=== PATIENT | female | born 1980 | race Caucasian/White ===

== ENCOUNTER 2018-11-21 12:46 | Outpatient (CLI) | payer OTHER ==
[2018-11-21 13:05] VITALS: BP 120/76
== END 2018-11-21 15:43 | disposition home or self-care (01) ==
LOC: TRG 12:46
PROVIDERS: ATTEND Obstetrics & Gynecology
DX: O47.03 False labor before 37 completed weeks of gestation, third trimester (principal); Z3A.37 37 weeks gestation of pregnancy

== ENCOUNTER 2018-11-23 17:46 | Inpatient (IN) | payer OTHER ==
--- NOTE | 2018-11-23 19:20 | History and Physical Report ---
History of Present Illness Date of examination: 11/23/18 Date of admission: 11/23/18 Chief complaint: contractions History of present illness: Pt presents c/o contractions. Cx noted to be 1cm. Pt had variable decel and bpp with satya was obtained. SATYA was 8/8 but SATYA was 5cm. Pt admitted for delivery for low SATYA and latent labor. EDC Confirmation: 12/06/2018 Gestational Age: 7 6/7 weeks Past History : 1 Term Births: 0 Premature Births: 0 Living Children: 0 Para: 0 Mult. Births: 0 Prev : 0 Prev. attempt? 0 Aborta: 0 Elect. Ab: 0 Spont. Ab: 0 Ectopics: 0 Past Medical History: Anxiety [facility] Past Surgical History: Reviewed history from 04/08/2016 and no changes required: Negative Past Surgical History Social History: Reviewed history from 04/08/2016 and no changes required: Homemaker Smoking History: Patient has never smoked. Risk Factors: Smoked Tobacco Use: Never smoker Smokeless Tobacco Use: Never Passive smoke exposure: no Drug use: no HIV high-risk behavior: no Alcohol use: yes Type: occ Drinks per day: social Exercise: no Seatbelt use: 100 % Past Medical History Abnormal PAP: positive Uterine Anomaly: negative Social Hx: Homemaker Smoking History: Patient has never smoked. Infection History Hx of STD: none HIV Risk Eval: no Personal hx. of genital herpes: yes Partner hx. of genital herpes: no Genetic History ADVANCED MATERNAL AGE Congenital Heart Defect: Dad: unknown Kristie Disease: Dad: unknown Thalassemia Dad: unknown Neural Tube Defect Dad: unknown Down's Syndrome Dad: unknown Cirilo-Sachs Dad: unknown Sickle Cell Disease/Trait Dad: unknown Hemophilia Dad: unknown Muscular Dystrophy Dad: unknown Cystic Fibrosis Dad: unknown Martin Chorea Dad: unknown Mental Retardation Dad: unknown Fragile X Dad: unknown Other Genetic/Chromosomal Disorder Dad: unknown Child w/other defect Dad: unknown Enviromental Exposures Xray Exposure: no Medication, drug, or alcohol use since LMP: no Chemical/Other Exposure: no Exposure to Cat Liter: no Hx of Parvovirus (Fifth Disease): no Active Medications (reviewed today): 19 ORAL TABLET CHEWABLE ( VIT-FE FUMARATE-FA) 1 po q day as directed VALTREX 500 MG ORAL TABLET (VALACYCLOVIR HCL) one by mouth twice a day for 3 days LEXAPRO 5 MG () VALTREX 500 MG ORAL TABLET (VALACYCLOVIR HCL) one by mouth twice a day for 3 days Current Allergies (reviewed today): No known allergies Past History - Obstetrical History Expected Date of Delivery: 12/06/18 Actual Gestation: 38 Week(s) 2 Day(s) : 1 Medications and Allergies Allergies Allergy/AdvReac Type Severity Reaction Status Date / Time No Known Allergies Allergy Verified 11/23/18 19:31 Review of Systems All systems: negative - Vital Signs Vital signs: Vital Signs Pulse BP 85 177/85 11/23/18 18:02 11/23/18 18:02 Temp Pulse Resp BP Pulse Ox 98.1 F 96 H 14 154/89 11/23/18 18:24 11/23/18 19:07 11/23/18 18:24 11/23/18 19:07 - Physical Exam Lungs: Positive: Clear to auscultation, Normal air movement Abdomen: Positive: normal appearance, soft. Negative: distention, tenderness, guarding Genitourinary (Female): Positive: normal external genitalia, normal perenium. Negative: perineal/vulvar lesions Vagina: Positive: other (no s/sx of SROM as per triage nurse. CX exam as per triage nurse) Results Result Diagrams: 11/23/18 19:45 All other labs normal. Assessment and Plan - Patient Problems (1) 38 weeks gestation of Current Visit: Yes Status: Acute (2) Prolonged latent phase of labor Current Visit: Yes Status: Acute (3) Oligohydramnios antepartum Current Visit: Yes Status: Acute Plan to address problem: -admit -pitocin as needed currently having regular contractions (4) Positive GBS test Current Visit: Yes Status: Acute Plan to address problem: -start antibx until delivery
[2018-11-23] MEDS ORDERED: BRETHINE SUB-Q PRN (19:21)
[2018-11-23] MEDS ORDERED: BRETHINE IVP PRN (19:21)
[2018-11-23] MEDS ORDERED: MINERAL OIL PO PRN (19:21)
[2018-11-23] MEDS ORDERED: XYLOCAINE 2% INFILTRATI ONE (19:21)
[2018-11-23] MEDS ORDERED: AMPICILLIN/NS 2 GM/100 ML 2 GM/100 ML BAG IV ONE (19:21)
--- NOTE | 2018-11-23 19:45 | Ultrasound Report ---
Limited OB ultrasound and BPP INDICATION: labor FINDINGS: Single intrauterine is identified. The fetus is in a cephalic presentation. The a mniotic fluid index is 5 cm which is below normal. The placenta is located anteriorly. Placenta is gr deisy 1. heart rate is 142 bpm. Biophysical profile score is 8 out of 8. There is one pocket of fluid measuring 2 cm in the vertical axis even though the SATYA is decreased. IMPRESSION: The amniotic fluid index is decreased (5 cm). The BPP score is 8 out of 8. Signer Name: Yogesh Dodd MD Signed: 11/23/2018 7:41 PM Workstation Name: [id number]
[2018-11-23] MEDS ORDERED: PITOCin/NS 30 UNIT/500ML 30 UNITS/500 ML BAG IV SCH (20:00)
[2018-11-23] MEDS ORDERED: PITOCin/NS 20 UNIT/1000ML DRIP 20 UNITS/1,000 ML BAG IV SCH (20:00)
[2018-11-23 20:06] LABS: Hematocrit 38.9 % (30.3-42.9); Hemoglobin 13.2 gm/dl (10.1-14.3); Mean Corpuscular HGB Conc 34 % (30-34); Mean Corpuscular Volume 93 fl (79-97); Platelet Count 215 K/mm3 (140-440); Red Blood Count 4.21 M/mm3 (3.65-5.03); Red Cell Distribution Width 16.9 % (13.2-15.2)
[2018-11-23] MEDS: SUBLIMAZE IV PRN ×2 (20:54→22:26)
[2018-11-23] MEDS: LACTATED RINGERS 1,000 ML IV SCH (22:30)
[2018-11-23] MEDS: AMPICILLIN/NS 1 GM/50 ML 1 GM/50 ML BAG IV SCH (23:28)
[2018-11-24] MEDS: SUBLIMAZE IV PRN ×4 (01:40→19:10)
[2018-11-24] MEDS: AMPICILLIN/NS 1 GM/50 ML 1 GM/50 ML BAG IV SCH ×4 (04:00→18:31)
--- NOTE | 2018-11-24 05:58 | Progress Note ---
Assessment and Plan - Patient Problems (1) 38 weeks gestation of Current Visit: Yes Status: Acute (2) Prolonged latent phase of labor Current Visit: Yes Status: Acute (3) Oligohydramnios antepartum Current Visit: Yes Status: Acute Plan to address problem: -admit -pitocin as needed currently having regular contractions (4) Positive GBS test Current Visit: Yes Status: Acute Plan to address problem: -start antibx until delivery (5) SROM (spontaneous rupture of membranes) Current Visit: Yes Status: Acute Plan to address problem: - will start pitocin at this time as contractions seem to have spaced out. Subjective - Subjective Date of service: 11/24/18 Principal diagnosis: 1) 38 wks 2)Oligo Interval history: Pt doing well but c/o having contractions. Pt examnined and bag not palpated and perineum with some bloody show. Fluid appeared to be on the glove as well. It is not clear when SROM happened as pt does not recall no does she recall having leaking prior to coming in to hospital just of having spotting/ bloody discharge. Patient reports: no new complaints Objective - Vital Signs Vital Signs: Vital Signs - 12hr 11/23/18 11/23/18 11/23/18 18:02 18:24 19:07 Temperature 98.1 F Pulse Rate 85 96 H Respiratory 14 Rate Blood Pressure 177/85 154/89 11/23/18 11/23/18 11/23/18 19:30 20:01 20:57 Temperature 97.8 F Pulse Rate 102 H 96 H Respiratory 18 Rate Blood Pressure 173/81 124/72 11/23/18 11/23/18 11/23/18 21:59 22:00 22:17 Temperature 97.6 F Pulse Rate 99 H 95 H Respiratory 20 Rate Blood Pressure 212/115 186/94 11/23/18 11/23/18 11/23/18 22:20 22:21 22:31 Temperature Pulse Rate 100 H 100 H 86 Respiratory Rate Blood Pressure 182/92 178/93 148/75 11/23/18 11/23/18 11/23/18 22:58 23:10 23:59 Temperature 98.6 F Pulse Rate 90 99 H Respiratory 20 Rate Blood Pressure 135/81 182/87 11/24/18 11/24/18 11/24/18 00:04 00:05 01:37 Temperature Pulse Rate 102 H 102 H 95 H Respiratory Rate Blood Pressure 151/83 165/82 139/73 11/24/18 11/24/18 11/24/18 01:58 02:30 03:24 Temperature 97.8 F Pulse Rate 92 H 101 H Respiratory 20 Rate Blood Pressure 136/75 162/89 - Exam FHR: category 1 Cervical Dilatation: 1 (appears to have SROM/ clear fluid; no bag palpated on exam) Cervical Effacement Percentage: 100 station: -1 - Labs Labs: Abnormal Labs 11/23/18 19:45 WBC 12.3 H RDW 16.9 H Laboratory Results - last 24 hr 11/23/18 11/23/18 19:45 21:00 WBC 12.3 H RBC 4.21 Hgb 13.2 Hct 38.9 MCV 93 MCH 31 MCHC 34 RDW 16.9 H Plt Count 215 Blood Type O NEGATIVE Antibody Screen Negative
--- NOTE | 2018-11-24 13:46 | Progress Note ---
Assessment and Plan SVE 5,100,-1 Bolus for epidural Re-eval after placement Subjective - Subjective Date of service: 11/24/18 (pt asking for epidural) Principal diagnosis: 1) 38 wks 2)Oligo Patient reports: movement normal, no new complaints Objective - Vital Signs Vital Signs: Vital Signs - 12hr 11/24/18 11/24/18 11/24/18 01:58 02:00 02:30 Temperature 97.6 F 97.8 F Pulse Rate 92 H Respiratory 20 20 Rate Blood Pressure 136/75 11/24/18 11/24/18 11/24/18 03:24 04:00 08:18 Temperature 98.0 F Pulse Rate 101 H 107 H Respiratory 20 Rate Blood Pressure 162/89 122/69 11/24/18 11/24/18 11/24/18 10:12 10:41 11:11 Temperature Pulse Rate 104 H 100 H 107 H Respiratory Rate Blood Pressure 131/79 139/70 144/82 11/24/18 11/24/18 11/24/18 11:41 11:48 11:53 Temperature Pulse Rate 93 H 90 90 Respiratory Rate Blood Pressure 138/77 127/69 142/69 11/24/18 11/24/18 11/24/18 11:58 12:01 12:07 Temperature Pulse Rate 90 90 90 Respiratory Rate Blood Pressure 139/69 139/72 139/69 11/24/18 11/24/18 11/24/18 12:11 12:16 12:36 Temperature Pulse Rate 94 H 87 94 H Respiratory Rate Blood Pressure 126/64 129/65 143/76 11/24/18 11/24/18 11/24/18 12:51 13:06 13:22 Temperature Pulse Rate 105 H 109 H 103 H Respiratory Rate Blood Pressure 137/70 135/77 155/84 - Exam Breasts: deferred Cardiovascular: Regular rate Lungs: Normal air movement, Other Abdomen: Present: normal appearance, soft. Absent: distention, tenderness Uterus: Present: normal FHR: auscultation normal, category 1 Uterine Contraction Monitor Mode: Internal Cervical Dilatation: 5 (ISE/IUP) Cervical Effacement Percentage: 100 station: -1 Uterine Contraction Pattern: Regular Uterine Tone Measurement Phase: Resting Uterine Contraction Intensity: Moderate Extremities: normal Deep Tendon Reflex Grade: Normal +2 - Labs Labs: Abnormal Labs 11/23/18 19:45 WBC 12.3 H RDW 16.9 H Laboratory Results - last 24 hr 11/23/18 11/23/18 11/23/18 19:45 19:45 21:00 WBC 12.3 H RBC 4.21 Hgb 13.2 Hct 38.9 MCV 93 MCH 31 MCHC 34 RDW 16.9 H Plt Count 215 RPR Nonreactive Blood Type O NEGATIVE Antibody Screen Negative
[2018-11-24] MEDS: LACTATED RINGERS 1,000 ML IV SCH (13:55)
[2018-11-24] MEDS ORDERED: NARCAN 2 MG/2 ML IV PRN (15:02)
[2018-11-24] MEDS ORDERED: XYLOCAINE MPF 2% ONE (15:47)
[2018-11-24] MEDS ORDERED: fentaNYL-BUPIV 2 MCG/ML-0.125% 200 MCG/100 ML BAG EPIDURAL SCH (16:00)
[2018-11-24] MEDS ORDERED: MARCAINE 0.25% INFILTRATI ONE ×2 (16:02→19:43)
[2018-11-24 16:23] LABS: Hematocrit 39.4 % (30.3-42.9); Hemoglobin 13.5 gm/dl (10.1-14.3); Mean Corpuscular HGB Conc 34 % (30-34); Mean Corpuscular Volume 91 fl (79-97); Platelet Count 195 K/mm3 (140-440); Red Blood Count 4.31 M/mm3 (3.65-5.03); Red Cell Distribution Width 16.6 % (13.2-15.2)
[2018-11-24] MEDS ORDERED: LASIX IV ONE ×2 (16:25→17:00)
--- NOTE | 2018-11-24 16:38 | XRay Report ---
CHEST 1 VIEW 11/24/2018 3:53 PM INDICATION / CLINICAL INFORMATION: Respiratory distress. COMPARISON: None available. FINDINGS: SUPPORT DEVICES: None. HEART / MEDIASTINUM: Mild cardiomegaly. LUNGS / PLEURA: Mild bilateral interstitial edema. No significant pleural effusion. No pneumothorax. ADDITIONAL FINDINGS: No significant additional findings. IMPRESSION: 1. Mild cardiomegaly and bilateral interstitial pulmonary edema. Signer Name: Cezar Sorto MD Signed: 11/24/2018 4:33 PM Workstation Name: [id number]
--- NOTE | 2018-11-24 16:41 | Progress Note ---
Assessment and Plan anesthesia presented to pt's room to place epidural and pt was c/o being SOB, gasping. O2 via face mask, O2 sat 70%. Stat x-ray ordered, BP elevated PIH labs ordered. SVE unchged. Notified of situation Order given for Lasix 10mg X 1 dose. Subjective - Subjective Date of service: 11/24/18 (called urgently to room) Principal diagnosis: 1) 38 wks 2)Oligo Patient reports: movement normal, other (labored breathing when anesthesia presented to the room), no new complaints Objective - Vital Signs Vital Signs: Vital Signs - 12hr 11/24/18 11/24/18 11/24/18 08:18 10:12 10:41 Pulse Rate 107 H 104 H 100 H Blood Pressure 122/69 131/79 139/70 O2 Sat by Pulse Oximetry 11/24/18 11/24/18 11/24/18 11:11 11:41 11:48 Pulse Rate 107 H 93 H 90 Blood Pressure 144/82 138/77 127/69 O2 Sat by Pulse Oximetry 11/24/18 11/24/18 11/24/18 11:53 11:58 12:01 Pulse Rate 90 90 90 Blood Pressure 142/69 139/69 139/72 O2 Sat by Pulse Oximetry 11/24/18 11/24/18 11/24/18 12:07 12:11 12:16 Pulse Rate 90 94 H 87 Blood Pressure 139/69 126/64 129/65 O2 Sat by Pulse Oximetry 11/24/18 11/24/18 11/24/18 12:36 12:51 13:06 Pulse Rate 94 H 105 H 109 H Blood Pressure 143/76 137/70 135/77 O2 Sat by Pulse Oximetry 11/24/18 11/24/18 11/24/18 13:22 14:13 14:18 Pulse Rate 103 H 110 H 108 H Blood Pressure 155/84 O2 Sat by Pulse 93 91 Oximetry 11/24/18 11/24/18 11/24/18 14:20 14:22 14:23 Pulse Rate 116 H 113 H 114 H Blood Pressure 169/93 O2 Sat by Pulse 94 92 Oximetry 11/24/18 11/24/18 11/24/18 14:28 14:33 14:36 Pulse Rate 117 H 118 H 109 H Blood Pressure 139/62 O2 Sat by Pulse 93 76 L Oximetry 11/24/18 11/24/18 11/24/18 14:38 14:43 14:48 Pulse Rate 114 H 113 H 118 H Blood Pressure O2 Sat by Pulse 88 87 89 Oximetry 11/24/18 11/24/18 11/24/18 14:53 14:58 15:03 Pulse Rate 113 H 121 H 122 H Blood Pressure O2 Sat by Pulse 86 73 L 76 L Oximetry 11/24/18 11/24/18 11/24/18 15:07 15:08 15:13 Pulse Rate 116 H 121 H 124 H Blood Pressure 172/111 O2 Sat by Pulse 76 L 79 L Oximetry 11/24/18 11/24/18 11/24/18 15:39 15:40 15:42 Pulse Rate 136 H 125 H Blood Pressure 221/96 O2 Sat by Pulse 72 L 70 L Oximetry 11/24/18 11/24/18 11/24/18 15:45 15:48 15:50 Pulse Rate 132 H 133 H 131 H Blood Pressure 265/148 137/90 O2 Sat by Pulse 88 90 Oximetry 11/24/18 11/24/18 11/24/18 15:52 15:55 16:00 Pulse Rate 139 H 131 H 141 H Blood Pressure 143/81 O2 Sat by Pulse 94 86 Oximetry 11/24/18 11/24/18 11/24/18 16:03 16:05 16:10 Pulse Rate 138 H 138 H 137 H Blood Pressure O2 Sat by Pulse 90 91 90 Oximetry 11/24/18 11/24/18 11/24/18 16:11 16:15 16:20 Pulse Rate 45 L 140 H Blood Pressure O2 Sat by Pulse 94 93 92 Oximetry 11/24/18 11/24/18 11/24/18 16:21 16:23 16:25 Pulse Rate 144 H 141 H 130 H Blood Pressure 185/99 186/90 O2 Sat by Pulse 93 Oximetry 11/24/18 11/24/18 16:26 16:27 Pulse Rate 134 H 136 H Blood Pressure 160/66 O2 Sat by Pulse 92 Oximetry - Exam Breasts: deferred Cardiovascular: Other (tachycardia >100) Lungs: Other (wheezing and rales) Abdomen: Present: normal appearance, soft. Absent: distention, tenderness Uterus: Present: normal FHR: auscultation normal, category 1 Uterine Contraction Monitor Mode: External Cervical Dilatation: 4 Cervical Effacement Percentage: 100 station: -1 Uterine Contraction Pattern: Regular Uterine Tone Measurement Phase: Resting Uterine Contraction Intensity: Moderate Extremities: edema Deep Tendon Reflex Grade: Normal +2 - Labs Labs: Abnormal Labs 11/23/18 11/24/18 19:45 16:12 WBC 12.3 H 16.3 H RDW 16.9 H 16.6 H Laboratory Results - last 24 hr 11/23/18 11/23/18 11/23/18 19:45 19:45 21:00 WBC 12.3 H RBC 4.21 Hgb 13.2 Hct 38.9 MCV 93 MCH 31 MCHC 34 RDW 16.9 H Plt Count 215 RPR Nonreactive Blood Type O NEGATIVE Antibody Screen Negative 11/24/18 16:12 WBC 16.3 H RBC 4.31 Hgb 13.5 Hct 39.4 MCV 91 MCH 31 MCHC 34 RDW 16.6 H Plt Count 195 RPR Blood Type Antibody Screen
[2018-11-24 16:46] LABS: Alanine Aminotransferase 24 units/L (7-56); Uric Acid 4.7 mg/dL (3.5-7.6)
[2018-11-24] MEDS ORDERED: NEO SYNEPHRINE ONE (16:55)
[2018-11-24] MEDS ORDERED: REGLAN ONE (17:04)
[2018-11-24] MEDS ORDERED: BICITRA ONE (17:04)
[2018-11-24] MEDS ORDERED: PEPCID IV ONE (17:05)
[2018-11-24] MEDS ORDERED: ANCEF/STERILE WATER 2 GM/20 ML 2 GM/20 ML SYRINGE IV ONE (17:05)
[2018-11-24 17:40] LABS: Bilirubin,Urine NEG (Negative); Blood,Urine SM (Negative); Color,Urine Straw (Yellow); Protein,Urine <15 mg/dL mg/dL (Negative); Urobilinogen,Urine < 2.0 mg/dL (<2.0); WBC,Urine < 1.0 /HPF (0.0-6.0)
--- NOTE | 2018-11-24 18:05 | Progress Note ---
Assessment and Plan - Patient Problems (1) 38 weeks gestation of Current Visit: Yes Status: Acute Plan to address problem: No cervical change since ~1330, pitocin only increased to 4mu/min with variables noted at 4mu/min. Pitocin decreaseed to 2mu/min however discontinued when she was diagnosed with Pulm edema. Options reviewed. She desires to proceed with c/s however will attempt to optimize breathing prior to c/s. Cat 1 FHT's (2) Pulmonary edema Current Visit: Yes Status: Acute Plan to address problem: Feeling better, s/p lasix 10mg IV x2 (3) Preeclampsia Current Visit: Yes Status: Acute Plan to address problem: Diagnosis by elevated BP's, will hold MgSO4 d/t pulmonary edema. observe closely (4) Positive GBS test Current Visit: Yes Status: Acute Subjective - Subjective Date of service: 11/24/18 Principal diagnosis: 1) 38 wks 2)Oligo 3) Preeclampsia 4) pulmonary edema Interval history: Breathing better, resting in bed head elevated. 10L face mask Patient reports: new complaints, movement normal, other (labored breathing when anesthesia presented to the room) Objective - Vital Signs Vital Signs: Vital Signs - 12hr 11/24/18 11/24/18 11/24/18 08:18 10:12 10:41 Pulse Rate 107 H 104 H 100 H Blood Pressure 122/69 131/79 139/70 O2 Sat by Pulse Oximetry 11/24/18 11/24/18 11/24/18 11:11 11:41 11:48 Pulse Rate 107 H 93 H 90 Blood Pressure 144/82 138/77 127/69 O2 Sat by Pulse Oximetry 11/24/18 11/24/18 11/24/18 11:53 11:58 12:01 Pulse Rate 90 90 90 Blood Pressure 142/69 139/69 139/72 O2 Sat by Pulse Oximetry 11/24/18 11/24/18 11/24/18 12:07 12:11 12:16 Pulse Rate 90 94 H 87 Blood Pressure 139/69 126/64 129/65 O2 Sat by Pulse Oximetry 11/24/18 11/24/18 11/24/18 12:36 12:51 13:06 Pulse Rate 94 H 105 H 109 H Blood Pressure 143/76 137/70 135/77 O2 Sat by Pulse Oximetry 11/24/18 11/24/1811/24/19 13:22 14:13 14:18 Pulse Rate 103 H 110 H 108 H Blood Pressure 155/84 O2 Sat by Pulse 93 91 Oximetry 11/24/18 11/24/18 11/24/18 14:20 14:22 14:23 Pulse Rate 116 H 113 H 114 H Blood Pressure 169/93 O2 Sat by Pulse 94 92 Oximetry 11/24/18 11/24/18 11/24/18 14:28 14:33 14:36 Pulse Rate 117 H 118 H 109 H Blood Pressure 139/62 O2 Sat by Pulse 93 76 L Oximetry 11/24/18 11/24/18 11/24/18 14:38 14:43 14:48 Pulse Rate 114 H 113 H 118 H Blood Pressure O2 Sat by Pulse 88 87 89 Oximetry 11/24/18 11/24/18 11/24/18 14:53 14:58 15:03 Pulse Rate 113 H 121 H 122 H Blood Pressure O2 Sat by Pulse 86 73 L 76 L Oximetry 11/24/18 11/24/18 11/24/18 15:07 15:08 15:13 Pulse Rate 116 H 121 H 124 H Blood Pressure 172/111 O2 Sat by Pulse 76 L 79 L Oximetry 11/24/18 11/24/18 11/24/18 15:39 15:40 15:42 Pulse Rate 136 H 125 H Blood Pressure 221/96 O2 Sat by Pulse 72 L 70 L Oximetry 11/24/18 11/24/18 11/24/18 15:45 15:48 15:50 Pulse Rate 132 H 133 H 131 H Blood Pressure 265/148 137/90 O2 Sat by Pulse 88 90 Oximetry 11/24/18 11/24/18 11/24/18 15:52 15:55 16:00 Pulse Rate 139 H 131 H 141 H Blood Pressure 143/81 O2 Sat by Pulse 94 86 Oximetry 11/24/18 11/24/18 11/24/18 16:03 16:05 16:10 Pulse Rate 138 H 138 H 137 H Blood Pressure O2 Sat by Pulse 90 91 90 Oximetry 11/24/18 11/24/18 11/24/18 16:11 16:15 16:20 Pulse Rate 45 L 140 H Blood Pressure O2 Sat by Pulse 94 93 92 Oximetry 11/24/18 11/24/18 11/24/18 16:21 16:23 16:25 Pulse Rate 144 H 141 H 130 H Blood Pressure 185/99 186/90 O2 Sat by Pulse 93 Oximetry 11/24/18 11/24/18 11/24/18 16:26 16:27 16:29 Pulse Rate 134 H 136 H 136 H Blood Pressure 160/66 150/66 O2 Sat by Pulse 92 Oximetry 11/24/18 11/24/18 11/24/18 16:31 16:37 16:38 Pulse Rate 133 H 60 150 H Blood Pressure 142/63 148/67 O2 Sat by Pulse 93 78 L Oximetry 11/24/18 11/24/18 11/24/18 16:41 16:42 16:47 Pulse Rate 148 H 150 H 64 Blood Pressure 121/57 O2 Sat by Pulse 90 89 Oximetry 11/24/18 11/24/18 11/24/18 16:48 16:50 16:52 Pulse Rate 65 137 H 153 H Blood Pressure 81/38 76/43 O2 Sat by Pulse 88 Oximetry 11/24/18 11/24/18 11/24/18 16:56 16:57 17:03 Pulse Rate 116 H 110 H Blood Pressure O2 Sat by Pulse 92 89 100 Oximetry 11/24/18 11/24/18 11/24/18 17:06 17:09 17:12 Pulse Rate 121 H 117 H Blood Pressure 115/59 O2 Sat by Pulse 92 94 Oximetry 11/24/18 11/24/18 11/24/18 17:14 17:18 17:19 Pulse Rate 107 H 118 H 126 H Blood Pressure 83/43 O2 Sat by Pulse 91 93 Oximetry 11/24/18 11/24/18 11/24/18 17:24 17:28 17:29 Pulse Rate 116 H 125 H 121 H Blood Pressure 90/52 O2 Sat by Pulse 91 93 91 Oximetry 11/24/18 11/24/18 11/24/18 17:33 17:34 17:37 Pulse Rate 106 H 100 H 95 H Blood Pressure 112/60 115/66 O2 Sat by Pulse 92 Oximetry 11/24/18 11/24/18 11/24/18 17:39 17:42 17:43 Pulse Rate 115 H 102 H 114 H Blood Pressure 111/69 O2 Sat by Pulse 98 94 Oximetry 11/24/18 11/24/18 11/24/18 17:44 17:47 17:49 Pulse Rate 111 H 116 H 110 H Blood Pressure 111/58 O2 Sat by Pulse 97 96 Oximetry 11/24/18 11/24/18 11/24/18 17:52 17:54 17:57 Pulse Rate 104 H 103 H 108 H Blood Pressure 108/55 108/56 O2 Sat by Pulse 96 Oximetry 11/24/18 11/24/18 11/24/18 17:59 18:02 18:04 Pulse Rate 110 H 106 H 103 H Blood Pressure 113/64 O2 Sat by Pulse 97 96 Oximetry - Exam Breasts: deferred Lungs: Other Vulva: both: normal Uterus: Present: fundal height above umbilicus. Absent: tenderness FHR: category 1 Uterine Contraction Monitor Mode: Internal Cervical Dilatation: 5 Cervical Effacement Percentage: 100 station: 0 Uterine Contraction Pattern: Regular (pitocin off) Extremities: edema (trace) - Labs Labs: Abnormal Labs 11/23/18 11/24/18 11/24/18 19:45 16:12 16:12 WBC 12.3 H 16.3 H RDW 16.9 H 16.6 H Creatinine 0.5 L Lactate Dehydrogenase 248 H Laboratory Results - last 24 hr 11/23/18 11/23/18 11/23/18 19:45 19:45 21:00 WBC 12.3 H RBC 4.21 Hgb 13.2 Hct 38.9 MCV 93 MCH 31 MCHC 34 RDW 16.9 H Plt Count 215 Creatinine Estimated GFR Uric Acid AST ALT Lactate Dehydrogenase Urine Color Urine Turbidity Urine pH Ur Specific [place] Urine Protein Urine Glucose (UA) Urine Ketones Urine Blood Urine Nitrite Urine Bilirubin Urine Urobilinogen Ur Leukocyte Esterase Urine WBC (Auto) Urine RBC (Auto) U Epithel Cells (Auto) RPR Nonreactive Blood Type O NEGATIVE Antibody Screen Negative 11/24/18 11/24/18 11/24/18 16:12 16:12 16:26 WBC 16.3 H RBC 4.31 Hgb 13.5 Hct 39.4 MCV 91 MCH 31 MCHC 34 RDW 16.6 H Plt Count 195 Creatinine 0.5 L Estimated GFR > 60 Uric Acid 4.7 AST 33 ALT 24 Lactate Dehydrogenase 248 H Urine Color Straw Urine Turbidity Clear Urine pH 6.0 Ur Specific [place] 1.009 Urine Protein <15 mg/dl Urine Glucose (UA) >=500 Urine Ketones 80 Urine Blood Sm Urine Nitrite Neg Urine Bilirubin Neg Urine Urobilinogen < 2.0 Ur Leukocyte Esterase Neg Urine WBC (Auto) < 1.0 Urine RBC (Auto) 2.0 U Epithel Cells (Auto) < 1.0 RPR Blood Type Antibody Screen
--- NOTE | 2018-11-24 18:24 | Anesthesia Consultation ---
Anesthesia Consult and Med Hx Date of service: 11/24/18 - Airway Anesthetic Teeth Evaluation: Good ROM Head & Neck: Adequate Mental/Hyoid Distance: Adequate Mallampati Class: Class II Intubation Access Assessment: Probably Good - Pulmonary Exam CTA: No (diffuse bilateral rhonchi) - Cardiac Exam Cardiac Exam: RRR (tachycardia) - Pre-Operative Health Status ASA Pre-Surgery Classification: ASA3 Proposed Anesthetic Plan: Epidural - Pulmonary Hx Smoking: No Hx Asthma: No Hx Respiratory Symptoms: Yes (sudden onset dyspnea less than 30 mins prior to exam) SOB: Yes COPD: No Hx Pneumonia: No - Cardiovascular System Hx Hypertension: Yes (BP elevated on admission) Hx Heart Attack/AMI: No Hx Percutaneous Transluminal Coronary Angioplasty (PTCA): No Hx Cardia Arrhythmia: No - Central Nervous System Hx Seizures: No CVA: No Hx Psychiatric Problems: Yes (anxiety) - Endocrine Hx Renal Disease: No Hx Liver Disease: No Hx Non-Insulin Dependent Diabetes: Yes Hx Thyroid Disease: No - Other Systems Hx Alcohol Use: Yes (occassional) - Additional Comments Anesthesia Medical History Comments: No prior epidurals. No hx bleeding disorders or anticoagulant use. On arrival to patient's room at approx 1545, patient complained of acute onset SOB which started less than one half hour prior to my arrival. She appeared in moderate distress and lung exam revealed diffuse rhonchi. Pulse oxymetry was applied and showed SpO2 mid-70s. She was placed on supplemental O2 via NRB with gradual improvement to low-90s. [employer] and OB were notified. Stat CXR was ordered revealing pulmonary edema and stat PIH labs were drawn. Decision was made to place epidural catheter at this time to relieve significant discomfort/anxiety associated with labor pain and for use should urgent/emergent become indicated (see anes record for procedure note). Patient was administerred lasix 10mg IV per OB orders, to which she did n ot have significant urinary response but did have improvement in work of breathing. Patient was later examined in conjuction with OB and diagnosis of pre-eclampsia with severe features was made. SVE unchanged and patient remote from delivery. Per OB, will attempt further diuresis with lasix at this time to optimize respiratory status prior to likely . Plan of care discussed with patient and family memeber at bedside.
--- NOTE | 2018-11-24 18:46 | Event Note ---
Date: 11/24/18 Assessment and Plan - Patient Problems (1) 38 weeks gestation of Current Visit: Yes Status: Acute (2) Pulmonary edema Current Visit: Yes Status: Acute (3) Positive GBS test Current Visit: Yes Status: Acute (4) Gestational hypertension Current Visit: Yes Status: Acute Qualifiers: Trimester: third trimester Qualified Code(s): O13.3 - Gestational [-induced] hypertension without significant proteinuria, third trimester Plan to address problem: with severe features, UA resulted, negative protein. Still with hold MgSO4 d/t pulm edema
[2018-11-24] MEDS ORDERED: LASIX IV SCH (19:00)
[2018-11-24] MEDS ORDERED: APRESOLINE IV ONE (19:05)
[2018-11-24] MEDS ORDERED: XYLOCAINE 2%/ EPI 1:200,000 INFILTRATI ONE (19:51)
--- NOTE | 2018-11-24 19:51 | Progress Note ---
Assessment and Plan - Patient Problems (1) 38 weeks gestation of Current Visit: Yes Status: Acute (2) Pulmonary edema Current Visit: Yes Status: Acute (3) Positive GBS test Current Visit: Yes Status: Acute (4) Gestational hypertension Current Visit: Yes Status: Acute Qualifiers: Trimester: third trimester Qualified Code(s): O13.3 - Gestational [-induced] hypertension without significant proteinuria, third trimester (5) Failure of cervical dilation Current Visit: Yes Status: Acute Subjective - Subjective Date of service: 11/24/18 Principal diagnosis: 1) 38 wks 2)Oligo 3) Preeclampsia 4) pulmonary edema Interval history: Feels better, complains of contractions, resting in bed head elevated. Declined pelvic exam, desires to proceed with c/s. Consents reviewed and signed, questions encouraged and answered, she voiced understanding. Patient reports: new complaints, movement normal, other (labored breathing when anesthesia presented to the room) Objective - Vital Signs Vital Signs: Vital Signs - 12hr 11/24/18 11/24/18 11/24/18 08:18 10:12 10:41 Temperature Pulse Rate 107 H 104 H 100 H Respiratory Rate Blood Pressure 122/69 131/79 139/70 O2 Sat by Pulse Oximetry 11/24/18 11/24/18 11/24/18 11:11 11:41 11:48 Temperature Pulse Rate 107 H 93 H 90 Respiratory Rate Blood Pressure 144/82 138/77 127/69 O2 Sat by Pulse Oximetry 11/24/18 11/24/18 11/24/18 11:53 11:58 12:01 Temperature Pulse Rate 90 90 90 Respiratory Rate Blood Pressure 142/69 139/69 139/72 O2 Sat by Pulse Oximetry 11/24/18 11/24/18 11/24/18 12:07 12:11 12:16 Temperature Pulse Rate 90 94 H 87 Respiratory Rate Blood Pressure 139/69 126/64 129/65 O2 Sat by Pulse Oximetry 11/24/18 11/24/18 11/24/18 12:36 12:51 13:06 Temperature Pulse Rate 94 H 105 H 109 H Respiratory Rate Blood Pressure 143/76 137/70 135/77 O2 Sat by Pulse Oximetry 11/24/18 11/24/18 11/24/18 13:22 14:13 14:18 Temperature Pulse Rate 103 H 110 H 108 H Respiratory Rate Blood Pressure 155/84 O2 Sat by Pulse 93 91 Oximetry 11/24/18 11/24/18 11/24/18 14:20 14:22 14:23 Temperature Pulse Rate 116 H 113 H 114 H Respiratory Rate Blood Pressure 169/93 O2 Sat by Pulse 94 92 Oximetry 11/24/18 11/24/18 11/24/18 14:28 14:33 14:36 Temperature Pulse Rate 117 H 118 H 109 H Respiratory Rate Blood Pressure 139/62 O2 Sat by Pulse 93 76 L Oximetry 11/24/18 11/24/18 11/24/18 14:38 14:43 14:48 Temperature Pulse Rate 114 H 113 H 118 H Respiratory Rate Blood Pressure O2 Sat by Pulse 88 87 89 Oximetry 11/24/18 11/24/18 11/24/18 14:53 14:58 15:03 Temperature Pulse Rate 113 H 121 H 122 H Respiratory Rate Blood Pressure O2 Sat by Pulse 86 73 L 76 L Oximetry 11/24/18 11/24/18 11/24/18 15:07 15:08 15:13 Temperature Pulse Rate 116 H 121 H 124 H Respiratory Rate Blood Pressure 172/111 O2 Sat by Pulse 76 L 79 L Oximetry 11/24/18 11/24/18 11/24/18 15:39 15:40 15:42 Temperature Pulse Rate 136 H 125 H Respiratory Rate Blood Pressure 221/96 O2 Sat by Pulse 72 L 70 L Oximetry 11/24/18 11/24/18 11/24/18 15:45 15:48 15:50 Temperature Pulse Rate 132 H 133 H 131 H Respiratory Rate Blood Pressure 265/148 137/90 O2 Sat by Pulse 88 90 Oximetry 11/24/18 11/24/18 11/24/18 15:52 15:55 16:00 Temperature Pulse Rate 139 H 131 H 141 H Respiratory Rate Blood Pressure 143/81 O2 Sat by Pulse 94 86 Oximetry 11/24/18 11/24/18 11/24/18 16:03 16:05 16:10 Temperature Pulse Rate 138 H 138 H 137 H Respiratory Rate Blood Pressure O2 Sat by Pulse 90 91 90 Oximetry 11/24/18 11/24/18 11/24/18 16:11 16:15 16:20 Temperature Pulse Rate 45 L 140 H Respiratory Rate Blood Pressure O2 Sat by Pulse 94 93 92 Oximetry 11/24/18 11/24/18 11/24/18 16:21 16:23 16:25 Temperature Pulse Rate 144 H 141 H 130 H Respiratory Rate Blood Pressure 185/99 186/90 O2 Sat by Pulse 93 Oximetry 11/24/18 11/24/18 11/24/18 16:26 16:27 16:29 Temperature Pulse Rate 134 H 136 H 136 H Respiratory Rate Blood Pressure 160/66 150/66 O2 Sat by Pulse 92 Oximetry 11/24/18 11/24/18 11/24/18 16:31 16:37 16:38 Temperature Pulse Rate 133 H 60 150 H Respiratory Rate Blood Pressure 142/63 148/67 O2 Sat by Pulse 93 78 L Oximetry 11/24/18 11/24/18 11/24/18 16:41 16:42 16:47 Temperature Pulse Rate 148 H 150 H 64 Respiratory Rate Blood Pressure 121/57 O2 Sat by Pulse 90 89 Oximetry 11/24/18 11/24/18 11/24/18 16:48 16:50 16:52 Temperature Pulse Rate 65 137 H 153 H Respiratory Rate Blood Pressure 81/38 76/43 O2 Sat by Pulse 88 Oximetry 11/24/18 11/24/18 11/24/18 16:56 16:57 17:03 Temperature Pulse Rate 116 H 110 H Respiratory Rate Blood Pressure O2 Sat by Pulse 92 89 100 Oximetry 11/24/18 11/24/18 11/24/18 17:06 17:09 17:12 Temperature Pulse Rate 121 H 117 H Respiratory Rate Blood Pressure 115/59 O2 Sat by Pulse 92 94 Oximetry 11/24/18 11/24/18 11/24/18 17:14 17:18 17:19 Temperature Pulse Rate 107 H 118 H 126 H Respiratory Rate Blood Pressure 83/43 O2 Sat by Pulse 91 93 Oximetry 11/24/18 11/24/18 11/24/18 17:24 17:28 17:29 Temperature Pulse Rate 116 H 125 H 121 H Respiratory Rate Blood Pressure 90/52 O2 Sat by Pulse 91 93 91 Oximetry 11/24/18 11/24/18 11/24/18 17:33 17:34 17:37 Temperature Pulse Rate 106 H 100 H 95 H Respiratory Rate Blood Pressure 112/60 115/66 O2 Sat by Pulse 92 Oximetry 11/24/18 11/24/18 11/24/18 17:39 17:42 17:43 Temperature Pulse Rate 115 H 102 H 114 H Respiratory Rate Blood Pressure 111/69 O2 Sat by Pulse 98 94 Oximetry 11/24/18 11/24/18 11/24/18 17:44 17:47 17:49 Temperature Pulse Rate 111 H 116 H 110 H Respiratory Rate Blood Pressure 111/58 O2 Sat by Pulse 97 96 Oximetry 11/24/18 11/24/18 11/24/18 17:52 17:54 17:57 Temperature Pulse Rate 104 H 103 H 108 H Respiratory Rate Blood Pressure 108/55 108/56 O2 Sat by Pulse 96 Oximetry 11/24/18 11/24/18 11/24/18 17:59 18:02 18:04 Temperature Pulse Rate 110 H 106 H 103 H Respiratory Rate Blood Pressure 113/64 O2 Sat by Pulse 97 96 Oximetry 11/24/18 11/24/18 11/24/18 18:07 18:09 18:13 Temperature Pulse Rate 105 H 112 H 106 H Respiratory Rate Blood Pressure 122/72 145/82 O2 Sat by Pulse 96 Oximetry 11/24/18 11/24/18 11/24/18 18:14 18:18 18:19 Temperature Pulse Rate 106 H 104 H 107 H Respiratory Rate Blood Pressure 149/79 O2 Sat by Pulse 97 96 Oximetry 11/24/18 11/24/18 11/24/18 18:23 18:24 18:29 Temperature Pulse Rate 108 H 109 H 105 H Respiratory Rate Blood Pressure 148/74 171/81 O2 Sat by Pulse 96 97 Oximetry 11/24/18 11/24/18 11/24/18 18:33 18:34 18:39 Temperature Pulse Rate 106 H 108 H 106 H Respiratory Rate Blood Pressure 173/87 176/92 O2 Sat by Pulse 97 95 Oximetry 11/24/18 11/24/18 11/24/18 18:40 18:42 18:44 Temperature Pulse Rate 112 H 112 H Respiratory Rate Blood Pressure 165/81 O2 Sat by Pulse 74 L 95 Oximetry 11/24/18 11/24/18 11/24/18 18:48 18:49 18:54 Temperature Pulse Rate 108 H 109 H 112 H Respiratory Rate Blood Pressure 169/79 O2 Sat by Pulse 95 96 Oximetry 11/24/18 11/24/18 11/24/18 18:59 19:00 19:04 Temperature Pulse Rate 110 H 114 H 114 H Respiratory Rate Blood Pressure O2 Sat by Pulse 96 94 94 Oximetry 11/24/18 11/24/18 11/24/18 19:07 19:08 19:09 Temperature Pulse Rate 112 H 113 H 113 H Respiratory Rate Blood Pressure 193/98 193/98 O2 Sat by Pulse 94 95 Oximetry 11/24/18 11/24/18 11/24/18 19:13 19:14 19:19 Temperature Pulse Rate 104 H 117 H 111 H Respiratory Rate Blood Pressure O2 Sat by Pulse 90 96 94 Oximetry 11/24/18 11/24/18 11/24/18 19:21 19:24 19:25 Temperature 97.9 F Pulse Rate 114 H 116 H Respiratory 18 Rate Blood Pressure 194/87 O2 Sat by Pulse 93 Oximetry 11/24/18 11/24/18 11/24/18 19:29 19:32 19:34 Temperature Pulse Rate 116 H 123 H 116 H Respiratory Rate Blood Pressure 144/80 O2 Sat by Pulse 95 93 Oximetry 11/24/18 11/24/18 11/24/18 19:39 19:41 19:44 Temperature Pulse Rate 124 H 125 H 128 H Respiratory Rate Blood Pressure O2 Sat by Pulse 93 94 92 Oximetry - Labs Labs: Abnormal Labs 11/23/18 11/24/18 11/24/18 19:45 16:12 16:12 WBC 12.3 H 16.3 H RDW 16.9 H 16.6 H Creatinine 0.5 L Lactate Dehydrogenase 248 H Laboratory Results - last 24 hr 11/23/18 11/23/18 11/23/18 19:45 19:45 21:00 WBC 12.3 H RBC 4.21 Hgb 13.2 Hct 38.9 MCV 93 MCH 31 MCHC 34 RDW 16.9 H Plt Count 215 Creatinine Estimated GFR Uric Acid AST ALT Lactate Dehydrogenase Urine Color Urine Turbidity Urine pH Ur Specific [place] Urine Protein Urine Glucose (UA) Urine Ketones Urine Blood Urine Nitrite Urine Bilirubin Urine Urobilinogen Ur Leukocyte Esterase Urine WBC (Auto) Urine RBC (Auto) U Epithel Cells (Auto) RPR Nonreactive Blood Type O NEGATIVE Antibody Screen Negative 11/24/18 11/24/18 11/24/18 16:12 16:12 16:26 WBC 16.3 H RBC 4.31 Hgb 13.5 Hct 39.4 MCV 91 MCH 31 MCHC 34 RDW 16.6 H Plt Count 195 Creatinine 0.5 L Estimated GFR > 60 Uric Acid 4.7 AST 33 ALT 24 Lactate Dehydrogenase 248 H Urine Color Straw Urine Turbidity Clear Urine pH 6.0 Ur Specific [place] 1.009 Urine Protein <15 mg/dl Urine Glucose (UA) >=500 Urine Ketones 80 Urine Blood Sm Urine Nitrite Neg Urine Bilirubin Neg Urine Urobilinogen < 2.0 Ur Leukocyte Esterase Neg Urine WBC (Auto) < 1.0 Urine RBC (Auto) 2.0 U Epithel Cells (Auto) < 1.0 RPR Blood Type Antibody Screen
[2018-11-24] MEDS ORDERED: ANCEF/STERILE WATER 2 GM/20 ML IV ONE (20:00)
[2018-11-24] MEDS ORDERED: NACL 0.9% IR ONE (20:10)
[2018-11-24] MEDS ORDERED: WATER FOR IRRIG STERILE IR ONE (20:10)
[2018-11-24] MEDS ORDERED: NEO SYNEPHRINE/NS Syringe(OR USE) IV ONE ×2 (20:19→20:42)
[2018-11-24] MEDS ORDERED: ASTRAMORPH PF 10MG/10ML ONE ×2 (20:35→20:36)
[2018-11-24] MEDS ORDERED: BENADRYL ONE (20:36)
[2018-11-24] MEDS ORDERED: DECADRON ONE (20:36)
[2018-11-24] MEDS ORDERED: ZOFRAN ONE (20:36)
[2018-11-24] MEDS ORDERED: PHENERGAN PR PRN (21:35)
[2018-11-24] MEDS ORDERED: NARCAN 0.4 MG/1 ML IV PRN ×2 (21:35→23:16)
[2018-11-24] MEDS ORDERED: NUBAIN IV PRN (21:35)
[2018-11-24] MEDS ORDERED: PHENERGAN PO PRN (21:35)
[2018-11-24] MEDS ORDERED: ZOFRAN IV PRN (21:35)
[2018-11-24] MEDS ORDERED: IBUPROFEN PO PRN (21:39)
[2018-11-24] MEDS ORDERED: TYLENOL PO PRN (21:40)
--- NOTE | 2018-11-24 21:41 | Operative Report ---
Operative Report Operative Report: Date: 11/24/2018 Preoperative diagnosis: 1. Intrauterine at 38 weeks gestation 2. Failure to dilate 3. Pulmonary edema 4. Gestational diabetes 5. Gestational hypertension with severe features 6. GBS positive Postoperative diagnosis: 1. Intrauterine at 38 weeks gestation 2. Failure to dilate 3. Pulmonary edema 4. Gestational diabetes 5. Gestational hypertension with severe features 6. GBS positive Procedure: Low uterine transverse incision for delivery Surgeon: Марина Mane MD Fuel Cell Assembler: Lalita Wesley CST Anesthesia: Epidural Anesthesiologist: Nishant Rizzo M.D. Estimated blood loss: 700 mL Urine out: 100 mL Findings: Live born female infant. Weight 6 lbs. 1 oz. Apgars 8 at 1 minute and 9 at 5 minutes. Uterus grossly normal, tubes grossly normal, ovaries grossly normal. Procedure: After risk, benefits, complications, consequences and alternatives for this procedure were discussed with patient and consents were reviewed and signed, she was taken to the OR where epidural anesthesia was bolused. She was then placed in the left lateral tilt position, and prepped and draped in the usual sterile fashion. Timeout was performed, and an appropriate level of anesthesia was noted, a Pfannenstiel incision was made and extended to the fascia which was incised and extended in the lateral directions. The overlying fascia was sharply dissected away from the underlying rectus muscles in the superior and inferior directions. The midline was entered bluntly. The vesicouterine fold was incised and with blunt dissection the bladder flap was created. A transverse incision was made in the lower uterine segment and extended in superiolateral direction with finger fractionation. Blood-tinged fluid was noted. The infant was delivered from cephalic OP position. Mouth and nose were bulb suctioned. Spontaneous cry and excellent tone were noted. Cord was doubly clamped and cut. The infant was given to /resuscitation team present. The placenta was manually extracted. The uterus was then exteriorized and cleared of any further products of conception or placental tissue. The incision was reapproximated using 0 Vicryl in a running interlocking stitch. Grossly normal uterus, tubes and ovaries were noted. Once hemostasis was noted, the uterus was allowed back into the pelvic cavity. The pelvis was irrigated with warm normal saline. Again hemostasis was noted . Surgicel applied for further hemostasis. Interceed was then placed to prevent adhesions. Then attention was turned to the rectus muscles. The rectus muscles reapproximated using 0 Vicryl in a simple interrupted stitch x 3. Once hemostasis was noted, the fascia was reapproximated using 0 Vicryl running stitch fashion. Once hemostasis was noted skin incision was reapproximated using 4-0 Vicryl on a James needle in a subcuticular manner. Counts were correct 3. Patient tolerated procedure well state recovery room in stable condition.
--- NOTE | 2018-11-24 21:48 | Post Anesthesia Evaluation ---
- Post Anesthesia Evaluation Patient Participated: Yes Airway Patent: Yes Stable Respiratory Function: Yes Nausea/Vomiting: No Temp > 96.8F: Yes Pain Manageable: Yes Adequeate Hydration: Yes Anesthesia Complications: No Block Receding Appropriately: Yes Patient on Ventilator: No
--- NOTE | 2018-11-24 21:49 | Event Note ---
Date: 11/24/18 Due to labile BP's and pulmonary edema patient will be admitted to IMCU, Dr. Lofton hospitalist consulted
[2018-11-24] MEDS ORDERED: SODIUM CHLORIDE FLUSH SYRINGE 10 ML IV PRN ×2 (22:00→23:16)
[2018-11-24] MEDS ORDERED: LANSINOH TP PRN (23:16)
[2018-11-24] MEDS ORDERED: REGLAN IV PRN (23:16)
[2018-11-24] MEDS ORDERED: MILK OF MAGNESIA PO PRN (23:16)
[2018-11-24] MEDS ORDERED: DULCOLAX PR PRN (23:16)
[2018-11-24] MEDS ORDERED: TUCKS PAD TP PRN (23:16)
[2018-11-24] MEDS ORDERED: PITOCin/NS 20 UNIT/1000ML DRIP 20 UNITS/1,000 ML BAG IV SCH (23:16)
[2018-11-24] MEDS ORDERED: LACTATED RINGERS 1,000 ML IV SCH (23:16)
[2018-11-24] MEDS ORDERED: ALUM-MAG HYDROX-SIMETH 200-200-20MG/5ML PO PRN (23:16)
--- NOTE | 2018-11-25 00:03 | Consultation ---
<RAMÍREZ SAUCEDO - Last Filed: 11/25/18 00:18> History of Present Illness - Reason for Consult Consult date: 11/24/18 pulmonary edema Requesting physician: JACQUIE QUINTERO - History of Present Illness 38-year-old female who presented to the ED earlier today with complaints of active labor. Patient was found to be 37 weeks and in active labor. She had spontaneous rupture of membranes and was started on Pitocin. Prior to administration of epidural at approximately 1545 patient complained of acute onset shortness of breath was started around 1515 Onset of dyspnea with saturation in low to mid 70's on room air. She was placed on nonrebreather with improvement of saturations to low 90s. She was given IV Lasix 10 mg but was not responsive. Ultimately patient was taken or for C- section delivery. Upon arrival to the IMCU patient is awake alert and oriented 3. Blood pressure continues to remain labile current blood pressure 109/71 with heart rate 106 bpm. She denies discomfort/pain at this time. Past History Past Medical History: other (herpes simplex 2, gestational diabetes, depression, general anxiety) Past Surgical History: (x1 ) Social history: lives with family Family history: no significant family history Medications and Allergies Allergies Allergy/AdvReac Type Severity Reaction Status Date / Time No Known Allergies Allergy Verified 11/23/18 19:31 Home Medications Medication Instructions Recorded Confirmed Last Taken Type No Known Home Medications [No 11/24/18 11/24/18 Unknown History Reported Home Medications] Active Meds: Active Medications Al Hydrox/Mg Hydrox/Simethicone (Alum-Mag Hydrox-Simeth [phone]/5ml) 30 ml PO Q4H PRN PRN Reason: Indigestion Bisacodyl (Dulcolax) 10 mg MO QDAY PRN PRN Reason: constipation unrelieved by MOM Diphtheria/Tetanus/Acell Pertussis (Boostrix) 0.5 ml IM .ONCE ONE Stop: 11/26/18 06:01 Famotidine (Pepcid) 20 mg IV BID YING Oxytocin/Sodium Chloride (Pitocin/Ns 20 Unit/1000ml Drip) 20 units in 1,000 mls @ 250 mls/hr IV DIRECT YING Lactated Ringer's (Lactated Ringers) 1,000 mls @ 125 mls/hr IV DIRECT YING Cefazolin Sodium (Ancef/Ns 1 Gm/50 Ml) 1 gm in 50 mls @ 100 mls/hr IV Q8H YING Stop: 11/25/18 09:29 Magnesium Hydroxide (Milk Of Magnesia) 30 ml PO Q4H PRN PRN Reason: Constipation Metoclopramide HCl (Reglan) 10 mg IV Q6H PRN PRN Reason: Nausea And Vomiting Morphine Sulfate (Morphine) 2 mg IV Q4H PRN PRN Reason: Pain, Moderate (4-6) Morphine Sulfate (Morphine) 4 mg IV Q4H PRN PRN Reason: Pain , Severe (7-10) Multi-Ingredient Ointment (Lansinoh) 1 applic TP PRN PRN PRN Reason: dryness/cracking Naloxone HCl (Narcan 0.4 Mg/1 Ml) 0.1 mg IV Q2MIN PRN PRN Reason: Res Rate </= 8 or 02 SAT < 92% Sodium Chloride (Sodium Chloride Flush Syringe 10 Ml) 10 ml IV BID YING Sodium Chloride (Sodium Chloride Flush Syringe 10 Ml) 10 ml IV PRN PRN PRN Reason: LINE FLUSH Witch Faiza/Glycerin (Tucks Pad) 1 each TP PRN PRN PRN Reason: Hemorrhoids/cleansing/soothing Review of Systems All systems: negative (revealed an additional multiple complaints except as noted below) Cardiovascular: shortness of breath Respiratory: shortness of breath Gastrointestinal: abdominal pain (related to the liver, status post earlier today) Exam - Physical Exam Narrative exam: Physical exam General appearance: Present: No acute distress, alert and oriented 3, well- nourished, well-developed, female, in immediate period - EENT Eyes: Present: PERRL, EOM intact ENT: hearing intact, normal dentition - Neck Neck: Present: supple, normal ROM - Respiratory Respiratory effort: Non-labored Respiratory: bilateral: diminished (bases) - Cardiovascular Heart rate: 106 (bpm) Rhythm: Sinus tachycardia Heart Sounds: Present: S1 & S2. Absent: rub, click - Extremities Extremities: no ischemia, pulses intact, abnormal - Peripheral Assessment Peripheral Pulses: within normal limits - Abdominal General gastrointestinal: soft, non-tender, slightly distended, normal bowel sounds - Integumentary Integumentary: Present: warm, dry - Musculoskeletal Musculoskeletal: Able to move all extremities, generalized weakness -Neurological Neurological CN II-XII intact - Psychiatric Psychiatric: cooperative - Constitutional Vitals: Temp Pulse Resp BP Pulse Ox 97.4 F L 131 H 18 144/80 92 11/24/18 21:32 11/24/18 19:49 11/24/18 19:25 11/24/18 19:32 11/24/18 19:49 Results - Labs CBC & Chem 7: 11/24/18 23:41 11/24/18 16:12 Labs: Abnormal lab results 11/24/18 11/24/18 Range/Units 16:12 16:12 WBC 16.3 H (4.5-11.0) K/mm3 RDW 16.6 H (13.2-15.2) % Creatinine 0.5 L (0.7-1.2) mg/dL Lactate Dehydrogenase 248 H (91-180) units/L - Imaging and Cardiology Chest x-ray: report reviewed (Impression: 1. Mild cardiomegaly and bilateral interstitial pulmonary edema. ), image reviewed Assessment and Plan 38-year-old female who is s/p POD# 0. Patient is transferred to [facility] for management of pulmonary edema. Chest x-ray showed mild cardiomegaly and pulmonary edema. Pulmonary edema Labile blood pressure Sinus tachycardia S/E POD #0 GBS positive History of herpes simplex 2 History of preeclampsia Plan: Continue supportive care Continuous monitoring monitoring her Echocardiogram pending CBC, BMPs, troponin, CK-MB pending Cardiology consulted Monitor BP Hold off on giving volume d/t pulmonary edema Cefazolin 1 g every 8 hours 2 doses All other care management per primary team DVT PPX on Lovenox <OSMANY MAYBERRY E - Last Filed: 11/25/18 22:34> Medications and Allergies Active Meds: Active Medications Al Hydrox/Mg Hydrox/Simethicone (Alum-Mag Hydrox-Simeth [id number]/5ml) 30 ml PO Q4H PRN PRN Reason: Indigestion Bisacodyl (Dulcolax) 10 mg MO QDAY PRN PRN Reason: constipation unrelieved by MOM Diphtheria/Tetanus/Acell Pertussis (Boostrix) 0.5 ml IM .ONCE ONE Stop: 11/26/18 06:01 Famotidine (Pepcid) 20 mg IV BID [facility] Oxytocin/Sodium Chloride (Pitocin/Ns 20 Unit/1000ml Drip) 20 units in 1,000 mls @ 250 mls/hr IV DIRECT YING Cefazolin Sodium (Ancef/Ns 1 Gm/50 Ml) 1 gm in 50 mls @ 100 mls/hr IV Q8H [facility] Stop: 11/25/18 09:29 Last Admin: 11/25/18 01:02 Dose: 100 mls/hr Documented by: Piperacillin Sod/Tazobactam Sod (Zosyn/Ns 4.5gm/100ml) 4.5 gm in 100 mls @ 200 mls/hr IV Q8H [facility]; Protocol Last Admin: 11/25/18 02:20 Dose: 200 mls/hr Documented by: Vancomycin HCl 2,000 mg/ (Sodium Chloride) 540 mls @ 250 mls/hr IV ONCE ONE Stop: 11/25/18 04:09 Last Admin: 11/25/18 02:29 Dose: 250 mls/hr Documented by: Magnesium Hydroxide (Milk Of Magnesia) 30 ml PO Q4H PRN PRN Reason: Constipation Metoclopramide HCl (Reglan) 10 mg IV Q6H PRN PRN Reason: Nausea And Vomiting Morphine Sulfate (Morphine) 2 mg IV Q4H PRN PRN Reason: Pain, Moderate (4-6) Morphine Sulfate (Morphine) 4 mg IV Q4H PRN PRN Reason: Pain , Severe (7-10) Multi-Ingredient Ointment (Lansinoh) 1 applic TP PRN PRN PRN Reason: dryness/cracking Naloxone HCl (Narcan 0.4 Mg/1 Ml) 0.1 mg IV Q2MIN PRN PRN Reason: Res Rate </= 8 or 02 SAT < 92% Sodium Chloride (Sodium Chloride Flush Syringe 10 Ml) 10 ml IV BID [facility] Last Admin: 11/25/18 01:04 Dose: 10 ml Documented by: Sodium Chloride (Sodium Chloride Flush Syringe 10 Ml) 10 ml IV PRN PRN PRN Reason: LINE FLUSH Witch Faiza/Glycerin (Tucks Pad) 1 each TP PRN PRN PRN Reason: Hemorrhoids/cleansing/soothing Exam - Constitutional Vitals: Temp Pulse Resp BP Pulse Ox 97.4 F L 131 H 18 144/80 92 07/05/19 21:32 11/24/18 19:49 11/24/18 19:25 11/24/18 19:32 11/24/18 19:49 Results - Labs CBC & Chem 7: 11/25/18 09:47 11/25/18 04:40 Labs: Abnormal lab results 11/24/18 11/24/18 11/24/18 Range/Units 16:12 16:12 23:41 WBC 16.3 H 18.3 H (4.5-11.0) K/mm3 RDW 16.6 H 16.6 H (13.2-15.2) % Lymph % (Auto) 3.5 L (13.4-35.0) % [place] % (Auto) 7.7 H (0.0-7.3) % Lymph # 0.6 L (1.2-5.4) K/mm3 [place] # 1.4 H (0.0-0.8) K/mm3 Seg Neutrophils % 88.7 H (40.0-70.0) % Seg Neutrophils # 16.2 H (1.8-7.7) K/mm3 Creatinine 0.5 L (0.7-1.2) mg/dL Lactate Dehydrogenase 248 H (91-180) units/L Total Creatine Kinase (30-135) units/L CK-MB (CK-2) (0.0-4.0) ng/mL CK-MB (CK-2) Rel Index (0-4) Troponin T (0.00-0.029) ng/mL NT-Pro-B Natriuret Pep (0-450) pg/mL Triglycerides (2-149) mg/dL Cholesterol (50-199) mg/dL HDL Cholesterol (40-59) mg/dL 11/24/18 11/24/18 11/24/18 Range/Units 23:41 23:41 23:41 WBC (4.5-11.0) K/mm3 RDW (13.2-15.2) % Lymph % (Auto) (13.4-35.0) % [place] % (Auto) (0.0-7.3) % Lymph # (1.2-5.4) K/mm3 [place] # (0.0-0.8) K/mm3 Seg Neutrophils % (40.0-70.0) % Seg Neutrophils # (1.8-7.7) K/mm3 Creatinine (0.7-1.2) mg/dL Lactate Dehydrogenase (91-180) units/L Total Creatine Kinase 155 H (30-135) units/L CK-MB (CK-2) 11.4 H (0.0-4.0) ng/mL CK-MB (CK-2) Rel Index 7.3 H (0-4) Troponin T 0.274 H* (0.00-0.029) ng/mL NT-Pro-B Natriuret Pep 5198 H (0-450) pg/mL Triglycerides 540 H (2-149) mg/dL Cholesterol 291 H (50-199) mg/dL HDL Cholesterol 60 H (40-59) mg/dL Assessment and Plan 38 year old woman, with preeclampsia, s/p is being seen for evaluation of pulmonary edema. She stated that shortness of breath started today, orthopnea, worse with activity. She was given a total of 30 mg IV Lasix for pulmonary edema seen on chest x-ray, hypoxia, also given IV fluid in the OR. She denies any shortness during the until today. Blood pressure was noted to be labile. Physical exam is significant for bilateral crackles. Rule out underlying cardiomyopathy, Agree with plan as stated above. In addition, obtain ekg given abnormal troponin, start broad-spectrum antibiotic since white count is trending up, d/c cefazolin, obtain cultures. Blood pressure is labile, give additional lasix tomorrow based on readings. 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
[2018-11-25 00:10] LABS: Basophils % (Auto) 0.1 % (0.0-1.8); Lymphocytes # (Auto) 0.6 K/mm3 (1.2-5.4); Lymphocytes % (Auto) 3.5 % (13.4-35.0); Mean Corpuscular HGB Conc 34 % (30-34); Mean Corpuscular Volume 92 fl (79-97); Monocytes # (Auto) 1.4 K/mm3 (0.0-0.8); Monocytes % (Auto) 7.7 % (0.0-7.3); Platelet Count 152 K/mm3 (140-440); Red Blood Count 3.79 M/mm3 (3.65-5.03); Red Cell Distribution Width 16.6 % (13.2-15.2)
[2018-11-25 00:20] LABS: Creatine Kinase MB 11.4 ng/mL (0.0-4.0)
[2018-11-25] MEDS ORDERED: ANCEF/NS 1 GM/50 ML 1 GM/50 ML BAG IV SCH (01:00)
[2018-11-25] MEDS: SODIUM CHLORIDE FLUSH SYRINGE 10 ML IV SCH ×3 (01:04→23:47)
[2018-11-25] MEDS ORDERED: VANCOMYCIN/NS 1 GM/250 ML 1 GM/250 ML BAG IV ONE (01:41)
[2018-11-25] MEDS ORDERED: VANCOMYCIN 2,000 MG in NACL 0.9% 500 ML 500 ML IV ONE (02:00)
[2018-11-25 02:11] LABS: Chol/HDL Ratio 4.85 %; HDL Cholesterol 60 mg/dL (40-59); LDL Cholesterol,Direct TNR mg/dL (50-130)
[2018-11-25] MEDS: ZOSYN/NS 4.5GM/100ML 4.5 GM/100 ML VIAL IV SCH ×3 (02:20→17:29)
[2018-11-25 06:01] LABS: BUN/Creatinine Ratio 9; Blood Urea Nitrogen 7 mg/dL (7-17); Calcium 7.7 mg/dL (8.4-10.2); Hemolysis Index 0
--- NOTE | 2018-11-25 08:59 | Consultation ---
History of Present Illness Consult date: 11/25/18 Consult reason: congestive heart failure History of present illness: 38 year old female transferred to the unit with acute pulmonary edema. She is post section and I didn't time of my evaluation appears stable in no operative respiratory distress. Heart chest x-ray shows borderline cardiomegaly with some interstitial edema. Past History Past Medical History: other (herpes simplex 2, gestational diabetes, depression, general anxiety). denies: CAD, COPD, hypertension Past Surgical History: (x1 ) Social history: lives with family Family history: no significant family history Medications and Allergies Allergies Allergy/AdvReac Type Severity Reaction Status Date / Time No Known Allergies Allergy Verified 11/23/18 19:31 Home Medications Medication Instructions Recorded Confirmed Last Taken Type No Known Home Medications [No 11/24/18 11/24/18 Unknown History Reported Home Medications] Active Meds: Active Medications Al Hydrox/Mg Hydrox/Simethicone (Alum-Mag Hydrox-Simeth 186-265-03if/5ml) 30 ml PO Q4H PRN PRN Reason: Indigestion Bisacodyl (Dulcolax) 10 mg MA QDAY PRN PRN Reason: constipation unrelieved by MOM Diphtheria/Tetanus/Acell Pertussis (Boostrix) 0.5 ml IM .ONCE ONE Stop: 11/26/18 06:01 Famotidine (Pepcid) 20 mg IV BID YING Oxytocin/Sodium Chloride (Pitocin/Ns 20 Unit/1000ml Drip) 20 units in 1,000 mls @ 250 mls/hr IV DIRECT YING Piperacillin Sod/Tazobactam Sod (Zosyn/Ns 4.5gm/100ml) 4.5 gm in 100 mls @ 200 mls/hr IV Q8H YING; Protocol Last Admin: 11/25/18 02:20 Dose: 200 mls/hr Documented by: Magnesium Hydroxide (Milk Of Magnesia) 30 ml PO Q4H PRN PRN Reason: Constipation Metoclopramide HCl (Reglan) 10 mg IV Q6H PRN PRN Reason: Nausea And Vomiting Morphine Sulfate (Morphine) 2 mg IV Q4H PRN PRN Reason: Pain, Moderate (4-6) Morphine Sulfate (Morphine) 4 mg IV Q4H PRN PRN Reason: Pain , Severe (7-10) Multi-Ingredient Ointment (Lansinoh) 1 applic TP PRN PRN PRN Reason: dryness/cracking Naloxone HCl (Narcan 0.4 Mg/1 Ml) 0.1 mg IV Q2MIN PRN PRN Reason: Res Rate </= 8 or 02 SAT < 92% Sodium Chloride (Sodium Chloride Flush Syringe 10 Ml) 10 ml IV BID YING Last Admin: 11/25/18 01:04 Dose: 10 ml Documented by: Sodium Chloride (Sodium Chloride Flush Syringe 10 Ml) 10 ml IV PRN PRN PRN Reason: LINE FLUSH Witch Faiza/Glycerin (Tucks Pad) 1 each TP PRN PRN PRN Reason: Hemorrhoids/cleansing/soothing Review of Systems All systems: negative (shortness of breath, no chest pain) Physical Examination Vital Signs Pulse BP 85 177/85 11/23/18 18:02 11/23/18 18:02 General appearance: no acute distress, well-nourished HEENT: Positive: PERRL, Mucus Membranes Moist Neck: Positive: neck supple, trachea midline Cardiac: Positive: Reg Rate and Rhythm, S1/S2. Negative: Audible Murmur Lungs: Positive: clear to auscultation, Normal Breath Sounds Neuro: Positive: Grossly Intact Abdomen: Positive: Soft, Active Bowel Sounds, Other (post C/S surgery). Negative: Tender, Distended Female genitourinary: deferred Skin: Positive: Clear Incision: Cardiac Cath Site Musculoskeletal: No Pain, Normal Range of Motion Extremities: Present: normal. Absent: edema Results 11/25/18 22:35 11/26/18 Unknown Cardiac Enzymes 11/24/18 11/24/18 Range/Units 16:12 23:41 AST 33 (5-40) units/L Lactate Dehydrogenase 248 H (91-180) units/L CK-MB (CK-2) 11.4 H (0.0-4.0) ng/mL Lipids 11/24/18 Range/Units 23:41 Triglycerides 540 H (2-149) mg/dL Cholesterol 291 H (50-199) mg/dL HDL Cholesterol 60 H (40-59) mg/dL Cholesterol/HDL Ratio 4.85 % CBC 11/24/18 11/24/18 Range/Units 16:12 23:41 WBC 16.3 H 18.3 H (4.5-11.0) K/mm3 RBC 4.31 3.79 (3.65-5.03) M/mm3 Hgb 13.5 12.0 (10.1-14.3) gm/dl Hct 39.4 35.0 (30.3-42.9) % Plt Count 195 152 (140-440) K/mm3 Lymph # 0.6 L (1.2-5.4) K/mm3 [place] # 1.4 H (0.0-0.8) K/mm3 Eos # 0.0 (0.0-0.4) K/mm3 Baso # 0.0 (0.0-0.1) K/mm3 Comprehensive Metabolic Panel 11/24/18 11/25/18 Range/Units 16:12 04:40 Sodium 142 (137-145) mmol/L Potassium 3.8 (3.6-5.0) mmol/L Chloride 108.3 H (98-107) mmol/L Carbon Dioxide 21 L (22-30) mmol/L BUN 7 (7-17) mg/dL Creatinine 0.5 L 0.8 D (0.7-1.2) mg/dL Glucose 195 H (65-100) mg/dL Calcium 7.7 L (8.4-10.2) mg/dL AST 33 (5-40) units/L ALT 24 (7-56) units/L EKG interpretations - Telemetry EKG Rhythm: Sinus Rhythm Assessment and Plan 1. Mild acute pulmonary edema 2. Status post section Plan. Acute pulmonary edema probably precipitated by fluid overload. Obtain an echocardiogram to assess global and regional function. Mild diuresis as indicated.
--- NOTE | 2018-11-25 09:14 | Progress Note ---
Assessment and Plan Assessment and plan: 38-year-old female who is s/p POD# 0. Patient is transferred to [facility] for management of pulmonary edema. Chest x-ray showed mild cardiomegaly and pulmonary edema. Pulmonary edema Labile blood pressure Sinus tachycardia S/E POD #0 GBS positive History of herpes simplex 2 History of preeclampsia Plan: Continue supportive care BP stable Echocardiogram pending Cardiology consulted Monitor BP Hold off on giving volume d/t pulmonary edema All other care management per primary team DVT PPX on Lovenox History Interval history: Feels better, No shortness of breath No chest pain Mild lower abd pain Hospitalist Physical - Physical exam Narrative exam: Gen: Not in acute distress, lying in bed, HEENT: Normocephalic, atraumatic Neck: supple, no JVD Heart: S1 and S2 reg, no murmurs, rubs or gallop Lungs: Bilateral basal crackles, no wheeze Abd: soft, non tender, non distended, normal BS Ext: No edema, no clubbing, no cyanosis, Neuro: Awake,alert, moves all ext, non focal - Constitutional Vitals: Temp Pulse Resp BP Pulse Ox 97.4 F L 76 11 L 112/58 95 11/25/18 04:05 11/25/18 06:41 11/25/18 06:41 11/25/18 06:41 11/25/18 06:41 General appearance: Present: no acute distress, obese Results - Labs CBC & Chem 7: 11/25/18 09:47 11/25/18 04:40 Labs: Laboratory Last Values WBC 18.3 K/mm3 (4.5-11.0) H 11/24/18 23:41 RBC 3.79 M/mm3 (3.65-5.03) 11/24/18 23:41 Hgb 12.0 gm/dl (10.1-14.3) 11/24/18 23:41 Hct 35.0 % (30.3-42.9) 11/24/18 23:41 MCV 92 fl (79-97) 11/24/18 23:41 MCH 32 pg (28-32) 11/24/18 23:41 MCHC 34 % (30-34) 11/24/18 23:41 RDW 16.6 % (13.2-15.2) H 11/24/18 23:41 Plt Count 152 K/mm3 (140-440) 11/24/18 23:41 Lymph % (Auto) 3.5 % (13.4-35.0) L 11/24/18 23:41 [place] % (Auto) 7.7 % (0.0-7.3) H 11/24/18 23:41 Eos % (Auto) 0.0 % (0.0-4.3) 11/24/18 23:41 Baso % (Auto) 0.1 % (0.0-1.8) 11/24/18 23:41 Lymph # 0.6 K/mm3 (1.2-5.4) L 11/24/18 23:41 [place] # 1.4 K/mm3 (0.0-0.8) H 11/24/18 23:41 Eos # 0.0 K/mm3 (0.0-0.4) 11/24/18 23:41 Baso # 0.0 K/mm3 (0.0-0.1) 11/24/18 23:41 Seg Neutrophils % 88.7 % (40.0-70.0) H 11/24/18 23:41 Seg Neutrophils # 16.2 K/mm3 (1.8-7.7) H 11/24/18 23:41 Sodium 142 mmol/L (137-145) 11/25/18 04:40 Potassium 3.8 mmol/L (3.6-5.0) 11/25/18 04:40 Chloride 108.3 mmol/L (98-107) H 11/25/18 04:40 Carbon Dioxide 21 mmol/L (22-30) L 11/25/18 04:40 17 mmol/L 11/25/18 04:40 BUN 7 mg/dL (7-17) 11/25/18 04:40 0.8 mg/dL (0.7-1.2) D 11/25/18 04:40 Estimated GFR > 60 ml/min 11/25/18 04:40 9 % 11/25/18 04:40 Glucose 195 mg/dL (65-100) H 11/25/18 04:40 4.7 mg/dL (3.5-7.6) 11/24/18 16:12 Calcium 7.7 mg/dL (8.4-10.2) L 11/25/18 04:40 AST 33 units/L (5-40) 11/24/18 16:12 ALT 24 units/L (7-56) 11/24/18 16:12 248 units/L (91-180) H 11/24/18 16:12 155 units/L (30-135) H 11/24/18 23:41 CK-MB (CK-2) 11.4 ng/mL (0.0-4.0) H 11/24/18 23:41 CK-MB (CK-2) Rel Index 7.3 (0-4) H 11/24/18 23:41 0.177 ng/mL (0.00-0.029) H* D 11/25/18 04:40 NT-Pro-B Natriuret Pep 5198 pg/mL (0-450) H 11/24/18 23:41 Triglycerides 540 mg/dL (2-149) H 11/24/18 23:41 Cholesterol 291 mg/dL (50-199) H 11/24/18 23:41 TNR 11/24/18 23:41 60 mg/dL (40-59) H 11/24/18 23:41 4.85 % 11/24/18 23:41 Straw (Yellow) 11/24/18 16:26 Clear (Clear) 11/24/18 16:26 6.0 (5.0-7.0) 11/24/18 16:26 Ur Specific [place] 1.009 (1.003-1.030) 11/24/18 16:26 <15 mg/dl mg/dL (Negative) 11/24/18 16:26 >=500 mg/dL (Negative) 11/24/18 16:26 80 mg/dL (Negative) 11/24/18 16:26 Sm (Negative) 11/24/18 16:26 Neg (Negative) 11/24/18 16:26 Neg (Negative) 11/24/18 16:26 < 2.0 mg/dL (<2.0) 11/24/18 16:26 Ur Leukocyte Esterase Neg (Negative) 11/24/18 16:26 < 1.0 /HPF (0.0-6.0) 11/24/18 16:26 2.0 /HPF (0.0-6.0) 11/24/18 16:26 U Epithel Cells (Auto) < 1.0 /HPF (0-13.0) 11/24/18 16:26 RPR Nonreactive (Nonreactive) 11/23/18 19:45 Blood Type O NEGATIVE 11/24/18 23:41 Antibody Screen Negative 11/24/18 23:41 Screen Negative 11/24/18 23:41 Active Medications - Current Medications Current Medications: Generic Name Dose Route Start Last Admin Trade Name Freq PRN Reason Stop Dose Admin Al Hydrox/Mg Hydrox/Simethicone 30 ml 11/24/18 23:16 Alum-Mag Hydrox-Simeth 352-548-10rc/5ml PO Q4H PRN Indigestion Bisacodyl 10 mg 11/24/18 23:16 Dulcolax ND QDAY PRN constipation unrelieved by MOM Diphtheria/Tetanus/Acell Pertussis 0.5 ml 11/26/18 06:00 Boostrix IM 11/26/18 06:01 .ONCE ONE Famotidine 20 mg 11/25/18 10:00 Pepcid IV BID YING Oxytocin/Sodium Chloride 20 units in 1,000 mls @ 250 mls/hr 11/24/18 23:16 Pitocin/Ns 20 Unit/1000ml Drip IV DIRECT YING Piperacillin Sod/Tazobactam Sod 4.5 gm in 100 mls @ 200 mls/hr 11/25/18 02:00 11/25/18 02:20 Zosyn/Ns 4.5gm/100ml IV 200 mls/hr Q8H YING Administration Protocol Magnesium Hydroxide 30 ml 11/24/18 23:16 Milk Of Magnesia PO Q4H PRN Constipation Metoclopramide HCl 10 mg 11/24/18 23:16 Reglan IV Q6H PRN Nausea And Vomiting Morphine Sulfate 2 mg 11/25/18 09:30 Morphine IV Q4H PRN Pain, Moderate (4-6) Morphine Sulfate 4 mg 11/25/18 09:30 Morphine IV Q4H PRN Pain , Severe (7-10) Multi-Ingredient Ointment 1 applic 11/24/18 23:16 Lansinoh TP PRN PRN dryness/cracking Naloxone HCl 0.1 mg 11/24/18 23:16 Narcan 0.4 Mg/1 Ml IV Q2MIN PRN Res Rate </= 8 or 02 SAT < 92% Sodium Chloride 10 ml 11/24/18 23:16 11/25/18 01:04 Sodium Chloride Flush Syringe 10 Ml IV 10 ml BID YING Administration Sodium Chloride 10 ml 11/24/18 23:16 Sodium Chloride Flush Syringe 10 Ml IV PRN PRN LINE FLUSH Witch Faiza/Glycerin 1 each 11/24/18 23:16 Tucks Pad TP PRN PRN Hemorrhoids/cleansing/soothing
[2018-11-25 09:18] LABS: Bilirubin,Urine NEG (Negative); Blood,Urine LG (Negative); Color,Urine Amber (Yellow); Urobilinogen,Urine < 2.0 mg/dL (<2.0)
[2018-11-25] MEDS ORDERED: MORPHINE IV PRN ×3 (09:30→23:19)
[2018-11-25] MEDS: PEPCID IV SCH ×2 (10:01→23:50)
[2018-11-25 10:26] LABS: Hematocrit 33.3 % (30.3-42.9); Hemoglobin 11.2 gm/dl (10.1-14.3)
--- NOTE | 2018-11-25 10:45 | Event Note ---
Date: 11/25/18 Preliminary Echo report Normal left ventricular size and function LVEF 50%
--- NOTE | 2018-11-25 12:28 | Progress Note ---
Assessment and Plan - Patient Problems (1) 38 weeks gestation of Current Visit: Yes Status: Ruled-out (2) Prolonged latent phase of labor Current Visit: Yes Status: Ruled-out (3) Oligohydramnios antepartum Current Visit: Yes Status: Ruled-out (4) Positive GBS test Current Visit: Yes Status: Acute (5) SROM (spontaneous rupture of membranes) Current Visit: Yes Status: Ruled-out (6) S/P primary low transverse Current Visit: Yes Status: Acute (7) Gestational hypertension Current Visit: Yes Status: Acute Qualifiers: Trimester: third trimester Qualified Code(s): O13.3 - Gestational [preg girma-induced] hypertension without significant proteinuria, third trimester Plan to address problem: -bp is stable at this time on no meds -con't to monitor closely (8) Pulmonary edema Current Visit: Yes Status: Acute Plan to address problem: -s/p echo and cardiology has seen pt with thanks. Pt is also being followed by hospitalist team -con't current management and await recomendations -currently on zosyn Subjective - Subjective Date of service: 11/25/18 Principal diagnosis: 1) POD #1 S/P 1LTCS 2)LOW UOP 3) gestatinal hypertension 4) pulmonary edema Interval history: Pt has no c/o this am. She is tolerating a clear diet that was started this am. I advised that she is to really try to increase po hydration as her UOP seems to be borderline to low. I advised that until it is adequate we will keep the marie cath in place for now. She denies any pain, chest discomfort or SOB. She did inquire about seeing the baby. I advised that when she is transferred to mother baby she will be able to see the baby at this time but currently she is being closely monitored and the is not allowed in the NICU. She expressed understanding. Pt had several questions regarding the GDM. I advised that the testing will be repeated after 6 wks but that at this time she will not need to con't accuchecks when she goes home and my start a regular diet. she expressed understanding and all questions were addressed and answered. Patient reports: appetite normal, voiding normally (cath in place. urine seem concentrated; upo is borderline low), pain well controlled, no flatus, no bowel movement : doing well, other (in holding nursery due to mom being in MICU) Objective - Vital Signs Latest vital signs: Vital Signs Temp Pulse Resp BP BP Pulse Ox 11/25/18 12:00 97.7 F 69 11 L 120/70 92 11/25/18 11:00 81 19 117/68 91 11/25/18 10:00 72 10 L 117/69 89 11/25/18 09:00 86 9 L 105/60 93 11/25/18 08:00 98.4 F 72 9 L 100/58 91 11/25/18 07:00 80 15 101/53 92 11/25/18 06:41 76 11 L 112/58 95 11/25/18 06:31 78 10 L 112/58 95 11/25/18 06:21 77 11 L 112/58 95 11/25/18 06:11 77 11 L 113/57 94 11/25/18 06:00 77 10 L 113/57 90 11/25/18 05:51 77 25 H 112/62 95 11/25/18 05:41 70 13 112/62 94 11/25/18 05:31 76 8 L 112/62 95 11/25/18 05:21 71 10 L 112/62 95 11/25/18 05:11 78 12 112/58 94 11/25/18 05:00 76 10 L 112/58 91 11/25/18 04:51 74 11 L 96/51 94 11/25/18 04:41 80 13 96/51 79 L 11/25/18 04:31 75 19 96/51 93 11/25/18 04:21 73 12 96/51 93 11/25/18 04:11 81 12 112/62 95 11/25/18 04:00 78 13 112/62 91 11/25/18 03:51 87 15 96/51 95 11/25/18 03:41 84 12 96/51 96 11/25/18 03:31 77 11 L 96/51 95 11/25/18 03:27 98.2 F 11/25/18 03:21 83 11 L 96/51 94 11/25/18 03:11 80 16 96/51 95 11/25/18 03:01 76 17 96/51 92 11/25/18 02:51 82 17 92/56 94 11/25/18 02:41 85 15 92/56 93 11/25/18 02:31 86 13 92/56 94 11/25/18 02:21 84 15 92/56 95 11/25/18 02:11 89 22 82/44 94 11/25/18 02:00 80 16 82/44 91 11/25/18 01:51 85 21 95/45 92 11/25/18 01:41 83 19 95/45 94 11/25/18 01:31 85 14 95/45 92 11/25/18 01:21 83 18 95/45 93 11/25/18 01:11 101 H 14 95/45 93 11/25/18 01:00 89 15 107/67 93 11/25/18 00:51 88 18 107/67 94 11/25/18 00:41 88 18 107/67 93 11/25/18 00:31 92 H 19 107/67 93 11/25/18 00:21 91 H 26 H 107/67 93 11/25/18 00:11 94 H 18 107/67 93 11/25/18 00:00 99 H 21 107/67 83 L 11/24/18 23:51 106 H 22 109/71 89 11/24/18 23:41 107 H 16 109/71 91 11/24/18 23:31 109 H 21 109/71 92 11/24/18 23:20 100 H 28 H 109/71 93 11/24/18 23:11 104 H 17 112/61 89 11/24/18 23:00 105 H 19 112/61 93 11/24/18 22:55 111 H 16 11/24/18 21:45 97.8 F 11/24/18 21:40 97.4 F L 120 H 22 93/54 91 11/24/18 21:35 97.4 F L 124 H 24 81/49 91 11/24/18 21:32 97.4 F L 11/24/18 21:30 97.4 F L 122 H 30 H 86/40 92 11/24/18 19:49 131 H 92 11/24/18 19:44 128 H 92 11/24/18 19:41 125 H 94 11/24/18 19:39 124 H 93 11/24/18 19:34 116 H 93 11/24/18 19:32 123 H 144/80 11/24/18 19:29 116 H 95 11/24/18 19:25 97.9 F 18 11/24/18 19:24 116 H 93 11/24/18 19:21 114 H 194/87 11/24/18 19:19 111 H 94 11/24/18 19:14 117 H 96 11/24/18 19:13 104 H 90 11/24/18 19:09 113 H 95 11/24/18 19:08 113 H 193/98 11/24/18 19:07 112 H 193/98 94 11/24/18 19:04 114 H 94 11/24/18 19:00 114 H 94 11/24/18 18:59 110 H 96 11/24/18 18:54 112 H 96 11/24/18 18:49 109 H 95 11/24/18 18:48 108 H 169/79 11/24/18 18:44 112 H 95 11/24/18 18:42 112 H 165/81 11/24/18 18:40 74 L 11/24/18 18:39 106 H 176/92 95 11/24/18 18:34 108 H 97 11/24/18 18:33 106 H 173/87 11/24/18 18:29 105 H 171/81 97 11/24/18 18:24 109 H 96 11/24/18 18:23 108 H 148/74 11/24/18 18:19 107 H 96 11/24/18 18:18 104 H 149/79 11/24/18 18:14 106 H 97 11/24/18 18:13 106 H 145/82 11/24/18 18:09 112 H 96 11/24/18 18:07 105 H 122/72 11/24/18 18:04 103 H 96 11/24/18 18:02 106 H 113/64 11/24/18 17:59 110 H 97 11/24/18 17:57 108 H 108/56 11/24/18 17:54 103 H 96 11/24/18 17:52 104 H 108/55 11/24/18 17:49 110 H 96 11/24/18 17:47 116 H 111/58 11/24/18 17:44 111 H 97 11/24/18 17:43 114 H 111/69 11/24/18 17:42 102 H 94 11/24/18 17:39 115 H 98 11/24/18 17:37 95 H 115/66 11/24/18 17:34 100 H 92 11/24/18 17:33 106 H 112/60 11/24/18 17:29 121 H 91 11/24/18 17:28 125 H 90/52 93 11/24/18 17:24 116 H 91 11/24/18 17:19 126 H 93 11/24/18 17:18 118 H 83/43 11/24/18 17:14 107 H 91 11/24/18 17:12 117 H 115/59 11/24/18 17:09 121 H 94 11/24/18 17:06 92 11/24/18 17:03 100 11/24/18 16:57 110 H 89 11/24/18 16:56 116 H 92 11/24/18 16:52 153 H 76/43 11/24/18 16:50 137 H 81/38 11/24/18 16:48 65 88 11/24/18 16:47 64 89 11/24/18 16:42 150 H 90 11/24/18 16:41 148 H 121/57 11/24/18 16:38 150 H 148/67 11/24/18 16:37 60 78 L 11/24/18 16:31 133 H 142/63 93 11/24/18 16:29 136 H 150/66 11/24/18 16:27 136 H 160/66 11/24/18 16:26 134 H 92 11/24/18 16:25 130 H 186/90 11/24/18 16:23 141 H 185/99 11/24/18 16:21 144 H 93 11/24/18 16:20 92 11/24/18 16:15 140 H 93 11/24/18 16:11 45 L 94 11/24/18 16:10 137 H 90 11/24/18 16:05 138 H 91 11/24/18 16:03 138 H 90 11/24/18 16:00 141 H 86 11/24/18 15:55 131 H 94 11/24/18 15:52 139 H 143/81 11/24/18 15:50 131 H 90 11/24/18 15:48 133 H 137/90 11/24/18 15:45 132 H 265/148 88 11/24/18 15:42 125 H 221/96 07/05/19 15:40 136 H 70 L 11/24/18 15:39 72 L 11/24/18 15:13 124 H 79 L 11/24/18 15:08 121 H 76 L 11/24/18 15:07 116 H 172/111 11/24/18 15:03 122 H 76 L 11/24/18 14:58 121 H 73 L 11/24/18 14:53 113 H 86 11/24/18 14:48 118 H 89 11/24/18 14:43 113 H 87 11/24/18 14:38 114 H 88 11/24/18 14:36 109 H 139/62 11/24/18 14:33 118 H 76 L 11/24/18 14:28 117 H 93 11/24/18 14:23 114 H 92 11/24/18 14:22 113 H 169/93 11/24/18 14:20 116 H 94 11/24/18 14:18 108 H 91 11/24/18 14:13 110 H 93 11/24/18 13:22 103 H 155/84 11/24/18 13:06 109 H 135/77 11/24/18 12:51 105 H 137/70 11/24/18 12:36 94 H 143/76 Intake and Output 11/24/18 11/25/18 11/25/18 22:59 06:59 14:59 Intake Total 852.5 100 Output Total 975 300 Balance -122.5 -200 Intake: IV 852.5 100 AMPICILLIN/NS 1 GM/50 ML 50 1 gm In 50 ml @ 100 mls/ hr IV Q4HR YING Rx#: [id number] PITOCin/NS 30 UNIT/500ML 2.5 30 units In 500 ml @ 4 MILLIUNITS/MIN 4 mls/hr IV TITR YING Rx#:[id number] ZOSYN/NS 4.5GM/100ML 4.5 100 gm In 100 ml @ 200 mls/hr IV Q8H YING Rx#:[id number] Output: Urine 975 300 Indwelling Catheter 800 300 Other: Total, Output Amount 300 300 Voiding Method Indwelling Catheter Weight 77.111 kg Estimated Blood Loss 300 Patient Weight 11/26/18 06:59 Weight 77.111 kg - Exam Cardiovascular: Present: Normal S1, Normal S2 Lungs: Present: Clear to auscultation, Normal air movement Abdomen: Present: normal appearance, soft, normal bowel sounds. Absent: distention, tenderness, guarding Uterus: Present: normal, firm, fundal height below umbilicus. Absent: bogginess, tenderness Extremities: Present: normal, edema (scds in place). Absent: tenderness Incision: Present: normal, dry, intact, dressed. Absent: erythematous, suppurative, edematous, skin - Labs Labs: Abnormal lab results 11/24/18 11/24/18 11/24/18 Range/Units 16:12 16:12 23:41 WBC 16.3 H 18.3 H (4.5-11.0) K/mm3 RDW 16.6 H 16.6 H (13.2-15.2) % Lymph % (Auto) 3.5 L (13.4-35.0) % [place] % (Auto) 7.7 H (0.0-7.3) % Lymph # 0.6 L (1.2-5.4) K/mm3 [place] # 1.4 H (0.0-0.8) K/mm3 Seg Neutrophils % 88.7 H (40.0-70.0) % Seg Neutrophils # 16.2 H (1.8-7.7) K/mm3 Chloride (98-107) mmol/L Carbon Dioxide (22-30) mmol/L Creatinine 0.5 L (0.7-1.2) mg/dL Glucose (65-100) mg/dL Calcium (8.4-10.2) mg/dL Lactate Dehydrogenase 248 H (91-180) units/L Total Creatine Kinase (30-135) units/L CK-MB (CK-2) (0.0-4.0) ng/mL CK-MB (CK-2) Rel Index (0-4) Troponin T (0.00-0.029) ng/mL NT-Pro-B Natriuret Pep (0-450) pg/mL Triglycerides (2-149) mg/dL Cholesterol (50-199) mg/dL HDL Cholesterol (40-59) mg/dL Urine WBC (Auto) (0.0-6.0) /HPF 11/24/18 11/24/18 11/24/18 Range/Units 23:41 23:41 23:41 WBC (4.5-11.0) K/mm3 RDW (13.2-15.2) % Lymph % (Auto) (13.4-35.0) % [place] % (Auto) (0.0-7.3) % Lymph # (1.2-5.4) K/mm3 [place] # (0.0-0.8) K/mm3 Seg Neutrophils % (40.0-70.0) % Seg Neutrophils # (1.8-7.7) K/mm3 Chloride (98-107) mmol/L Carbon Dioxide (22-30) mmol/L Creatinine (0.7-1.2) mg/dL Glucose (65-100) mg/dL Calcium (8.4-10.2) mg/dL Lactate Dehydrogenase (91-180) units/L Total Creatine Kinase 155 H (30-135) units/L CK-MB (CK-2) 11.4 H (0.0-4.0) ng/mL CK-MB (CK-2) Rel Index 7.3 H (0-4) Troponin T 0.274 H* (0.00-0.029) ng/mL NT-Pro-B Natriuret Pep 5198 H (0-450) pg/mL Triglycerides 540 H (2-149) mg/dL Cholesterol 291 H (50-199) mg/dL HDL Cholesterol 60 H (40-59) mg/dL Urine WBC (Auto) (0.0-6.0) /HPF 11/25/18 11/25/18 11/25/18 Range/Units 04:40 04:40 08:35 WBC (4.5-11.0) K/mm3 RDW (13.2-15.2) % Lymph % (Auto) (13.4-35.0) % [place] % (Auto) (0.0-7.3) % Lymph # (1.2-5.4) K/mm3 [place] # (0.0-0.8) K/mm3 Seg Neutrophils % (40.0-70.0) % Seg Neutrophils # (1.8-7.7) K/mm3 Chloride 108.3 H (98-107) mmol/L Carbon Dioxide 21 L (22-30) mmol/L Creatinine (0.7-1.2) mg/dL Glucose 195 H (65-100) mg/dL Calcium 7.7 L (8.4-10.2) mg/dL Lactate Dehydrogenase (91-180) units/L Total Creatine Kinase (30-135) units/L CK-MB (CK-2) (0.0-4.0) ng/mL CK-MB (CK-2) Rel Index (0-4) Troponin T 0.177 H* D (0.00-0.029) ng/mL NT-Pro-B Natriuret Pep (0-450) pg/mL Triglycerides (2-149) mg/dL Cholesterol (50-199) mg/dL HDL Cholesterol (40-59) mg/dL Urine WBC (Auto) 37.0 H (0.0-6.0) /HPF 11/25/18 Range/Units 09:47 WBC (4.5-11.0) K/mm3 RDW (13.2-15.2) % Lymph % (Auto) (13.4-35.0) % [place] % (Auto) (0.0-7.3) % Lymph # (1.2-5.4) K/mm3 [place] # (0.0-0.8) K/mm3 Seg Neutrophils % (40.0-70.0) % Seg Neutrophils # (1.8-7.7) K/mm3 Chloride (98-107) mmol/L Carbon Dioxide (22-30) mmol/L Creatinine (0.7-1.2) mg/dL Glucose (65-100) mg/dL Calcium (8.4-10.2) mg/dL Lactate Dehydrogenase (91-180) units/L Total Creatine Kinase (30-135) units/L CK-MB (CK-2) (0.0-4.0) ng/mL CK-MB (CK-2) Rel Index (0-4) Troponin T 0.157 H* (0.00-0.029) ng/mL NT-Pro-B Natriuret Pep (0-450) pg/mL Triglycerides (2-149) mg/dL Cholesterol (50-199) mg/dL HDL Cholesterol (40-59) mg/dL Urine WBC (Auto) (0.0-6.0) /HPF
--- NOTE | 2018-11-25 17:31 | Event Note ---
Date: 11/25/18 Pt only put out about 20cc/hr since 7am. Will con't to encourage po hydration as due to pulmonary edema will not give fluid bolus. Pt is other [place] stable. Will con't cath for now and cont to monitor urine out put.
[2018-11-25] MEDS ORDERED: NORCO 5/325 PO PRN (20:56)
--- NOTE | 2018-11-25 21:03 | Event Note ---
Date: 11/25/18 Spoke with RN and pt has had about 30 cc/hr over the last two hours. Will d/c marie at this time and con't to monitor.
[2018-11-25] MEDS ORDERED: LASIX IV ONE (21:36)
[2018-11-25] MEDS ORDERED: LASIX PO ONE (21:42)
[2018-11-25] MEDS ORDERED: MORPHINE IV ONE (21:43)
[2018-11-25] MEDS ORDERED: AMIDATE IV ONE (21:51)
[2018-11-25] MEDS ORDERED: VERSED IV ONE (21:51)
[2018-11-25] MEDS ORDERED: ADRENALIN ONE (21:51)
[2018-11-25] MEDS ORDERED: QUELICIN ONE (21:51)
--- NOTE | 2018-11-25 22:05 | Event Note ---
EDFL intubation note Called to floor under a CODE BLUE collar upon my arrival was performed the patient never lost pulse and became hypoxic with decreased responsiveness. Hospitalist is at the bedside requesting intubation. The patient was intubated via orotracheal route using a 7.0 mm endotracheal tube. Rapid sequence induction was used lysed and succinylcholine 100 mg IV and etomidate 20 mg IV. Positioning was confirmed using auscultation and CO2 detector. Post intubation chest xray was ordered. Pulmonary: Breath sounds equal bilaterally. White frothy sputum visualized coming from between the vocal cords Cardiovascular: Regular rate and rhythm Neuro: GCS 3T Patient left in the care of the hospitalist Dr. Sophie Lofton at bedside
[2018-11-25] MEDS ORDERED: POTASSIUM CHLORIDE FEEDTUBE ONE (22:10)
[2018-11-25] MEDS ORDERED: VASELINE LIP THERAPY TP PRN (22:12)
[2018-11-25] MEDS ORDERED: ARTIFICIAL TEARS OPHTH OINT OU PRN (22:12)
--- NOTE | 2018-11-25 22:47 | XRay Report ---
CHEST 1 VIEW INDICATION: SOB, decrease sats. COMPARISON: One day prior. FINDINGS: Support devices: None. Heart: Stable. Lungs/Pleura: There are now rather diffuse bilateral airspace opacities. IMPRESSION: 1. Interval development of diffuse bilateral airspace opacities. Signer Name: Tho Aly MD Signed: 11/25/2018 10:43 PM Workstation Name: [id number]
--- NOTE | 2018-11-25 22:48 | XRay Report ---
CHEST 1 VIEW 10:02 PM INDICATION: ETT placement. COMPARISON: Earlier the same day. FINDINGS: Support devices: Endotracheal tube has been placed in satisfactory position. Heart: Stable. Lungs/Pleura: Extensive bilateral pulmonary opacities may be slightly worsened. No pneumothorax is se en. IMPRESSION: 1. Endotracheal tube has been placed in satisfactory position. Signer Name: Tho Aly MD Signed: 11/25/2018 10:44 PM Workstation Name: [id number]
[2018-11-25] MEDS ORDERED: VERSED IV NR (23:00)
[2018-11-25] MEDS ORDERED: VERSED IV PRN (23:25)
[2018-11-25] MEDS ORDERED: SUBLIMAZE IV PRN (23:25)
--- NOTE | 2018-11-25 23:28 | Consultation ---
History of Present Illness Consult date: 11/25/18 (seen at 11:30 pm) Reason for consult: dyspnea History of present illness: 38yo female admitted in labor. Now sp csection. She had cxr done 11/24 showed bilat pul opacities. echo done showed nl ef. She had progression of her resp distress. As per nurse in charge, pt reported that her o2 sat started alarming after eating dinner. Bipap was reportly attempted and pt was more agitated. Her sats were still low and she was intubated for airway protection and severe hypoxia. On arrival pt was noted to be agitated. Abg noted. Acute resp acidosis. She recieved morphine. O2 sat still decrease. Increase in minute vent w increase in resp rate . Not tolerated. Rate decreased to back to 25. No family at bedside Past History Past Medical History: other (herpes simplex 2, gestational diabetes, depression, general anxiety). denies: CAD, COPD, hypertension Past Surgical History: (x1 ) Social history: lives with family Family history: no significant family history Medications and Allergies Allergies Allergy/AdvReac Type Severity Reaction Status Date / Time No Known Allergies Allergy Verified 11/23/18 19:31 Home Medications Medication Instructions Recorded Confirmed Last Taken Type No Known Home Medications [No 11/24/18 11/24/18 Unknown History Reported Home Medications] Active Meds: Active Medications Al Hydrox/Mg Hydrox/Simethicone (Alum-Mag Hydrox-Simeth [id number]/5ml) 30 ml PO Q4H PRN PRN Reason: Indigestion Bisacodyl (Dulcolax) 10 mg NC QDAY PRN PRN Reason: constipation unrelieved by MOM Diphtheria/Tetanus/Acell Pertussis (Boostrix) 0.5 ml IM .ONCE ONE Stop: 11/26/18 06:01 Famotidine (Pepcid) 20 mg IV BID YING Last Admin: 11/25/18 10:01 Dose: 20 mg Documented by: Fentanyl (Sublimaze) 50 mcg IV Q10MIN PRN PRN Reason: ANALGESIA Furosemide (Lasix) 80 mg IV ONCE ONE Stop: 11/26/18 06:01 Hydrophilic Ointment (Vaseline Lip Therapy) 1 applic TP Q2HR PRN PRN Reason: Dry Lips Oxytocin/Sodium Chloride (Pitocin/Ns 20 Unit/1000ml Drip) 20 units in 1,000 mls @ 250 mls/hr IV DIRECT YING Piperacillin Sod/Tazobactam Sod (Zosyn/Ns 4.5gm/100ml) 4.5 gm in 100 mls @ 200 mls/hr IV Q8H YING; Protocol Last Admin: 11/25/18 17:29 Dose: 200 mls/hr Documented by: Fentanyl Citrate (Fentanyl Drip Premix) 2,000 mcg in 100 mls @ 3.856 mls/hr IV TITR YING; Protocol Midazolam HCl 100 mg/ Sodium (Chloride) 100 mls @ 2 mls/hr IV TITR YING; Protocol Magnesium Hydroxide (Milk Of Magnesia) 30 ml PO Q4H PRN PRN Reason: Constipation Metoclopramide HCl (Reglan) 10 mg IV Q6H PRN PRN Reason: Nausea And Vomiting Midazolam HCl (Versed) 5 mg IV ONCE NR Stop: 11/25/18 23:59 Midazolam HCl (Versed) 2 mg IV Q10MIN PRN PRN Reason: Sedation Morphine Sulfate (Morphine) 2 mg IV Q4H PRN PRN Reason: Pain, Moderate (4-6) Multi-Ingred Cream/Lotion/Oil/Oint (Artificial Tears Ophth Oint) 1 applic OU Q4HR PRN PRN Reason: Dry Eye(s) Multi-Ingredient Ointment (Lansinoh) 1 applic TP PRN PRN PRN Reason: dryness/cracking Naloxone HCl (Narcan 0.4 Mg/1 Ml) 0.1 mg IV Q2MIN PRN PRN Reason: Res Rate </= 8 or 02 SAT < 92% Potassium Chloride (Potassium Chloride) 20 meq FEEDTUBE ONCE ONE Stop: 11/26/18 06:01 Sodium Chloride (Sodium Chloride Flush Syringe 10 Ml) 10 ml IV BID YING Last Admin: 11/25/18 10:02 Dose: 10 ml Documented by: Sodium Chloride (Sodium Chloride Flush Syringe 10 Ml) 10 ml IV PRN PRN PRN Reason: LINE FLUSH Witch Faiza/Glycerin (Tucks Pad) 1 each TP PRN PRN PRN Reason: Hemorrhoids/cleansing/soothing Review of Systems ROS unobtainable: due to endotracheal tube Physical Examination Vital signs: Vital Signs Pulse BP 85 177/85 11/23/18 18:02 11/23/18 18:02 General appearance: agitated Eyes: non-icteric ENT: oropharynx moist Neck: supple Ascultation: Bilateral: rales, rhonchi Cardiovascular: other (tachycardiac) Gastrointestinal: hypoactive bowel sounds Integumentary: normal Extremities: no cyanosis other (orally intubated on vent) Results - Laboratory Findings CBC and BMP: 11/25/18 22:35 11/26/18 Unknown Abnormal lab findings: Abnormal Labs 11/23/18 11/24/18 11/24/18 19:45 16:12 16:12 WBC 12.3 H 16.3 H RDW 16.9 H 16.6 H Lymph % (Auto) [place] % (Auto) Lymph # [place] # Seg Neutrophils % Seg Neutrophils # Chloride Carbon Dioxide Creatinine 0.5 L Glucose Calcium Lactate Dehydrogenase 248 H Total Creatine Kinase CK-MB (CK-2) CK-MB (CK-2) Rel Index Troponin T NT-Pro-B Natriuret Pep Triglycerides Cholesterol HDL Cholesterol Urine WBC (Auto) 11/24/18 11/24/18 11/24/18 23:41 23:41 23:41 WBC 18.3 H RDW 16.6 H Lymph % (Auto) 3.5 L [place] % (Auto) 7.7 H Lymph # 0.6 L [place] # 1.4 H Seg Neutrophils % 88.7 H Seg Neutrophils # 16.2 H Chloride Carbon Dioxide Creatinine Glucose Calcium Lactate Dehydrogenase Total Creatine Kinase CK-MB (CK-2) CK-MB (CK-2) Rel Index Troponin T 0.274 H* NT-Pro-B Natriuret Pep 5198 H Triglycerides 540 H Cholesterol 291 H HDL Cholesterol 60 H Urine WBC (Auto) 11/24/18 11/25/18 11/25/18 23:41 04:40 04:40 WBC RDW Lymph % (Auto) [place] % (Auto) Lymph # [place] # Seg Neutrophils % Seg Neutrophils # Chloride 108.3 H Carbon Dioxide 21 L Creatinine Glucose 195 H Calcium 7.7 L Lactate Dehydrogenase Total Creatine Kinase 155 H CK-MB (CK-2) 11.4 H CK-MB (CK-2) Rel Index 7.3 H Troponin T 0.177 H* D NT-Pro-B Natriuret Pep Triglycerides Cholesterol HDL Cholesterol Urine WBC (Auto) 11/25/18 11/25/18 08:35 09:47 WBC RDW Lymph % (Auto) [place] % (Auto) Lymph # [place] # Seg Neutrophils % Seg Neutrophils # Chloride Carbon Dioxide Creatinine Glucose Calcium Lactate Dehydrogenase Total Creatine Kinase CK-MB (CK-2) CK-MB (CK-2) Rel Index Troponin T 0.157 H* NT-Pro-B Natriuret Pep Triglycerides Cholesterol HDL Cholesterol Urine WBC (Auto) 37.0 H - Diagnostic Findings Chest x-ray: report reviewed, image reviewed Assessment and Plan - Patient Problems (1) Acute respiratory acidosis Current Visit: Yes Status: Acute (2) Acute respiratory failure Current Visit: Yes Status: Acute (3) Acute respiratory failure with hypercapnia Current Visit: Yes Status: Acute (4) Electrolyte abnormality Current Visit: Yes Status: Acute (5) Elevated troponin Current Visit: Yes Status: Acute (6) Gestational hypertension Current Visit: Yes Status: Acute Qualifiers: Trimester: third trimester Qualified Code(s): O13.3 - Gestational [-induced] hypertension without significant proteinuria, third trimest er (7) Pulmonary edema Current Visit: Yes Status: Acute (8) S/P Current Visit: Yes Status: Acute
[2018-11-25] MEDS ORDERED: MIDAZOLAM 100 MG in NACL 0.9% 80 ML IV SCH (23:45)
--- NOTE | 2018-11-25 23:57 | Event Note ---
Date: 11/25/[address] Lofton of pt change in status and current condition. I spoke with support person whom I spoke with earlier an answered and addressed any questions she had as well as pt who was on the phone(he stated he had not questions at this time.) I advised that pt condition does warrent him to be present if possible. Pt now intubated and being stablized at this time. Family stated that they had no further questions for me a this time.
[2018-11-26] MEDS: fentaNYL DRIP Premix 2,000 MCG/100 ML BAG IV SCH ×4 (00:07→19:07)
--- NOTE | 2018-11-26 00:46 | Event Note ---
<RAMÍREZ SAUCEDO - Last Filed: 11/26/18 00:47> Date: 11/25/18 Pt was found to be in respiratory distress with saturation in mid 50's- low 60's on supplemental oxygen with HR in 130's. She was placed on Bipap but was unable to tolerated. I went to bedside to evaluate pt. on auscultation bilateral crackles R>L. She coughed up pink frothy sputum. Ordered Lasix 80 mg and Morphine 2mg. Pt continued to desat and Code Met was called. Ultimately Pt was intubated for airway protection. Pt was moved to ICU. Cardiology (Dr. Shirley) notified. He advised to give potassium 20Meq now, and give IV Lasix 80mg and potassium 20Meq at 0600. Vent Setting TV 450, R20, PEEP 6, FIO2 100%. Pt continued to experience difficulty with oxygenation. ABG 7.046/71.3/62/19.6. Pt is hypercapnic with hypoxia. Dr. Lipscomb (Forklift Mechanic) was notified, and came in to personally evaluate pt. Dr. Crowell (OB) was also notified and came to bedside to evaluate pt. <OSMANY MAYBERRY - Last Filed: 12/02/18 22:27> Patient seen and examined, d/w R[employer] SERV[employer] ENGINEER. Dr Crowell notify of patient's condition. The high probability of a clinically significant, sudden or life threatening deterioration of the [CV, GI, respiratory] system(s) required my full and direct attention, intervention and personal management. The aggregate critical care time was [ 45] minutes. This time is in addition to time spent performing reported procedures but includes the following: x] Data Review and interpretation [x] Patient assessment and monitoring of vital signs [x] Documentation [x] Medication orders and management
[2018-11-26] MEDS: ZOSYN/NS 4.5GM/100ML 4.5 GM/100 ML VIAL IV SCH (01:56)
--- NOTE | 2018-11-26 02:55 | XRay Report ---
CHEST 1 VIEW INDICATION: follow up respiratory failure. COMPARISON: One day prior. FINDINGS: Support devices: There has been interval placement of a nasogastric tube in satisfactory position. En dotracheal tube is in satisfactory position. Heart: Stable. Lungs/Pleura: Extensive bilateral pulmonary opacities have worsened. No pneumothorax. IMPRESSION: 1. Worsening bilateral pulmonary opacities. Signer Name: Tho Aly MD Signed: 11/26/2018 2:50 AM Workstation Name: [id number]
[2018-11-26 03:17] LABS: Hematocrit 37.4 % (30.3-42.9); Hemoglobin 12.1 gm/dl (10.1-14.3); Mean Corpuscular HGB Conc 32 % (30-34); Mean Corpuscular Volume 96 fl (79-97); Platelet Count 173 K/mm3 (140-440); Red Blood Count 3.91 M/mm3 (3.65-5.03); Red Cell Distribution Width 17.2 % (13.2-15.2)
[2018-11-26 03:20] LABS: INR 0.95 (0.87-1.13)
[2018-11-26 03:21] LABS: Partial Thromboplastin Time 20.7 Sec. (24.2-36.6)
[2018-11-26 03:25] LABS: Calcium 7.4 mg/dL (8.4-10.2)
[2018-11-26 03:27] LABS: Creatine Kinase MB 9.7 ng/mL (0.0-4.0)
[2018-11-26 04:35] LABS: Anisocytosis 1+; Band Neutrophils # (Manual) 0.6 K/mm3; Basophils % (Manual) 0 % (0.0-1.8); Eosinophils % (Manual) 0 % (0.0-4.3); Macrocytosis 1+; Myelocytes # (Manual) 0.4 K/mm3; Platelet Estimate Consistent w Auto; Total Cells Counted 100
[2018-11-26] MEDS ORDERED: LASIX IV ONE (06:00)
[2018-11-26] MEDS ORDERED: POTASSIUM CHLORIDE FEEDTUBE ONE (06:00)
[2018-11-26] MEDS ORDERED: BOOSTRIX IM ONE (06:00)
--- NOTE | 2018-11-26 09:01 | Progress Note ---
Assessment and Plan - Patient Problems (1) Acute renal failure Current Visit: Yes Status: Acute (2) Elevated troponin Current Visit: Yes Status: Acute (3) Electrolyte abnormality Current Visit: Yes Status: Acute (4) Acute respiratory failure Current Visit: Yes Status: Acute (5) Acute respiratory failure with hypercapnia Current Visit: Yes Status: Acute (6) S/P Current Visit: Yes Status: Acute (7) Pulmonary edema Current Visit: Yes Status: Acute Subjective Principal diagnosis: 1) POD #1 S/P 1LTCS 2)LOW UOP 3) gestatinal hypertension 4) pulmonary edema Interval history: at bedside overnight ABG noted. Now down to 60% P 10 450 tv rate 25 on fentanyl drip Objective Vital Signs - 12hr 11/25/18 11/25/18 11/25/18 21:00 22:01 23:08 Temperature Pulse Rate 106 H 140 H 153 H Pulse Rate [ From Monitor] Respiratory 27 H 15 Rate Blood Pressure 125/68 165/102 150/105 O2 Sat by Pulse 84 89 90 Oximetry 11/25/18 11/25/18 11/26/18 23:37 23:51 00:00 Temperature 97.9 F Pulse Rate 130 H 131 H Pulse Rate [ From Monitor] Respiratory 35 H 20 Rate Blood Pressure 135/84 O2 Sat by Pulse 82 L 88 Oximetry 11/26/18 11/26/18 11/26/18 00:13 01:00 02:00 Temperature Pulse Rate 132 H 113 H 112 H Pulse Rate [ From Monitor] Respiratory 25 H 20 18 Rate Blood Pressure 135/84 102/63 101/67 O2 Sat by Pulse 89 92 95 Oximetry 11/26/18 11/26/18 11/26/18 03:00 03:30 04:00 Temperature 98.4 F Pulse Rate 99 H 112 H Pulse Rate [ 100 H From Monitor] Respiratory 25 H 25 H Rate Blood Pressure 83/54 102/68 O2 Sat by Pulse 100 100 Oximetry 11/26/18 11/26/18 11/26/18 05:00 05:32 06:00 Temperature Pulse Rate 98 H 99 H 137 H Pulse Rate [ From Monitor] Respiratory 25 H 31 H Rate Blood Pressure 103/69 108/64 155/94 O2 Sat by Pulse 100 76 L Oximetry 11/26/18 11/26/18 11/26/18 07:00 07:42 07:46 Temperature Pulse Rate 117 H 109 H 113 H Pulse Rate [ From Monitor] Respiratory 31 H Rate Blood Pressure 121/75 114/70 114/75 O2 Sat by Pulse 92 100 97 Oximetry Constitutional: no acute distress Eyes: non-icteric ENT: oropharynx moist Neck: supple, other (intubated on vent critically ill) Effort: normal Ascultation: Bilateral: diminished breath sounds, rhonchi Cardiovascular: regular rate and rhythm Gastrointestinal: hypoactive bowel sounds Extremities: no cyanosis Neurologic: other CBC and BMP: 11/25/18 22:35 11/26/18 Unknown ABG, PT/INR, D-dimer: ABG POC ABG pH 7.328 (7.35-7.45) L 11/26/18 05:53 POC ABG pCO2 39.0 (35-45) 11/26/18 05:53 POC ABG pO2 256 (80-105) H 11/26/18 05:53 POC ABG HCO3 20.4 (22-26 mml/L) 11/26/18 05:53 POC ABG Total CO2 22 (23-27mmol/L) 11/26/18 05:53 POC ABG O2 Sat 100 11/26/18 05:53 PT/INR, D-dimer PT 12.4 Sec. (12.2-14.9) 11/25/18 22:35 INR 0.95 (0.87-1.13) 11/25/18 22:35 Abnormal lab findings: Abnormal Labs 11/23/18 11/24/18 11/24/18 19:45 16:12 16:12 WBC 12.3 H 16.3 H RDW 16.9 H 16.6 H Lymph % (Auto) [place] % (Auto) Lymph # [place] # Seg Neutrophils % Seg Neuts % (Manual) Lymphocytes % (Manual) Seg Neutrophils # Seg Neutrophils # Man APTT POC ABG pH POC ABG pCO2 POC ABG pO2 Sodium Chloride Carbon Dioxide Creatinine 0.5 L Glucose POC Glucose Calcium Lactate Dehydrogenase 248 H Total Creatine Kinase CK-MB (CK-2) CK-MB (CK-2) Rel Index Troponin T NT-Pro-B Natriuret Pep Triglycerides Cholesterol HDL Cholesterol Urine WBC (Auto) 11/24/18 11/24/18 11/24/18 23:41 23:41 23:41 WBC 18.3 H RDW 16.6 H Lymph % (Auto) 3.5 L [place] % (Auto) 7.7 H Lymph # 0.6 L [place] # 1.4 H Seg Neutrophils % 88.7 H Seg Neuts % (Manual) Lymphocytes % (Manual) Seg Neutrophils # 16.2 H Seg Neutrophils # Man APTT POC ABG pH POC ABG pCO2 POC ABG pO2 Sodium Chloride Carbon Dioxide Creatinine Glucose POC Glucose Calcium Lactate Dehydrogenase Total Creatine Kinase CK-MB (CK-2) CK-MB (CK-2) Rel Index Troponin T 0.274 H* NT-Pro-B Natriuret Pep 5198 H Triglycerides 540 H Cholesterol 291 H HDL Cholesterol 60 H Urine WBC (Auto) 11/24/18 11/25/18 11/25/18 23:41 04:40 04:40 WBC RDW Lymph % (Auto) [place] % (Auto) Lymph # [place] # Seg Neutrophils % Seg Neuts % (Manual) Lymphocytes % (Manual) Seg Neutrophils # Seg Neutrophils # Man APTT POC ABG pH POC ABG pCO2 POC ABG pO2 Sodium Chloride 108.3 H Carbon Dioxide 21 L Creatinine Glucose 195 H POC Glucose Calcium 7.7 L Lactate Dehydrogenase Total Creatine Kinase 155 H CK-MB (CK-2) 11.4 H CK-MB (CK-2) Rel Index 7.3 H Troponin T 0.177 H* D NT-Pro-B Natriuret Pep Triglycerides Cholesterol HDL Cholesterol Urine WBC (Auto) 11/25/18 11/25/18 11/25/18 08:35 09:47 22:35 WBC 20.8 H RDW 17.2 H Lymph % (Auto) [place] % (Auto) Lymph # [place] # Seg Neutrophils % Seg Neuts % (Manual) 79.0 H Lymphocytes % (Manual) 12.0 L Seg Neutrophils # Seg Neutrophils # Man 16.4 H APTT POC ABG pH POC ABG pCO2 POC ABG pO2 Sodium Chloride Carbon Dioxide Creatinine Glucose POC Glucose Calcium Lactate Dehydrogenase Total Creatine Kinase CK-MB (CK-2) CK-MB (CK-2) Rel Index Troponin T 0.157 H* NT-Pro-B Natriuret Pep Triglycerides Cholesterol HDL Cholesterol Urine WBC (Auto) 37.0 H 11/25/18 11/25/18 11/25/18 22:35 22:35 22:44 WBC RDW Lymph % (Auto) [place] % (Auto) Lymph # [place] # Seg Neutrophils % Seg Neuts % (Manual) Lymphocytes % (Manual) Seg Neutrophils # Seg Neutrophils # Man APTT 20.7 L POC ABG pH 7.046 L POC ABG pCO2 POC ABG pO2 62 L Sodium Chloride Carbon Dioxide Creatinine Glucose POC Glucose Calcium Lactate Dehydrogenase Total Creatine Kinase 267 H CK-MB (CK-2) 9.7 H CK-MB (CK-2) Rel Index Troponin T 0.313 H* D NT-Pro-B Natriuret Pep Triglycerides Cholesterol HDL Cholesterol Urine WBC (Auto) 11/26/18 11/26/18 11/26/18 00:03 01:24 04:28 WBC RDW Lymph % (Auto) [place] % (Auto) Lymph # [place] # Seg Neutrophils % Seg Neuts % (Manual) Lymphocytes % (Manual) Seg Neutrophils # Seg Neutrophils # Man APTT POC ABG pH 7.246 L POC ABG pCO2 47.0 H POC ABG pO2 72 L Sodium Chloride Carbon Dioxide Creatinine Glucose POC Glucose 152 H Calcium Lactate Dehydrogenase Total Creatine Kinase CK-MB (CK-2) CK-MB (CK-2) Rel Index Troponin T 0.740 H* D NT-Pro-B Natriuret Pep Triglycerides Cholesterol HDL Cholesterol Urine WBC (Auto) 11/26/18 11/26/18 11/26/18 05:33 05:53 Unknown WBC RDW Lymph % (Auto) [place] % (Auto) Lymph # [place] # Seg Neutrophils % Seg Neuts % (Manual) Lymphocytes % (Manual) Seg Neutrophils # Seg Neutrophils # Man APTT POC ABG pH 7.328 L POC ABG pCO2 POC ABG pO2 256 H Sodium 134 L D Chloride 97.9 L Carbon Dioxide 18 L Creatinine 2.3 H D Glucose 225 H POC Glucose 153 H Calcium 7.4 L Lactate Dehydrogenase Total Creatine Kinase CK-MB (CK-2) CK-MB (CK-2) Rel Index Troponin T NT-Pro-B Natriuret Pep Triglycerides Cholesterol HDL Cholesterol Urine WBC (Auto)
--- NOTE | 2018-11-26 09:01 | Progress Note ---
Assessment and Plan Assessment and plan: 38-year-old female who is s/p on 11/24/18. Patient was transferred to [facility] for management of pulmonary edema. Chest x-ray showed mild cardiomegaly and pulmonary edema. She was given lasix. Last night worse respiratory distress, rapid response team called and she was intubated Acute resp failure s/p intubated 11/25, placed on vent ARDS Pulmonary edema, noncardiogenic Labile blood pressure Sinus tachycardia s/p on 11/24/18 GBS positive History of herpes simplex 2 History of preeclampsia Plan: Continue supportive care Intubated last night Routine pulm toileting Cardiology following Nephrology consult for MIRIAN Pulmonology following DVT PPX on Lovenox History Interval history: patient became worse last night, respiratory distress, Code MET called, intubated put on vent Hospitalist Physical - Physical exam Narrative exam: Gen: Not in acute distress, lying in bed, intubated,sedated HEENT: Normocephalic, atraumatic Neck: supple, no JVD Heart: S1 and S2 reg, no murmurs, rubs or gallop Lungs: Bilateral crackles, no wheeze Abd: soft, non tender, non distended, normal BS Ext: No edema, no clubbing, no cyanosis, Neuro: Intubated, sedated - Constitutional Vitals: Temp Pulse Resp BP Pulse Ox 98.4 F 113 H 31 H 114/75 97 11/26/18 03:30 11/26/18 07:46 11/26/18 07:00 11/26/18 07:46 11/26/18 07:46 General appearance: Present: no acute distress, well-nourished Results - Labs CBC & Chem 7: 11/27/18 03:44 11/27/18 03:44 Labs: Laboratory Last Values WBC 20.8 K/mm3 (4.5-11.0) H 11/25/18 22:35 RBC 3.91 M/mm3 (3.65-5.03) 11/25/18 22:35 Hgb 12.1 gm/dl (10.1-14.3) 11/25/18 22:35 Hct 37.4 % (30.3-42.9) 11/25/18 22:35 MCV 96 fl (79-97) 11/25/18 22:35 MCH 31 pg (28-32) 11/25/18 22:35 MCHC 32 % (30-34) 11/25/18 22:35 RDW 17.2 % (13.2-15.2) H 11/25/18 22:35 Plt Count 173 K/mm3 (140-440) 11/25/18 22:35 Lymph % (Auto) 3.5 % (13.4-35.0) L 11/24/18 23:41 [place] % (Auto) 7.7 % (0.0-7.3) H 11/24/18 23:41 Eos % (Auto) 0.0 % (0.0-4.3) 11/24/18 23:41 Baso % (Auto) 0.1 % (0.0-1.8) 11/24/18 23:41 Lymph # 0.6 K/mm3 (1.2-5.4) L 11/24/18 23:41 [place] # 1.4 K/mm3 (0.0-0.8) H 11/24/18 23:41 Eos # 0.0 K/mm3 (0.0-0.4) 11/24/18 23:41 Baso # 0.0 K/mm3 (0.0-0.1) 11/24/18 23:41 Add Manual Diff Complete 11/25/18 22:35 Total Counted 100 11/25/18 22:35 Seg Neutrophils % 88.7 % (40.0-70.0) H 11/24/18 23:41 Seg Neuts % (Manual) 79.0 % (40.0-70.0) H 11/25/18 22:35 3.0 % 11/25/18 22:35 12.0 % (13.4-35.0) L 11/25/18 22:35 Reactive Lymphs % (Man) 0 % 11/25/18 22:35 2.0 % (0.0-7.3) 11/25/18 22:35 0 % (0.0-4.3) 11/25/18 22:35 0 % (0.0-1.8) 11/25/18 22:35 2.0 % 11/25/18 22:35 2.0 % 11/25/18 22:35 0 % 07/06/19 22:35 0 % 11/25/18 22:35 Nucleated RBC % Not Reportable 11/25/18 22:35 Seg Neutrophils # 16.2 K/mm3 (1.8-7.7) H 11/24/18 23:41 Seg Neutrophils # Man 16.4 K/mm3 (1.8-7.7) H 11/25/18 22:35 Band Neutrophils # 0.6 K/mm3 11/25/18 22:35 2.5 K/mm3 (1.2-5.4) 11/25/18 22:35 Abs React Lymphs (Man) 0.0 K/mm3 11/25/18 22:35 0.4 K/mm3 (0.0-0.8) 11/25/18 22:35 0.0 K/mm3 (0.0-0.4) 11/25/18 22:35 0.0 K/mm3 (0.0-0.1) 11/25/18 22:35 0.4 K/mm3 11/25/18 22:35 0.4 K/mm3 11/25/18 22:35 0.0 K/mm3 11/25/18 22:35 Blast Cells # 0.0 K/mm3 11/25/18 22:35 WBC Morphology Not Reportable 11/25/18 22:35 Hypersegmented Neuts Not Reportable 11/25/18 22:35 Hyposegmented Neuts Not Reportable 11/25/18 22:35 Hypogranular Neuts Not Reportable 11/25/18 22:35 Not Reportable 11/25/18 22:35 Not Reportable 11/25/18 22:35 Not Reportable 11/25/18 22:35 Not Reportable 11/25/18 22:35 Not Reportable 11/25/18 22:35 Not Reportable 11/25/18 22:35 Consistent w auto 11/25/18 22:35 Not Reportable 11/25/18 22:35 Plt Clumps, EDTA Not Reportable 11/25/18 22:35 Not Reportable 11/25/18 22:35 Not Reportable 11/25/18 22:35 Not Reportable 11/25/18 22:35 Plt Morphology Comment Not Reportable 11/25/18 22:35 RBC Morphology Not Reportable 11/25/18 22:35 Dimorphic RBCs Not Reportable 11/25/18 22:35 Not Reportable 11/25/18 22:35 Not Reportable 11/25/18 22:35 Not Reportable 11/25/18 22:35 1+ 11/25/18 22:35 Not Reportable 11/25/18 22:35 1+ 11/25/18 22:35 Not Reportable 11/25/18 22:35 Not Reportable 11/25/18 22:35 Not Reportable 11/25/18 22:35 Not Reportable 11/25/18 22:35 Not Reportable 11/25/18 22:35 Not Reportable 11/25/18 22:35 Not Reportable 11/25/18 22:35 Not Reportable 11/25/18 22:35 Not Reportable 11/25/18 22:35 Not Reportable 11/25/18 22:35 Not Reportable 11/25/18 22:35 Not Reportable 11/25/18 22:35 Not Reportable 11/25/18 22:35 Acanthocytes (Spur) Not Reportable 11/25/18 22:35 Rouleaux Not Reportable 11/25/18 22:35 Not Reportable 11/25/18 22:35 Not Reportable 11/25/18 22:35 Not Reportable 11/25/18 22:35 Not Reportable 11/25/18 22:35 Hem Pathologist Commnt No 11/25/18 22:35 PT 12.4 Sec. (12.2-14.9) 11/25/18 22:35 INR 0.95 (0.87-1.13) 11/25/18 22:35 APTT 20.7 Sec. (24.2-36.6) L 11/25/18 22:35 POC ABG pH 7.328 (7.35-7.45) L 11/26/18 05:53 POC ABG pCO2 39.0 (35-45) 11/26/18 05:53 POC ABG pO2 256 (80-105) H 11/26/18 05:53 POC ABG HCO3 20.4 (22-26 mml/L) 11/26/18 05:53 POC ABG Total CO2 22 (23-27mmol/L) 11/26/18 05:53 POC ABG O2 Sat 100 11/26/18 05:53 POC ABG Base Excess -6 ((-2) - (+3)mmol/L) 11/26/18 05:53 100 % 11/26/18 05:53 Sodium 134 mmol/L (137-145) L D 11/26/18 Unknown Potassium 3.8 mmol/L (3.6-5.0) 11/26/18 Unknown Chloride 97.9 mmol/L (98-107) L 11/26/18 Unknown Carbon Dioxide 18 mmol/L (22-30) L 11/26/18 Unknown 22 mmol/L 11/26/18 Unknown BUN 16 mg/dL (7-17) 11/26/18 Unknown 2.3 mg/dL (0.7-1.2) H D 11/26/18 Unknown Estimated GFR 24 ml/min 11/26/18 Unknown 7 % 11/26/18 Unknown Glucose 225 mg/dL (65-100) H 11/26/18 Unknown POC Glucose 153 (70-105) H 11/26/18 05:33 4.7 mg/dL (3.5-7.6) 11/24/18 16:12 Calcium 7.4 mg/dL (8.4-10.2) L 11/26/18 Unknown AST 33 units/L (5-40) 11/24/18 16:12 ALT 24 units/L (7-56) 11/24/18 16:12 248 units/L (91-180) H 11/24/18 16:12 267 units/L (30-135) H 11/25/18 22:35 CK-MB (CK-2) 9.7 ng/mL (0.0-4.0) H 11/25/18 22:35 CK-MB (CK-2) Rel Index 3.6 (0-4) 11/25/18 22:35 0.740 ng/mL (0.00-0.029) H* D 11/26/18 04:28 NT-Pro-B Natriuret Pep 5198 pg/mL (0-450) H 11/24/18 23:41 Triglycerides 540 mg/dL (2-149) H 11/24/18 23:41 Cholesterol 291 mg/dL (50-199) H 11/24/18 23:41 TNR 11/24/18 23:41 60 mg/dL (40-59) H 11/24/18 23:41 4.85 % 11/24/18 23:41 Jill (Yellow) 11/25/18 08:35 Turbid (Clear) 11/25/18 08:35 5.0 (5.0-7.0) 11/25/18 08:35 Ur Specific [place]idan 1.023 (1.003-1.030) 11/25/18 08:35 100 mg/dl mg/dL (Negative) 11/25/18 08:35 >=500 mg/dL (Negative) 11/25/18 08:35 20 mg/dL (Negative) 11/25/18 08:35 Lg (Negative) 11/25/18 08:35 Neg (Negative) 11/25/18 08:35 Neg (Negative) 11/25/18 08:35 < 2.0 mg/dL (<2.0) 11/25/18 08:35 Ur Leukocyte Esterase Sm (Negative) 11/25/18 08:35 37.0 /HPF (0.0-6.0) H 11/25/18 08:35 59.0 /HPF (0.0-6.0) 11/25/18 08:35 U Epithel Cells (Auto) 1.0 /HPF (0-13.0) 11/25/18 08:35 Uric Acid Crystals Few 11/25/18 08:35 RPR Nonreactive (Nonreactive) 11/23/18 19:45 Blood Type O NEGATIVE 11/24/18 23:41 Antibody Screen Negative 11/24/18 23:41 Screen Negative 11/24/18 23:41 Active Medications - Current Medications Current Medications: Generic Name Dose Route Start Last Admin Trade Name Freq PRN Reason Stop Dose Admin Al Hydrox/Mg Hydrox/Simethicone 30 ml 11/24/18 23:16 Alum-Mag Hydrox-Simeth 942-047-06iy/5ml PO Q4H PRN Indigestion Albuterol 2.5 mg 11/26/18 08:00 Proventil IH Q8HRT YING Bisacodyl 10 mg 11/24/18 23:16 Dulcolax MD QDAY PRN constipation unrelieved by MOM Famotidine 20 mg 11/25/18 10:00 11/25/18 23:50 Pepcid IV 20 mg BID YING Administration Fentanyl 50 mcg 11/25/18 23:25 Sublimaze IV Q10MIN PRN ANALGESIA Hydrophilic Ointment 1 applic 11/25/18 22:12 Vaseline Lip Therapy TP Q2HR PRN Dry Lips Oxytocin/Sodium Chloride 20 units in 1,000 mls @ 250 mls/hr 11/24/18 23:16 Pitocin/Ns 20 Unit/1000ml Drip IV DIRECT YING Fentanyl Citrate 2,000 mcg in 100 mls @ 3.856 mls/hr 11/25/18 23:45 11/26/18 06:25 Fentanyl Drip Premix IV 4 mcg/kg/hr TITR YING 15.422 mls/hr Titration Protocol 1 MCG/KG/HR Midazolam HCl 100 mg/ Sodium 100 mls @ 2 mls/hr 11/25/18 23:45 Chloride IV TITR YING Protocol 2 MG/HR Piperacillin Sod/Tazobactam Sod 2.25 gm in 50 mls @ 100 mls/hr 11/26/18 10:00 Zosyn/Ns 2.25 Gm/50ml IV Q8HR [facility] Protocol Magnesium Hydroxide 30 ml 11/24/18 23:16 Milk Of Magnesia PO Q4H PRN Constipation Methylprednisolone Sodium Succinate 80 mg 11/26/18 09:00 Solu-Medrol IV 11/27/18 10:00 Q8H [facility] Metoclopramide HCl 10 mg 11/24/18 23:16 Reglan IV Q6H PRN Nausea And Vomiting Midazolam HCl 2 mg 11/25/18 23:25 Versed IV Q10MIN PRN Sedation Morphine Sulfate 2 mg 11/25/18 23:19 Morphine IV Q4H PRN Pain, Moderate (4-6) Multi-Ingred Cream/Lotion/Oil/Oint 1 applic 11/25/18 22:12 Artificial Tears Ophth Oint OU Q4HR PRN Dry Eye(s) Multi-Ingredient Ointment 1 applic 11/24/18 23:16 Lansinoh TP PRN PRN dryness/cracking Naloxone HCl 0.1 mg 11/24/18 23:16 Narcan 0.4 Mg/1 Ml IV Q2MIN PRN Res Rate </= 8 or 02 SAT < 92% Sodium Chloride 10 ml 11/24/18 23:16 11/25/18 23:47 Sodium Chloride Flush Syringe 10 Ml IV 10 ml BID YING Administration Sodium Chloride 10 ml 11/24/18 23:16 Sodium Chloride Flush Syringe 10 Ml IV PRN PRN LINE FLUSH Witch Faiza/Glycerin 1 each 11/24/18 23:16 Tucks Pad TP PRN PRN Hemorrhoids/cleansing/soothing
[2018-11-26] MEDS: SOLU-Medrol IV SCH (09:53)
[2018-11-26] MEDS: SODIUM CHLORIDE FLUSH SYRINGE 10 ML IV SCH (09:54)
[2018-11-26] MEDS: PEPCID IV SCH (09:54)
[2018-11-26] MEDS ORDERED: ZOSYN/NS 2.25 GM/50ML 2.25 GM/50 ML BAG IV SCH ×2 (10:00)
--- NOTE | 2018-11-26 10:18 | Consultation ---
History of Present Illness - History of Present Illness Thank you for the consultation patient was evaluated today Source of information: Current chart/unable to obtain history from the patient History of presenting illness Patient is a 38-year-old female who has been admitted here in the ICU due to acute pulmonary edema patient has had , and has also been noted to have respiratory failure discussed with Dr. Lipscomb things that patient may be developing ARDS. Patient's creatinine was normal renal ultrasonogram has been ordered she is currently also being seen and followed by cardiology service Patient is currently not receiving any nephrotoxic medications Blood pressure had transiently dropped down to 83/54 around 3 AM She has been noted to have labile blood pressure, has sinus tachycardia Events of this hospitalization noted she has also been noted to be very hypoxic, Patient's platelet count is normal Past medical history significant for Gestational diabetes Generalized anxiety disorder Herpes simplex Current allergies: None Home medication present medication: Reviewed Social history: Reviewed from the chart Family history: Reviewed from the chart Review of system: Positive for Recent Labile hypertension Hypoxemia, respiratory failure Physical examination: Vitals: Reviewed HEENT: Normocephalic/atraumatic skull no pallor or icterus no uremic order oral mucosa moist Neck: Supple without any thyromegaly noted or mass JVD Chest: Bilateral diminished at bases, scattered wheezes crackles Heart: Regular rate and rhythm S1 and S2 heard no S3-S4 no pericardial rub Abdomen: Soft nontender no organomegaly no masses no suprapubic fullness no CVA tenderness no renal bruit Extremity: Dry skin, peripheral pulses palpable Some edema noted Endocrine: Thyroid not enlarged Psych: No evidence of vegetation aggression or behavioral issues noted Hussain: Dry skin no petechial skin rashes Back: was not examined due to intubation Neurological: on vent Labs and x-rays: Reviewed from this admission Assessment and plan: Renal failure in a patient who is 38-year-old admitted here with pneumonia, possible ARDS, hypoxemia, likely etiology of renal failure appears to be ischemic injury, patient also has had a significant increase in her troponin level that needs to be assessed, There is no emergent indication renal placement therapy at this time, Patient does have proteinuria approximately 100 mg per DL in the random specimen Renal ultrasonogram has been ordered already Chest x-ray obtained today shows bilateral worsening pulmonary opacities discussed with pulmonary, patient may be developing ARDS Will order labs for renal failure, patient ultrasonogram has been already order ed Strict intake and output monitoring, order urinary studies, Clinically I do have high index of suspicion for acute tubular necrosis likely resulting from hypoxemia Patient needs an echocardiogram Had a detailed discussion with patient about the renal care plan all the renal related questions were answered, will order the necessary lab testing as well as imaging as required during this admission. Pertinent lab studies as well as imaging were also discussed with patient. From renal standpoint prognosis appears to be guarded at this time. We'll continue to follow and make recommendation from renal standpoint Please feel free to call me at [phone] if you have any questions in regards to this patient's care Thank you for the consultation. Past History Past Medical History: other (herpes simplex 2, gestational diabetes, depression, general anxiety). denies: CAD, COPD, hypertension Past Surgical History: (x1 ) Social history: lives with family Family history: no significant family history Medications and Allergies Allergies Allergy/AdvReac Type Severity Reaction Status Date / Time No Known Allergies Allergy Verified 11/23/18 19:31 Home Medications Medication Instructions Recorded Confirmed Last Taken Type traMADol [Ultram 50 MG tab] 50 mg PO Q6HR PRN #20 tablet 12/02/18 Unknown Rx Active Meds: Active Medications Al Hydrox/Mg Hydrox/Simethicone (Alum-Mag Hydrox-Simeth 025-943-38ot/5ml) 30 ml PO Q4H PRN PRN Reason: Indigestion Albuterol (Proventil) 2.5 mg IH Q8HRT YING Bisacodyl (Dulcolax) 10 mg NV QDAY PRN PRN Reason: constipation unrelieved by MOM Famotidine (Pepcid) 20 mg IV BID YING Last Admin: 11/26/18 09:54 Dose: 20 mg Documented by: Fentanyl (Sublimaze) 50 mcg IV Q10MIN PRN PRN Reason: ANALGESIA Hydrophilic Ointment (Vaseline Lip Therapy) 1 applic TP Q2HR PRN PRN Reason: Dry Lips Oxytocin/Sodium Chloride (Pitocin/Ns 20 Unit/1000ml Drip) 20 units in 1,000 mls @ 250 mls/hr IV DIRECT YING Fentanyl Citrate (Fentanyl Drip Premix) 2,000 mcg in 100 mls @ 3.856 mls/hr IV TITR YING; Protocol Last Titration: 11/26/18 06:25 Dose: 4 mcg/kg/hr, 15.422 mls/hr Documented by: Midazolam HCl 100 mg/ Sodium (Chloride) 100 mls @ 2 mls/hr IV TITR [facility]; Protocol Piperacillin Sod/Tazobactam Sod (Zosyn/Ns 2.25 Gm/50ml) 2.25 gm in 50 mls @ 100 mls/hr IV Q6H [facility] Last Admin: 11/26/18 09:53 Dose: 100 mls/hr Documented by: Magnesium Hydroxide (Milk Of Magnesia) 30 ml PO Q4H PRN PRN Reason: Constipation Methylprednisolone Sodium Succinate (Solu-Medrol) 80 mg IV Q8H [facility] Stop: 11/27/18 10:00 Last Admin: 11/26/18 09:53 Dose: 80 mg Documented by: Metoclopramide HCl (Reglan) 10 mg IV Q6H PRN PRN Reason: Nausea And Vomiting Midazolam HCl (Versed) 2 mg IV Q10MIN PRN PRN Reason: Sedation Morphine Sulfate (Morphine) 2 mg IV Q4H PRN PRN Reason: Pain, Moderate (4-6) Multi-Ingred Cream/Lotion/Oil/Oint (Artificial Tears Ophth Oint) 1 applic OU Q4HR PRN PRN Reason: Dry Eye(s) Multi-Ingredient Ointment (Lansinoh) 1 applic TP PRN PRN PRN Reason: dryness/cracking Naloxone HCl (Narcan 0.4 Mg/1 Ml) 0.1 mg IV Q2MIN PRN PRN Reason: Res Rate </= 8 or 02 SAT < 92% Sodium Chloride (Sodium Chloride Flush Syringe 10 Ml) 10 ml IV BID [facility] Last Admin: 11/26/18 09:54 Dose: 10 ml Documented by: Sodium Chloride (Sodium Chloride Flush Syringe 10 Ml) 10 ml IV PRN PRN PRN Reason: LINE FLUSH Witch Faiza/Glycerin (Tucks Pad) 1 each TP PRN PRN PRN Reason: Hemorrhoids/cleansing/soothing Exam - Vital Signs Vital signs: Vital Signs Pulse BP 85 177/85 11/23/18 18:02 11/23/18 18:02 Results - Lab Results 11/30/18 04:09 12/02/18 04:14 Most recent lab results Calcium 7.4 mg/dL (8.4-10.2) L 11/26/18 Unknown
--- NOTE | 2018-11-26 10:33 | Ultrasound Report ---
ULTRASOUND RENAL INDICATION / CLINICAL INFORMATION: acute renal failure. COMPARISON: None available. FINDINGS: RIGHT KIDNEY: Length = 12.8 cm. [normal > 9 cm] - Parenchymal Thickness = 1.5 cm. [normal > 1.5 cm] - Echogenicity: There is increased renal cortical echogenicity. - Hydronephrosis: None. - Cyst or mass: No significant abnormality. - Stones: None seen. LEFT KIDNEY: Length = 13.3 cm. [normal > 9 cm] - Parenchymal Thickness = 1.9 cm. [normal > 1.5 cm] - Echogenicity: There is slightly increased renal cortical echogenicity. - Hydronephrosis: None. - Cyst or mass: No significant abnormality. - Stones: None seen. URINARY BLADDER: Collapsed. FREE FLUID: None. ADDITIONAL FINDINGS: None. IMPRESSION: 1. Increased renal cortical echogenicity bilaterally but overall greatest on the right. Findings are nonspecific but often seen with medical renal disease. Otherwise there is nothing acute. Signer Name: Clark Urbina MD Signed: 11/26/2018 10:28 AM Workstation Name: [id number]
--- NOTE | 2018-11-26 10:54 | Progress Note ---
Assessment and Plan 1. Acute respiratory failure. 2. Noncardiogenic pulmonary edema/ARDS 3. Leukocytosis rule out sepsis 4. Septic shock 5. Acute kidney injury 6. Status post section Plan. Maintain negative fluid balance continue pressor agents and IV antibiotics Subjective Date of service: 11/26/18 Principal diagnosis: 1) POD #1 S/P 1LTCS 2)LOW UOP 3) gestatinal hypertension 4) pulmonary edema Interval history: Events over the last 24 6 noted in the progress notes patient with progressive respiratory distress and had to be intubated for pending respiratory failure. Chest x-ray show worsening of pulmonary interstitial infiltrates. Objective Vital Signs Temp Pulse Pulse Resp BP Pulse Ox 11/26/18 09:23 100 H 103/73 97 11/26/18 09:00 104 H 22 103/73 99 11/26/18 08:00 105 H 26 H 114/75 97 11/26/18 07:46 113 H 114/75 97 11/26/18 07:42 109 H 114/70 100 11/26/18 07:00 117 H 31 H 121/75 92 11/26/18 06:00 137 H 31 H 155/94 76 L 11/26/18 05:32 99 H 108/64 100 11/26/18 05:00 98 H 25 H 103/69 11/26/18 04:00 112 H 100 H 25 H 102/68 100 11/26/18 03:30 98.4 F 11/26/18 03:00 99 H 25 H 83/54 100 11/26/18 02:00 112 H 18 101/67 95 11/26/18 01:00 113 H 20 102/63 92 11/26/18 00:13 132 H 25 H 135/84 89 11/26/18 00:00 131 H 20 135/84 88 11/25/18 23:51 130 H 35 H 82 L 11/25/18 23:37 97.9 F 11/25/18 23:08 153 H 150/105 90 11/25/18 22:01 140 H 15 165/102 89 11/25/18 21:00 106 H 27 H 125/68 84 11/25/18 20:00 98.4 F 96 H 14 117/68 88 11/25/18 19:34 98.4 F 11/25/18 19:00 81 25 H 107/66 95 11/25/18 18:01 79 22 108/82 93 11/25/18 17:00 87 16 112/67 94 11/25/18 16:00 98.3 F 76 15 108/66 94 11/25/18 15:01 91 H 15 117/57 96 11/25/18 14:00 73 11 L 113/53 90 11/25/18 13:01 83 22 117/68 97 11/25/18 12:00 97.7 F 69 11 L 120/70 92 11/25/18 11:00 81 19 117/68 91 - Physical Examination General: Other (Intubated on mechanical ventilator) HEENT: Positive: PERRL, Mucus Membranes Moist Neck: Positive: neck supple, trachea midline. Negative: JVD/HJR Cardiac: Positive: Regular Rate, S1/S2. Negative: S3, S4 Lungs: Positive: Rales, Rhonchi. Negative: No Wheeze, Rales, Rhonchi Neuro: Positive: Grossly Intact Abdomen: Positive: Soft, Active Bowel Sounds, Other (post C/S surgery). Negative: Tender, Distended Skin: Positive: Clear Incision: Cardiac Cath Site Musculoskeletal: No Pain, Normal Range of Motion Extremities: Present: normal. Absent: edema - Labs and Meds Cardiac Enzymes 11/25/18 Range/Units 22:35 CK-MB (CK-2) 9.7 H (0.0-4.0) ng/mL Coagulation 11/25/18 Range/Units 22:35 PT 12.4 (12.2-14.9) Sec. INR 0.95 (0.87-1.13) APTT 20.7 L (24.2-36.6) Sec. CBC 11/25/18 Range/Units 22:35 WBC 20.8 H (4.5-11.0) K/mm3 RBC 3.91 (3.65-5.03) M/mm3 Hgb 12.1 (10.1-14.3) gm/dl Hct 37.4 (30.3-42.9) % Plt Count 173 (140-440) K/mm3 Comprehensive Metabolic Panel 11/26/18 Range/Units Unknown Sodium 134 L D (137-145) mmol/L Potassium 3.8 (3.6-5.0) mmol/L Chloride 97.9 L (98-107) mmol/L Carbon Dioxide 18 L (22-30) mmol/L BUN 16 (7-17) mg/dL Creatinine 2.3 H D (0.7-1.2) mg/dL Glucose 225 H (65-100) mg/dL Calcium 7.4 L (8.4-10.2) mg/dL
[2018-11-26 11:13] LABS: Uric Acid 6.4 mg/dL (3.5-7.6)
[2018-11-26] MEDS: PROVENTIL IH SCH ×2 (12:22→16:00)
[2018-11-26 13:05] LABS: Hemoglobin 11.1 gm/dl (10.1-14.3); Mean Corpuscular HGB Conc 35 % (30-34); Mean Corpuscular Volume 92 fl (79-97); Platelet Count 129 K/mm3 (140-440); Red Blood Count 3.47 M/mm3 (3.65-5.03); Red Cell Distribution Width 17.1 % (13.2-15.2)
--- NOTE | 2018-11-26 13:06 | Consultation ---
History of Present Illness - Reason for Consult Consult date: 11/26/18 leukocytosis, recent C section Requesting physician: GURWINDER WHITE - History of Present Illness 38 y/o female with history of preeclampsia admitted on 11/23/2018 with 38 weeks gestation with uterine contractions. Patient underwent on 11/24/18 due to failure to dilate, pulmonary edema and gestational hypertension; after C- section she developed acute respiratory failure/ARDS and hypotension, currently intubated, unable to provide a history. History taken from review of medical records. 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 On admission, vitals signs normal except for BP 177/85. WBC 12.3. Hg 13.2. Plat 215. Creat 0.5. UA neg and repeat on 11/25 shows 37 wbc and trace LE. Blood cultures 11/25/2018 no growth. Urine culture 11/25/2018 no growth. Chest x-ray showed mild cardiomegaly and pulmonary edema. ID consulted due to worsening leukocytosis. Review of Systems: unable to obtain Past History Past Medical History: other (herpes simplex 2, gestational diabetes, depression, general anxiety). denies: CAD, COPD, hypertension Past Surgical History: (x1 ) Social history: lives with family Family history: no significant family history Medications and Allergies Allergies Allergy/AdvReac Type Severity Reaction Status Date / Time No Known Allergies Allergy Verified 11/23/18 19:31 Home Medications Medication Instructions Recorded Confirmed Last Taken Type No Known Home Medications [No 11/24/18 11/24/18 Unknown History Reported Home Medications] Active Meds: Active Medications Al Hydrox/Mg Hydrox/Simethicone (Alum-Mag Hydrox-Simeth [phone]/5ml) 30 ml PO Q4H PRN PRN Reason: Indigestion Albuterol (Proventil) 2.5 mg IH Q8HRT [facility] Last Admin: 11/26/18 12:22 Dose: 2.5 mg Documented by: Bisacodyl (Dulcolax) 10 mg NC QDAY PRN PRN Reason: constipation unrelieved by MOM Famotidine (Pepcid) 20 mg IV BID [facility] Last Admin: 11/26/18 09:54 Dose: 20 mg Documented by: Fentanyl (Sublimaze) 50 mcg IV Q10MIN PRN PRN Reason: ANALGESIA Hydrophilic Ointment (Vaseline Lip Therapy) 1 applic TP Q2HR PRN PRN Reason: Dry Lips Oxytocin/Sodium Chloride (Pitocin/Ns 20 Unit/1000ml Drip) 20 units in 1,000 mls @ 250 mls/hr IV DIRECT YING Fentanyl Citrate (Fentanyl Drip Premix) 2,000 mcg in 100 mls @ 3.856 mls/hr IV TITR YING; Protocol Last Admin: 11/26/18 12:44 Dose: 4 mcg/kg/hr, 15.422 mls/hr Documented by: Midazolam HCl 100 mg/ Sodium (Chloride) 100 mls @ 2 mls/hr IV TITR YING; Protocol Last Admin: 11/26/18 11:23 Dose: 2 mg/hr, 2 mls/hr Documented by: Piperacillin Sod/Tazobactam Sod (Zosyn/Ns 2.25 Gm/50ml) 2.25 gm in 50 mls @ 100 mls/hr IV Q6H YING Last Admin: 11/26/18 09:53 Dose: 100 mls/hr Documented by: Magnesium Hydroxide (Milk Of Magnesia) 30 ml PO Q4H PRN PRN Reason: Constipation Methylprednisolone Sodium Succinate (Solu-Medrol) 80 mg IV Q8H [facility] Stop: 11/27/18 10:00 Last Admin: 11/26/18 09:53 Dose: 80 mg Documented by: Metoclopramide HCl (Reglan) 10 mg IV Q6H PRN PRN Reason: Nausea And Vomiting Midazolam HCl (Versed) 2 mg IV Q10MIN PRN PRN Reason: Sedation Morphine Sulfate (Morphine) 2 mg IV Q4H PRN PRN Reason: Pain, Moderate (4-6) Multi-Ingred Cream/Lotion/Oil/Oint (Artificial Tears Ophth Oint) 1 applic OU Q4HR PRN PRN Reason: Dry Eye(s) Multi-Ingredient Ointment (Lansinoh) 1 applic TP PRN PRN PRN Reason: dryness/cracking Naloxone HCl (Narcan 0.4 Mg/1 Ml) 0.1 mg IV Q2MIN PRN PRN Reason: Res Rate </= 8 or 02 SAT < 92% Sodium Chloride (Sodium Chloride Flush Syringe 10 Ml) 10 ml IV BID [facility] Last Admin: 11/26/18 09:54 Dose: 10 ml Documented by: Sodium Chloride (Sodium Chloride Flush Syringe 10 Ml) 10 ml IV PRN PRN PRN Reason: LINE FLUSH Witch Faiza/Glycerin (Tucks Pad) 1 each TP PRN PRN PRN Reason: Hemorrhoids/cleansing/soothing Physical Examination - Physical Exam Narrative exam: General appearance: sedated intubated in NAD fiO2 40%, p10 Eyes: anicteric sclerae, moist conjunctivae; no lid-lag; PERRLA HENT: Atraumatic; oropharynx +ETT Neck: Trachea midline; supple, no thyromegaly or lymphadenopathy Lungs: emilee coarse BS CV: RRR Abdomen: Soft, non-tender; wound covered with surgical dressings clean Extremities: no edema, cyanosis Skin: Normal temperature, turgor and texture; no rash, ulcers or subcutaneous n odules Psych: sedated. Neuro: sedated - Constitutional Vitals: Vital Signs Temp Pulse Resp BP Pulse Ox 98.4 F 98 H 25 H 117/78 98 11/26/18 03:30 11/26/18 12:23 11/26/18 12:23 11/26/18 12:19 11/26/18 12:19 Temperature -Last 24 Hours Temperature 98.4 F Temperature 97.9 F Temperature 98.4 F Temperature 98.4 F Temperature 98.3 F Results - Labs CBC & Chem 7: 11/26/18 12:43 11/26/18 Unknown Labs: Abnormal lab results 11/25/18 11/25/18 11/25/18 Range/Units 22:35 22:35 22:35 WBC 20.8 H (4.5-11.0) K/mm3 RBC (3.65-5.03) M/mm3 MCHC (30-34) % RDW 17.2 H (13.2-15.2) % Plt Count (140-440) K/mm3 Seg Neuts % (Manual) 79.0 H (40.0-70.0) % Lymphocytes % (Manual) 12.0 L (13.4-35.0) % Seg Neutrophils # Man 16.4 H (1.8-7.7) K/mm3 APTT 20.7 L (24.2-36.6) Sec. POC ABG pH (7.35-7.45) POC ABG pCO2 (35-45) POC ABG pO2 (80-105) Sodium (137-145) mmol/L Chloride (98-107) mmol/L Carbon Dioxide (22-30) mmol/L Creatinine (0.7-1.2) mg/dL Glucose (65-100) mg/dL POC Glucose (70-105) Calcium (8.4-10.2) mg/dL Total Creatine Kinase 267 H (30-135) units/L CK-MB (CK-2) 9.7 H (0.0-4.0) ng/mL Troponin T 0.313 H* D (0.00-0.029) ng/mL 11/25/18 11/26/18 11/26/18 Range/Units 22:44 00:03 01:24 WBC (4.5-11.0) K/mm3 RBC (3.65-5.03) M/mm3 MCHC (30-34) % RDW (13.2-15.2) % Plt Count (140-440) K/mm3 Seg Neuts % (Manual) (40.0-70.0) % Lymphocytes % (Manual) (13.4-35.0) % Seg Neutrophils # Man (1.8-7.7) K/mm3 APTT (24.2-36.6) Sec. POC ABG pH 7.046 L 7.246 L (7.35-7.45) POC ABG pCO2 47.0 H (35-45) POC ABG pO2 62 L 72 L (80-105) Sodium (137-145) mmol/L Chloride (98-107) mmol/L Carbon Dioxide (22-30) mmol/L Creatinine (0.7-1.2) mg/dL Glucose (65-100) mg/dL POC Glucose 152 H (70-105) Calcium (8.4-10.2) mg/dL Total Creatine Kinase (30-135) units/L CK-MB (CK-2) (0.0-4.0) ng/mL Troponin T (0.00-0.029) ng/mL 11/26/18 11/26/18 11/26/18 Range/Units 04:28 05:33 05:53 WBC (4.5-11.0) K/mm3 RBC (3.65-5.03) M/mm3 MCHC (30-34) % RDW (13.2-15.2) % Plt Count (140-440) K/mm3 Seg Neuts % (Manual) (40.0-70.0) % Lymphocytes % (Manual) (13.4-35.0) % Seg Neutrophils # Man (1.8-7.7) K/mm3 APTT (24.2-36.6) Sec. POC ABG pH 7.328 L (7.35-7.45) POC ABG pCO2 (35-45) POC ABG pO2 256 H (80-105) Sodium (137-145) mmol/L Chloride (98-107) mmol/L Carbon Dioxide (22-30) mmol/L Creatinine (0.7-1.2) mg/dL Glucose (65-100) mg/dL POC Glucose 153 H (70-105) Calcium (8.4-10.2) mg/dL Total Creatine Kinase (30-135) units/L CK-MB (CK-2) (0.0-4.0) ng/mL Troponin T 0.740 H* D (0.00-0.029) ng/mL 11/26/18 11/26/18 11/26/18 Range/Units 10:38 10:38 12:43 WBC 16.1 H (4.5-11.0) K/mm3 RBC 3.47 L (3.65-5.03) M/mm3 MCHC 35 H (30-34) % RDW 17.1 H (13.2-15.2) % Plt Count 129 L (140-440) K/mm3 Seg Neuts % (Manual) (40.0-70.0) % Lymphocytes % (Manual) (13.4-35.0) % Seg Neutrophils # Man (1.8-7.7) K/mm3 APTT (24.2-36.6) Sec. POC ABG pH (7.35-7.45) POC ABG pCO2 (35-45) POC ABG pO2 (80-105) Sodium (137-145) mmol/L Chloride (98-107) mmol/L Carbon Dioxide (22-30) mmol/L Creatinine (0.7-1.2) mg/dL Glucose (65-100) mg/dL POC Glucose (70-105) Calcium (8.4-10.2) mg/dL Total Creatine Kinase 431 H (30-135) units/L CK-MB (CK-2) (0.0-4.0) ng/mL Troponin T 0.473 H* D (0.00-0.029) ng/mL 11/26/18 Range/Units Unknown WBC (4.5-11.0) K/mm3 RBC (3.65-5.03) M/mm3 MCHC (30-34) % RDW (13.2-15.2) % Plt Count (140-440) K/mm3 Seg Neuts % (Manual) (40.0-70.0) % Lymphocytes % (Manual) (13.4-35.0) % Seg Neutrophils # Man (1.8-7.7) K/mm3 APTT (24.2-36.6) Sec. POC ABG pH (7.35-7.45) POC ABG pCO2 (35-45) POC ABG pO2 (80-105) Sodium 134 L D (137-145) mmol/L Chloride 97.9 L (98-107) mmol/L Carbon Dioxide 18 L (22-30) mmol/L Creatinine 2.3 H D (0.7-1.2) mg/dL Glucose 225 H (65-100) mg/dL POC Glucose (70-105) Calcium 7.4 L (8.4-10.2) mg/dL Total Creatine Kinase (30-135) units/L CK-MB (CK-2) (0.0-4.0) ng/mL Troponin T (0.00-0.029) ng/mL Assessment and Plan Cultures: Blood cultures 11/25/2018 no growth. Urine culture 11/25/2018 no growth. Assessment: 38 y/o female with history of preeclampsia admitted on 11/23/2018 with 38 weeks gestation with uterine contractions. Patient underwent on 11/24/18 due to failure to dilate, pulmonary edema and gestational hypertension; after C- section she developed acute respiratory failure/ARDS and hypotension, now intubated: 1) Leukocytosis: Present on admission without fever, unclear etiology, likely reactive from labor/ and neutrophils demargination from IV steroids. I doubt bacterial infection at this time. Initial UA was negative for UTI, repeat with mild pyuria. I doubt this is the reason. CXR Chest x-ray showed mild cardiomegaly and pulmonary edema. No consolidations. 2) Acute respiratory failure: CXR with pulmonary edema likely from pre- emclapsia. Doubt pneumonia. No recent vomiting, doubt aspiration. Should r/o heart failure. HIV status is unknown however doubt PJP. 3) MIRIAN: renal on board, renally adjust all antibiotics. Recommendations: - follow-up blood cultures - check rapid HIV - stop zosyn - start cefepime renally adjusted for now, will probably stop soon - check procal/CRP - Transthoracic echo Will follow. Dr Willams covering tomorrow Ktarin Perez MD Infectious Diseases Software Systems Analyst [facility] M [phone] O [phone]
--- NOTE | 2018-11-26 13:26 | Progress Note ---
Assessment and Plan - Patient Problems (1) 38 weeks gestation of Current Visit: Yes Status: Ruled-out (2) Prolonged latent phase of labor Current Visit: Yes Status: Ruled-out (3) Oligohydramnios antepartum Current Visit: Yes Status: Ruled-out (4) Positive GBS test Current Visit: Yes Status: Acute (5) SROM (spontaneous rupture of membranes) Current Visit: Yes Status: Ruled-out (6) S/P primary low transverse Current Visit: Yes Status: Acute Plan to address problem: -stable for surgical standpoint in that incision appears to be healing well w/o any s/x of infection and uterus is firm and below the umbilcus. (7) Gestational hypertension Current Visit: Yes Status: Acute Qualifiers: Trimester: third trimester Qualified Code(s): O13.3 - Gestational [pregnanc y-induced] hypertension without significant proteinuria, third trimester Plan to address problem: -bp is stable at this time on no meds -con't to monitor closely (8) Pulmonary edema Current Visit: Yes Status: Acute Plan to address problem: cont' current management as per pulmonary team. CXR is unchanged (9) Acute renal failure Current Visit: Yes Status: Acute Plan to address problem: -pt being followed by nephrology (10) Acute respiratory failure Current Visit: Yes Status: Acute Subjective - Subjective Date of service: 11/26/18 Principal diagnosis: 1) POD #2 S/P 1LTCS 2)LOW UOP 3) gestatinal hypertension 4) pulmonary edema Interval history: Pt still intbated but does not appear to be in pain or distress at this time. Dressing removed. Incision open to air and c/d/i. Pt at bedside. He had questions regarding the delivery as well as indications for the c/s. All of which were addressed and answered. States she has no other question regarding pt status at this time as other providers have spoken with him prior to my visit. Objective - Vital Signs Latest vital signs: Vital Signs Temp Pulse Pulse Pulse Resp Resp BP 11/26/18 12:23 98 H 25 H 11/26/18 12:19 96 H 117/78 11/26/18 09:23 100 H 103/73 11/26/18 09:00 104 H 22 103/73 11/26/18 08:00 105 H 26 H 114/75 11/26/18 07:46 113 H 114/75 11/26/18 07:42 109 H 114/70 11/26/18 07:00 117 H 31 H 121/75 11/26/18 06:00 137 H 31 H 155/94 11/26/18 05:32 99 H 108/64 11/26/18 05:00 98 H 25 H 103/69 11/26/18 04:00 112 H 100 H 25 H 102/68 11/26/18 03:30 98.4 F 11/26/18 03:00 99 H 25 H 83/54 11/26/18 02:00 112 H 18 101/67 11/26/18 01:00 113 H 20 102/63 11/26/18 00:13 132 H 25 H 135/84 11/26/18 00:00 131 H 20 135/84 11/25/18 23:51 130 H 35 H 11/25/18 23:37 97.9 F 11/25/18 23:08 153 H 150/105 11/25/18 22:01 140 H 15 165/102 11/25/18 21:00 106 H 27 H 125/68 11/25/18 20:00 98.4 F 96 H 14 117/68 11/25/18 19:34 98.4 F 11/25/18 19:00 81 25 H 107/66 11/25/18 18:01 79 22 108/82 11/25/18 17:00 87 16 112/67 11/25/18 16:00 98.3 F 76 15 108/66 11/25/18 15:01 91 H 15 117/57 11/25/18 14:00 73 11 L 113/53 Pulse Ox 11/26/18 12:23 11/26/18 12:19 98 11/26/18 09:23 97 11/26/18 09:00 99 11/26/18 08:00 97 11/26/18 07:46 97 11/26/18 07:42 100 11/26/18 07:00 92 11/26/18 06:00 76 L 11/26/18 05:32 100 11/26/18 05:00 11/26/18 04:00 100 11/26/18 03:30 11/26/18 03:00 100 11/26/18 02:00 95 11/26/18 01:00 92 11/26/18 00:13 89 11/26/18 00:00 88 11/25/18 23:51 82 L 11/25/18 23:37 11/25/18 23:08 90 11/25/18 22:01 89 11/25/18 21:00 84 11/25/18 20:00 88 11/25/18 19:34 11/25/18 19:00 95 11/25/18 18:01 93 11/25/18 17:00 94 11/25/18 16:00 94 11/25/18 15:01 96 11/25/18 14:00 90 Intake and Output 11/25/18 11/26/18 11/26/18 22:59 06:59 14:59 Intake Total 460 157.899 97.416 Output Total 332 798 2409 Balance 225 -392.101 -1052.584 Intake: IV 100 57.899 97.416 ZOSYN/NS 4.5GM/100ML 4.5 100 gm In 100 ml @ 200 mls/hr IV Q8H YING Rx#:[id number] fentaNYL DRIP Premix 2, 57.899 97.416 000 mcg In 100 ml @ 1 MCG /KG/HR 3.856 mls/hr IV TITR YING Rx#:[id number] Oral 360 0 Intake, Free Water 100 Output: Urine 643 856 2209 Indwelling Catheter 509 789 2872 Other: Total, Intake Amount 360 0 Total, Output Amount 100 250 450 Voiding Method Indwelling Catheter Indwelling Catheter - Exam Abdomen: Present: normal appearance, soft. Absent: distention, tenderness Uterus: Present: normal, firm, fundal height below umbilicus. Absent: tenderness Extremities: Present: normal Incision: Present: normal, dry, intact, other (open to air with old dry blood on steristrips; no s/sx of infection) - Labs Labs: Abnormal lab results 11/25/18 11/25/18 11/25/18 Range/Units 22:35 22:35 22:35 WBC 20.8 H (4.5-11.0) K/mm3 RBC (3.65-5.03) M/mm3 MCHC (30-34) % RDW 17.2 H (13.2-15.2) % Plt Count (140-440) K/mm3 Seg Neuts % (Manual) 79.0 H (40.0-70.0) % Lymphocytes % (Manual) 12.0 L (13.4-35.0) % Seg Neutrophils # Man 16.4 H (1.8-7.7) K/mm3 APTT 20.7 L (24.2-36.6) Sec. POC ABG pH (7.35-7.45) POC ABG pCO2 (35-45) POC ABG pO2 (80-105) Sodium (137-145) mmol/L Chloride (98-107) mmol/L Carbon Dioxide (22-30) mmol/L Creatinine (0.7-1.2) mg/dL Glucose (65-100) mg/dL POC Glucose (70-105) Calcium (8.4-10.2) mg/dL Total Creatine Kinase 267 H (30-135) units/L CK-MB (CK-2) 9.7 H (0.0-4.0) ng/mL Troponin T 0.313 H* D (0.00-0.029) ng/mL 11/25/18 11/26/18 11/26/18 Range/Units 22:44 00:03 01:24 WBC (4.5-11.0) K/mm3 RBC (3.65-5.03) M/mm3 MCHC (30-34) % RDW (13.2-15.2) % Plt Count (140-440) K/mm3 Seg Neuts % (Manual) (40.0-70.0) % Lymphocytes % (Manual) (13.4-35.0) % Seg Neutrophils # Man (1.8-7.7) K/mm3 APTT (24.2-36.6) Sec. POC ABG pH 7.046 L 7.246 L (7.35-7.45) POC ABG pCO2 47.0 H (35-45) POC ABG pO2 62 L 72 L (80-105) Sodium (137-145) mmol/L Chloride (98-107) mmol/L Carbon Dioxide (22-30) mmol/L Creatinine (0.7-1.2) mg/dL Glucose (65-100) mg/dL POC Glucose 152 H (70-105) Calcium (8.4-10.2) mg/dL Total Creatine Kinase (30-135) units/L CK-MB (CK-2) (0.0-4.0) ng/mL Troponin T (0.00-0.029) ng/mL 11/26/18 11/26/18 11/26/18 Range/Units 04:28 05:33 05:53 WBC (4.5-11.0) K/mm3 RBC (3.65-5.03) M/mm3 MCHC (30-34) % RDW (13.2-15.2) % Plt Count (140-440) K/mm3 Seg Neuts % (Manual) (40.0-70.0) % Lymphocytes % (Manual) (13.4-35.0) % Seg Neutrophils # Man (1.8-7.7) K/mm3 APTT (24.2-36.6) Sec. POC ABG pH 7.328 L (7.35-7.45) POC ABG pCO2 (35-45) POC ABG pO2 256 H (80-105) Sodium (137-145) mmol/L Chloride (98-107) mmol/L Carbon Dioxide (22-30) mmol/L Creatinine (0.7-1.2) mg/dL Glucose (65-100) mg/dL POC Glucose 153 H (70-105) Calcium (8.4-10.2) mg/dL Total Creatine Kinase (30-135) units/L CK-MB (CK-2) (0.0-4.0) ng/mL Troponin T 0.740 H* D (0.00-0.029) ng/mL 11/26/18 11/26/18 11/26/18 Range/Units 10:38 10:38 12:43 WBC 16.1 H (4.5-11.0) K/mm3 RBC 3.47 L (3.65-5.03) M/mm3 MCHC 35 H (30-34) % RDW 17.1 H (13.2-15.2) % Plt Count 129 L (140-440) K/mm3 Seg Neuts % (Manual) (40.0-70.0) % Lymphocytes % (Manual) (13.4-35.0) % Seg Neutrophils # Man (1.8-7.7) K/mm3 APTT (24.2-36.6) Sec. POC ABG pH (7.35-7.45) POC ABG pCO2 (35-45) POC ABG pO2 (80-105) Sodium (137-145) mmol/L Chloride (98-107) mmol/L Carbon Dioxide (22-30) mmol/L Creatinine (0.7-1.2) mg/dL Glucose (65-100) mg/dL POC Glucose (70-105) Calcium (8.4-10.2) mg/dL Total Creatine Kinase 431 H (30-135) units/L CK-MB (CK-2) (0.0-4.0) ng/mL Troponin T 0.473 H* D (0.00-0.029) ng/mL 11/26/18 Range/Units Unknown WBC (4.5-11.0) K/mm3 RBC (3.65-5.03) M/mm3 MCHC (30-34) % RDW (13.2-15.2) % Plt Count (140-440) K/mm3 Seg Neuts % (Manual) (40.0-70.0) % Lymphocytes % (Manual) (13.4-35.0) % Seg Neutrophils # Man (1.8-7.7) K/mm3 APTT (24.2-36.6) Sec. POC ABG pH (7.35-7.45) POC ABG pCO2 (35-45) POC ABG pO2 (80-105) Sodium 134 L D (137-145) mmol/L Chloride 97.9 L (98-107) mmol/L Carbon Dioxide 18 L (22-30) mmol/L Creatinine 2.3 H D (0.7-1.2) mg/dL Glucose 225 H (65-100) mg/dL POC Glucose (70-105) Calcium 7.4 L (8.4-10.2) mg/dL Total Creatine Kinase (30-135) units/L CK-MB (CK-2) (0.0-4.0) ng/mL Troponin T (0.00-0.029) ng/mL
[2018-11-26 13:27] LABS: Calcium 7.6 mg/dL (8.4-10.2)
--- NOTE | 2018-11-26 13:41 | Vascular Lab Report ---
DUPLEX DOPPLER LOWER EXTREMITY VEINS, BILATERAL INDICATION: Acute respiratory failure. Shortness of breath and low O2 sats. TECHNIQUE: Duplex doppler imaging was performed through the veins of both lower extremities using venous carin galilea and other maneuvers. COMPARISON: None available. FINDINGS: Right Common femoral vein: Negative. Right Superficial femoral vein: Negative. Right Popliteal vein: Negative. Right Calf veins: Negative. Left Common femoral vein: Negative. Left Superficial femoral vein: Negative. Left Popliteal vein: Negative. Left Calf veins: Negative. Additional findings: There is no evidence of a popliteal cyst or other abnormality. IMPRESSION: No sonographic evidence for DVT in either lower extremity. Signer Name: Austen Sparks MD Signed: 11/26/2018 1:36 PM Workstation Name: [id number]
[2018-11-26] MEDS: MAXIPIME/NS 2 GM/100 ML 2 GM/100 ML BAG IV SCH (15:17)
[2018-11-26 18:24] LABS: Creatinine,Urine 34.9 mg/dL (0.1-20.0)
[2018-11-27] MEDS: PROVENTIL IH SCH ×4 (01:12→23:29)
[2018-11-27] MEDS: SOLU-Medrol IV SCH ×3 (02:19→09:52)
[2018-11-27] MEDS: MAXIPIME/NS 2 GM/100 ML 2 GM/100 ML BAG IV SCH (03:09)
--- NOTE | 2018-11-27 03:13 | XRay Report ---
CHEST 1 VIEW INDICATION: follow up respiratory failure. COMPARISON: One day prior. FINDINGS: Support devices: Unchanged. Heart: Stable. Lungs/Pleura: There is significant improvement in previously seen bilateral pulmonary opacities. No n ew findings. IMPRESSION: 1. Pulmonary opacities have significantly improved. No new findings. Signer Name: Tho Aly MD Signed: 11/27/2018 3:09 AM Workstation Name: [id number]
[2018-11-27 04:52] LABS: Hematocrit 28.5 % (30.3-42.9); Hemoglobin 9.8 gm/dl (10.1-14.3); Mean Corpuscular HGB Conc 34 % (30-34); Mean Corpuscular Volume 91 fl (79-97); Platelet Count 127 K/mm3 (140-440); Red Blood Count 3.12 M/mm3 (3.65-5.03); Red Cell Distribution Width 17.5 % (13.2-15.2)
[2018-11-27 05:18] LABS: Albumin 2.5 g/dL (3.9-5); Calcium 7.7 mg/dL (8.4-10.2)
[2018-11-27] MEDS: SODIUM CHLORIDE FLUSH SYRINGE 10 ML IV SCH ×3 (08:08→21:45)
[2018-11-27] MEDS: PEPCID IV SCH ×2 (08:08→09:52)
--- NOTE | 2018-11-27 08:19 | Progress Note ---
Assessment and Plan Assessment and plan: 38-year-old female who is s/p on 11/24/18. Patient was transferred to [facility] for management of pulmonary edema. Chest x-ray showed mild cardiomegaly and pulmonary edema. She was given lasix. On night of 11/25, worse respiratory distress, rapid response team called and she was intubated put on vent. Also now has MIRIAN, managed by nephrology. Pulmonary edema thought to be non cardiogenic, likely ARDS Acute resp failure s/p intubated 11/25, placed on vent ARDS Pulmonary edema, noncardiogenic Labile blood pressure Sinus tachycardia s/p on 11/24/18 GBS positive History of herpes simplex 2 History of preeclampsia MIRIAN probably ATN Leukocytosis Plan: Continue supportive care Intubated night of 11/25 MIRIAN worse today Cr 3.1. May be ATN, had episodes of hypotension. Nephrology following Patient was given Lasix Routine pulm toileting Cardiology following Pulmonology following Leukocytosis. On Empiric Cefepime , ID following DVT PPX on Lovenox History Interval history: Patient became worse nght of 11/25, respiratory distress, Code MET called, intubated put on vent Hospitalist Physical - Physical exam Narrative exam: Gen: Not in acute distress, lying in bed, intubated,sedated HEENT: Normocephalic, atraumatic Neck: supple, no JVD Heart: S1 and S2 reg, no murmurs, rubs or gallop Lungs: Bilateral crackles, no wheeze Abd: soft, non tender, non distended, normal BS Ext: No edema, no clubbing, no cyanosis, Neuro: Intubated, sedated. arouseable, follows commands, moves all ext - Constitutional Vitals: Temp Pulse Resp BP Pulse Ox 98.5 F 110 H 29 H 120/77 97 11/27/18 03:52 11/27/18 06:30 11/27/18 06:30 11/27/18 06:30 11/27/18 06:30 General appearance: Present: no acute distress, obese Results - Labs CBC & Chem 7: 11/27/18 03:44 11/27/18 03:44 Labs: Laboratory Last Values WBC 14.8 K/mm3 (4.5-11.0) H 11/27/18 03:44 RBC 3.12 M/mm3 (3.65-5.03) L 11/27/18 03:44 Hgb 9.8 gm/dl (10.1-14.3) L 11/27/18 03:44 Hct 28.5 % (30.3-42.9) L 11/27/18 03:44 MCV 91 fl (79-97) 11/27/18 03:44 MCH 31 pg (28-32) 11/27/18 03:44 MCHC 34 % (30-34) 11/27/18 03:44 RDW 17.5 % (13.2-15.2) H 11/27/18 03:44 Plt Count 127 K/mm3 (140-440) L 11/27/18 03:44 Lymph % (Auto) 3.5 % (13.4-35.0) L 11/24/18 23:41 [place] % (Auto) 7.7 % (0.0-7.3) H 11/24/18 23:41 Eos % (Auto) 0.0 % (0.0-4.3) 11/24/18 23:41 Baso % (Auto) 0.1 % (0.0-1.8) 11/24/18 23:41 Lymph # 0.6 K/mm3 (1.2-5.4) L 11/24/18 23:41 [place] # 1.4 K/mm3 (0.0-0.8) H 11/24/18 23:41 Eos # 0.0 K/mm3 (0.0-0.4) 11/24/18 23:41 Baso # 0.0 K/mm3 (0.0-0.1) 11/24/18 23:41 Add Manual Diff Complete 11/25/18 22:35 Total Counted 100 11/25/18 22:35 Seg Neutrophils % 88.7 % (40.0-70.0) H 11/24/18 23:41 Seg Neuts % (Manual) 79.0 % (40.0-70.0) H 11/25/18 22:35 3.0 % 11/25/18 22:35 12.0 % (13.4-35.0) L 11/25/18 22:35 Reactive Lymphs % (Man) 0 % 11/25/18 22:35 2.0 % (0.0-7.3) 11/25/18 22:35 0 % (0.0-4.3) 11/25/18 22:35 0 % (0.0-1.8) 11/25/18 22:35 2.0 % 11/25/18 22:35 2.0 % 11/25/18 22:35 0 % 11/25/18 22:35 0 % 11/25/18 22:35 Nucleated RBC % Not Reportable 11/25/18 22:35 Seg Neutrophils # 16.2 K/mm3 (1.8-7.7) H 11/24/18 23:41 Seg Neutrophils # Man 16.4 K/mm3 (1.8-7.7) H 11/25/18 22:35 Band Neutrophils # 0.6 K/mm3 11/25/18 22:35 2.5 K/mm3 (1.2-5.4) 11/25/18 22:35 Abs React Lymphs (Man) 0.0 K/mm3 11/25/18 22:35 0.4 K/mm3 (0.0-0.8) 11/25/18 22:35 0.0 K/mm3 (0.0-0.4) 11/25/18 22:35 0.0 K/mm3 (0.0-0.1) 11/25/18 22:35 0.4 K/mm3 11/25/18 22:35 0.4 K/mm3 11/25/18 22:35 0.0 K/mm3 11/25/18 22:35 Blast Cells # 0.0 K/mm3 11/25/18 22:35 WBC Morphology Not Reportable 11/25/18 22:35 Hypersegmented Neuts Not Reportable 11/25/18 22:35 Hyposegmented Neuts Not Reportable 11/25/18 22:35 Hypogranular Neuts Not Reportable 11/25/18 22:35 Not Reportable 11/25/18 22:35 Not Reportable 11/25/18 22:35 Not Reportable 11/25/18 22:35 Not Reportable 11/25/18 22:35 Not Reportable 11/25/18 22:35 Not Reportable 11/25/18 22:35 Consistent w auto 11/25/18 22:35 Not Reportable 11/25/18 22:35 Plt Clumps, EDTA Not Reportable 11/25/18 22:35 Not Reportable 11/25/18 22:35 Not Reportable 11/25/18 22:35 Not Reportable 11/25/18 22:35 Plt Morphology Comment Not Reportable 11/25/18 22:35 RBC Morphology Not Reportable 11/25/18 22:35 Dimorphic RBCs Not Reportable 11/25/18 22:35 Not Reportable 11/25/18 22:35 Not Reportable 11/25/18 22:35 Not Reportable 11/25/18 22:35 1+ 11/25/18 22:35 Not Reportable 11/25/18 22:35 1+ 11/25/18 22:35 Not Reportable 11/25/18 22:35 Not Reportable 11/25/18 22:35 Not Reportable 11/25/18 22:35 Not Reportable 11/25/18 22:35 Not Reportable 11/25/18 22:35 Not Reportable 11/25/18 22:35 Not Reportable 11/25/18 22:35 Not Reportable 11/25/18 22:35 Not Reportable 11/25/18 22:35 Not Reportable 11/25/18 22:35 Not Reportable 11/25/18 22:35 Not Reportable 11/25/18 22:35 Not Reportable 11/25/18 22:35 Acanthocytes (Spur) Not Reportable 11/25/18 22:35 Rouleaux Not Reportable 11/25/18 22:35 Not Reportable 11/25/18 22:35 Not Reportable 11/25/18 22:35 Not Reportable 11/25/18 22:35 Not Reportable 11/25/18 22:35 Hem Pathologist Commnt No 11/25/18 22:35 PT 12.4 Sec. (12.2-14.9) 11/25/18 22:35 INR 0.95 (0.87-1.13) 11/25/18 22:35 APTT 20.7 Sec. (24.2-36.6) L 11/25/18 22:35 POC ABG pH 7.385 (7.35-7.45) 11/27/18 05:07 POC ABG pCO2 39.0 (35-45) 11/26/18 05:53 POC ABG pO2 114 (80-105) H 11/27/18 05:07 POC ABG HCO3 17.1 (22-26 mml/L) 11/27/18 05:07 POC ABG Total CO2 18 (23-27mmol/L) 11/27/18 05:07 POC ABG O2 Sat 98 11/27/18 05:07 POC ABG Base Excess -8 ((-2) - (+3)mmol/L) 11/27/18 05:07 25 % 11/27/18 05:07 Sodium 138 mmol/L (137-145) 11/27/18 03:44 Potassium 3.0 mmol/L (3.6-5.0) L 11/27/18 03:44 Chloride 104.8 mmol/L (98-107) 11/27/18 03:44 Carbon Dioxide 18 mmol/L (22-30) L 11/27/18 03:44 18 mmol/L 11/27/18 03:44 BUN 28 mg/dL (7-17) H 11/27/18 03:44 3.1 mg/dL (0.7-1.2) H 11/27/18 03:44 Estimated GFR 17 ml/min 11/27/18 03:44 9 % 11/27/18 03:44 Glucose 139 mg/dL (65-100) H 11/27/18 03:44 POC Glucose 151 (70-105) H 11/27/18 05:37 283 Mosm/kg 11/26/18 10:38 Lactic Acid 1.00 mmol/L (0.7-2.0) 11/26/18 12:43 6.4 mg/dL (3.5-7.6) 11/26/18 10:38 Calcium 7.7 mg/dL (8.4-10.2) L 11/27/18 03:44 Phosphorus 2.90 mg/dL (2.5-4.5) 11/27/18 03:44 Magnesium 1.80 mg/dL (1.7-2.3) 11/27/18 03:44 0.40 mg/dL (0.1-1.2) 11/27/18 03:44 AST 36 units/L (5-40) 11/27/18 03:44 ALT 24 units/L (7-56) 11/27/18 03:44 82 units/L (35-129) 11/27/18 03:44 248 units/L (91-180) H 11/24/18 16:12 431 units/L (30-135) H 11/26/18 10:38 CK-MB (CK-2) 9.7 ng/mL (0.0-4.0) H 11/25/18 22:35 CK-MB (CK-2) Rel Index 3.6 (0-4) 11/25/18 22:35 0.473 ng/mL (0.00-0.029) H* D 11/26/18 10:38 14.60 mg/dL (0.00-1.30) H 11/26/18 14:11 NT-Pro-B Natriuret Pep 58803 pg/mL (0-450) H 11/26/18 12:43 5.3 g/dL (6.3-8.2) L 11/27/18 03:44 2.5 g/dL (3.9-5) L 11/27/18 03:44 0.9 % 11/27/18 03:44 Triglycerides 540 mg/dL (2-149) H 11/24/18 23:41 Cholesterol 291 mg/dL (50-199) H 11/24/18 23:41 TNR 11/24/18 23:41 60 mg/dL (40-59) H 11/24/18 23:41 4.85 % 11/24/18 23:41 Jill (Yellow) 11/25/18 08:35 Turbid (Clear) 11/25/18 08:35 5.0 (5.0-7.0) 11/25/18 08:35 Ur Specific [place] 1.023 (1.003-1.030) 11/25/18 08:35 100 mg/dl mg/dL (Negative) 11/25/18 08:35 >=500 mg/dL (Negative) 11/25/18 08:35 20 mg/dL (Negative) 11/25/18 08:35 Lg (Negative) 11/25/18 08:35 Neg (Negative) 11/25/18 08:35 Neg (Negative) 11/25/18 08:35 < 2.0 mg/dL (<2.0) 11/25/18 08:35 Ur Leukocyte Esterase Sm (Negative) 11/25/18 08:35 37.0 /HPF (0.0-6.0) H 11/25/18 08:35 59.0 /HPF (0.0-6.0) 11/25/18 08:35 U Epithel Cells (Auto) 1.0 /HPF (0-13.0) 11/25/18 08:35 Uric Acid Crystals Few 11/25/18 08:35 34.9 mg/dL (0.1-20.0) H 11/26/18 10:19 72 mmol/L 11/26/18 10:19 RPR Nonreactive (Nonreactive) 11/23/18 19:45 Blood Type O NEGATIVE 11/24/18 23:41 Antibody Screen Negative 11/24/18 23:41 Screen Negative 11/24/18 23:41 Active Medications - Current Medications Current Medications: Generic Name Dose Route Start Last Admin Trade Name Eris PRN Reason Stop Dose Admin Al Hydrox/Mg Hydrox/Simethicone 30 ml 11/24/18 23:16 Alum-Mag Hydrox-Simeth 021-677-21lq/5ml PO Q4H PRN Indigestion Albuterol 2.5 mg 11/26/18 08:00 11/27/18 01:12 Proventil IH 2.5 mg Q8HRT YING Administration Bisacodyl 10 mg 11/24/18 23:16 Dulcolax [place] QDAY PRN constipation unrelieved by MOM Famotidine 20 mg 11/25/18 10:00 11/27/18 08:08 Pepcid IV Not Given BID YING Fentanyl 50 mcg 11/25/18 23:25 Sublimaze IV Q10MIN PRN ANALGESIA Hydrophilic Ointment 1 applic 11/25/18 22:12 Vaseline Lip Therapy TP Q2HR PRN Dry Lips Oxytocin/Sodium Chloride 20 units in 1,000 mls @ 250 mls/hr 11/24/18 23:16 Pitocin/Ns 20 Unit/1000ml Drip IV DIRECT YING Fentanyl Citrate 2,000 mcg in 100 mls @ 3.856 mls/hr 11/25/18 23:45 11/27/18 05:00 Fentanyl Drip Premix IV Infused TITR YING Titration Protocol 1 MCG/KG/HR Midazolam HCl 100 mg/ Sodium 100 mls @ 2 mls/hr 11/25/18 23:45 11/26/18 11:23 Chloride IV 2 mg/hr TITR YING 2 mls/hr Administration Protocol 2 MG/HR Cefepime HCl 2 gm in 100 mls @ 200 mls/hr 11/26/18 15:00 11/27/18 03:09 Maxipime/Ns 2 Gm/100 Ml IV 200 mls/hr Q12H YING Administration Protocol Magnesium Hydroxide 30 ml 11/24/18 23:16 Milk Of Magnesia PO Q4H PRN Constipation Methylprednisolone Sodium Succinate 80 mg 11/26/18 09:00 11/27/18 08:07 Solu-Medrol IV 11/27/18 10:00 Not Given Q8H YING Metoclopramide HCl 10 mg 11/24/18 23:16 Reglan IV Q6H PRN Nausea And Vomiting Midazolam HCl 2 mg 11/25/18 23:25 Versed IV Q10MIN PRN Sedation Morphine Sulfate 2 mg 11/25/18 23:19 Morphine IV Q4H PRN Pain, Moderate (4-6) Multi-Ingred Cream/Lotion/Oil/Oint 1 applic 11/25/18 22:12 Artificial Tears Ophth Oint OU Q4HR PRN Dry Eye(s) Multi-Ingredient Ointment 1 applic 11/24/18 23:16 Lansinoh TP PRN PRN dryness/cracking Naloxone HCl 0.1 mg 11/24/18 23:16 Narcan 0.4 Mg/1 Ml IV Q2MIN PRN Res Rate </= 8 or 02 SAT < 92% Sodium Chloride 10 ml 11/24/18 23:16 11/27/18 08:08 Sodium Chloride Flush Syringe 10 Ml IV Not Given BID YING Sodium Chloride 10 ml 11/24/18 23:16 Sodium Chloride Flush Syringe 10 Ml IV PRN PRN LINE FLUSH Witch Faiza/Glycerin 1 each 11/24/18 23:16 Tucks Pad TP PRN PRN Hemorrhoids/cleansing/soothing Nutrition/Malnutrition Assess - Dietary Evaluation Nutrition/Malnutrition Findings: Nutrition Notes Start: 11/26/18 13:21 Freq: Status: Active Protocol: Document 11/26/18 13:21 RM (Rec: 11/26/18 13:31 [id number]) Nutrition Notes Need for Assessment generated from: MD Order Initial or Follow up Assessment Current Diagnosis Acute Kidney Injury, Respiratory Failure Other Pertinent Diagnosis S/P C section, Surgical abdominal wound, GBS, Oligohydramnios Current Diet NPO Labs/Tests Reviewed Pertinent Medications Solu-Medrol Height 5 ft 1 in Weight 77.111 kg [place] Body Weight (kg) 47.72 BMI 32.1 Subjective/Other Information Consulted for evaluate nutritional intake. Pt on vent. Burn Absent Trauma Absent #1 Nutrition Diagnosis Inadequate oral intake Etiology on vent As Evidenced by Signs and Symptoms NPO status Is patient on ventilator? Yes Is Patient Ambulatory and/or Out of Bed No REE-([facility]-confined to bed) [phone] Calculation Used for Recommendations [facility] Additional Notes Protein Needs: 95g (2 g/kg IBW ) Fluid Needs: 1 ml/kcal Nutrition Intervention Change Diet Order: TF consult Nutrition Support: Vital 1.2 at 60 ml/hr. Water flush of 100 mls q 4 hrs . Kcal 1,728 Protein (gm) 108 Fluid (mL) 1,168 Goal #1 TF consult Anticipated Discharge Needs: Unable to determine at this time Follow-Up By: 11/28/18 Additional Comments Follow for TF consult
[2018-11-27] MEDS: AMPICILLIN/NS 1 GM/50 ML 1 GM/50 ML BAG IV SCH (08:38)
--- NOTE | 2018-11-27 10:51 | Progress Note ---
Assessment and Plan S/P Acute Pulmonary edema Acute renal failure Acute respiratory failure Elevated troponin Pre-eclampsia Echo reports a normal left ventricular size and function LVEF 45-50%. Supportive cardiac management. Subjective Date of service: 11/27/18 Principal diagnosis: 1) POD #2 S/P 1LTCS 2)LOW UOP 3) gestatinal hypertension 4) pulmonary edema Interval history: Alert but remains intubated on the vent. Objective Vital Signs Temp Pulse Pulse Pulse Resp Resp BP 11/27/18 09:30 86 25 H 122/74 11/27/18 09:21 105 H 25 H 11/27/18 09:16 121 H 25 H 122/74 11/27/18 09:11 83 25 H 11/27/18 09:00 83 25 H 122/74 11/27/18 08:59 25 L 122/74 11/27/18 08:46 85 25 H 140/91 11/27/18 08:30 94 H 25 H 140/91 11/27/18 08:16 99 H 25 H 140/91 11/27/18 08:08 99.2 F 11/27/18 08:00 99.2 F 96 H 98 H 25 H 140/91 11/27/18 07:46 83 25 H 137/80 11/27/18 07:30 77 25 H 137/80 11/27/18 07:16 84 25 H 137/80 11/27/18 07:00 102 H 25 H 137/80 11/27/18 06:46 105 H 23 120/77 11/27/18 06:30 110 H 29 H 120/77 11/27/18 06:16 121 H 28 H 120/77 11/27/18 06:00 103 H 23 120/77 11/27/18 05:46 91 H 25 H 120/77 11/27/18 05:30 86 26 H 120/77 11/27/18 05:16 107 H 19 120/77 11/27/18 05:00 93 H 21 120/77 11/27/18 04:59 89 120/77 11/27/18 04:46 81 24 101/54 11/27/18 04:30 81 26 H 101/54 11/27/18 04:16 73 22 101/54 11/27/18 04:00 74 22 109/62 11/27/18 03:52 98.5 F 11/27/18 03:46 80 25 H 101/54 11/27/18 03:30 77 24 101/54 11/27/18 03:16 77 22 101/54 11/27/18 03:00 79 25 H 101/54 11/27/18 02:46 85 23 105/59 11/27/18 02:30 103 H 22 108/60 11/27/18 02:16 82 25 H 108/60 11/27/18 02:00 80 25 H 105/59 11/27/18 01:46 82 25 H 108/60 11/27/18 01:30 79 25 H 108/60 11/27/18 01:18 74 25 H 11/27/18 01:16 72 25 H 108/60 11/27/18 01:13 69 24 11/27/18 01:03 77 108/60 11/27/18 01:00 70 25 H 108/60 11/27/18 00:46 74 25 H 105/60 11/27/18 00:30 76 25 H 111/67 11/27/18 00:16 81 25 H 111/67 11/27/18 00:00 97.4 F L 71 74 25 H 105/60 11/26/18 23:46 76 24 87/55 11/26/18 23:30 77 24 87/55 11/26/18 23:16 77 25 H 87/55 11/26/18 23:00 87 25 H 111/67 11/26/18 22:46 75 26 H 87/55 11/26/18 22:38 73 25 H 87/55 11/26/18 22:30 75 25 H 87/55 11/26/18 22:16 73 25 H 87/55 11/26/18 22:00 76 25 H 87/55 11/26/18 21:46 74 25 H 109/68 11/26/18 21:30 81 25 H 109/68 11/26/18 21:16 78 25 H 109/68 11/26/18 21:00 85 25 H 109/68 11/26/18 20:49 78 91/55 11/26/18 20:45 78 25 H 11/26/18 20:31 76 25 H 91/55 11/26/18 20:15 75 25 H 91/55 11/26/18 20:00 97.6 F 78 76 21 91/55 11/26/18 19:45 77 25 H 88/49 11/26/18 19:31 82 17 88/49 11/26/18 19:15 79 25 H 88/49 11/26/18 19:00 78 25 H 88/49 11/26/18 18:45 80 25 H 98/53 11/26/18 18:31 79 22 98/53 11/26/18 18:01 83 98/53 11/26/18 18:00 80 26 H 98/53 11/26/18 17:00 84 25 H 90/50 11/26/18 16:00 98.3 F 85 25 H 92/59 11/26/18 15:00 88 21 90/53 11/26/18 14:22 86 94/55 11/26/18 14:00 90 22 94/55 11/26/18 13:00 96 H 21 92/55 11/26/18 12:38 99 H 25 H 11/26/18 12:23 98 H 25 H 11/26/18 12:19 96 H 117/78 11/26/18 12:00 99.8 F H 103 H 26 H 117/78 11/26/18 11:00 92 H 16 91/53 Pulse Ox 11/27/18 09:30 100 11/27/18 09:21 11/27/18 09:16 100 11/27/18 09:11 11/27/18 09:00 100 11/27/18 08:59 100 11/27/18 08:46 100 11/27/18 08:30 99 11/27/18 08:16 98 11/27/18 08:08 11/27/18 08:00 99 11/27/18 07:46 99 11/27/18 07:30 97 11/27/18 07:16 99 11/27/18 07:00 98 11/27/18 06:46 99 11/27/18 06:30 97 11/27/18 06:16 95 11/27/18 06:00 97 11/27/18 05:46 99 11/27/18 05:30 99 11/27/18 05:16 98 11/27/18 05:00 99 11/27/18 04:59 99 11/27/18 04:46 100 11/27/18 04:30 100 11/27/18 04:16 98 11/27/18 04:00 98 11/27/18 03:52 11/27/18 03:46 99 11/27/18 03:30 99 11/27/18 03:16 99 11/27/18 03:00 99 11/27/18 02:46 98 11/27/18 02:30 99 11/27/18 02:16 100 11/27/18 02:00 99 11/27/18 01:46 99 11/27/18 01:30 100 11/27/18 01:18 11/27/18 01:16 100 11/27/18 01:13 11/27/18 01:03 100 11/27/18 01:00 100 11/27/18 00:46 100 11/27/18 00:30 100 11/27/18 00:16 100 11/27/18 00:00 100 11/26/18 23:46 100 11/26/18 23:30 100 11/26/18 23:16 100 11/26/18 23:00 100 11/26/18 22:46 100 11/26/18 22:38 100 11/26/18 22:30 100 11/26/18 22:16 100 11/26/18 22:00 100 11/26/18 21:46 100 11/26/18 21:30 100 11/26/18 21:16 100 11/26/18 21:00 99 11/26/18 20:49 100 11/26/18 20:45 100 11/26/18 20:31 100 11/26/18 20:15 100 11/26/18 20:00 100 11/26/18 19:45 100 11/26/18 19:31 100 11/26/18 19:15 100 11/26/18 19:00 100 11/26/18 18:45 100 11/26/18 18:31 99 11/26/18 18:01 100 11/26/18 18:00 99 11/26/18 17:00 99 11/26/18 16:00 99 11/26/18 15:00 99 11/26/18 14:22 99 11/26/18 14:00 99 11/26/18 13:00 98 11/26/18 12:38 11/26/18 12:23 11/26/18 12:19 98 11/26/18 12:00 95 11/26/18 11:00 96 - Physical Examination General: Other (Intubated on mechanical ventilator) HEENT: Positive: PERRL Neck: Positive: trachea midline Cardiac: Positive: Tachycardia Lungs: Positive: Decreased Breath Sounds Neuro: Positive: Grossly Intact Abdomen: Positive: Other (post C/S surgery) Extremities: Absent: edema - Labs and Meds Cardiac Enzymes 11/27/18 Range/Units 03:44 AST 36 (5-40) units/L CBC 11/26/18 11/27/18 Range/Units 12:43 03:44 WBC 16.1 H 14.8 H (4.5-11.0) K/mm3 RBC 3.47 L 3.12 L (3.65-5.03) M/mm3 Hgb 11.1 9.8 L (10.1-14.3) gm/dl Hct 32.0 28.5 L (30.3-42.9) % Plt Count 129 L 127 L (140-440) K/mm3 Comprehensive Metabolic Panel 11/26/18 11/27/18 Range/Units 12:43 03:44 Sodium 134 L 138 (137-145) mmol/L Potassium 3.7 3.0 L (3.6-5.0) mmol/L Chloride 100.6 104.8 (98-107) mmol/L Carbon Dioxide 18 L 18 L (22-30) mmol/L BUN 21 H 28 H (7-17) mg/dL Creatinine 3.0 H 3.1 H (0.7-1.2) mg/dL Glucose 166 H 139 H (65-100) mg/dL Calcium 7.6 L 7.7 L (8.4-10.2) mg/dL AST 36 (5-40) units/L ALT 24 (7-56) units/L Alkaline Phosphatase 82 (35-129) units/L Total Protein 5.3 L (6.3-8.2) g/dL Albumin 2.5 L (3.9-5) g/dL
--- NOTE | 2018-11-27 11:31 | Progress Note ---
Assessment and Plan Cultures: Blood cultures 11/25/2018 no growth. Urine culture 11/25/2018 no growth. Assessment: 38 y/o female with history of preeclampsia admitted on 11/23/2018 with 38 weeks gestation with uterine contractions. Patient underwent on 11/24/18 due to failure to dilate, pulmonary edema and gestational hypertension; after C- section she developed acute respiratory failure/ARDS and hypotension, now intubated: 1) Leukocytosis: likely reactive from labor/ and respiratory failure. I doubt bacterial infection at this time. Initial UA was negative for UTI, repeat with mild pyuria. I doubt this is the reason. CXR Chest x-ray showed mild cardiomegaly and pulmonary edema. No consolidations. Repeat appears better. CRP: 14.6. DVT scan negative. 2) Acute respiratory failure: CXR with pulmonary edema likely from pre- emclapsia. Doubt pneumonia. No recent vomiting, doubt aspiration. 3) MIRIAN: renal on board, renally adjust all antibiotics. Recommendations: - continue IV cefepime renally adjusted for now, plan to stop tomorrow - monitor WBC in AM Montse Willams MD, FACP [facility] C: [phone] O: [phone] F: [phone] Subjective Date of service: 11/27/18 Principal diagnosis: 1) POD #2 S/P 1LTCS 2)LOW UOP 3) gestatinal hypertension 4) pulmonary edema Interval history: No fever. Remains on the vent. Awake. Denies any complaints. Able to communic ate. Objective - Exam Narrative Exam: Physical Exam: Constitutional: awake, intubated Head, Ears, Nose: Normocephalic, atraumatic. External ears, nose normal Eyes: Conjunctivae/corneas clear. No icterus. No ptosis. Neck: Supple, no meningeal signs Oral: intubated Cardiovascular: S1, S2 normal. Respiratory: Good air entry, clear to auscultation bilaterally GI: enlarged uterus, non tender; bowel sounds normal. No peritoneal signs. Surgical incision c/d/i Musculoskeletal: No pedal edema, no cyanosis. Skin: No rash or abscess Hem/Lymphatic: No palpable cervical or supraclavicular nodes. No lymphangitis Psych: no agitation Neurological: awake, intubated, on vent - Constitutional Vitals: Vital Signs Temp Pulse Resp BP Pulse Ox 99.2 F 92 H 26 H 139/87 99 11/27/18 08:08 11/27/18 11:16 11/27/18 11:16 11/27/18 11:16 11/27/18 11:16 Temperature -Last 24 Hours Temperature 99.2 F Temperature 99.2 F Temperature 98.5 F Temperature 97.4 F Temperature 97.6 F Temperature 98.3 F Temperature 99.8 F - Labs CBC & Chem 7: 11/27/18 03:44 11/27/18 03:44 Labs: Abnormal lab results 11/25/18 11/26/18 11/26/18 Range/Units 22:44 10:19 10:38 WBC (4.5-11.0) K/mm3 RBC (3.65-5.03) M/mm3 Hgb (10.1-14.3) gm/dl Hct (30.3-42.9) % MCHC (30-34) % RDW (13.2-15.2) % Plt Count (140-440) K/mm3 POC ABG pCO2 > 70 H (35-45) POC ABG pO2 (80-105) Sodium (137-145) mmol/L Potassium (3.6-5.0) mmol/L Carbon Dioxide (22-30) mmol/L BUN (7-17) mg/dL Creatinine (0.7-1.2) mg/dL Glucose (65-100) mg/dL POC Glucose (70-105) Calcium (8.4-10.2) mg/dL Troponin T 0.473 H* D (0.00-0.029) ng/mL C-Reactive Protein (0.00-1.30) mg/dL NT-Pro-B Natriuret Pep (0-450) pg/mL Total Protein (6.3-8.2) g/dL Albumin (3.9-5) g/dL Urine Creatinine 34.9 H (0.1-20.0) mg/dL 11/26/18 11/26/18 11/26/18 Range/Units 12:43 12:43 13:02 WBC 16.1 H (4.5-11.0) K/mm3 RBC 3.47 L (3.65-5.03) M/mm3 Hgb (10.1-14.3) gm/dl Hct (30.3-42.9) % MCHC 35 H (30-34) % RDW 17.1 H (13.2-15.2) % Plt Count 129 L (140-440) K/mm3 POC ABG pCO2 (35-45) POC ABG pO2 (80-105) Sodium 134 L (137-145) mmol/L Potassium (3.6-5.0) mmol/L Carbon Dioxide 18 L (22-30) mmol/L BUN 21 H (7-17) mg/dL Creatinine 3.0 H (0.7-1.2) mg/dL Glucose 166 H (65-100) mg/dL POC Glucose 163 H (70-105) Calcium 7.6 L (8.4-10.2) mg/dL Troponin T (0.00-0.029) ng/mL C-Reactive Protein (0.00-1.30) mg/dL NT-Pro-B Natriuret Pep [id number] H (0-450) pg/mL Total Protein (6.3-8.2) g/dL Albumin (3.9-5) g/dL Urine Creatinine (0.1-20.0) mg/dL 11/26/18 11/26/18 11/26/18 Range/Units 14:11 17:39 23:02 WBC (4.5-11.0) K/mm3 RBC (3.65-5.03) M/mm3 Hgb (10.1-14.3) gm/dl Hct (30.3-42.9) % MCHC (30-34) % RDW (13.2-15.2) % Plt Count (140-440) K/mm3 POC ABG pCO2 (35-45) POC ABG pO2 (80-105) Sodium (137-145) mmol/L Potassium (3.6-5.0) mmol/L Carbon Dioxide (22-30) mmol/L BUN (7-17) mg/dL Creatinine (0.7-1.2) mg/dL Glucose (65-100) mg/dL POC Glucose 162 H 155 H (70-105) Calcium (8.4-10.2) mg/dL Troponin T (0.00-0.029) ng/mL C-Reactive Protein 14.60 H (0.00-1.30) mg/dL NT-Pro-B Natriuret Pep (0-450) pg/mL Total Protein (6.3-8.2) g/dL Albumin (3.9-5) g/dL Urine Creatinine (0.1-20.0) mg/dL 11/27/18 11/27/18 11/27/18 Range/Units 03:44 03:44 05:07 WBC 14.8 H (4.5-11.0) K/mm3 RBC 3.12 L (3.65-5.03) M/mm3 Hgb 9.8 L (10.1-14.3) gm/dl Hct 28.5 L (30.3-42.9) % MCHC (30-34) % RDW 17.5 H (13.2-15.2) % Plt Count 127 L (140-440) K/mm3 POC ABG pCO2 (35-45) POC ABG pO2 114 H (80-105) Sodium (137-145) mmol/L Potassium 3.0 L (3.6-5.0) mmol/L Carbon Dioxide 18 L (22-30) mmol/L BUN 28 H (7-17) mg/dL Creatinine 3.1 H (0.7-1.2) mg/dL Glucose 139 H (65-100) mg/dL POC Glucose (70-105) Calcium 7.7 L (8.4-10.2) mg/dL Troponin T (0.00-0.029) ng/mL C-Reactive Protein (0.00-1.30) mg/dL NT-Pro-B Natriuret Pep (0-450) pg/mL Total Protein 5.3 L (6.3-8.2) g/dL Albumin 2.5 L (3.9-5) g/dL Urine Creatinine (0.1-20.0) mg/dL 11/27/18 Range/Units 05:37 WBC (4.5-11.0) K/mm3 RBC (3.65-5.03) M/mm3 Hgb (10.1-14.3) gm/dl Hct (30.3-42.9) % MCHC (30-34) % RDW (13.2-15.2) % Plt Count (140-440) K/mm3 POC ABG pCO2 (35-45) POC ABG pO2 (80-105) Sodium (137-145) mmol/L Potassium (3.6-5.0) mmol/L Carbon Dioxide (22-30) mmol/L BUN (7-17) mg/dL Creatinine (0.7-1.2) mg/dL Glucose (65-100) mg/dL POC Glucose 151 H (70-105) Calcium (8.4-10.2) mg/dL Troponin T (0.00-0.029) ng/mL C-Reactive Protein (0.00-1.30) mg/dL NT-Pro-B Natriuret Pep (0-450) pg/mL Total Protein (6.3-8.2) g/dL Albumin (3.9-5) g/dL Urine Creatinine (0.1-20.0) mg/dL - Imaging and cardiology Chest x-ray: report reviewed, image reviewed (improving pulmonary edema.)
--- NOTE | 2018-11-27 11:47 | Progress Note ---
Assessment and Plan Impression: * MIRIAN with ATN * sepsis * ARDS * post * hypoxemia Plan: * cr noted * keep MAP >65 * avoid nephrotoxins * rec follow up echo * agressive duresis as tolerated * may need clerical assistant if no improvement Subjective Date of service: 11/27/18 Principal diagnosis: 1) POD #2 S/P 1LTCS 2)LOW UOP 3) gestatinal hypertension 4) pulmonary edema Interval history: resting in bed today Objective - Exam Narrative Exam: HEENT: Normocephalic/atraumatic skull no pallor or icterus no uremic order oral mucosa moist Neck: Supple without any thyromegaly noted or mass JVD Chest: Bilateral diminished at bases, scattered wheezes crackles Heart: Regular rate and rhythm S1 and S2 heard no S3-S4 no pericardial rub Abdomen: Soft nontender no organomegaly no masses no suprapubic fullness no CVA tenderness no renal bruit Extremity: Dry skin, peripheral pulses palpable Some edema noted Endocrine: Thyroid not enlarged Psych: No evidence of vegetation aggression or behavioral issues noted Hussain: Dry skin no petechial skin rashes Back: Nontender thoracolumbar spine Neurological: Alert awake follows commands, grossly nonfocal examination . - Vital Signs Vital signs: Vital Signs - 12hr 11/27/18 11/27/18 11/27/18 00:00 00:16 00:30 Temperature 97.4 F L Pulse Rate 71 81 76 Pulse Rate [ Bilateral Throughout] Pulse Rate [ 74 From Monitor] Respiratory 25 H 25 H 25 H Rate Respiratory Rate [Bilateral Throughout] Blood Pressure 105/60 111/67 111/67 O2 Sat by Pulse 100 100 100 Oximetry 11/27/18 11/27/18 11/27/18 00:46 01:00 01:03 Temperature Pulse Rate 74 70 77 Pulse Rate [ Bilateral Throughout] Pulse Rate [ From Monitor] Respiratory 25 H 25 H Rate Respiratory Rate [Bilateral Throughout] Blood Pressure 105/60 108/60 108/60 O2 Sat by Pulse 100 100 100 Oximetry 11/27/18 11/27/18 11/27/18 01:13 01:16 01:18 Temperature Pulse Rate 72 Pulse Rate [ 69 74 Bilateral Throughout] Pulse Rate [ From Monitor] Respiratory 25 H Rate Respiratory 24 25 H Rate [Bilateral Throughout] Blood Pressure 108/60 O2 Sat by Pulse 100 Oximetry 11/27/18 11/27/18 11/27/18 01:30 01:46 02:00 Temperature Pulse Rate 79 82 80 Pulse Rate [ Bilateral Throughout] Pulse Rate [ From Monitor] Respiratory 25 H 25 H 25 H Rate Respiratory Rate [Bilateral Throughout] Blood Pressure 108/60 108/60 105/59 O2 Sat by Pulse 100 99 99 Oximetry 11/27/18 11/27/18 11/27/18 02:16 02:30 02:46 Temperature Pulse Rate 82 103 H 85 Pulse Rate [ Bilateral Throughout] Pulse Rate [ From Monitor] Respiratory 25 H 22 23 Rate Respiratory Rate [Bilateral Throughout] Blood Pressure 108/60 108/60 105/59 O2 Sat by Pulse 100 99 98 Oximetry 11/27/18 11/27/18 11/27/18 03:00 03:16 03:30 Temperature Pulse Rate 79 77 77 Pulse Rate [ Bilateral Throughout] Pulse Rate [ From Monitor] Respiratory H 22 24 Rate Respiratory Rate [Bilateral Throughout] Blood Pressure 101/54 101/54 101/54 O2 Sat by Pulse 99 99 99 Oximetry 11/27/18 11/27/18 11/27/18 03:46 03:52 04:00 Temperature 98.5 F Pulse Rate 80 74 Pulse Rate [ Bilateral Throughout] Pulse Rate [ From Monitor] Respiratory 25 H 22 Rate Respiratory Rate [Bilateral Throughout] Blood Pressure 101/54 109/62 O2 Sat by Pulse 99 98 Oximetry 11/27/18 11/27/18 11/27/18 04:16 04:30 04:46 Temperature Pulse Rate 73 81 81 Pulse Rate [ Bilateral Throughout] Pulse Rate [ From Monitor] Respiratory 22 26 H 24 Rate Respiratory Rate [Bilateral Throughout] Blood Pressure 101/54 101/54 101/54 O2 Sat by Pulse 98 100 100 Oximetry 11/27/18 11/27/18 11/27/18 04:59 05:00 05:16 Temperature Pulse Rate 89 93 H 107 H Pulse Rate [ Bilateral Throughout] Pulse Rate [ From Monitor] Respiratory 19 Rate Respiratory Rate [Bilateral Throughout] Blood Pressure 120/77 120/77 120/77 O2 Sat by Pulse 99 99 98 Oximetry 11/27/18 11/27/18 11/27/18 05:30 05:46 06:00 Temperature Pulse Rate 86 91 H 103 H Pulse Rate [ Bilateral Throughout] Pulse Rate [ From Monitor] Respiratory 26 H 25 H 23 Rate Respiratory Rate [Bilateral Throughout] Blood Pressure 120/77 120/77 120/77 O2 Sat by Pulse 99 99 97 Oximetry 11/27/18 11/27/18 11/27/18 06:16 06:30 06:46 Temperature Pulse Rate 121 H 110 H 105 H Pulse Rate [ Bilateral Throughout] Pulse Rate [ From Monitor] Respiratory 28 H 29 H 23 Rate Respiratory Rate [Bilateral Throughout] Blood Pressure 120/77 120/77 120/77 O2 Sat by Pulse 95 97 99 Oximetry 11/27/18 11/27/18 11/27/18 07:00 07:16 07:30 Temperature Pulse Rate 102 H 84 77 Pulse Rate [ Bilateral Throughout] Pulse Rate [ From Monitor] Respiratory 25 H 25 H 25 H Rate Respiratory Rate [Bilateral Throughout] Blood Pressure 137/80 137/80 137/80 O2 Sat by Pulse 98 99 97 Oximetry 11/27/18 11/27/18 11/27/18 07:46 08:00 08:08 Temperature 99.2 F 99.2 F Pulse Rate 83 96 H Pulse Rate [ Bilateral Throughout] Pulse Rate [ 98 H From Monitor] Respiratory 25 H 25 H Rate Respiratory Rate [Bilateral Throughout] Blood Pressure 137/80 140/91 O2 Sat by Pulse 99 99 Oximetry 11/27/18 11/27/18 11/27/18 08:16 08:30 08:46 Temperature Pulse Rate 99 H 94 H 85 Pulse Rate [ Bilateral Throughout] Pulse Rate [ From Monitor] Respiratory 25 H 25 H 25 H Rate Respiratory Rate [Bilateral Throughout] Blood Pressure 140/91 140/91 140/91 O2 Sat by Pulse 98 99 100 Oximetry 11/27/18 11/27/18 11/27/18 08:59 09:00 09:11 Temperature Pulse Rate 25 L 83 Pulse Rate [ 83 Bilateral Throughout] Pulse Rate [ From Monitor] Respiratory 25 H Rate Respiratory 25 H Rate [Bilateral Throughout] Blood Pressure 122/74 122/74 O2 Sat by Pulse 100 100 Oximetry 11/27/18 11/27/18 11/27/18 09:16 09:21 09:30 Temperature Pulse Rate 121 H 86 Pulse Rate [ 105 H Bilateral Throughout] Pulse Rate [ From Monitor] Respiratory 25 H 25 H Rate Respiratory 25 H Rate [Bilateral Throughout] Blood Pressure 122/74 122/74 O2 Sat by Pulse 100 100 Oximetry 11/27/18 11/27/18 11/27/18 09:46 10:00 10:16 Temperature Pulse Rate 107 H 116 H 99 H Pulse Rate [ Bilateral Throughout] Pulse Rate [ From Monitor] Respiratory 22 16 22 Rate Respiratory Rate [Bilateral Throughout] Blood Pressure 122/74 122/74 148/99 O2 Sat by Pulse 99 98 98 Oximetry 11/27/18 11/27/18 11/27/18 10:30 10:46 11:00 Temperature Pulse Rate 96 H 103 H 95 H Pulse Rate [ Bilateral Throughout] Pulse Rate [ From Monitor] Respiratory 24 24 24 Rate Respiratory Rate [Bilateral Throughout] Blood Pressure 148/99 148/99 139/87 O2 Sat by Pulse 99 98 100 Oximetry 11/27/18 11:16 Temperature Pulse Rate 92 H Pulse Rate [ Bilateral Throughout] Pulse Rate [ From Monitor] Respiratory 26 H Rate Respiratory Rate [Bilateral Throughout] Blood Pressure 139/87 O2 Sat by Pulse 99 Oximetry - Lab 11/27/18 03:44 11/27/18 03:44 Most recent lab results Calcium 7.7 mg/dL (8.4-10.2) L 11/27/18 03:44 Phosphorus 2.90 mg/dL (2.5-4.5) 11/27/18 03:44 Magnesium 1.80 mg/dL (1.7-2.3) 11/27/18 03:44 34.9 mg/dL (0.1-20.0) H 11/26/18 10:19 72 mmol/L 11/26/18 10:19 Medications & Allergies - Medications Allergies/Adverse Reactions: Allergies No Known Allergies Allergy (Verified 11/23/18 19:31) Home Medications: Home Medications Medication Instructions Recorded Confirmed Last Taken Type No Known Home Medications [No 11/24/18 11/24/18 Unknown History Reported Home Medications] Active Medications: Generic Name Dose Route Start Last Admin Trade Name Freq PRN Reason Stop Dose Admin Al Hydrox/Mg Hydrox/Simethicone 30 ml 11/24/18 23:16 Alum-Mag Hydrox-Simeth 105-732-99jg/5ml PO Q4H PRN Indigestion Albuterol 2.5 mg 11/26/18 08:00 11/27/18 09:11 Proventil IH 2.5 mg Q8HRT YING Administration Bisacodyl 10 mg 11/24/18 23:16 Dulcolax NE QDAY PRN constipation unrelieved by MOM Famotidine 20 mg 11/27/18 10:00 11/27/18 09:52 Pepcid IV 20 mg DAILY YING Administration Fentanyl 50 mcg 11/25/18 23:25 Sublimaze IV Q10MIN PRN ANALGESIA Hydrophilic Ointment 1 applic 11/25/18 22:12 Vaseline Lip Therapy TP Q2HR PRN Dry Lips Oxytocin/Sodium Chloride 20 units in 1,000 mls @ 250 mls/hr 11/24/18 23:16 Pitocin/Ns 20 Unit/1000ml Drip IV DIRECT YING Fentanyl Citrate 2,000 mcg in 100 mls @ 3.856 mls/hr 11/25/18 23:45 11/27/18 05:00 Fentanyl Drip Premix IV Infused TITR YING Titration Protocol 1 MCG/KG/HR Midazolam HCl 100 mg/ Sodium 100 mls @ 2 mls/hr 11/25/18 23:45 11/27/18 09:50 Chloride IV 0 mg/hr TITR YING 0 mls/hr Titration Protocol 2 MG/HR Cefepime HCl 2 gm in 100 mls @ 200 mls/hr 11/27/18 15:00 Maxipime/Ns 2 Gm/100 Ml IV Q24H YING Protocol Magnesium Hydroxide 30 ml 11/24/18 23:16 Milk Of Magnesia PO Q4H PRN Constipation Metoclopramide HCl 10 mg 11/24/18 23:16 Reglan IV Q6H PRN Nausea And Vomiting Midazolam HCl 2 mg 11/25/18 23:25 Versed IV Q10MIN PRN Sedation Morphine Sulfate 2 mg 11/25/18 23:19 Morphine IV Q4H PRN Pain, Moderate (4-6) Multi-Ingred Cream/Lotion/Oil/Oint 1 applic 11/25/18 22:12 Artificial Tears Ophth Oint OU Q4HR PRN Dry Eye(s) Multi-Ingredient Ointment 1 applic 11/24/18 23:16 Lansinoh TP PRN PRN dryness/cracking Naloxone HCl 0.1 mg 11/24/18 23:16 Narcan 0.4 Mg/1 Ml IV Q2MIN PRN Res Rate </= 8 or 02 SAT < 92% Sodium Chloride 10 ml 11/24/18 23:16 11/27/18 09:52 Sodium Chloride Flush Syringe 10 Ml IV 10 ml BID YING Administration Sodium Chloride 10 ml 11/24/18 23:16 Sodium Chloride Flush Syringe 10 Ml IV PRN PRN LINE FLUSH [place] Faiza/Glycerin 1 each 11/24/18 23:16 Tucks Pad TP PRN PRN Hemorrhoids/cleansing/soothing
[2018-11-27] MEDS: fentaNYL DRIP Premix 2,000 MCG/100 ML BAG IV SCH (12:13)
--- NOTE | 2018-11-27 13:33 | Progress Note ---
Assessment and Plan - Patient Problems (1) Acute renal failure Current Visit: Yes Status: Acute Qualifiers: Acute renal failure type: with acute tubular necrosis Qualified Code(s): N17.0 - Acute kidney failure with tubular necrosis Plan to address problem: Patient creatinine is 3.1 last recorded urine output 600 mL since midnight. Nephrology is following we will await their recommendations changing care will continue diuresis. (2) Acute respiratory acidosis Current Visit: Yes Status: Acute Plan to address problem: Patient still intubated with decreasing of her FiO2. Chest x-ray reported s ignificant improvement in the last 24 hours. Will await any further recommendations by pulmonary medicine. (3) Acute respiratory failure Current Visit: Yes Status: Acute Qualifiers: Respiratory failure complication: hypoxia Qualified Code(s): J96.01 - Acute respiratory failure with hypoxia (4) Elevated troponin Current Visit: Yes Status: Acute (5) Gestational hypertension Current Visit: Yes Status: Acute Qualifiers: Trimester: third trimester Qualified Code(s): O13.3 - Gestational [-induced] hypertension without significant proteinuria, third trimester Plan to address problem: Systolic blood pressure is 130s to 150s range with diastolics in the 80s- 90s range (6) S/P Current Visit: Yes Status: Acute (7) S/P primary low transverse Current Visit: Yes Status: Acute Plan to address problem: Postoperative day 3 will return to evaluate patient's incision Subjective Date of service: 11/27/18 (ICU note) Patient Reports: Positive: other (patient is asleep and intubated) Narrative: Discussed with the patient's and mother her present condition and questions if this viability did discuss treatment dependent recommendations from the quantitative consultant and the hydrologist Objective Vital Signs - 12hr 11/27/18 11/27/18 11/27/18 01:30 01:46 02:00 Temperature Pulse Rate 79 82 80 Pulse Rate [ Bilateral Throughout] Pulse Rate [ From Monitor] Respiratory 25 H 25 H 25 H Rate Respiratory Rate [Bilateral Throughout] Blood Pressure 108/60 108/60 105/59 O2 Sat by Pulse 100 99 99 Oximetry 11/27/18 11/27/18 11/27/18 02:16 02:30 02:46 Temperature Pulse Rate 82 103 H 85 Pulse Rate [ Bilateral Throughout] Pulse Rate [ From Monitor] Respiratory 25 H 22 23 Rate Respiratory Rate [Bilateral Throughout] Blood Pressure 108/60 108/60 105/59 O2 Sat by Pulse 100 99 98 Oximetry 11/27/18 11/27/18 11/27/18 03:00 03:16 03:30 Temperature Pulse Rate 79 77 77 Pulse Rate [ Bilateral Throughout] Pulse Rate [ From Monitor] Respiratory 25 H 22 24 Rate Respiratory Rate [Bilateral Throughout] Blood Pressure 101/54 101/54 101/54 O2 Sat by Pulse 99 99 99 Oximetry 11/27/18 11/27/18 11/27/18 03:46 03:52 04:00 Temperature 98.5 F Pulse Rate 80 74 Pulse Rate [ Bilateral Throughout] Pulse Rate [ From Monitor] Respiratory 25 H 22 Rate Respiratory Rate [Bilateral Throughout] Blood Pressure 101/54 109/62 O2 Sat by Pulse 99 98 Oximetry 11/27/18 11/27/18 11/27/18 04:16 04:30 04:46 Temperature Pulse Rate 73 81 81 Pulse Rate [ Bilateral Throughout] Pulse Rate [ From Monitor] Respiratory 22 26 H 24 Rate Respiratory Rate [Bilateral Throughout] Blood Pressure 101/54 101/54 101/54 O2 Sat by Pulse 98 100 100 Oximetry 11/27/18 11/27/18 11/27/18 04:59 05:00 05:16 Temperature Pulse Rate 89 93 H 107 H Pulse Rate [ Bilateral Throughout] Pulse Rate [ From Monitor] Respiratory 21 19 Rate Respiratory Rate [Bilateral Throughout] Blood Pressure 120/77 120/77 120/77 O2 Sat by Pulse 99 99 98 Oximetry 11/27/18 11/27/18 11/27/18 05:30 05:46 06:00 Temperature Pulse Rate 86 91 H 103 H Pulse Rate [ Bilateral Throughout] Pulse Rate [ From Monitor] Respiratory 26 H 25 H 23 Rate Respiratory Rate [Bilateral Throughout] Blood Pressure 120/77 120/77 120/77 O2 Sat by Pulse 99 99 97 Oximetry 11/27/18 11/27/18 11/27/18 06:16 06:30 06:46 Temperature Pulse Rate 121 H 110 H 105 H Pulse Rate [ Bilateral Throughout] Pulse Rate [ From Monitor] Respiratory 28 H 29 H 23 Rate Respiratory Rate [Bilateral Throughout] Blood Pressure 120/77 120/77 120/77 O2 Sat by Pulse 95 97 99 Oximetry 11/27/18 11/27/18 11/27/18 07:00 07:16 07:30 Temperature Pulse Rate 102 H 84 77 Pulse Rate [ Bilateral Throughout] Pulse Rate [ From Monitor] Respiratory 25 H 25 H 25 H Rate Respiratory Rate [Bilateral Throughout] Blood Pressure 137/80 137/80 137/80 O2 Sat by Pulse 98 99 97 Oximetry 11/27/18 11/27/18 11/27/18 07:46 08:00 08:08 Temperature 99.2 F 99.2 F Pulse Rate 83 96 H Pulse Rate [ Bilateral Throughout] Pulse Rate [ 98 H From Monitor] Respiratory 25 H 25 H Rate Respiratory Rate [Bilateral Throughout] Blood Pressure 137/80 140/91 O2 Sat by Pulse 99 99 Oximetry 11/27/18 11/27/18 11/27/18 08:16 08:30 08:46 Temperature Pulse Rate 99 H 94 H 85 Pulse Rate [ Bilateral Throughout] Pulse Rate [ From Monitor] Respiratory 25 H 25 H 25 H Rate Respiratory Rate [Bilateral Throughout] Blood Pressure 140/91 140/91 140/91 O2 Sat by Pulse 98 99 100 Oximetry 11/27/18 11/27/18 11/27/18 08:59 09:00 09:11 Temperature Pulse Rate 25 L 83 Pulse Rate [ 83 Bilateral Throughout] Pulse Rate [ From Monitor] Respiratory 25 H Rate Respiratory 25 H Rate [Bilateral Throughout] Blood Pressure 122/74 122/74 O2 Sat by Pulse 100 100 Oximetry 11/27/18 11/27/18 11/27/18 09:16 09:21 09:30 Temperature Pulse Rate 121 H 86 Pulse Rate [ 105 H Bilateral Throughout] Pulse Rate [ From Monitor] Respiratory 25 H 25 H Rate Respiratory 25 H Rate [Bilateral Throughout] Blood Pressure 122/74 122/74 O2 Sat by Pulse 100 100 Oximetry 11/27/18 11/27/18 11/27/18 09:46 10:00 10:16 Temperature Pulse Rate 107 H 116 H 99 H Pulse Rate [ Bilateral Throughout] Pulse Rate [ From Monitor] Respiratory 22 16 22 Rate Respiratory Rate [Bilateral Throughout] Blood Pressure 122/74 122/74 148/99 O2 Sat by Pulse 99 98 98 Oximetry 11/27/18 11/27/18 11/27/18 10:30 10:46 11:00 Temperature Pulse Rate 96 H 103 H 95 H Pulse Rate [ Bilateral Throughout] Pulse Rate [ From Monitor] Respiratory 24 24 24 Rate Respiratory Rate [Bilateral Throughout] Blood Pressure 148/99 148/99 139/87 O2 Sat by Pulse 99 98 100 Oximetry 11/27/18 11/27/18 11/27/18 11:16 11:30 11:46 Temperature Pulse Rate 92 H 98 H 91 H Pulse Rate [ Bilateral Throughout] Pulse Rate [ From Monitor] Respiratory 26 H 24 18 Rate Respiratory Rate [Bilateral Throughout] Blood Pressure 139/87 139/87 139/87 O2 Sat by Pulse 99 99 100 Oximetry 11/27/18 11/27/18 11/27/18 12:00 12:16 12:18 Temperature 99.4 F Pulse Rate 118 H 109 H 108 H Pulse Rate [ Bilateral Throughout] Pulse Rate [ 98 H From Monitor] Respiratory 23 22 Rate Respiratory Rate [Bilateral Throughout] Blood Pressure 153/87 153/87 153/87 O2 Sat by Pulse 99 99 99 Oximetry 11/27/18 11/27/18 11/27/18 12:30 12:46 13:00 Temperature Pulse Rate 105 H 103 H 104 H Pulse Rate [ Bilateral Throughout] Pulse Rate [ From Monitor] Respiratory 19 24 25 H Rate Respiratory Rate [Bilateral Throughout] Blood Pressure 139/87 139/87 153/87 O2 Sat by Pulse 99 99 99 Oximetry 11/27/18 13:16 Temperature Pulse Rate 106 H Pulse Rate [ Bilateral Throughout] Pulse Rate [ From Monitor] Respiratory 21 Rate Respiratory Rate [Bilateral Throughout] Blood Pressure 154/93 O2 Sat by Pulse 99 Oximetry - General physical appearance well developed - Labs 11/27/18 03:44 11/27/18 03:44 Diabetes panel 11/27/18 Range/Units 03:44 Sodium 138 (137-145) mmol/L Potassium 3.0 L (3.6-5.0) mmol/L Chloride 104.8 (98-107) mmol/L Carbon Dioxide 18 L (22-30) mmol/L BUN 28 H (7-17) mg/dL Creatinine 3.1 H (0.7-1.2) mg/dL Glucose 139 H (65-100) mg/dL Calcium 7.7 L (8.4-10.2) mg/dL AST 36 (5-40) units/L ALT 24 (7-56) units/L Alkaline Phosphatase 82 (35-129) units/L Total Protein 5.3 L (6.3-8.2) g/dL Albumin 2.5 L (3.9-5) g/dL Calcium panel 11/27/18 Range/Units 03:44 Calcium 7.7 L (8.4-10.2) mg/dL Phosphorus 2.90 (2.5-4.5) mg/dL Albumin 2.5 L (3.9-5) g/dL Pituitary panel 11/27/18 Range/Units 03:44 Sodium 138 (137-145) mmol/L Potassium 3.0 L (3.6-5.0) mmol/L Chloride 104.8 (98-107) mmol/L Carbon Dioxide 18 L (22-30) mmol/L BUN 28 H (7-17) mg/dL Creatinine 3.1 H (0.7-1.2) mg/dL Glucose 139 H (65-100) mg/dL Calcium 7.7 L (8.4-10.2) mg/dL Adrenal panel 11/27/18 Range/Units 03:44 Sodium 138 (137-145) mmol/L Potassium 3.0 L (3.6-5.0) mmol/L Chloride 104.8 (98-107) mmol/L Carbon Dioxide 18 L (22-30) mmol/L BUN 28 H (7-17) mg/dL Creatinine 3.1 H (0.7-1.2) mg/dL Glucose 139 H (65-100) mg/dL Calcium 7.7 L (8.4-10.2) mg/dL Total Bilirubin 0.40 (0.1-1.2) mg/dL AST 36 (5-40) units/L ALT 24 (7-56) units/L Alkaline Phosphatase 82 (35-129) units/L Total Protein 5.3 L (6.3-8.2) g/dL Albumin 2.5 L (3.9-5) g/dL
--- NOTE | 2018-11-27 14:22 | Progress Note ---
Assessment and Plan Imp: 1. S/p for intrauterine at 38 weeks 2. Pulmonary edema -> probably combined cardiogenic and non-cardiogenic (rapid yet incomplete improvement), the former perhaps related to periods of elevated BP/IVFs and the latter of ? etiology (DDx includes aspiration, sepsis, AFE) 3. Acute respiratory failure, hypoxia 4. MIRIAN 5. Thrombocytopenia of ? etiology Rec: 1. Cultures are negative; on Cefipime per ID 2. Oxygenation has drastically improved; still with pulmonary edema on CXR, although much improved; recommend rest on ventilator today, then evaluate for extubation in the AM w/ sedation holiday + spontaneous breathing trial 3. Check DIC panel; SCDs ordered; dopplers negative 11/26/18 4. GI PPx 5. Would optimize blood pressure given grade III diastolic dysfunction noted in Echo report 6. Defer K repletion to renal 7. Repeat labs in AM CCT 31 minutes Plan of care reviewed w/ family in detail, they understand/agree Subjective Date of service: 11/27/18 Principal diagnosis: 1) POD #2 S/P 1LTCS 2)LOW UOP 3) gestatinal hypertension 4) pulmonary edema Interval history: No events. Sedated on PRVC, with FiO2 down to 25% and PEEP at 6. She cannot provide history. BP slightly elevated. Active Medications Albuterol (Proventil) 2.5 mg IH Q8HRT [facility] Last Admin: 11/27/18 09:11 Dose: 2.5 mg Documented by: Bisacodyl (Dulcolax) 10 mg [place] QDAY PRN PRN Reason: constipation unrelieved by MOM Famotidine (Pepcid) 20 mg IV DAILY [facility] Last Admin: 11/27/18 09:52 Dose: 20 mg Documented by: Fentanyl (Sublimaze) 50 mcg IV Q10MIN PRN PRN Reason: ANALGESIA Hydrophilic Ointment (Vaseline Lip Therapy) 1 applic TP Q2HR PRN PRN Reason: Dry Lips Oxytocin/Sodium Chloride (Pitocin/Ns 20 Unit/1000ml Drip) 20 units in 1,000 mls @ 250 mls/hr IV DIRECT YING Fentanyl Citrate (Fentanyl Drip Premix) 2,000 mcg in 100 mls @ 3.856 mls/hr IV TITR YING; Protocol Last Admin: 11/27/18 12:13 Dose: 1 mcg/kg/hr, 3.856 mls/hr Documented by: Midazolam HCl 100 mg/ Sodium (Chloride) 100 mls @ 2 mls/hr IV TITR YING; Protocol Last Titration: 11/27/18 09:50 Dose: 0 mg/hr, 0 mls/hr Documented by: Cefepime HCl (Maxipime/Ns 2 Gm/100 Ml) 2 gm in 100 mls @ 200 mls/hr IV Q24H YING; Protocol Magnesium Hydroxide (Milk Of Magnesia) 30 ml PO Q4H PRN PRN Reason: Constipation Metoclopramide HCl (Reglan) 10 mg IV Q6H PRN PRN Reason: Nausea And Vomiting Midazolam HCl (Versed) 2 mg IV Q10MIN PRN PRN Reason: Sedation Morphine Sulfate (Morphine) 2 mg IV Q4H PRN PRN Reason: Pain, Moderate (4-6) Multi-Ingred Cream/Lotion/Oil/Oint (Artificial Tears Ophth Oint) 1 applic OU Q4HR PRN PRN Reason: Dry Eye(s) Multi-Ingredient Ointment (Lansinoh) 1 applic TP PRN PRN PRN Reason: dryness/cracking Naloxone HCl (Narcan 0.4 Mg/1 Ml) 0.1 mg IV Q2MIN PRN PRN Reason: Res Rate </= 8 or 02 SAT < 92% Sodium Chloride (Sodium Chloride Flush Syringe 10 Ml) 10 ml IV BID [facility] Last Admin: 11/27/18 09:52 Dose: 10 ml Documented by: Sodium Chloride (Sodium Chloride Flush Syringe 10 Ml) 10 ml IV PRN PRN PRN Reason: LINE FLUSH Witch Faiza/Glycerin (Tucks Pad) 1 each TP PRN PRN PRN Reason: Hemorrhoids/cleansing/soothing Objective Vital Signs - 12hr 11/27/18 11/27/18 11/27/18 02:30 02:46 03:00 Temperature Pulse Rate 103 H 85 79 Pulse Rate [ Bilateral Throughout] Pulse Rate [ From Monitor] Respiratory 22 23 25 H Rate Respiratory Rate [Bilateral Throughout] Blood Pressure 108/60 105/59 101/54 O2 Sat by Pulse 99 98 99 Oximetry 11/27/18 11/27/18 11/27/18 03:16 03:30 03:46 Temperature Pulse Rate 77 77 80 Pulse Rate [ Bilateral Throughout] Pulse Rate [ From Monitor] Respiratory 22 24 25 H Rate Respiratory Rate [Bilateral Throughout] Blood Pressure 101/54 101/54 101/54 O2 Sat by Pulse 99 99 99 Oximetry 11/27/18 11/27/18 11/27/18 03:52 04:00 04:16 Temperature 98.5 F Pulse Rate 74 73 Pulse Rate [ Bilateral Throughout] Pulse Rate [ From Monitor] Respiratory 22 22 Rate Respiratory Rate [Bilateral Throughout] Blood Pressure 109/62 101/54 O2 Sat by Pulse 98 98 Oximetry 11/27/18 11/27/18 11/27/18 04:30 04:46 04:59 Temperature Pulse Rate 81 81 89 Pulse Rate [ Bilateral Throughout] Pulse Rate [ From Monitor] Respiratory 26 H 24 Rate Respiratory Rate [Bilateral Throughout] Blood Pressure 101/54 101/54 120/77 O2 Sat by Pulse 100 100 99 Oximetry 11/27/18 11/27/18 11/27/18 05:00 05:16 05:30 Temperature Pulse Rate 93 H 107 H 86 Pulse Rate [ Bilateral Throughout] Pulse Rate [ From Monitor] Respiratory 21 19 26 H Rate Respiratory Rate [Bilateral Throughout] Blood Pressure 120/77 120/77 120/77 O2 Sat by Pulse 99 98 99 Oximetry 11/27/18 11/27/18 11/27/18 05:46 06:00 06:16 Temperature Pulse Rate 91 H 103 H 121 H Pulse Rate [ Bilateral Throughout] Pulse Rate [ From Monitor] Respiratory 25 H 23 28 H Rate Respiratory Rate [Bilateral Throughout] Blood Pressure 120/77 120/77 120/77 O2 Sat by Pulse 99 97 95 Oximetry 11/27/18 11/27/18 11/27/18 06:30 06:46 07:00 Temperature Pulse Rate 110 H 105 H 102 H Pulse Rate [ Bilateral Throughout] Pulse Rate [ From Monitor] Respiratory 29 H 23 25 H Rate Respiratory Rate [Bilateral Throughout] Blood Pressure 120/77 120/77 137/80 O2 Sat by Pulse 97 99 98 Oximetry 11/27/18 11/27/18 11/27/18 07:16 07:30 07:46 Temperature Pulse Rate 84 77 83 Pulse Rate [ Bilateral Throughout] Pulse Rate [ From Monitor] Respiratory 25 H 25 H 25 H Rate Respiratory Rate [Bilateral Throughout] Blood Pressure 137/80 137/80 137/80 O2 Sat by Pulse 99 97 99 Oximetry 11/27/18 11/27/18 11/27/18 08:00 08:08 08:16 Temperature 99.2 F 99.2 F Pulse Rate 96 H 99 H Pulse Rate [ Bilateral Throughout] Pulse Rate [ 98 H From Monitor] Respiratory 25 H 25 H Rate Respiratory Rate [Bilateral Throughout] Blood Pressure 140/91 140/91 O2 Sat by Pulse 99 98 Oximetry 11/27/18 11/27/18 11/27/18 08:30 08:46 08:59 Temperature Pulse Rate 94 H 85 25 L Pulse Rate [ Bilateral Throughout] Pulse Rate [ From Monitor] Respiratory 25 H 25 H Rate Respiratory Rate [Bilateral Throughout] Blood Pressure 140/91 140/91 122/74 O2 Sat by Pulse 99 100 100 Oximetry 11/27/18 11/27/18 11/27/18 09:00 09:11 09:16 Temperature Pulse Rate 83 121 H Pulse Rate [ 83 Bilateral Throughout] Pulse Rate [ From Monitor] Respiratory 25 H 25 H Rate Respiratory 25 H Rate [Bilateral Throughout] Blood Pressure 122/74 122/74 O2 Sat by Pulse 100 100 Oximetry 11/27/18 11/27/18 11/27/18 09:21 09:30 09:46 Temperature Pulse Rate 86 107 H Pulse Rate [ 105 H Bilateral Throughout] Pulse Rate [ From Monitor] Respiratory 25 H 22 Rate Respiratory 25 H Rate [Bilateral Throughout] Blood Pressure 122/74 122/74 O2 Sat by Pulse 100 99 Oximetry 11/27/18 11/27/18 11/27/18 10:00 10:16 10:30 Temperature Pulse Rate 116 H 99 H 96 H Pulse Rate [ Bilateral Throughout] Pulse Rate [ From Monitor] Respiratory 16 22 24 Rate Respiratory Rate [Bilateral Throughout] Blood Pressure 122/74 148/99 148/99 O2 Sat by Pulse 98 98 99 Oximetry 11/27/18 11/27/18 11/27/18 10:46 11:00 11:16 Temperature Pulse Rate 103 H 95 H 92 H Pulse Rate [ Bilateral Throughout] Pulse Rate [ From Monitor] Respiratory 24 24 26 H Rate Respiratory Rate [Bilateral Throughout] Blood Pressure 148/99 139/87 139/87 O2 Sat by Pulse 98 100 99 Oximetry 11/27/18 11/27/18 11/27/18 11:30 11:46 12:00 Temperature 99.4 F Pulse Rate 98 H 91 H 118 H Pulse Rate [ Bilateral Throughout] Pulse Rate [ 98 H From Monitor] Respiratory 24 18 23 Rate Respiratory Rate [Bilateral Throughout] Blood Pressure 139/87 139/87 153/87 O2 Sat by Pulse 99 100 99 Oximetry 11/27/18 11/27/18 11/27/18 12:16 12:18 12:30 Temperature Pulse Rate 109 H 108 H 105 H Pulse Rate [ Bilateral Throughout] Pulse Rate [ From Monitor] Respiratory 22 19 Rate Respiratory Rate [Bilateral Throughout] Blood Pressure 153/87 153/87 139/87 O2 Sat by Pulse 99 99 99 Oximetry 11/27/18 11/27/18 11/27/18 12:46 13:00 13:16 Temperature Pulse Rate 103 H 104 H 106 H Pulse Rate [ Bilateral Throughout] Pulse Rate [ From Monitor] Respiratory 24 25 H 21 Rate Respiratory Rate [Bilateral Throughout] Blood Pressure 139/87 153/87 154/93 O2 Sat by Pulse 99 99 99 Oximetry Constitutional: other (sedated, critically ill on ventilator) Eyes: non-icteric ENT: oropharynx moist Neck: supple Effort: normal Ascultation: Bilateral: clear Cardiovascular: other (mild tachy, RR; no mrg) Gastrointestinal: hypoactive bowel sounds Integumentary: normal Extremities: no cyanosis, no edema, pink and warm Neurologic: other (sedated) Psychiatric: other (sedated) CBC and BMP: 11/27/18 03:44 11/27/18 03:44 ABG, PT/INR, D-dimer: ABG POC ABG pH 7.385 (7.35-7.45) 11/27/18 05:07 POC ABG pO2 114 (80-105) H 11/27/18 05:07 POC ABG HCO3 17.1 (22-26 mml/L) 11/27/18 05:07 POC ABG Total CO2 18 (23-27mmol/L) 11/27/18 05:07 POC ABG O2 Sat 98 11/27/18 05:07 PT/INR, D-dimer PT 12.4 Sec. (12.2-14.9) 11/25/18 22:35 INR 0.95 (0.87-1.13) 11/25/18 22:35 Abnormal lab findings: Abnormal Labs 11/23/18 11/24/18 11/24/18 19:45 16:12 16:12 WBC 12.3 H 16.3 H RBC Hgb Hct MCHC RDW 16.9 H 16.6 H Plt Count Lymph % (Auto) [place] % (Auto) Lymph # [place] # Seg Neutrophils % Seg Neuts % (Manual) Lymphocytes % (Manual) Seg Neutrophils # Seg Neutrophils # Man APTT POC ABG pH POC ABG pCO2 POC ABG pO2 Sodium Potassium Chloride Carbon Dioxide BUN Creatinine 0.5 L Glucose POC Glucose Calcium Lactate Dehydrogenase 248 H Total Creatine Kinase CK-MB (CK-2) CK-MB (CK-2) Rel Index Troponin T C-Reactive Protein NT-Pro-B Natriuret Pep Total Protein Albumin Triglycerides Cholesterol HDL Cholesterol Urine WBC (Auto) Urine Creatinine 11/24/18 11/24/18 11/24/18 23:41 23:41 23:41 WBC 18.3 H RBC Hgb Hct MCHC RDW 16.6 H Plt Count Lymph % (Auto) 3.5 L [place] % (Auto) 7.7 H Lymph # 0.6 L [place] # 1.4 H Seg Neutrophils % 88.7 H Seg Neuts % (Manual) Lymphocytes % (Manual) Seg Neutrophils # 16.2 H Seg Neutrophils # Man APTT POC ABG pH POC ABG pCO2 POC ABG pO2 Sodium Potassium Chloride Carbon Dioxide BUN Creatinine Glucose POC Glucose Calcium Lactate Dehydrogenase Total Creatine Kinase CK-MB (CK-2) CK-MB (CK-2) Rel Index Troponin T 0.274 H* C-Reactive Protein NT-Pro-B Natriuret Pep 5198 H Total Protein Albumin Triglycerides 540 H Cholesterol 291 H HDL Cholesterol 60 H Urine WBC (Auto) Urine Creatinine 11/24/18 11/25/18 11/25/18 23:41 04:40 04:40 WBC RBC Hgb Hct MCHC RDW Plt Count Lymph % (Auto) [place] % (Auto) Lymph # [place] # Seg Neutrophils % Seg Neuts % (Manual) Lymphocytes % (Manual) Seg Neutrophils # Seg Neutrophils # Man APTT POC ABG pH POC ABG pCO2 POC ABG pO2 Sodium Potassium Chloride 108.3 H Carbon Dioxide 21 L BUN Creatinine Glucose 195 H POC Glucose Calcium 7.7 L Lactate Dehydrogenase Total Creatine Kinase 155 H CK-MB (CK-2) 11.4 H CK-MB (CK-2) Rel Index 7.3 H Troponin T 0.177 H* D C-Reactive Protein NT-Pro-B Natriuret Pep Total Protein Albumin Triglycerides Cholesterol HDL Cholesterol Urine WBC (Auto) Urine Creatinine 11/25/18 11/25/18 11/25/18 08:35 09:47 22:35 WBC 20.8 H RBC Hgb Hct MCHC RDW 17.2 H Plt Count Lymph % (Auto) [place] % (Auto) Lymph # [place] # Seg Neutrophils % Seg Neuts % (Manual) 79.0 H Lymphocytes % (Manual) 12.0 L Seg Neutrophils # Seg Neutrophils # Man 16.4 H APTT POC ABG pH POC ABG pCO2 POC ABG pO2 Sodium Potassium Chloride Carbon Dioxide BUN Creatinine Glucose POC Glucose Calcium Lactate Dehydrogenase Total Creatine Kinase CK-MB (CK-2) CK-MB (CK-2) Rel Index Troponin T 0.157 H* C-Reactive Protein NT-Pro-B Natriuret Pep Total Protein Albumin Triglycerides Cholesterol HDL Cholesterol Urine WBC (Auto) 37.0 H Urine Creatinine 11/25/18 11/25/18 11/25/18 22:35 22:35 22:44 WBC RBC Hgb Hct MCHC RDW Plt Count Lymph % (Auto) [place] % (Auto) Lymph # [place] # Seg Neutrophils % Seg Neuts % (Manual) Lymphocytes % (Manual) Seg Neutrophils # Seg Neutrophils # Man APTT 20.7 L POC ABG pH 7.046 L POC ABG pCO2 > 70 H POC ABG pO2 62 L Sodium Potassium Chloride Carbon Dioxide BUN Creatinine Glucose POC Glucose Calcium Lactate Dehydrogenase Total Creatine Kinase 267 H CK-MB (CK-2) 9.7 H CK-MB (CK-2) Rel Index Troponin T 0.313 H* D C-Reactive Protein NT-Pro-B Natriuret Pep Total Protein Albumin Triglycerides Cholesterol HDL Cholesterol Urine WBC (Auto) Urine Creatinine 11/26/18 11/26/18 11/26/18 00:03 01:24 04:28 WBC RBC Hgb Hct MCHC RDW Plt Count Lymph % (Auto) [place] % (Auto) Lymph # [place] # Seg Neutrophils % Seg Neuts % (Manual) Lymphocytes % (Manual) Seg Neutrophils # Seg Neutrophils # Man APTT POC ABG pH 7.246 L POC ABG pCO2 47.0 H POC ABG pO2 72 L Sodium Potassium Chloride Carbon Dioxide BUN Creatinine Glucose POC Glucose 152 H Calcium Lactate Dehydrogenase Total Creatine Kinase CK-MB (CK-2) CK-MB (CK-2) Rel Index Troponin T 0.740 H* D C-Reactive Protein NT-Pro-B Natriuret Pep Total Protein Albumin Triglycerides Cholesterol HDL Cholesterol Urine WBC (Auto) Urine Creatinine 11/26/18 11/26/18 11/26/18 05:33 05:53 10:19 WBC RBC Hgb Hct MCHC RDW Plt Count Lymph % (Auto) [place] % (Auto) Lymph # [place] # Seg Neutrophils % Seg Neuts % (Manual) Lymphocytes % (Manual) Seg Neutrophils # Seg Neutrophils # Man APTT POC ABG pH 7.328 L POC ABG pCO2 POC ABG pO2 256 H Sodium Potassium Chloride Carbon Dioxide BUN Creatinine Glucose POC Glucose 153 H Calcium Lactate Dehydrogenase Total Creatine Kinase CK-MB (CK-2) CK-MB (CK-2) Rel Index Troponin T C-Reactive Protein NT-Pro-B Natriuret Pep Total Protein Albumin Triglycerides Cholesterol HDL Cholesterol Urine WBC (Auto) Urine Creatinine 34.9 H 11/26/18 11/26/18 11/26/18 10:38 10:38 12:43 WBC RBC Hgb Hct MCHC RDW Plt Count Lymph % (Auto) [place] % (Auto) Lymph # [place] # Seg Neutrophils % Seg Neuts % (Manual) Lymphocytes % (Manual) Seg Neutrophils # Seg Neutrophils # Man APTT POC ABG pH POC ABG pCO2 POC ABG pO2 Sodium 134 L Potassium Chloride Carbon Dioxide 18 L BUN 21 H Creatinine 3.0 H Glucose 166 H POC Glucose Calcium 7.6 L Lactate Dehydrogenase Total Creatine Kinase 431 H CK-MB (CK-2) CK-MB (CK-2) Rel Index Troponin T 0.473 H* D C-Reactive Protein NT-Pro-B Natriuret Pep 13567 H Total Protein Albumin Triglycerides Cholesterol HDL Cholesterol Urine WBC (Auto) Urine Creatinine 11/26/18 11/26/18 11/26/18 12:43 13:02 14:11 WBC 16.1 H RBC 3.47 L Hgb Hct MCHC 35 H RDW 17.1 H Plt Count 129 L Lymph % (Auto) [place] % (Auto) Lymph # [place] # Seg Neutrophils % Seg Neuts % (Manual) Lymphocytes % (Manual) Seg Neutrophils # Seg Neutrophils # Man APTT POC ABG pH POC ABG pCO2 POC ABG pO2 Sodium Potassium Chloride Carbon Dioxide BUN Creatinine Glucose POC Glucose 163 H Calcium Lactate Dehydrogenase Total Creatine Kinase CK-MB (CK-2) CK-MB (CK-2) Rel Index Troponin T C-Reactive Protein 14.60 H NT-Pro-B Natriuret Pep Total Protein Albumin Triglycerides Cholesterol HDL Cholesterol Urine WBC (Auto) Urine Creatinine 11/26/18 11/26/18 11/26/18 17:39 23:02 Unknown WBC RBC Hgb Hct MCHC RDW Plt Count Lymph % (Auto) [place] % (Auto) Lymph # [place] # Seg Neutrophils % Seg Neuts % (Manual) Lymphocytes % (Manual) Seg Neutrophils # Seg Neutrophils # Man APTT POC ABG pH POC ABG pCO2 POC ABG pO2 Sodium 134 L D Potassium Chloride 97.9 L Carbon Dioxide 18 L BUN Creatinine 2.3 H D Glucose 225 H POC Glucose 162 H 155 H Calcium 7.4 L Lactate Dehydrogenase Total Creatine Kinase CK-MB (CK-2) CK-MB (CK-2) Rel Index Troponin T C-Reactive Protein NT-Pro-B Natriuret Pep Total Protein Albumin Triglycerides Cholesterol HDL Cholesterol Urine WBC (Auto) Urine Creatinine 11/27/18 11/27/18 11/27/18 03:44 03:44 05:07 WBC 14.8 H RBC 3.12 L Hgb 9.8 L Hct 28.5 L MCHC RDW 17.5 H Plt Count 127 L Lymph % (Auto) [place] % (Auto) Lymph # [place] # Seg Neutrophils % Seg Neuts % (Manual) Lymphocytes % (Manual) Seg Neutrophils # Seg Neutrophils # Man APTT POC ABG pH POC ABG pCO2 POC ABG pO2 114 H Sodium Potassium 3.0 L Chloride Carbon Dioxide 18 L BUN 28 H Creatinine 3.1 H Glucose 139 H POC Glucose Calcium 7.7 L Lactate Dehydrogenase Total Creatine Kinase CK-MB (CK-2) CK-MB (CK-2) Rel Index Troponin T C-Reactive Protein NT-Pro-B Natriuret Pep Total Protein 5.3 L Albumin 2.5 L Triglycerides Cholesterol HDL Cholesterol Urine WBC (Auto) Urine Creatinine 11/27/18 11/27/18 05:37 12:45 WBC RBC Hgb Hct MCHC RDW Plt Count Lymph % (Auto) [place] % (Auto) Lymph # [place] # Seg Neutrophils % Seg Neuts % (Manual) Lymphocytes % (Manual) Seg Neutrophils # Seg Neutrophils # Man APTT POC ABG pH POC ABG pCO2 POC ABG pO2 Sodium Potassium Chloride Carbon Dioxide BUN Creatinine Glucose POC Glucose 151 H 170 H Calcium Lactate Dehydrogenase Total Creatine Kinase CK-MB (CK-2) CK-MB (CK-2) Rel Index Troponin T C-Reactive Protein NT-Pro-B Natriuret Pep Total Protein Albumin Triglycerides Cholesterol HDL Cholesterol Urine WBC (Auto) Urine Creatinine Chest x-ray: report reviewed, image reviewed (improving bilateral infiltrates)
[2018-11-27 14:56] LABS: INR 1.03 (0.87-1.13)
[2018-11-27 14:57] LABS: Fibrinogen 586 mg/dl (211-480); Partial Thromboplastin Time 21.7 Sec. (24.2-36.6)
[2018-11-27] MEDS ORDERED: MAXIPIME/NS 2 GM/100 ML 2 GM/100 ML BAG IV SCH (15:00)
[2018-11-27] MEDS: KCL 10MEQ/100ML 10 MEQ/100 ML BAG IV SCH ×2 (15:38→16:38)
--- NOTE | 2018-11-27 18:44 | Event Note ---
Date: 11/27/18 Patient resting in the bed. Urine output 600 mL. Appreciate pulmonary medicine's help. Patient to rest this evening with plans to attempt to wean off ventilator in the morning.
--- NOTE | 2018-11-28 03:02 | XRay Report ---
CHEST 1 VIEW INDICATION: follow up respiratory failure. COMPARISON: One day prior. FINDINGS: Support devices: Unchanged. Heart: Stable. Lungs/Pleura: There is continued improvement in bilateral pulmonary opacities. No new findings. IMPRESSION: 1. Continued improvement in pulmonary opacities. Signer Name: Tho Aly MD Signed: 11/28/2018 2:58 AM Workstation Name: [id number]
[2018-11-28] MEDS: APRESOLINE IV PRN ×3 (04:19→23:16)
[2018-11-28 05:07] LABS: Basophils # (Auto) 0.1 K/mm3 (0.0-0.1); Basophils % (Auto) 0.3 % (0.0-1.8); Hematocrit 34.1 % (30.3-42.9); Hemoglobin 11.7 gm/dl (10.1-14.3); Lymphocytes % (Auto) 5.9 % (13.4-35.0); Mean Corpuscular HGB Conc 34 % (30-34); Mean Corpuscular Volume 91 fl (79-97); Monocytes # (Auto) 1.4 K/mm3 (0.0-0.8); Monocytes % (Auto) 8.2 % (0.0-7.3); Platelet Count 158 K/mm3 (140-440); Red Blood Count 3.77 M/mm3 (3.65-5.03); Red Cell Distribution Width 17.3 % (13.2-15.2)
[2018-11-28 05:30] LABS: Albumin 2.6 g/dL (3.9-5); Calcium 8.5 mg/dL (8.4-10.2)
[2018-11-28] MEDS ORDERED: POTASSIUM CHLORIDE FEEDTUBE ONE ×2 (06:00→22:20)
--- NOTE | 2018-11-28 08:58 | Progress Note ---
Assessment and Plan POD#4 /sp C/S for failure to dilate - Patient Problems (1) Acute respiratory failure Current Visit: Yes Status: Acute Qualifiers: Respiratory failure complication: hypoxia Qualified Code(s): J96.01 - Acute respiratory failure with hypoxia Plan to address problem: Continue care per cutter helper (2) Acute renal failure Current Visit: Yes Status: Acute Qualifiers: Acute renal failure type: with acute tubular necrosis Qualified Code(s): N17.0 - Acute kidney failure with tubular necrosis Plan to address problem: Continue care per radar repairer (3) delivery delivered Current Visit: Yes Status: Acute Plan to address problem: POD#4 no evidence of infection. +BS, +flatus today (witness by myself and RN). Minimal lochia. Will consider allowing to pump and dump if she desires. Will have MB RN assist patient. (4) Pulmonary edema Current Visit: Yes Status: Acute (5) Gestational hypertension Current Visit: Yes Status: Acute Qualifiers: Trimester: third trimester Qualified Code(s): O13.3 - Gestational [-induced] hypertension without significant proteinuria, third trimester Plan to address problem: BP's remain labile (6) Hypokalemia Current Visit: Yes Status: Acute Plan to address problem: To be management by hospitalist (7) Elevated LFTs Current Visit: Yes Status: Acute (8) Elevated troponin Current Visit: Yes Status: Acute (9) Gestational diabetes Current Visit: Yes Status: Acute (10) Rh negative, delivered, current hospitalization Current Visit: Yes Status: Acute Plan to address problem: Rhogam to be given today (11) Coffee ground emesis Current Visit: Yes Status: Acute Plan to address problem: While completing this note, received call from RN stating patient vomiting coffee-ground emesis. Reglan IV given. She already on Pepcid. Call place to Dr. Rucker to discuss change in status. (12) 38 weeks gestation of Current Visit: Yes Status: Ruled-out (13) Positive GBS test Current Visit: Yes Status: Acute Subjective - Subjective Principal diagnosis: 1) POD #4 S/P 1LTCS 2)gestatinal hypertension 3) acute resp failur Interval history: Patient is intubated however appropriately responsive. Patient reports: flatus Objective - Vital Signs Latest vital signs: Vital Signs Temp Pulse Pulse Pulse Resp Resp BP 11/28/18 08:00 96 H 18 137/80 11/28/18 07:30 105 H 21 152/80 11/28/18 07:00 108 H 20 149/76 11/28/18 06:30 107 H 25 H 141/81 11/28/18 06:00 113 H 16 131/75 11/28/18 05:30 116 H 21 123/84 11/28/18 05:00 122 H 44 H 160/101 11/28/18 04:30 107 H 26 H 164/91 11/28/18 04:19 93 H 160/101 11/28/18 04:00 98 H 24 168/102 11/28/18 03:57 95 H 175/102 11/28/18 03:43 98.9 F 11/28/18 03:30 88 36 H 175/102 11/28/18 03:00 112 H 47 H 168/101 11/28/18 02:00 87 19 168/101 11/28/18 01:00 90 35 H 167/94 11/28/18 00:00 99 H 15 149/87 11/27/18 23:44 94 H 25 H 11/27/18 23:37 99.8 F H 11/27/18 23:29 92 H 25 H 11/27/18 23:27 92 H 149/87 11/27/18 23:00 86 25 H 149/87 11/27/18 22:00 91 H 24 150/94 11/27/18 21:18 95 H 25 H 125/86 11/27/18 21:00 108 H 25 H 125/86 11/27/18 20:59 105 H 25 H 159/97 11/27/18 20:21 113 H 159/97 11/27/18 20:00 98 H 25 H 159/97 11/27/18 19:59 103 H 11/27/18 19:45 99.5 F 11/27/18 19:00 100 H 25 H 146/94 11/27/18 18:45 96 H 22 154/93 11/27/18 18:30 106 H 25 H 154/93 11/27/18 18:16 106 H 23 154/93 11/27/18 18:00 100 H 21 154/93 11/27/18 17:46 107 H 22 147/88 11/27/18 17:30 110 H 26 H 152/102 11/27/18 17:16 121 H 20 183/120 11/27/18 17:08 122 H 158/101 11/27/18 17:03 122 H 24 11/27/18 17:00 125 H 25 H 165/99 11/27/18 16:53 131 H 20 11/27/18 16:46 107 H 19 165/99 11/27/18 16:30 107 H 26 H 165/99 11/27/18 16:16 107 H 20 165/99 11/27/18 16:00 99.3 F 114 H 106 H 21 165/99 11/27/18 15:46 108 H 20 153/90 11/27/18 15:30 118 H 22 153/90 11/27/18 15:16 107 H 23 153/88 11/27/18 15:00 109 H 22 153/88 11/27/18 14:46 101 H 22 153/90 11/27/18 14:30 118 H 20 153/90 11/27/18 14:16 104 H 23 153/90 11/27/18 14:00 105 H 23 153/90 11/27/18 13:46 107 H 25 H 154/93 11/27/18 13:30 103 H 23 154/93 11/27/18 13:16 106 H 21 154/93 11/27/18 13:00 104 H 25 H 153/87 11/27/18 12:46 103 H 24 139/87 11/27/18 12:30 105 H 19 139/87 11/27/18 12:18 108 H 153/87 11/27/18 12:16 109 H 22 153/87 11/27/18 12:00 99.4 F 118 H 98 H 23 153/87 11/27/18 11:46 91 H 18 139/87 11/27/18 11:30 98 H 24 139/87 11/27/18 11:16 92 H 26 H 139/87 11/27/18 11:00 95 H 24 139/87 11/27/18 10:46 103 H 24 148/99 11/27/18 10:30 96 H 24 148/99 11/27/18 10:16 99 H 22 148/99 11/27/18 10:00 116 H 16 122/74 11/27/18 09:46 107 H 22 122/74 07/08/19 09:30 86 25 H 122/74 11/27/18 09:21 105 H 25 H 11/27/18 09:16 121 H 25 H 122/74 11/27/18 09:11 83 25 H 11/27/18 09:00 83 25 H 122/74 11/27/18 08:59 25 L 122/74 Pulse Ox 11/28/18 08:00 99 11/28/18 07:30 99 11/28/18 07:00 99 11/28/18 06:30 99 11/28/18 06:00 99 11/28/18 05:30 99 11/28/18 05:00 99 11/28/18 04:30 99 11/28/18 04:19 11/28/18 04:00 100 11/28/18 03:57 99 11/28/18 03:43 11/28/18 03:30 99 11/28/18 03:00 100 11/28/18 02:00 100 11/28/18 01:00 100 11/28/18 00:00 99 11/27/18 23:44 11/27/18 23:37 11/27/18 23:29 11/27/18 23:27 100 11/27/18 23:00 100 11/27/18 22:00 100 11/27/18 21:18 99 11/27/18 21:00 98 11/27/18 20:59 98 11/27/18 20:21 99 11/27/18 20:00 100 11/27/18 19:59 11/27/18 19:45 11/27/18 19:00 99 11/27/18 18:45 98 11/27/18 18:30 98 11/27/18 18:16 99 11/27/18 18:00 99 11/27/18 17:46 98 11/27/18 17:30 100 11/27/18 17:16 97 11/27/18 17:08 100 11/27/18 17:03 11/27/18 17:00 96 11/27/18 16:53 11/27/18 16:46 99 11/27/18 16:30 100 11/27/18 16:16 99 11/27/18 16:00 99 11/27/18 15:46 98 11/27/18 15:30 99 11/27/18 15:16 99 11/27/18 15:00 99 11/27/18 14:46 99 11/27/18 14:30 98 11/27/18 14:16 99 11/27/18 14:00 99 11/27/18 13:46 99 11/27/18 13:30 98 11/27/18 13:16 99 11/27/18 13:00 99 11/27/18 12:46 99 11/27/18 12:30 99 11/27/18 12:18 99 11/27/18 12:16 99 11/27/18 12:00 99 11/27/18 11:46 100 11/27/18 11:30 99 11/27/18 11:16 99 11/27/18 11:00 100 11/27/18 10:46 98 11/27/18 10:30 99 11/27/18 10:16 98 11/27/18 10:00 98 11/27/18 09:46 99 11/27/18 09:30 100 11/27/18 09:21 11/27/18 09:16 100 11/27/18 09:11 11/27/18 09:00 100 11/27/18 08:59 100 Intake and Output 11/27/18 11/28/18 11/28/18 22:59 06:59 14:59 Intake Total 100 195.237 Output Total 725 800 Balance -625 -434.443 Intake: IV 100 95.237 KCL 10MEQ/100ML 10 meq In 100 100 ml @ 100 mls/hr IV Q1H YING Rx#:[id number] Midazolam 100 mg In NaCl 0 0.9% 80 ml @ 2 MG/HR 2 mls/hr IV TITR YING Rx#: [id number] fentaNYL DRIP Premix 2, 95.237 000 mcg In 100 ml @ 1 MCG /KG/HR 3.856 mls/hr IV TITR YING Rx#:[id number] Intake, Free Water 100 Output: Urine 725 800 Indwelling Catheter 725 800 Other: Total, Output Amount 725 200 Voiding Method Indwelling Catheter Indwelling Catheter - Exam Breasts: Present: normal, . Absent: swelling, mass, pain, engorged Abdomen: Present: distention, normal bowel sounds. Absent: tenderness, guarding Vulva: both: normal (No blood on perineum or pad) Uterus: Present: other (difficult to palpate d/t distension) Extremities: Present: normal. Absent: edema Incision: Present: normal, dry, intact (No s/s infection , sterisrips in place, slight old blood on strips) - Labs Labs: Abnormal lab results 11/27/18 11/27/18 11/27/18 Range/Units 12:45 14:24 18:05 WBC (4.5-11.0) K/mm3 RDW (13.2-15.2) % Lymph % (Auto) (13.4-35.0) % [place] % (Auto) (0.0-7.3) % Lymph # (1.2-5.4) K/mm3 [place] # (0.0-0.8) K/mm3 Seg Neutrophils % (40.0-70.0) % Seg Neutrophils # (1.8-7.7) K/mm3 APTT 21.7 L (24.2-36.6) Sec. Fibrinogen 586 H (211-480) mg/dl D-Dimer > 76486 H (0-234) ng/mlDDU POC ABG pO2 (80-105) Sodium (137-145) mmol/L Potassium (3.6-5.0) mmol/L Chloride (98-107) mmol/L Carbon Dioxide (22-30) mmol/L BUN (7-17) mg/dL Creatinine (0.7-1.2) mg/dL Glucose (65-100) mg/dL POC Glucose 170 H 168 H (70-105) AST (5-40) units/L ALT (7-56) units/L Total Protein (6.3-8.2) g/dL Albumin (3.9-5) g/dL 11/27/18 11/28/18 11/28/18 Range/Units 23:41 04:13 04:29 WBC 17.7 H (4.5-11.0) K/mm3 RDW 17.3 H (13.2-15.2) % Lymph % (Auto) 5.9 L (13.4-35.0) % [place] % (Auto) 8.2 H (0.0-7.3) % Lymph # 1.0 L (1.2-5.4) K/mm3 [place] # 1.4 H (0.0-0.8) K/mm3 Seg Neutrophils % 85.6 H (40.0-70.0) % Seg Neutrophils # 15.2 H (1.8-7.7) K/mm3 APTT (24.2-36.6) Sec. Fibrinogen (211-480) mg/dl D-Dimer (0-234) ng/mlDDU POC ABG pO2 122 H (80-105) Sodium (137-145) mmol/L Potassium (3.6-5.0) mmol/L Chloride (98-107) mmol/L Carbon Dioxide (22-30) mmol/L BUN (7-17) mg/dL Creatinine (0.7-1.2) mg/dL Glucose (65-100) mg/dL POC Glucose 149 H (70-105) AST (5-40) units/L ALT (7-56) units/L Total Protein (6.3-8.2) g/dL Albumin (3.9-5) g/dL 11/28/18 11/28/18 Range/Units 04:29 05:26 WBC (4.5-11.0) K/mm3 RDW (13.2-15.2) % Lymph % (Auto) (13.4-35.0) % [place] % (Auto) (0.0-7.3) % Lymph # (1.2-5.4) K/mm3 [place] # (0.0-0.8) K/mm3 Seg Neutrophils % (40.0-70.0) % Seg Neutrophils # (1.8-7.7) K/mm3 APTT (24.2-36.6) Sec. Fibrinogen (211-480) mg/dl D-Dimer (0-234) ng/mlDDU POC ABG pO2 (80-105) Sodium 146 H D (137-145) mmol/L Potassium 2.8 L* (3.6-5.0) mmol/L Chloride 108.9 H (98-107) mmol/L Carbon Dioxide 17 L (22-30) mmol/L BUN 33 H (7-17) mg/dL Creatinine 2.3 H (0.7-1.2) mg/dL Glucose 146 H (65-100) mg/dL POC Glucose 138 H (70-105) AST 82 H (5-40) units/L ALT 83 H (7-56) units/L Total Protein 6.2 L (6.3-8.2) g/dL Albumin 2.6 L (3.9-5) g/dL
--- NOTE | 2018-11-28 09:06 | Progress Note ---
Assessment and Plan Impression: * MIRIAN with ATN * sepsis * ARDS * post * hypoxemia * Hypernatremia * Hypokalemia Plan: * Renal function continues to improve. Serum creatinine down to 2.3 today. * Patient remains nonoliguric. Approximately 2200 mL of urine recorded yesterday. * keep MAP >65 * avoid nephrotoxins * Replace potassium * Increase free water intake * duresis as tolerated * No indication for renal replacement therapy at this time * Discussed with patient's and mother at bedside Subjective Date of service: 11/28/18 Principal diagnosis: 1) POD #4 S/P 1LTCS 2)LOW UOP 3) gestatinal hypertension 4) pulmonary edema Interval history: Patient remains in the intensive care unit. On the ventilator. Currently on 25% FiO2. Sedated. Objective - Vital Signs Vital signs: Vital Signs - 12hr 11/27/18 11/27/18 11/27/18 21:18 22:00 23:00 Temperature Pulse Rate 95 H 91 H 86 Pulse Rate [ Bilateral Throughout] Respiratory 25 H 24 25 H Rate Respiratory Rate [Bilateral Throughout] Blood Pressure 125/86 150/94 149/87 O2 Sat by Pulse 99 100 100 Oximetry 11/27/18 11/27/18 11/27/18 23:27 23:29 23:37 Temperature 99.8 F H Pulse Rate 92 H Pulse Rate [ 92 H Bilateral Throughout] Respiratory Rate Respiratory 25 H Rate [Bilateral Throughout] Blood Pressure 149/87 O2 Sat by Pulse 100 Oximetry 11/27/18 11/28/18 11/28/18 23:44 00:00 01:00 Temperature Pulse Rate 99 H 90 Pulse Rate [ 94 H Bilateral Throughout] Respiratory 15 35 H Rate Respiratory 25 H Rate [Bilateral Throughout] Blood Pressure 149/87 167/94 O2 Sat by Pulse 99 100 Oximetry 11/28/18 11/28/18 11/28/18 02:00 03:00 03:30 Temperature Pulse Rate 87 112 H 88 Pulse Rate [ Bilateral Throughout] Respiratory 19 47 H 36 H Rate Respiratory Rate [Bilateral Throughout] Blood Pressure 168/101 168/101 175/102 O2 Sat by Pulse 100 100 99 Oximetry 11/28/18 11/28/18 11/28/18 03:43 03:57 04:00 Temperature 98.9 F Pulse Rate 95 H 98 H Pulse Rate [ Bilateral Throughout] Respiratory 24 Rate Respiratory Rate [Bilateral Throughout] Blood Pressure 175/102 168/102 O2 Sat by Pulse 99 100 Oximetry 11/28/18 11/28/18 11/28/18 04:19 04:30 05:00 Temperature Pulse Rate 93 H 107 H 122 H Pulse Rate [ Bilateral Throughout] Respiratory 26 H 44 H Rate Respiratory Rate [Bilateral Throughout] Blood Pressure 160/101 164/91 160/101 O2 Sat by Pulse 99 99 Oximetry 11/28/18 11/28/18 11/28/18 05:30 06:00 06:30 Temperature Pulse Rate 116 H 113 H 107 H Pulse Rate [ Bilateral Throughout] Respiratory 21 16 25 H Rate Respiratory Rate [Bilateral Throughout] Blood Pressure 123/84 131/75 141/81 O2 Sat by Pulse 99 99 99 Oximetry 11/28/18 11/28/18 11/28/18 07:00 07:30 08:00 Temperature Pulse Rate 108 H 105 H 96 H Pulse Rate [ Bilateral Throughout] Respiratory 20 21 18 Rate Respiratory Rate [Bilateral Throughout] Blood Pressure 149/76 152/80 137/80 O2 Sat by Pulse 99 99 99 Oximetry - General Appearance General appearance: well-developed, well-nourished, appears stated age, intubated EENT: PERRL, mucous membranes moist Neck: no JVD, no thyromegaly, no carotid bruit, supple Respiratory: Present: Clear to Ascultation Cardiology: regular, normal heart rate, S1S2, no murmurs Gastrointestinal: normoactive bowel sounds, other (incision noted in the hypogastric area) Integumentary: other (1+ edema) - Lab 11/28/18 04:29 11/28/18 04:29 Most recent lab results Calcium 8.5 mg/dL (8.4-10.2) 11/28/18 04:29 Phosphorus 2.90 mg/dL (2.5-4.5) 11/27/18 03:44 Magnesium 1.80 mg/dL (1.7-2.3) 11/27/18 03:44 34.9 mg/dL (0.1-20.0) H 11/26/18 10:19 72 mmol/L 11/26/18 10:19 Medications & Allergies - Medications Allergies/Adverse Reactions: Allergies No Known Allergies Allergy (Verified 11/23/18 19:31) Home Medications: Home Medications Medication Instructions Recorded Confirmed Last Taken Type No Known Home Medications [No 11/24/18 11/24/18 Unknown History Reported Home Medications] Active Medications: Generic Name Dose Route Start Last Admin Trade Name Billy PRN Reason Stop Dose Admin Albuterol 2.5 mg 11/26/18 08:00 11/27/18 23:29 Proventil IH 2.5 mg Q8HRT YING Administration Bisacodyl 10 mg 11/24/18 23:16 Dulcolax [place] QDAY PRN constipation unrelieved by MOM Famotidine 20 mg 11/27/18 10:00 11/27/18 09:52 Pepcid IV 20 mg DAILY YING Administration Fentanyl 50 mcg 11/25/18 23:25 Sublimaze IV Q10MIN PRN ANALGESIA Hydralazine HCl 10 mg 11/28/18 03:30 11/28/18 04:19 Apresoline IV 10 mg Q4HR PRN Administration SBP > 160 Hydrophilic Ointment 1 applic 11/25/18 22:12 Vaseline Lip Therapy TP Q2HR PRN Dry Lips Oxytocin/Sodium Chloride 20 units in 1,000 mls @ 250 mls/hr 11/24/18 23:16 Pitocin/Ns 20 Unit/1000ml Drip IV DIRECT YING Fentanyl Citrate 2,000 mcg in 100 mls @ 3.856 mls/hr 11/25/18 23:45 11/28/18 06:20 Fentanyl Drip Premix IV 0 mcg/kg/hr TITR YING 0 mls/hr Titration Protocol 1 MCG/KG/HR Midazolam HCl 100 mg/ Sodium 100 mls @ 2 mls/hr 11/25/18 23:45 11/27/18 19:12 Chloride IV 0 mg/hr TITR YING 0 mls/hr Titration Protocol 2 MG/HR Cefepime HCl 2 gm in 100 mls @ 200 mls/hr 11/27/18 15:00 11/27/18 15:20 Maxipime/Ns 2 Gm/100 Ml IV 200 mls/hr Q24H YING Administration Protocol Magnesium Hydroxide 30 ml 11/24/18 23:16 Milk Of Magnesia PO Q4H PRN Constipation Metoclopramide HCl 10 mg 11/24/18 23:16 11/28/18 08:58 Reglan IV 10 mg Q6H PRN Administration Nausea And Vomiting Midazolam HCl 2 mg 11/25/18 23:25 Versed IV Q10MIN PRN Sedation Morphine Sulfate 2 mg 11/25/18 23:19 11/27/18 17:24 Morphine IV 2 mg Q4H PRN Administration Pain, Moderate (4-6) Multi-Ingred Cream/Lotion/Oil/Oint 1 applic 11/25/18 22:12 Artificial Tears Ophth Oint OU Q4HR PRN Dry Eye(s) Multi-Ingredient Ointment 1 applic 11/24/18 23:16 Lansinoh TP PRN PRN dryness/cracking Naloxone HCl 0.1 mg 11/24/18 23:16 Narcan 0.4 Mg/1 Ml IV Q2MIN PRN Res Rate </= 8 or 02 SAT < 92% Potassium Chloride 40 meq 11/28/18 10:00 Potassium Chloride FEEDTUBE QDAY YING Sodium Chloride 10 ml 11/24/18 23:16 11/27/18 21:45 Sodium Chloride Flush Syringe 10 Ml IV 10 ml BID YING Administration Sodium Chloride 10 ml 11/24/18 23:16 Sodium Chloride Flush Syringe 10 Ml IV PRN PRN LINE FLUSH Witch Faiza/Glycerin 1 each 11/24/18 23:16 Tucks Pad TP PRN PRN Hemorrhoids/cleansing/soothing
[2018-11-28] MEDS ORDERED: POTASSIUM CHLORIDE FEEDTUBE SCH (10:00)
--- NOTE | 2018-11-28 10:18 | XRay Report ---
Abdomen AP portable supine 0958 INDICATION: Vomiting The right lateral abdomen is not fully included. A nasogastric tube coils in this proximal stomach. C olon is distended with gas though not dilated. Moderate small bowel gaseous distention is seen with m ild dilatation noted. IMPRESSION: The bowel gas pattern suggests a functional abnormality such as adynamic ileus though giv en some small bowel dilatation I cannot include the possibility of mechanical obstruction. I would mcfadden ggest follow-up and clinical correlation. Signer Name: Dale Victoria MD Signed: 11/28/2018 10:13 AM Workstation Name: [id number]
[2018-11-28] MEDS: SODIUM CHLORIDE FLUSH SYRINGE 10 ML IV SCH ×2 (10:21→23:16)
[2018-11-28] MEDS: PEPCID IV SCH (10:21)
[2018-11-28] MEDS: KCL 10MEQ/100ML 10 MEQ/100 ML BAG IV SCH ×4 (11:06→14:16)
[2018-11-28] MEDS: REGLAN IV SCH ×3 (12:01→23:15)
--- NOTE | 2018-11-28 13:12 | Progress Note ---
Assessment and Plan S/P Acute Pulmonary edema Acute renal failure Acute respiratory failure Elevated troponin Pre-eclampsia Echo reports a normal left ventricular size and function LVEF 45-50%. Supportive cardiac management. Subjective Date of service: 11/28/18 Principal diagnosis: 1) POD #4 S/P 1LTCS 2)gestatinal hypertension 3) acute resp failur Interval history: Alert but remains intubated on the vent. Objective Vital Signs Temp Pulse Pulse Pulse Resp Resp BP 11/28/18 12:00 98.7 F 112 H 97 H 18 140/84 11/28/18 11:30 114 H 17 138/77 11/28/18 11:00 104 H 16 144/78 11/28/18 10:30 104 H 18 144/78 11/28/18 10:00 122 H 14 140/80 11/28/18 09:30 124 H 23 124/74 11/28/18 09:27 117 H 18 140/80 11/28/18 09:00 124 H 28 H 130/79 11/28/18 08:30 113 H 19 130/79 11/28/18 08:00 98.8 F 96 H 110 H 25 H 137/80 11/28/18 07:30 105 H 21 152/80 11/28/18 07:00 108 H 20 149/76 11/28/18 06:30 107 H 25 H 141/81 11/28/18 06:00 113 H 16 131/75 11/28/18 05:30 116 H 21 123/84 11/28/18 05:00 122 H 44 H 160/101 11/28/18 04:30 107 H 26 H 164/91 11/28/18 04:19 93 H 160/101 11/28/18 04:00 98 H 24 168/102 11/28/18 03:57 95 H 175/102 11/28/18 03:43 98.9 F 11/28/18 03:30 88 36 H 175/102 11/28/18 03:00 112 H 47 H 168/101 11/28/18 02:00 87 19 168/101 11/28/18 01:00 90 35 H 167/94 11/28/18 00:00 99 H 15 149/87 11/27/18 23:44 94 H 25 H 11/27/18 23:37 99.8 F H 11/27/18 23:29 92 H 25 H 11/27/18 23:27 92 H 149/87 11/27/18 23:00 86 25 H 149/87 11/27/18 22:00 91 H 24 150/94 11/27/18 21:18 95 H 25 H 125/86 11/27/18 21:00 108 H 25 H 125/86 11/27/18 20:59 105 H 25 H 159/97 11/27/18 20:21 113 H 159/97 11/27/18 20:00 98 H 25 H 159/97 11/27/18 19:59 103 H 11/27/18 19:45 99.5 F 11/27/18 19:00 100 H 25 H 146/94 11/27/18 18:45 96 H 22 154/93 11/27/18 18:30 106 H 25 H 154/93 11/27/18 18:16 106 H 23 154/93 11/27/18 18:00 100 H 21 154/93 11/27/18 17:46 107 H 22 147/88 11/27/18 17:30 110 H 26 H 152/102 11/27/18 17:16 121 H 20 183/120 11/27/18 17:08 122 H 158/101 11/27/18 17:03 122 H 24 11/27/18 17:00 125 H 25 H 165/99 11/27/18 16:53 131 H 20 11/27/18 16:46 107 H 19 165/99 11/27/18 16:30 107 H 26 H 165/99 11/27/18 16:16 107 H 20 165/99 11/27/18 16:00 99.3 F 114 H 106 H 21 165/99 11/27/18 15:46 108 H 20 153/90 11/27/18 15:30 118 H 22 153/90 11/27/18 15:16 107 H 23 153/88 11/27/18 15:00 109 H 22 153/88 11/27/18 14:46 101 H 22 153/90 11/27/18 14:30 118 H 20 153/90 11/27/18 14:16 104 H 23 153/90 11/27/18 14:00 105 H 23 153/90 11/27/18 13:46 107 H 25 H 154/93 11/27/18 13:30 103 H 23 154/93 11/27/18 13:16 106 H 21 154/93 Pulse Ox 11/28/18 12:00 99 11/28/18 11:30 99 11/28/18 11:00 99 11/28/18 10:30 99 11/28/18 10:00 99 11/28/18 09:30 98 11/28/18 09:27 99 11/28/18 09:00 98 11/28/18 08:30 99 11/28/18 08:00 99 11/28/18 07:30 99 11/28/18 07:00 99 11/28/18 06:30 99 11/28/18 06:00 99 11/28/18 05:30 99 11/28/18 05:00 99 11/28/18 04:30 99 11/28/18 04:19 11/28/18 04:00 100 11/28/18 03:57 99 11/28/18 03:43 11/28/18 03:30 99 11/28/18 03:00 100 11/28/18 02:00 100 11/28/18 01:00 100 11/28/18 00:00 99 11/27/18 23:44 11/27/18 23:37 11/27/18 23:29 11/27/18 23:27 100 11/27/18 23:00 100 11/27/18 22:00 100 11/27/18 21:18 99 11/27/18 21:00 98 11/27/18 20:59 98 11/27/18 20:21 99 11/27/18 20:00 100 11/27/18 19:59 11/27/18 19:45 11/27/18 19:00 99 11/27/18 18:45 98 11/27/18 18:30 98 11/27/18 18:16 99 11/27/18 18:00 99 11/27/18 17:46 98 11/27/18 17:30 100 11/27/18 17:16 97 11/27/18 17:08 100 11/27/18 17:03 11/27/18 17:00 96 11/27/18 16:53 11/27/18 16:46 99 07/08/19 16:30 100 11/27/18 16:16 99 11/27/18 16:00 99 11/27/18 15:46 98 11/27/18 15:30 99 11/27/18 15:16 99 11/27/18 15:00 99 11/27/18 14:46 99 11/27/18 14:30 98 11/27/18 14:16 99 11/27/18 14:00 99 11/27/18 13:46 99 11/27/18 13:30 98 11/27/18 13:16 99 - Physical Examination General: Other (Intubated on mechanical ventilator) HEENT: Positive: PERRL Neck: Positive: trachea midline Cardiac: Positive: Reg Rate and Rhythm Neuro: Positive: Grossly Intact Abdomen: Positive: Other (post C/S surgery) Extremities: Absent: edema - Labs and Meds Cardiac Enzymes 11/28/18 Range/Units 04:29 AST 82 H (5-40) units/L Coagulation 11/27/18 Range/Units 14:24 PT 13.2 (12.2-14.9) Sec. INR 1.03 (0.87-1.13) APTT 21.7 L (24.2-36.6) Sec. CBC 11/28/18 Range/Units 04:29 WBC 17.7 H (4.5-11.0) K/mm3 RBC 3.77 (3.65-5.03) M/mm3 Hgb 11.7 (10.1-14.3) gm/dl Hct 34.1 (30.3-42.9) % Plt Count 158 (140-440) K/mm3 Lymph # 1.0 L (1.2-5.4) K/mm3 [place] # 1.4 H (0.0-0.8) K/mm3 Eos # 0.0 (0.0-0.4) K/mm3 Baso # 0.1 (0.0-0.1) K/mm3 Comprehensive Metabolic Panel 11/28/18 Range/Units 04:29 Sodium 146 H D (137-145) mmol/L Potassium 2.8 L* (3.6-5.0) mmol/L Chloride 108.9 H (98-107) mmol/L Carbon Dioxide 17 L (22-30) mmol/L BUN 33 H (7-17) mg/dL Creatinine 2.3 H (0.7-1.2) mg/dL Glucose 146 H (65-100) mg/dL Calcium 8.5 (8.4-10.2) mg/dL AST 82 H (5-40) units/L ALT 83 H (7-56) units/L Alkaline Phosphatase 122 (35-129) units/L Total Protein 6.2 L (6.3-8.2) g/dL Albumin 2.6 L (3.9-5) g/dL
--- NOTE | 2018-11-28 14:01 | Progress Note ---
Assessment and Plan Imp: 1. S/p for intrauterine at 38 weeks 2. Pulmonary edema -> probably combined cardiogenic and non-cardiogenic (rapid yet incomplete improvement), the former perhaps related to periods of elevated BP/IVFs and the latter of ? etiology (DDx includes aspiration, sepsis, AFE) 3. Acute respiratory failure, hypoxia 4. MIRIAN 5. Thrombocytopenia of ? etiology 6. Ileus 7. Hypernatremia 8. Hypokalemia 9. Transaminitis 10. Anion-gap metabolic acidosis, presumed related to #4 at this point Rec: 1. Cultures are negative; on Cefipime per ID 2. Pulmonary mechanics are excellent, as is ABG and mentation; meets criteria for extubation; will do so once NG tube placement is confirmed 3. SCDs are at the bedside but patient has been refusing; explained the importance of SCDs to the patient/family, and they understand the risk of DVT; holding on chemical PPx due to low platelets 4. Would optimize blood pressure given grade III diastolic dysfunction noted in Echo report 5. Replete K and repeat level this afternoon; check Mag and Phos in AM 6. Re: N/V, ileus -> she is passing gas; will give her 24 hours of scheduled Reglan and change to PPI IV BID; monitor H/H; will change OG to NG tube prior to extubation, and keep the NG to LIWS so as to ensure no vomiting/aspiration issues arise 7. Repeat LFTs in AM and check Lipase, Lactic acid 8. She has clinically improved but prognosis remains guarded CCT 31 minutes Plan of care reviewed w/ family in detail, they understand/agree; all questions have been answered Subjective Date of service: 11/28/18 Principal diagnosis: 1) POD #4 S/P 1LTCS 2)gestatinal hypertension 3) acute resp failur Interval history: Vomited some brown material this AM, then clear material after that. OG hooked up to LIWS. Received Reglan for nausea with improvement. Awake, alert, doing perfectly well on PSV 6/5 x 2 hours, with RSBI of 29, TV > 500, and normal respirations, O2 sat of 99% on 25% FiO2. Follows commands. Denies SOB. Active Medications Albuterol (Proventil) 2.5 mg IH Q8HRT YING Last Admin: 11/27/18 23:29 Dose: 2.5 mg Documented by: Bisacodyl (Dulcolax) 10 mg OH QDAY PRN PRN Reason: constipation unrelieved by MOM Hydralazine HCl (Apresoline) 10 mg IV Q4HR PRN PRN Reason: SBP > 160 Last Admin: 11/28/18 04:19 Dose: 10 mg Documented by: Hydrophilic Ointment (Vaseline Lip Therapy) 1 applic TP Q2HR PRN PRN Reason: Dry Lips Oxytocin/Sodium Chloride (Pitocin/Ns 20 Unit/1000ml Drip) 20 units in 1,000 mls @ 250 mls/hr IV DIRECT YING Fentanyl Citrate (Fentanyl Drip Premix) 2,000 mcg in 100 mls @ 3.856 mls/hr IV TITR YING; Protocol Last Titration: 11/28/18 06:20 Dose: 0 mcg/kg/hr, 0 mls/hr Documented by: Midazolam HCl 100 mg/ Sodium (Chloride) 100 mls @ 2 mls/hr IV TITR YING; Protocol Last Titration: 11/27/18 19:12 Dose: 0 mg/hr, 0 mls/hr Documented by: Cefepime HCl (Maxipime/Ns 2 Gm/100 Ml) 2 gm in 100 mls @ 200 mls/hr IV Q24H YING ; Protocol Last Admin: 11/27/18 15:20 Dose: 200 mls/hr Documented by: Potassium Chloride (Kcl 10meq/100ml) 10 meq in 100 mls @ 100 mls/hr IV Q1H YING Stop: 11/28/18 14:59 Last Admin: 11/28/18 13:05 Dose: 100 mls/hr Documented by: Magnesium Hydroxide (Milk Of Magnesia) 30 ml PO Q4H PRN PRN Reason: Constipation Metoclopramide HCl (Reglan) 10 mg IV Q6H PRN PRN Reason: Nausea And Vomiting Last Admin: 11/28/18 08:58 Dose: 10 mg Documented by: Metoclopramide HCl (Reglan) 5 mg IV Q6HR YING Stop: 11/29/18 06:01 Last Admin: 11/28/18 12:01 Dose: 5 mg Documented by: Morphine Sulfate (Morphine) 2 mg IV Q4H PRN PRN Reason: Pain, Moderate (4-6) Last Admin: 11/27/18 17:24 Dose: 2 mg Documented by: Multi-Ingred Cream/Lotion/Oil/Oint (Artificial Tears Ophth Oint) 1 applic OU Q4 HR PRN PRN Reason: Dry Eye(s) Multi-Ingredient Ointment (Lansinoh) 1 applic TP PRN PRN PRN Reason: dryness/cracking Naloxone HCl (Narcan 0.4 Mg/1 Ml) 0.1 mg IV Q2MIN PRN PRN Reason: Res Rate </= 8 or 02 SAT < 92% Pantoprazole Sodium (Protonix) 40 mg IV BID YING Sodium Chloride (Sodium Chloride Flush Syringe 10 Ml) 10 ml IV BID YING Last Admin: 11/28/18 10:21 Dose: 10 ml Documented by: Sodium Chloride (Sodium Chloride Flush Syringe 10 Ml) 10 ml IV PRN PRN PRN Reason: LINE FLUSH Witch Faiza/Glycerin (Tucks Pad) 1 each TP PRN PRN PRN Reason: Hemorrhoids/cleansing/soothing Objective Vital Signs - 12hr 11/28/18 11/28/18 11/28/18 02:00 03:00 03:30 Temperature Pulse Rate 87 112 H 88 Pulse Rate [ From Monitor] Respiratory 19 47 H 36 H Rate Blood Pressure 168/101 168/101 175/102 O2 Sat by Pulse 100 100 99 Oximetry 11/28/18 11/28/18 11/28/18 03:43 03:57 04:00 Temperature 98.9 F Pulse Rate 95 H 98 H Pulse Rate [ From Monitor] Respiratory 24 Rate Blood Pressure 175/102 168/102 O2 Sat by Pulse 99 100 Oximetry 11/28/18 11/28/18 11/28/18 04:19 04:30 05:00 Temperature Pulse Rate 93 H 107 H 122 H Pulse Rate [ From Monitor] Respiratory 26 H 44 H Rate Blood Pressure 160/101 164/91 160/101 O2 Sat by Pulse 99 99 Oximetry 11/28/18 11/28/18 11/28/18 05:30 06:00 06:30 Temperature Pulse Rate 116 H 113 H 107 H Pulse Rate [ From Monitor] Respiratory 21 16 25 H Rate Blood Pressure 123/84 131/75 141/81 O2 Sat by Pulse 99 99 99 Oximetry 11/28/18 11/28/18 11/28/18 07:00 07:30 08:00 Temperature 98.8 F Pulse Rate 108 H 105 H 96 H Pulse Rate [ 110 H From Monitor] Respiratory 20 21 25 H Rate Blood Pressure 149/76 152/80 137/80 O2 Sat by Pulse 99 99 99 Oximetry 11/28/18 11/28/18 11/28/18 08:30 09:00 09:27 Temperature Pulse Rate 113 H 124 H 117 H Pulse Rate [ From Monitor] Respiratory 19 28 H 18 Rate Blood Pressure 130/79 130/79 140/80 O2 Sat by Pulse 99 98 99 Oximetry 11/28/18 11/28/18 11/28/18 09:30 10:00 10:30 Temperature Pulse Rate 124 H 122 H 104 H Pulse Rate [ From Monitor] Respiratory 23 14 18 Rate Blood Pressure 124/74 140/80 144/78 O2 Sat by Pulse 98 99 99 Oximetry 11/28/18 11/28/18 11/28/18 11:00 11:30 12:00 Temperature 98.7 F Pulse Rate 104 H 114 H 112 H Pulse Rate [ 97 H From Monitor] Respiratory 16 17 18 Rate Blood Pressure 144/78 138/77 140/84 O2 Sat by Pulse 99 99 99 Oximetry 11/28/18 11/28/18 12:30 13:00 Temperature Pulse Rate 110 H 102 H Pulse Rate [ From Monitor] Respiratory 19 17 Rate Blood Pressure 128/95 128/95 O2 Sat by Pulse 99 99 Oximetry Constitutional: other (awake, critically ill on ventilator) Eyes: non-icteric ENT: oropharynx moist Neck: supple Effort: normal Ascultation: Bilateral: clear Cardiovascular: other (mild tachy, RR; no mrg) Gastrointestinal: normoactive bowel sounds, soft, other (distended, mildly TTP; no guarding/rebound) Integumentary: normal Extremities: no cyanosis, no edema, pink and warm Neurologic: normal mental status, non-focal exam, pupils equal and round, CN II- XII normal Psychiatric: mood appropriate, affect normal CBC and BMP: 11/28/18 04:29 11/28/18 04:29 ABG, PT/INR, D-dimer: ABG POC ABG pH 7.400 (7.35-7.45) 11/28/18 12:57 POC ABG pCO2 30.6 (35-45) L 11/28/18 12:57 POC ABG pO2 125 (80-105) H 11/28/18 12:57 POC ABG HCO3 19.0 (22-26 mml/L) 11/28/18 12:57 POC ABG Total CO2 20 (23-27mmol/L) 11/28/18 12:57 POC ABG O2 Sat 99 11/28/18 12:57 PT/INR, D-dimer PT 13.2 Sec. (12.2-14.9) 11/27/18 14:24 INR 1.03 (0.87-1.13) 11/27/18 14:24 > 11434 ng/mlDDU (0-234) H 11/27/18 14:24 Abnormal lab findings: Abnormal Labs 11/23/18 11/24/18 11/24/18 19:45 16:12 16:12 WBC 12.3 H 16.3 H RBC Hgb Hct MCHC RDW 16.9 H 16.6 H Plt Count Lymph % (Auto) [place] % (Auto) Lymph # [place] # Seg Neutrophils % Seg Neuts % (Manual) Lymphocytes % (Manual) Seg Neutrophils # Seg Neutrophils # Man APTT Fibrinogen D-Dimer POC ABG pH POC ABG pCO2 POC ABG pO2 Sodium Potassium Chloride Carbon Dioxide BUN Creatinine 0.5 L Glucose POC Glucose Calcium AST ALT Lactate Dehydrogenase 248 H Total Creatine Kinase CK-MB (CK-2) CK-MB (CK-2) Rel Index Troponin T C-Reactive Protein NT-Pro-B Natriuret Pep Total Protein Albumin Triglycerides Cholesterol HDL Cholesterol Urine WBC (Auto) Urine Creatinine 11/24/18 11/24/18 11/24/18 23:41 23:41 23:41 WBC 18.3 H RBC Hgb Hct MCHC RDW 16.6 H Plt Count Lymph % (Auto) 3.5 L [place] % (Auto) 7.7 H Lymph # 0.6 L [place] # 1.4 H Seg Neutrophils % 88.7 H Seg Neuts % (Manual) Lymphocytes % (Manual) Seg Neutrophils # 16.2 H Seg Neutrophils # Man APTT Fibrinogen D-Dimer POC ABG pH POC ABG pCO2 POC ABG pO2 Sodium Potassium Chloride Carbon Dioxide BUN Creatinine Glucose POC Glucose Calcium AST ALT Lactate Dehydrogenase Total Creatine Kinase CK-MB (CK-2) CK-MB (CK-2) Rel Index Troponin T 0.274 H* C-Reactive Protein NT-Pro-B Natriuret Pep 5198 H Total Protein Albumin Triglycerides 540 H Cholesterol 291 H HDL Cholesterol 60 H Urine WBC (Auto) Urine Creatinine 11/24/18 11/25/18 11/25/18 23:41 04:40 04:40 WBC RBC Hgb Hct MCHC RDW Plt Count Lymph % (Auto) [place] % (Auto) Lymph # [place] # Seg Neutrophils % Seg Neuts % (Manual) Lymphocytes % (Manual) Seg Neutrophils # Seg Neutrophils # Man APTT Fibrinogen D-Dimer POC ABG pH POC ABG pCO2 POC ABG pO2 Sodium Potassium Chloride 108.3 H Carbon Dioxide 21 L BUN Creatinine Glucose 195 H POC Glucose Calcium 7.7 L AST ALT Lactate Dehydrogenase Total Creatine Kinase 155 H CK-MB (CK-2) 11.4 H CK-MB (CK-2) Rel Index 7.3 H Troponin T 0.177 H* D C-Reactive Protein NT-Pro-B Natriuret Pep Total Protein Albumin Triglycerides Cholesterol HDL Cholesterol Urine WBC (Auto) Urine Creatinine 11/25/18 11/25/18 11/25/18 08:35 09:47 22:35 WBC 20.8 H RBC Hgb Hct MCHC RDW 17.2 H Plt Count Lymph % (Auto) [place] % (Auto) Lymph # [place] # Seg Neutrophils % Seg Neuts % (Manual) 79.0 H Lymphocytes % (Manual) 12.0 L Seg Neutrophils # Seg Neutrophils # Man 16.4 H APTT Fibrinogen D-Dimer POC ABG pH POC ABG pCO2 POC ABG pO2 Sodium Potassium Chloride Carbon Dioxide BUN Creatinine Glucose POC Glucose Calcium AST ALT Lactate Dehydrogenase Total Creatine Kinase CK-MB (CK-2) CK-MB (CK-2) Rel Index Troponin T 0.157 H* C-Reactive Protein NT-Pro-B Natriuret Pep Total Protein Albumin Triglycerides Cholesterol HDL Cholesterol Urine WBC (Auto) 37.0 H Urine Creatinine 11/25/18 11/25/18 11/25/18 22:35 22:35 22:44 WBC RBC Hgb Hct MCHC RDW Plt Count Lymph % (Auto) [place] % (Auto) Lymph # [place] # Seg Neutrophils % Seg Neuts % (Manual) Lymphocytes % (Manual) Seg Neutrophils # Seg Neutrophils # Man APTT 20.7 L Fibrinogen D-Dimer POC ABG pH 7.046 L POC ABG pCO2 > 70 H POC ABG pO2 62 L Sodium Potassium Chloride Carbon Dioxide BUN Creatinine Glucose POC Glucose Calcium AST ALT Lactate Dehydrogenase Total Creatine Kinase 267 H CK-MB (CK-2) 9.7 H CK-MB (CK-2) Rel Index Troponin T 0.313 H* D C-Reactive Protein NT-Pro-B Natriuret Pep Total Protein Albumin Triglycerides Cholesterol HDL Cholesterol Urine WBC (Auto) Urine Creatinine 11/26/18 11/26/18 11/26/18 00:03 01:24 04:28 WBC RBC Hgb Hct MCHC RDW Plt Count Lymph % (Auto) [place] % (Auto) Lymph # [place] # Seg Neutrophils % Seg Neuts % (Manual) Lymphocytes % (Manual) Seg Neutrophils # Seg Neutrophils # Man APTT Fibrinogen D-Dimer POC ABG pH 7.246 L POC ABG pCO2 47.0 H POC ABG pO2 72 L Sodium Potassium Chloride Carbon Dioxide BUN Creatinine Glucose POC Glucose 152 H Calcium AST ALT Lactate Dehydrogenase Total Creatine Kinase CK-MB (CK-2) CK-MB (CK-2) Rel Index Troponin T 0.740 H* D C-Reactive Protein NT-Pro-B Natriuret Pep Total Protein Albumin Triglycerides Cholesterol HDL Cholesterol Urine WBC (Auto) Urine Creatinine 11/26/18 11/26/18 11/26/18 05:33 05:53 10:19 WBC RBC Hgb Hct MCHC RDW Plt Count Lymph % (Auto) [place] % (Auto) Lymph # [place] # Seg Neutrophils % Seg Neuts % (Manual) Lymphocytes % (Manual) Seg Neutrophils # Seg Neutrophils # Man APTT Fibrinogen D-Dimer POC ABG pH 7.328 L POC ABG pCO2 POC ABG pO2 256 H Sodium Potassium Chloride Carbon Dioxide BUN Creatinine Glucose POC Glucose 153 H Calcium AST ALT Lactate Dehydrogenase Total Creatine Kinase CK-MB (CK-2) CK-MB (CK-2) Rel Index Troponin T C-Reactive Protein NT-Pro-B Natriuret Pep Total Protein Albumin Triglycerides Cholesterol HDL Cholesterol Urine WBC (Auto) Urine Creatinine 34.9 H 11/26/18 11/26/18 11/26/18 10:38 10:38 12:43 WBC RBC Hgb Hct MCHC RDW Plt Count Lymph % (Auto) [place] % (Auto) Lymph # [place] # Seg Neutrophils % Seg Neuts % (Manual) Lymphocytes % (Manual) Seg Neutrophils # Seg Neutrophils # Man APTT Fibrinogen D-Dimer POC ABG pH POC ABG pCO2 POC ABG pO2 Sodium 134 L Potassium Chloride Carbon Dioxide 18 L BUN 21 H Creatinine 3.0 H Glucose 166 H POC Glucose Calcium 7.6 L AST ALT Lactate Dehydrogenase Total Creatine Kinase 431 H CK-MB (CK-2) CK-MB (CK-2) Rel Index Troponin T 0.473 H* D C-Reactive Protein NT-Pro-B Natriuret Pep 68294 H Total Protein Albumin Triglycerides Cholesterol HDL Cholesterol Urine WBC (Auto) Urine Creatinine 11/26/18 11/26/18 11/26/18 12:43 13:02 14:11 WBC 16.1 H RBC 3.47 L Hgb Hct MCHC 35 H RDW 17.1 H Plt Count 129 L Lymph % (Auto) [place] % (Auto) Lymph # [place] # Seg Neutrophils % Seg Neuts % (Manual) Lymphocytes % (Manual) Seg Neutrophils # Seg Neutrophils # Man APTT Fibrinogen D-Dimer POC ABG pH POC ABG pCO2 POC ABG pO2 Sodium Potassium Chloride Carbon Dioxide BUN Creatinine Glucose POC Glucose 163 H Calcium AST ALT Lactate Dehydrogenase Total Creatine Kinase CK-MB (CK-2) CK-MB (CK-2) Rel Index Troponin T C-Reactive Protein 14.60 H NT-Pro-B Natriuret Pep Total Protein Albumin Triglycerides Cholesterol HDL Cholesterol Urine WBC (Auto) Urine Creatinine 11/26/18 11/26/18 11/26/18 17:39 23:02 Unknown WBC RBC Hgb Hct MCHC RDW Plt Count Lymph % (Auto) [place] % (Auto) Lymph # [place] # Seg Neutrophils % Seg Neuts % (Manual) Lymphocytes % (Manual) Seg Neutrophils # Seg Neutrophils # Man APTT Fibrinogen D-Dimer POC ABG pH POC ABG pCO2 POC ABG pO2 Sodium 134 L D Potassium Chloride 97.9 L Carbon Dioxide 18 L BUN Creatinine 2.3 H D Glucose 225 H POC Glucose 162 H 155 H Calcium 7.4 L AST ALT Lactate Dehydrogenase Total Creatine Kinase CK-MB (CK-2) CK-MB (CK-2) Rel Index Troponin T C-Reactive Protein NT-Pro-B Natriuret Pep Total Protein Albumin Triglycerides Cholesterol HDL Cholesterol Urine WBC (Auto) Urine Creatinine 11/27/18 11/27/18 11/27/18 03:44 03:44 05:07 WBC 14.8 H RBC 3.12 L Hgb 9.8 L Hct 28.5 L MCHC RDW 17.5 H Plt Count 127 L Lymph % (Auto) [place] % (Auto) Lymph # [place] # Seg Neutrophils % Seg Neuts % (Manual) Lymphocytes % (Manual) Seg Neutrophils # Seg Neutrophils # Man APTT Fibrinogen D-Dimer POC ABG pH POC ABG pCO2 POC ABG pO2 114 H Sodium Potassium 3.0 L Chloride Carbon Dioxide 18 L BUN 28 H Creatinine 3.1 H Glucose 139 H POC Glucose Calcium 7.7 L AST ALT Lactate Dehydrogenase Total Creatine Kinase CK-MB (CK-2) CK-MB (CK-2) Rel Index Troponin T C-Reactive Protein NT-Pro-B Natriuret Pep Total Protein 5.3 L Albumin 2.5 L Triglycerides Cholesterol HDL Cholesterol Urine WBC (Auto) Urine Creatinine 11/27/18 11/27/18 11/27/18 05:37 12:45 14:24 WBC RBC Hgb Hct MCHC RDW Plt Count Lymph % (Auto) [place]es % (Auto) Lymph # Coles # Seg Neutrophils % Seg Neuts % (Manual) Lymphocytes % (Manual) Seg Neutrophils # Seg Neutrophils # Man APTT 21.7 L Fibrinogen 586 H D-Dimer > 01537 H POC ABG pH POC ABG pCO2 POC ABG pO2 Sodium Potassium Chloride Carbon Dioxide BUN Creatinine Glucose POC Glucose 151 H 170 H Calcium AST ALT Lactate Dehydrogenase Total Creatine Kinase CK-MB (CK-2) CK-MB (CK-2) Rel Index Troponin T C-Reactive Protein NT-Pro-B Natriuret Pep Total Protein Albumin Triglycerides Cholesterol HDL Cholesterol Urine WBC (Auto) Urine Creatinine 11/27/18 11/27/18 11/28/18 18:05 23:41 04:13 WBC RBC Hgb Hct MCHC RDW Plt Count Lymph % (Auto) [place]es % (Auto) Lymph # [place]es # Seg Neutrophils % Seg Neuts % (Manual) Lymphocytes % (Manual) Seg Neutrophils # Seg Neutrophils # Man APTT Fibrinogen D-Dimer POC ABG pH POC ABG pCO2 < 30 L POC ABG pO2 122 H Sodium Potassium Chloride Carbon Dioxide BUN Creatinine Glucose POC Glucose 168 H 149 H Calcium AST ALT Lactate Dehydrogenase Total Creatine Kinase CK-MB (CK-2) CK-MB (CK-2) Rel Index Troponin T C-Reactive Protein NT-Pro-B Natriuret Pep Total Protein Albumin Triglycerides Cholesterol HDL Cholesterol Urine WBC (Auto) Urine Creatinine 11/28/18 11/28/18 11/28/18 04:29 04:29 05:26 WBC 17.7 H RBC Hgb Hct MCHC RDW 17.3 H Plt Count Lymph % (Auto) 5.9 L Coles % (Auto) 8.2 H Lymph # 1.0 L Coles # 1.4 H Seg Neutrophils % 85.6 H Seg Neuts % (Manual) Lymphocytes % (Manual) Seg Neutrophils # 15.2 H Seg Neutrophils # Man APTT Fibrinogen D-Dimer POC ABG pH POC ABG pCO2 POC ABG pO2 Sodium 146 H D Potassium 2.8 L* Chloride 108.9 H Carbon Dioxide 17 L BUN 33 H Creatinine 2.3 H Glucose 146 H POC Glucose 138 H Calcium AST 82 H ALT 83 H Lactate Dehydrogenase Total Creatine Kinase CK-MB (CK-2) CK-MB (CK-2) Rel Index Troponin T C-Reactive Protein NT-Pro-B Natriuret Pep Total Protein 6.2 L Albumin 2.6 L Triglycerides Cholesterol HDL Cholesterol Urine WBC (Auto) Urine Creatinine 11/28/18 11/28/18 12:33 12:57 WBC RBC Hgb Hct MCHC RDW Plt Count Lymph % (Auto) [place] % (Auto) Lymph # [place] # Seg Neutrophils % Seg Neuts % (Manual) Lymphocytes % (Manual) Seg Neutrophils # Seg Neutrophils # Man APTT Fibrinogen D-Dimer POC ABG pH POC ABG pCO2 30.6 L POC ABG pO2 125 H Sodium Potassium Chloride Carbon Dioxide BUN Creatinine Glucose POC Glucose 140 H Calcium AST ALT Lactate Dehydrogenase Total Creatine Kinase CK-MB (CK-2) CK-MB (CK-2) Rel Index Troponin T C-Reactive Protein NT-Pro-B Natriuret Pep Total Protein Albumin Triglycerides Cholesterol HDL Cholesterol Urine WBC (Auto) Urine Creatinine Chest x-ray: report reviewed, image reviewed (continued improvement in pulmonary edema)
[2018-11-28] MEDS: PROVENTIL IH SCH ×2 (14:20→16:08)
--- NOTE | 2018-11-28 14:27 | XRay Report ---
ABDOMEN 1 VIEW(S) INDICATION / CLINICAL INFORMATION: Placement of NG tube. COMPARISON: 11/28/2018 at 0958 hours FINDINGS: TUBES / LINES: There appear to be 2 nasogastric tubes present. One terminates in the gastric fundus a nd the second terminates in the distal stomach near the pylorus. BOWEL GAS PATTERN: There is moderate to large gas throughout small and large bowel loops suggestive o f an ileus FREE AIR / EXTRALUMINAL GAS: None seen. ADDITIONAL FINDINGS: No significant additional findings. IMPRESSION: 1. Nasogastric tubes as described. Signer Name: Morris Eisenberg Jr, MD Signed: 11/28/2018 2:23 PM Workstation Name: [id number]
--- NOTE | 2018-11-28 14:30 | Progress Note ---
Assessment and Plan Acute resp failure s/p intubated 11/25, placed on vent - likely ARDS with Pulmonary edema- noncardiogenic, pulmonary following - Patient was given Lasix - plan for extubation today Nausea/vomiting with abdominal distension - NPO, NG suction following extubation, serial abdominal xry Labile blood pressure Sinus tachycardia s/p on 11/24/18 GBS positive History of herpes simplex 2 History of preeclampsia MIRIAN probably ATN from hypotension Leukocytosis - Continue supportive care Nephrology following, monitor BMP Routine pulm toileting Cardiology following Pulmonology following On Empiric Cefepime , ID following DVT PPX on Lovenox Brief History: 38-year-old female who is s/p on 11/24/18. Patient was transferred to [facility] for management of pulmonary edema. Chest x-ray showed mild cardiomegaly and pulmonary edema. She was given lasix. On night of 11/25, worse respiratory distress, rapid response team called and she was intubated put on vent. Also now has MIRIAN, managed by nephrology. Pulmonary edema thought to be non cardiogenic, likely ARDS Hospitalist Physical Gen: Not in acute distress, lying in bed, intubated,sedated HEENT: Normocephalic, atraumatic Neck: supple, no JVD Heart: S1 and S2 reg, no murmurs, rubs or gallop Lungs: Bilateral crackles, no wheeze Abd: soft, non tender, non distended, normal BS Ext: No edema, no clubbing, no cyanosis, Neuro: Intubated, sedated. arouseable, follows commands, moves all ext Subjective Date of service: 11/28/18 Principal diagnosis: 1) POD #4 S/P 1LTCS 2)gestatinal hypertension 3) acute resp failur Interval history: Patient seen and examined c/o Nausea and had 2 episodes of vomiting this am ordered abdominal xry updated family at bedside plan for extubation today Objective - Constitutional Vitals: Vital Signs - 12hr 11/28/18 11/28/18 11/28/18 03:00 03:30 03:43 Temperature 98.9 F Pulse Rate 112 H 88 Pulse Rate [ From Monitor] Respiratory 47 H 36 H Rate Blood Pressure 168/101 175/102 O2 Sat by Pulse 100 99 Oximetry 11/28/18 11/28/18 11/28/18 03:57 04:00 04:19 Temperature Pulse Rate 95 H 98 H 93 H Pulse Rate [ From Monitor] Respiratory 24 Rate Blood Pressure 175/102 168/102 160/101 O2 Sat by Pulse 99 100 Oximetry 11/28/18 11/28/18 11/28/18 04:30 05:00 05:30 Temperature Pulse Rate 107 H 122 H 116 H Pulse Rate [ From Monitor] Respiratory 26 H 44 H 21 Rate Blood Pressure 164/91 160/101 123/84 O2 Sat by Pulse 99 99 99 Oximetry 11/28/18 11/28/18 11/28/18 06:00 06:30 07:00 Temperature Pulse Rate 113 H 107 H 108 H Pulse Rate [ From Monitor] Respiratory 16 25 H 20 Rate Blood Pressure 131/75 141/81 149/76 O2 Sat by Pulse 99 99 99 Oximetry 11/28/18 11/28/18 11/28/18 07:30 08:00 08:30 Temperature 98.8 F Pulse Rate 105 H 96 H 113 H Pulse Rate [ 110 H From Monitor] Respiratory 21 25 H 19 Rate Blood Pressure 152/80 137/80 130/79 O2 Sat by Pulse 99 99 99 Oximetry 11/28/18 11/28/18 11/28/18 09:00 09:27 09:30 Temperature Pulse Rate 124 H 117 H 124 H Pulse Rate [ From Monitor] Respiratory 28 H 18 23 Rate Blood Pressure 130/79 140/80 124/74 O2 Sat by Pulse 98 99 98 Oximetry 11/28/18 11/28/18 11/28/18 10:00 10:30 11:00 Temperature Pulse Rate 122 H 104 H 104 H Pulse Rate [ From Monitor] Respiratory 14 18 16 Rate Blood Pressure 140/80 144/78 144/78 O2 Sat by Pulse 99 99 99 Oximetry 11/28/18 11/28/18 11/28/18 11:30 12:00 12:30 Temperature 98.7 F Pulse Rate 114 H 112 H 110 H Pulse Rate [ 97 H From Monitor] Respiratory 17 18 19 Rate Blood Pressure 138/77 140/84 128/95 O2 Sat by Pulse 99 99 99 Oximetry 11/28/18 11/28/18 13:00 14:27 Temperature Pulse Rate 102 H 108 H Pulse Rate [ From Monitor] Respiratory 17 Rate Blood Pressure 128/95 177/111 O2 Sat by Pulse 99 Oximetry - Labs CBC & Chem 7: 11/28/18 04:29 11/29/18 03:55 Labs: Abnormal lab results 11/27/18 11/27/18 11/27/18 Range/Units 14:24 18:05 23:41 WBC (4.5-11.0) K/mm3 RDW (13.2-15.2) % Lymph % (Auto) (13.4-35.0) % [place] % (Auto) (0.0-7.3) % Lymph # (1.2-5.4) K/mm3 [place] # (0.0-0.8) K/mm3 Seg Neutrophils % (40.0-70.0) % Seg Neutrophils # (1.8-7.7) K/mm3 APTT 21.7 L (24.2-36.6) Sec. Fibrinogen 586 H (211-480) mg/dl D-Dimer > 82476 H (0-234) ng/mlDDU POC ABG pCO2 (35-45) POC ABG pO2 (80-105) Sodium (137-145) mmol/L Potassium (3.6-5.0) mmol/L Chloride (98-107) mmol/L Carbon Dioxide (22-30) mmol/L BUN (7-17) mg/dL Creatinine (0.7-1.2) mg/dL Glucose (65-100) mg/dL POC Glucose 168 H 149 H (70-105) AST (5-40) units/L ALT (7-56) units/L Total Protein (6.3-8.2) g/dL Albumin (3.9-5) g/dL 11/28/18 11/28/18 11/28/18 Range/Units 04:13 04:29 04:29 WBC 17.7 H (4.5-11.0) K/mm3 RDW 17.3 H (13.2-15.2) % Lymph % (Auto) 5.9 L (13.4-35.0) % [place] % (Auto) 8.2 H (0.0-7.3) % Lymph # 1.0 L (1.2-5.4) K/mm3 [place] # 1.4 H (0.0-0.8) K/mm3 Seg Neutrophils % 85.6 H (40.0-70.0) % Seg Neutrophils # 15.2 H (1.8-7.7) K/mm3 APTT (24.2-36.6) Sec. Fibrinogen (211-480) mg/dl D-Dimer (0-234) ng/mlDDU POC ABG pCO2 < 30 L (35-45) POC ABG pO2 122 H (80-105) Sodium 146 H D (137-145) mmol/L Potassium 2.8 L* (3.6-5.0) mmol/L Chloride 108.9 H (98-107) mmol/L Carbon Dioxide 17 L (22-30) mmol/L BUN 33 H (7-17) mg/dL Creatinine 2.3 H (0.7-1.2) mg/dL Glucose 146 H (65-100) mg/dL POC Glucose (70-105) AST 82 H (5-40) units/L ALT 83 H (7-56) units/L Total Protein 6.2 L (6.3-8.2) g/dL Albumin 2.6 L (3.9-5) g/dL 11/28/18 11/28/18 11/28/18 Range/Units 05:26 12:33 12:57 WBC (4.5-11.0) K/mm3 RDW (13.2-15.2) % Lymph % (Auto) (13.4-35.0) % [place] % (Auto) (0.0-7.3) % Lymph # (1.2-5.4) K/mm3 [place] # (0.0-0.8) K/mm3 Seg Neutrophils % (40.0-70.0) % Seg Neutrophils # (1.8-7.7) K/mm3 APTT (24.2-36.6) Sec. Fibrinogen (211-480) mg/dl D-Dimer (0-234) ng/mlDDU POC ABG pCO2 30.6 L (35-45) POC ABG pO2 125 H (80-105) Sodium (137-145) mmol/L Potassium (3.6-5.0) mmol/L Chloride (98-107) mmol/L Carbon Dioxide (22-30) mmol/L BUN (7-17) mg/dL Creatinine (0.7-1.2) mg/dL Glucose (65-100) mg/dL POC Glucose 138 H 140 H (70-105) AST (5-40) units/L ALT (7-56) units/L Total Protein (6.3-8.2) g/dL Albumin (3.9-5) g/dL
--- NOTE | 2018-11-28 14:52 | Progress Note ---
Assessment and Plan Cultures: Blood cultures 11/25/2018 no growth. Urine culture 11/25/2018 no growth. Assessment: 38 y/o female with history of preeclampsia admitted on 11/23/2018 with 38 weeks gestation with uterine contractions. Patient underwent on 11/24/18 due to failure to dilate, pulmonary edema and gestational hypertension; after C- section she developed acute respiratory failure/ARDS and hypotension, now intubated: 1) Leukocytosis: likely reactive from labor/ and respiratory failure. I doubt bacterial infection at this time. Initial UA was negative for UTI, repeat with mild pyuria. I doubt this is the reason. CXR Chest x-ray showed mild cardiomegaly and pulmonary edema. No consolidations. Repeat appears better. CRP: 14.6. DVT scan negative. 2) Acute respiratory failure: CXR with pulmonary edema likely from pre- emclapsia. Doubt pneumonia. No recent vomiting, doubt aspiration. 3) MIRIAN: renal on board. Recommendations: - d/[place] Cefepime - monitor off abx - WBC is likely reactive Montse Willams MD, FACP [facility] ([facility] C: [phone] O: [phone] F: [phone] Subjective Date of service: 11/28/18 Principal diagnosis: 1) POD #4 S/P 1LTCS 2)gestatinal hypertension 3) acute resp failur Interval history: No fever. Remains on the vent, on SBT trial. Hopefully to be extubated soon. Objective - Exam Narrative Exam: Physical Exam: Constitutional: awake, intubated Head, Ears, Nose: Normocephalic, atraumatic. External ears, nose normal Eyes: Conjunctivae/corneas clear. No icterus. No ptosis. Neck: Supple, no meningeal signs Oral: intubated Cardiovascular: S1, S2 normal. Respiratory: Good air entry, clear to auscultation bilaterally GI: enlarged uterus, non tender; bowel sounds normal. No peritoneal signs. Surgical incision c/d/i Musculoskeletal: No pedal edema, no cyanosis. Skin: No rash or abscess Hem/Lymphatic: No palpable cervical or supraclavicular nodes. No lymphangitis Psych: no agitation Neurological: awake, intubated, on vent - Constitutional Vitals: Vital Signs Temp Pulse Resp BP Pulse Ox 98.7 F 108 H 17 177/111 99 11/28/18 12:00 11/28/18 14:27 11/28/18 13:00 11/28/18 14:27 11/28/18 13:00 Temperature -Last 24 Hours Temperature 98.7 F Temperature 98.8 F Temperature 98.9 F Temperature 99.8 F Temperature 99.5 F Temperature 99.3 F - Labs CBC & Chem 7: 11/28/18 04:29 11/28/18 04:29 Labs: Abnormal lab results 11/27/18 11/27/18 11/27/18 Range/Units 14:24 18:05 23:41 WBC (4.5-11.0) K/mm3 RDW (13.2-15.2) % Lymph % (Auto) (13.4-35.0) % Waller % (Auto) (0.0-7.3) % Lymph # (1.2-5.4) K/mm3 Waller # (0.0-0.8) K/mm3 Seg Neutrophils % (40.0-70.0) % Seg Neutrophils # (1.8-7.7) K/mm3 APTT 21.7 L (24.2-36.6) Sec. Fibrinogen 586 H (211-480) mg/dl D-Dimer > 85044 H (0-234) ng/mlDDU POC ABG pCO2 (35-45) POC ABG pO2 (80-105) Sodium (137-145) mmol/L Potassium (3.6-5.0) mmol/L Chloride (98-107) mmol/L Carbon Dioxide (22-30) mmol/L BUN (7-17) mg/dL Creatinine (0.7-1.2) mg/dL Glucose (65-100) mg/dL POC Glucose 168 H 149 H (70-105) AST (5-40) units/L ALT (7-56) units/L Total Protein (6.3-8.2) g/dL Albumin (3.9-5) g/dL 11/28/18 11/28/18 11/28/18 Range/Units 04:13 04:29 04:29 WBC 17.7 H (4.5-11.0) K/mm3 RDW 17.3 H (13.2-15.2) % Lymph % (Auto) 5.9 L (13.4-35.0) % Waller % (Auto) 8.2 H (0.0-7.3) % Lymph # 1.0 L (1.2-5.4) K/mm3 Waller # 1.4 H (0.0-0.8) K/mm3 Seg Neutrophils % 85.6 H (40.0-70.0) % Seg Neutrophils # 15.2 H (1.8-7.7) K/mm3 APTT (24.2-36.6) Sec. Fibrinogen (211-480) mg/dl D-Dimer (0-234) ng/mlDDU POC ABG pCO2 < 30 L (35-45) POC ABG pO2 122 H (80-105) Sodium 146 H D (137-145) mmol/L Potassium 2.8 L* (3.6-5.0) mmol/L Chloride 108.9 H (98-107) mmol/L Carbon Dioxide 17 L (22-30) mmol/L BUN 33 H (7-17) mg/dL Creatinine 2.3 H (0.7-1.2) mg/dL Glucose 146 H (65-100) mg/dL POC Glucose (70-105) AST 82 H (5-40) units/L ALT 83 H (7-56) units/L Total Protein 6.2 L (6.3-8.2) g/dL Albumin 2.6 L (3.9-5) g/dL 11/28/18 11/28/18 11/28/18 Range/Units 05:26 12:33 12:57 WBC (4.5-11.0) K/mm3 RDW (13.2-15.2) % Lymph % (Auto) (13.4-35.0) % Waller % (Auto) (0.0-7.3) % Lymph # (1.2-5.4) K/mm3 Waller # (0.0-0.8) K/mm3 Seg Neutrophils % (40.0-70.0) % Seg Neutrophils # (1.8-7.7) K/mm3 APTT (24.2-36.6) Sec. Fibrinogen (211-480) mg/dl D-Dimer (0-234) ng/mlDDU POC ABG pCO2 30.6 L (35-45) POC ABG pO2 125 H (80-105) Sodium (137-145) mmol/L Potassium (3.6-5.0) mmol/L Chloride (98-107) mmol/L Carbon Dioxide (22-30) mmol/L BUN (7-17) mg/dL Creatinine (0.7-1.2) mg/dL Glucose (65-100) mg/dL POC Glucose 138 H 140 H (70-105) AST (5-40) units/L ALT (7-56) units/L Total Protein (6.3-8.2) g/dL Albumin (3.9-5) g/dL - Imaging and cardiology Chest x-ray: report reviewed, image reviewed (pulmonary edema much improved)
[2018-11-28] MEDS: PROTONIX IV SCH ×2 (15:15→23:15)
[2018-11-28 19:41] LABS: Calcium 8.5 mg/dL (8.4-10.2)
[2018-11-28] MEDS ORDERED: K-DUR PO ONE (20:44)
--- NOTE | 2018-11-28 20:45 | Event Note ---
Date: 11/28/18 Patient resting in bed, extubated, alert and appropriately responsive. Requesting ice chip, states BM x2 today. No further vomiting. Abd soft, dis tension improved. Hold with advancing diet for tonight.
[2018-11-29] MEDS ORDERED: PROVENTIL IH PRN (00:12)
[2018-11-29] MEDS: PROVENTIL IH SCH (00:14)
--- NOTE | 2018-11-29 03:03 | XRay Report ---
CHEST 1 VIEW INDICATION: follow up respiratory failure. COMPARISON: One day prior. FINDINGS: Support devices: The patient has been extubated. Heart: Stable. Lungs/Pleura: Mild bilateral pulmonary opacities are stable. IMPRESSION: 1. No significant change. Signer Name: Tho Aly MD Signed: 11/29/2018 2:59 AM Workstation Name: [id number]
--- NOTE | 2018-11-29 03:11 | XRay Report ---
SUPINE ABDOMEN INDICATION: nausea/vomiting. COMPARISON: One day prior. FINDINGS: Nasogastric tube is unchanged. Diffuse gaseous distention of the colon is again noted. Dilated loops of small bowel are again noted as well. There is lucency over the right lower abdomen, I do not see bowel folds associated with this. IMPRESSION: 1. Lucency over the right lower abdomen. While this could be a distended cecum, I do not see definite bowel folds/haustra within this. This could be free air. Bilateral lateral decubitus views or CT roxanne uld be considered to confirm that this is only dilated cecum and not pneumoperitoneum. COMMUNICATION: Time of Communication: 2:04 AM central Licensed Practitioner Receiving Report: TYRELL Wen CCU Signer Name: Tho Aly MD Signed: 11/29/2018 3:06 AM Workstation Name: [id number]
[2018-11-29 05:16] LABS: Calcium 8.4 mg/dL (8.4-10.2)
[2018-11-29 05:23] LABS: Albumin 2.8 g/dL (3.9-5); Bilirubin,Direct 0.4 mg/dL (0-0.2)
[2018-11-29] MEDS: REGLAN IV SCH (05:58)
--- NOTE | 2018-11-29 09:34 | Progress Note ---
Assessment and Plan - Patient Problems (1) Acute renal failure Current Visit: Yes Status: Acute Qualifiers: Acute renal failure type: with acute tubular necrosis Qualified Code(s): N17.0 - Acute kidney failure with tubular necrosis Plan to address problem: Patient creatinine continues to improve. Appreciate nephrology's help in managing. (2) Acute respiratory acidosis Current Visit: Yes Status: Resolved (3) Acute respiratory failure Current Visit: Yes Status: Acute Qualifiers: Respiratory failure complication: hypoxia Qualified Code(s): J96.01 - Acute respiratory failure with hypoxia Plan to address problem: Patient has been extubated. He is now on facemask oxygen. Pulmonary continues to follow (4) Elevated troponin Current Visit: Yes Status: Acute (5) Gestational hypertension Current Visit: Yes Status: Resolved Qualifiers: Trimester: third trimester Qualified Code(s): O13.3 - Gestational [-induced] hypertension without significant proteinuria, third trimester (6) S/P Current Visit: Yes Status: Acute (7) S/P primary low transverse Current Visit: Yes Status: Acute (8) Rh negative, delivered, current hospitalization Current Visit: Yes Status: Acute Plan to address problem: While patient was intubated the patient's decline administration of RhoGAM due to no plans for future pregnancies. Discussed with patient and her indication for RhoGAM and discussed the failure rate of control methods. Patient agrees to proceed. All questions answered. (9) Hypokalemia Current Visit: Yes Status: Acute Plan to address problem: Patient to continue to receive potassium supplementation Subjective - Subjective Date of service: 11/29/18 Principal diagnosis: 1) POD #5S/P 1LTCS 2) acute resp failure 3)acute renal failure Interval history: Since last visit patient has been extubated. Patient has NG tube in place due to nausea and vomiting yesterday. Patient reports: pain well controlled, other (patient complains of an thirsty) Objective - Vital Signs Latest vital signs: Vital Signs Temp Pulse Pulse Resp BP Pulse Ox 11/29/18 08:00 98.1 F 11/29/18 06:30 107 H 20 168/107 100 11/29/18 06:00 97 H 21 156/81 100 11/29/18 05:30 102 H 21 148/83 100 11/29/18 05:00 104 H 17 158/85 100 11/29/18 04:30 105 H 14 167/86 100 11/29/18 04:00 98.3 F 101 H 96 H 25 H 166/97 100 11/29/18 03:30 95 H 22 166/89 98 11/29/18 03:00 103 H 44 H 158/83 100 11/29/18 02:30 89 15 150/80 100 11/29/18 02:00 99 H 44 H 158/83 100 11/29/18 01:30 101 H 21 157/92 100 11/29/18 01:00 102 H 22 150/75 100 11/29/18 00:30 112 H 17 164/90 99 11/29/18 00:04 100 11/29/18 00:00 98.3 F 116 H 96 H 25 H 134/70 100 11/28/18 23:30 112 H 25 H 161/88 100 11/28/18 23:00 78 15 161/88 100 11/28/18 22:30 95 H 25 H 146/66 100 11/28/18 22:00 82 22 159/79 100 11/28/18 21:30 92 H 25 H 156/94 100 11/28/18 21:00 80 21 161/95 100 11/28/18 20:30 93 H 17 161/95 100 11/28/18 20:00 98.4 F 96 H 101 H 22 161/97 100 11/28/18 19:41 100 11/28/18 19:30 103 H 19 168/84 99 11/28/18 19:00 113 H 24 148/92 99 11/28/18 18:30 99 H 19 170/87 100 11/28/18 18:06 105 H 21 148/92 100 11/28/18 18:00 108 H 17 148/92 100 11/28/18 17:30 105 H 17 163/91 99 11/28/18 17:00 110 H 16 156/90 99 11/28/18 16:30 109 H 16 154/91 99 11/28/18 16:00 99.1 F 107 H 98 H 20 154/91 100 11/28/18 15:30 108 H 20 138/88 99 11/28/18 15:00 112 H 20 137/82 99 11/28/18 14:30 108 H 13 177/111 99 11/28/18 14:27 108 H 177/111 11/28/18 14:00 109 H 13 154/102 99 11/28/18 13:30 115 H 13 156/90 99 11/28/18 13:00 102 H 17 128/95 99 11/28/18 12:30 110 H 19 128/95 99 11/28/18 12:00 98.7 F 112 H 97 H 18 140/84 99 11/28/18 11:30 114 H 17 138/77 99 11/28/18 11:00 104 H 16 144/78 99 11/28/18 10:30 104 H 18 144/78 99 11/28/18 10:00 122 H 14 140/80 99 Intake and Output 11/28/18 11/29/18 11/29/18 22:59 06:59 14:59 Output Total 350 1050 Balance -350 -1050 Output: Urine 350 1050 Indwelling Catheter 350 1050 Other: Total, Output Amount 350 600 Voiding Method Indwelling Catheter Indwelling Catheter # Bowel Movements 1 2 - Exam Breasts: Present: deferred Cardiovascular: Present: Regular rate Abdomen: Present: normal appearance, soft, distention Uterus: Present: other (unable to palpate due to abdominal distention) Incision: Present: dry, intact - Labs Labs: Abnormal lab results 11/27/18 11/28/18 11/28/18 Range/Units 05:36 04:13 12:33 POC ABG pCO2 < 30 L (35-45) POC ABG pO2 (80-105) Sodium (137-145) mmol/L Potassium (3.6-5.0) mmol/L Chloride (98-107) mmol/L Carbon Dioxide (22-30) mmol/L BUN (7-17) mg/dL Creatinine (0.7-1.2) mg/dL Glucose (65-100) mg/dL POC Glucose 140 H (70-105) Phosphorus (2.5-4.5) mg/dL Magnesium (1.7-2.3) mg/dL Direct Bilirubin (0-0.2) mg/dL AST (5-40) units/L ALT (7-56) units/L Total Protein (6.3-8.2) g/dL Albumin (3.9-5) g/dL Lipase (13-60) units/L Miscellaneous Test Flexitest 1 H 11/28/18 11/28/18 11/28/18 Range/Units 12:57 18:22 19:02 POC ABG pCO2 30.6 L (35-45) POC ABG pO2 125 H (80-105) Sodium (137-145) mmol/L Potassium 3.5 L D (3.6-5.0) mmol/L Chloride 111.4 H (98-107) mmol/L Carbon Dioxide 17 L (22-30) mmol/L BUN 32 H (7-17) mg/dL Creatinine 1.7 H (0.7-1.2) mg/dL Glucose 156 H (65-100) mg/dL POC Glucose 156 H (70-105) Phosphorus (2.5-4.5) mg/dL Magnesium (1.7-2.3) mg/dL Direct Bilirubin (0-0.2) mg/dL AST (5-40) units/L ALT (7-56) units/L Total Protein (6.3-8.2) g/dL Albumin (3.9-5) g/dL Lipase (13-60) units/L Miscellaneous Test 11/28/18 11/29/18 11/29/18 Range/Units 19:02 03:55 03:55 POC ABG pCO2 (35-45) POC ABG pO2 (80-105) Sodium 150 H (137-145) mmol/L Potassium 3.5 L 3.1 L (3.6-5.0) mmol/L Chloride 115.2 H (98-107) mmol/L Carbon Dioxide 20 L (22-30) mmol/L BUN 31 H (7-17) mg/dL Creatinine 1.6 H (0.7-1.2) mg/dL Glucose 139 H (65-100) mg/dL POC Glucose (70-105) Phosphorus (2.5-4.5) mg/dL Magnesium (1.7-2.3) mg/dL Direct Bilirubin 0.4 H (0-0.2) mg/dL AST 120 H (5-40) units/L ALT 175 H (7-56) units/L Total Protein 5.6 L (6.3-8.2) g/dL Albumin 2.8 L (3.9-5) g/dL Lipase 170 H (13-60) units/L Miscellaneous Test 11/29/18 11/29/18 Range/Units 03:55 06:04 POC ABG pCO2 (35-45) POC ABG pO2 (80-105) Sodium (137-145) mmol/L Potassium (3.6-5.0) mmol/L Chloride (98-107) mmol/L Carbon Dioxide (22-30) mmol/L BUN (7-17) mg/dL Creatinine (0.7-1.2) mg/dL Glucose (65-100) mg/dL POC Glucose 125 H (70-105) Phosphorus 2.20 L (2.5-4.5) mg/dL Magnesium 2.40 H (1.7-2.3) mg/dL Direct Bilirubin (0-0.2) mg/dL AST (5-40) units/L ALT (7-56) units/L Total Protein (6.3-8.2) g/dL Albumin (3.9-5) g/dL Lipase (13-60) units/L Miscellaneous Test
[2018-11-29] MEDS: PROTONIX IV SCH ×2 (09:49→22:25)
--- NOTE | 2018-11-29 09:59 | Progress Note ---
Assessment and Plan Impression: * MIRIAN with ATN * sepsis * ARDS * post * hypoxemia * Hypernatremia * Hypokalemia Plan: * Renal function continues to improve. Serum creatinine down to 1.6 today. * Patient remains nonoliguric. Approximately 1800 mL of urine recorded yesterday. * keep MAP >65 * avoid nephrotoxins * Replace potassium * Serum sodium appears to be rising. Add IV fluids with D5W. Check urine sodium and urine osmolality * duresis as tolerated * No indication for renal replacement therapy at this time * Discussed with patient's Subjective Date of service: 11/29/18 Principal diagnosis: 1) POD #4 S/P 1LTCS 2)gestatinal hypertension 3) acute resp failur Interval history: Patient has been extubated. She remains in the ICU. Appears comfortable. Objective - Vital Signs Vital signs: Vital Signs - 12hr 11/28/18 11/28/18 11/28/18 22:00 22:30 23:00 Temperature Pulse Rate 82 95 H 78 Pulse Rate [ From Monitor] Respiratory 22 25 H 15 Rate Blood Pressure 159/79 146/66 161/88 O2 Sat by Pulse 100 100 100 Oximetry 11/28/18 11/29/18 11/29/18 23:30 00:00 00:04 Temperature 98.3 F Pulse Rate 112 H 116 H Pulse Rate [ 96 H From Monitor] Respiratory 25 H 25 H Rate Blood Pressure 161/88 134/70 O2 Sat by Pulse 100 100 100 Oximetry 11/29/18 11/29/18 11/29/18 00:30 01:00 01:30 Temperature Pulse Rate 112 H 102 H 101 H Pulse Rate [ From Monitor] Respiratory 17 22 21 Rate Blood Pressure 164/90 150/75 157/92 O2 Sat by Pulse 99 100 100 Oximetry 11/29/18 11/29/18 11/29/18 02:00 02:30 03:00 Temperature Pulse Rate 99 H 89 103 H Pulse Rate [ From Monitor] Respiratory 44 H 15 44 H Rate Blood Pressure 158/83 150/80 158/83 O2 Sat by Pulse 100 100 100 Oximetry 11/29/18 11/29/18 11/29/18 03:30 04:00 04:30 Temperature 98.3 F Pulse Rate 95 H 101 H 105 H Pulse Rate [ 96 H From Monitor] Respiratory 22 25 H 14 Rate Blood Pressure 166/89 166/97 167/86 O2 Sat by Pulse 98 100 100 Oximetry 11/29/18 11/29/18 11/29/18 05:00 05:30 06:00 Temperature Pulse Rate 104 H 102 H 97 H Pulse Rate [ From Monitor] Respiratory 17 21 21 Rate Blood Pressure 158/85 148/83 156/81 O2 Sat by Pulse 100 100 100 Oximetry 11/29/18 11/29/18 06:30 08:00 Temperature 98.1 F Pulse Rate 107 H Pulse Rate [ From Monitor] Respiratory 20 Rate Blood Pressure 168/107 O2 Sat by Pulse 100 Oximetry - General Appearance General appearance: well-developed, well-nourished, appears stated age EENT: PERRL, mucous membranes moist Neck: no JVD, no thyromegaly, no carotid bruit, supple Respiratory: Present: Ronchi (few scattered rhonchi) Cardiology: regular, normal heart rate, S1S2, no murmurs Gastrointestinal: hypoactive bowel sounds, other (incision noted in the hypogastric area) Integumentary: other (1+ edema) - Lab 11/28/18 04:29 11/29/18 03:55 Most recent lab results Calcium 8.4 mg/dL (8.4-10.2) 11/29/18 03:55 Phosphorus 2.20 mg/dL (2.5-4.5) L 11/29/18 03:55 Magnesium 2.40 mg/dL (1.7-2.3) H 11/29/18 03:55 34.9 mg/dL (0.1-20.0) H 11/26/18 10:19 72 mmol/L 11/26/18 10:19 Medications & Allergies - Medications Allergies/Adverse Reactions: Allergies No Known Allergies Allergy (Verified 11/23/18 19:31) Home Medications: Home Medications Medication Instructions Recorded Confirmed Last Taken Type No Known Home Medications [No 11/24/18 11/24/18 Unknown History Reported Home Medications] Active Medications: Generic Name Dose Route Start Last Admin Trade Name Freq PRN Reason Stop Dose Admin Albuterol 2.5 mg 11/29/18 00:12 Proventil IH Q4HRT PRN Shortness Of Breath Bisacodyl 10 mg 11/24/18 23:16 Dulcolax AL QDAY PRN constipation unrelieved by MOM Hydralazine HCl 10 mg 11/28/18 03:30 11/28/18 23:16 Apresoline IV 10 mg Q4HR PRN Administration SBP > 160 Hydrophilic Ointment 1 applic 11/25/18 22:12 Vaseline Lip Therapy TP Q2HR PRN Dry Lips Potassium Phosphate 30 mmol/ 510 mls @ 83 mls/hr 11/29/18 10:00 11/29/18 09:48 Sodium Chloride IV 11/29/18 16:08 83 mls/hr ONCE ONE Administration Potassium Chloride/Dextrose/Sod Cl 20 meq in 1,000 mls @ 100 mls/hr 11/29/18 10:00 D5w/0.45% Nacl/Kcl 20 Meq IV DIRECT YING Magnesium Hydroxide 30 ml 11/24/18 23:16 Milk Of Magnesia PO Q4H PRN Constipation Metoclopramide HCl 10 mg 11/24/18 23:16 11/28/18 08:58 Reglan IV 10 mg Q6H PRN Administration Nausea And Vomiting Morphine Sulfate 2 mg 11/25/18 23:19 11/27/18 17:24 Morphine IV 2 mg Q4H PRN Administration Pain, Moderate (4-6) Multi-Ingred Cream/Lotion/Oil/Oint 1 applic 11/25/18 22:12 Artificial Tears Ophth Oint OU Q4HR PRN Dry Eye(s) Multi-Ingredient Ointment 1 applic 11/24/18 23:16 Lansinoh TP PRN PRN dryness/cracking Naloxone HCl 0.1 mg 11/24/18 23:16 Narcan 0.4 Mg/1 Ml IV Q2MIN PRN Res Rate </= 8 or 02 SAT < 92% Pantoprazole Sodium 40 mg 11/28/18 15:00 11/29/18 09:49 Protonix IV 40 mg BID YING Administration Sodium Chloride 10 ml 11/24/18 23:16 11/28/18 23:16 Sodium Chloride Flush Syringe 10 Ml IV 10 ml BID YING Administration Sodium Chloride 10 ml 11/24/18 23:16 Sodium Chloride Flush Syringe 10 Ml IV PRN PRN LINE FLUSH Witch Faiza/Glycerin 1 each 11/24/18 23:16 Tucks Pad TP PRN PRN Hemorrhoids/cleansing/soothing
[2018-11-29] MEDS ORDERED: KPHOS 30 MMOL in NACL 0.9% 500 ML 500 ML IV ONE (10:00)
[2018-11-29] MEDS ORDERED: D5W/0.45% NACL/KCL 20 MEQ 20 MEQ/1,000 ML BAG IV SCH (10:00)
--- NOTE | 2018-11-29 10:58 | Progress Note ---
<NAHED LAIRD - Last Filed: 11/29/18 10:56> Assessment and Plan S/P Acute Pulmonary edema Acute renal failure Acute respiratory failure Elevated troponin Pre-eclampsia Peripartum cardiomyopathy Echo reports a normal left ventricular size and function LVEF 45-50%. Supportive cardiac management. Subjective Date of service: 11/29/18 Principal diagnosis: 1) POD #4 S/P 1LTCS 2)gestatinal hypertension 3) acute resp failur Interval history: Patient has been extubated. No distress noted. Objective Vital Signs Temp Pulse Pulse Resp BP Pulse Ox 11/29/18 08:00 98.1 F 11/29/18 06:30 107 H 20 168/107 100 11/29/18 06:00 97 H 21 156/81 100 11/29/18 05:30 102 H 21 148/83 100 11/29/18 05:00 104 H 17 158/85 100 11/29/18 04:30 105 H 14 167/86 100 11/29/18 04:00 98.3 F 101 H 96 H 25 H 166/97 100 11/29/18 03:30 95 H 22 166/89 98 11/29/18 03:00 103 H 44 H 158/83 100 11/29/18 02:30 89 15 150/80 100 11/29/18 02:00 99 H 44 H 158/83 100 11/29/18 01:30 101 H 21 157/92 100 11/29/18 01:00 102 H 22 150/75 100 11/29/18 00:30 112 H 17 164/90 99 11/29/18 00:04 100 11/29/18 00:00 98.3 F 116 H 96 H 25 H 134/70 100 11/28/18 23:30 112 H 25 H 161/88 100 11/28/18 23:00 78 15 161/88 100 11/28/18 22:30 95 H 25 H 146/66 100 11/28/18 22:00 82 22 159/79 100 11/28/18 21:30 92 H 25 H 156/94 100 11/28/18 21:00 80 21 161/95 100 11/28/18 20:30 93 H 17 161/95 100 11/28/18 20:00 98.4 F 96 H 101 H 22 161/97 100 11/28/18 19:41 100 11/28/18 19:30 103 H 19 168/84 99 11/28/18 19:00 113 H 24 148/92 99 11/28/18 18:30 99 H 19 170/87 100 11/28/18 18:06 105 H 21 148/92 100 11/28/18 18:00 108 H 17 148/92 100 11/28/18 17:30 105 H 17 163/91 99 11/28/18 17:00 110 H 16 156/90 99 11/28/18 16:30 109 H 16 154/91 99 11/28/18 16:00 99.1 F 107 H 98 H 20 154/91 100 11/28/18 15:30 108 H 20 138/88 99 11/28/18 15:00 112 H 20 137/82 99 11/28/18 14:30 108 H 13 177/111 99 11/28/18 14:27 108 H 177/111 11/28/18 14:00 109 H 13 154/102 99 11/28/18 13:30 115 H 13 156/90 99 11/28/18 13:00 102 H 17 128/95 99 11/28/18 12:30 110 H 19 128/95 99 11/28/18 12:00 98.7 F 112 H 97 H 18 140/84 99 11/28/18 11:30 114 H 17 138/77 99 11/28/18 11:00 104 H 16 144/78 99 - Physical Examination General: No Apparent Distress HEENT: Positive: PERRL Neck: Positive: trachea midline Cardiac: Positive: Reg Rate and Rhythm Lungs: Positive: Decreased Breath Sounds Neuro: Positive: Grossly Intact Extremities: Absent: edema - Labs and Meds Cardiac Enzymes 11/29/18 Range/Units 03:55 AST 120 H (5-40) units/L Comprehensive Metabolic Panel 11/28/18 11/28/18 11/29/18 Range/Units 19:02 19:02 03:55 Sodium 145 150 H (137-145) mmol/L Potassium 3.5 L D 3.5 L 3.1 L (3.6-5.0) mmol/L Chloride 111.4 H 115.2 H (98-107) mmol/L Carbon Dioxide 17 L 20 L (22-30) mmol/L BUN 32 H 31 H (7-17) mg/dL Creatinine 1.7 H 1.6 H (0.7-1.2) mg/dL Glucose 156 H 139 H (65-100) mg/dL Calcium 8.5 8.4 (8.4-10.2) mg/dL Direct Bilirubin (0-0.2) mg/dL Indirect Bilirubin mg/dL AST (5-40) units/L ALT (7-56) units/L Alkaline Phosphatase (35-129) units/L Total Protein (6.3-8.2) g/dL Albumin (3.9-5) g/dL 11/29/18 Range/Units 03:55 Sodium (137-145) mmol/L Potassium (3.6-5.0) mmol/L Chloride (98-107) mmol/L Carbon Dioxide (22-30) mmol/L BUN (7-17) mg/dL Creatinine (0.7-1.2) mg/dL Glucose (65-100) mg/dL Calcium (8.4-10.2) mg/dL Direct Bilirubin 0.4 H (0-0.2) mg/dL Indirect Bilirubin 0.5 mg/dL AST 120 H (5-40) units/L ALT 175 H (7-56) units/L Alkaline Phosphatase 126 (35-129) units/L Total Protein 5.6 L (6.3-8.2) g/dL Albumin 2.8 L (3.9-5) g/dL <GURWINDER ESPINO - Last Filed: 11/29/18 18:57> Assessment and Plan I have seen and evaluated the patient and agree with the assessment and plan. Echo reports a normal left ventricular size and function LVEF 45-50%. Continue supportive care. Objective Vital Signs Temp Pulse Pulse Resp BP Pulse Ox 11/29/18 18:01 93 H 32 H 140/83 100 11/29/18 17:31 82 21 146/88 100 11/29/18 17:00 96 H 26 H 146/88 100 11/29/18 16:30 105 H 25 H 144/87 100 11/29/18 16:00 103 H 17 150/100 100 11/29/18 15:39 98.6 F 11/29/18 15:30 107 H 21 150/100 100 11/29/18 15:00 104 H 21 157/94 99 11/29/18 14:30 97 H 22 153/88 11/29/18 14:24 115 H 14 153/88 100 11/29/18 13:30 96 H 21 153/88 100 11/29/18 13:00 84 22 164/86 100 11/29/18 12:30 77 20 146/75 100 11/29/18 12:00 89 19 169/96 100 11/29/18 11:55 98.4 F 11/29/18 11:30 86 22 165/89 100 11/29/18 11:00 85 13 148/83 100 11/29/18 10:30 98 H 18 151/88 100 11/29/18 10:00 96 H 20 164/88 99 11/29/18 09:30 103 H 26 H 167/91 100 11/29/18 09:00 100 H 24 164/88 100 11/29/18 08:30 95 H 15 163/83 100 11/29/18 08:00 98.1 F 100 H 25 H 164/84 100 11/29/18 07:30 97 H 18 166/106 100 11/29/18 07:00 106 H 19 167/105 100 11/29/18 06:30 107 H 20 168/107 100 11/29/18 06:00 97 H 21 156/81 100 11/29/18 05:30 102 H 21 148/83 100 11/29/18 05:00 104 H 17 158/85 100 11/29/18 04:30 105 H 14 167/86 100 11/29/18 04:00 98.3 F 101 H 96 H 25 H 166/97 100 11/29/18 03:30 95 H 22 166/89 98 11/29/18 03:00 103 H 44 H 158/83 100 11/29/18 02:30 89 15 150/80 100 11/29/18 02:00 99 H 44 H 158/83 100 11/29/18 01:30 101 H 21 157/92 100 11/29/18 01:00 102 H 22 150/75 100 11/29/18 00:30 112 H 17 164/90 99 11/29/18 00:04 100 11/29/18 00:00 98.3 F 116 H 96 H 25 H 134/70 100 11/28/18 23:30 112 H 25 H 161/88 100 11/28/18 23:00 78 15 161/88 100 11/28/18 22:30 95 H 25 H 146/66 100 11/28/18 22:00 82 22 159/79 100 11/28/18 21:30 92 H 25 H 156/94 100 11/28/18 21:00 80 21 161/95 100 11/28/18 20:30 93 H 17 161/95 100 11/28/18 20:00 98.4 F 96 H 101 H 22 161/97 100 11/28/18 19:41 100 11/28/18 19:30 103 H 19 168/84 99 11/28/18 19:00 113 H 24 148/92 99 - Labs and Meds Cardiac Enzymes 11/29/18 Range/Units 03:55 AST 120 H (5-40) units/L Comprehensive Metabolic Panel 11/28/18 11/28/18 11/29/18 Range/Units 19:02 19:02 03:55 Sodium 145 150 H (137-145) mmol/L Potassium 3.5 L D 3.5 L 3.1 L (3.6-5.0) mmol/L Chloride 111.4 H 115.2 H (98-107) mmol/L Carbon Dioxide 17 L 20 L (22-30) mmol/L BUN 32 H 31 H (7-17) mg/dL Creatinine 1.7 H 1.6 H (0.7-1.2) mg/dL Glucose 156 H 139 H (65-100) mg/dL Calcium 8.5 8.4 (8.4-10.2) mg/dL Direct Bilirubin (0-0.2) mg/dL Indirect Bilirubin mg/dL AST (5-40) units/L ALT (7-56) units/L Alkaline Phosphatase (35-129) units/L Total Protein (6.3-8.2) g/dL Albumin (3.9-5) g/dL 11/29/18 Range/Units 03:55 Sodium (137-145) mmol/L Potassium (3.6-5.0) mmol/L Chloride (98-107) mmol/L Carbon Dioxide (22-30) mmol/L BUN (7-17) mg/dL Creatinine (0.7-1.2) mg/dL Glucose (65-100) mg/dL Calcium (8.4-10.2) mg/dL Direct Bilirubin 0.4 H (0-0.2) mg/dL Indirect Bilirubin 0.5 mg/dL AST 120 H (5-40) units/L ALT 175 H (7-56) units/L Alkaline Phosphatase 126 (35-129) units/L Total Protein 5.6 L (6.3-8.2) g/dL Albumin 2.8 L (3.9-5) g/dL
--- NOTE | 2018-11-29 11:54 | Progress Note ---
Assessment and Plan Cultures: Blood cultures 11/25/2018 no growth. Urine culture 11/25/2018 no growth. Resp culture: no growth Assessment: 38 y/o female with history of preeclampsia admitted on 11/23/2018 with 38 weeks gestation with uterine contractions. Patient underwent on 11/24/18 due to failure to dilate, pulmonary edema and gestational hypertension; after C- section she developed acute respiratory failure/ARDS and hypotension, now intubated: 1) Leukocytosis: likely reactive from labor/ and respiratory failure. No evidence of infectious process thus far. CXR Chest x-ray showed mild cardiomegaly and pulmonary edema. No consolidations. Repeat appears better. CRP: 14.6. DVT scan negative. 2) Acute respiratory failure: CXR with pulmonary edema likely from pre- emclapsia. Doubt pneumonia. No recent vomiting, doubt aspiration. 3) MIRIAN: renal on board. Improving creatinine. 4) ?ileus: [employer] following. Recommendations: - continue to monitor off abx - recheck WBC in AM (ordered) Montse Willams MD, FACP [facility] ([facility] C: [phone] O: [phone] F: [phone] Subjective Date of service: 11/29/18 Principal diagnosis: 1) POD #4 S/P 1LTCS 2)gestatinal hypertension 3) acute resp failur Interval history: Extubated. Doing well. No fever. Asking for ice chips. Objective - Exam Narrative Exam: Physical Exam: Constitutional: awake, on ventimask Head, Ears, Nose: Normocephalic, atraumatic. External ears, nose normal Eyes: Conjunctivae/corneas clear. No icterus. No ptosis. Neck: Supple, no meningeal signs Cardiovascular: S1, S2 normal. Respiratory: Good air entry, clear to auscultation bilaterally GI: soft, mild tenderness; bowel sounds normal. No peritoneal signs. Surgical incision c/d/i Musculoskeletal: No pedal edema, no cyanosis. Skin: No rash or abscess Hem/Lymphatic: No palpable cervical or supraclavicular nodes. No lymphangitis Psych: calm. Neurological: awake, alert, oriented - Constitutional Vitals: Vital Signs Temp Pulse Resp BP Pulse Ox 98.1 F 86 22 165/89 100 11/29/18 08:00 11/29/18 11:30 11/29/18 11:30 11/29/18 11:30 11/29/18 11:30 Temperature -Last 24 Hours Temperature 98.1 F Temperature 98.3 F Temperature 98.3 F Temperature 98.4 F Temperature 99.1 F Temperature 98.7 F Temperature 98.7 F - Labs CBC & Chem 7: 11/28/18 04:29 11/29/18 03:55 Labs: Abnormal lab results 11/27/18 11/28/18 11/28/18 Range/Units 05:36 04:13 12:33 POC ABG pCO2 < 30 L (35-45) POC ABG pO2 (80-105) Sodium (137-145) mmol/L Potassium (3.6-5.0) mmol/L Chloride (98-107) mmol/L Carbon Dioxide (22-30) mmol/L BUN (7-17) mg/dL Creatinine (0.7-1.2) mg/dL Glucose (65-100) mg/dL POC Glucose 140 H (70-105) Phosphorus (2.5-4.5) mg/dL Magnesium (1.7-2.3) mg/dL Direct Bilirubin (0-0.2) mg/dL AST (5-40) units/L ALT (7-56) units/L Total Protein (6.3-8.2) g/dL Albumin (3.9-5) g/dL Lipase (13-60) units/L Miscellaneous Test Flexitest 1 H 11/28/18 11/28/18 11/28/18 Range/Units 12:57 18:22 19:02 POC ABG pCO2 30.6 L (35-45) POC ABG pO2 125 H (80-105) Sodium (137-145) mmol/L Potassium 3.5 L D (3.6-5.0) mmol/L Chloride 111.4 H (98-107) mmol/L Carbon Dioxide 17 L (22-30) mmol/L BUN 32 H (7-17) mg/dL Creatinine 1.7 H (0.7-1.2) mg/dL Glucose 156 H (65-100) mg/dL POC Glucose 156 H (70-105) Phosphorus (2.5-4.5) mg/dL Magnesium (1.7-2.3) mg/dL Direct Bilirubin (0-0.2) mg/dL AST (5-40) units/L ALT (7-56) units/L Total Protein (6.3-8.2) g/dL Albumin (3.9-5) g/dL Lipase (13-60) units/L Miscellaneous Test 11/28/18 11/29/18 11/29/18 Range/Units 19:02 03:55 03:55 POC ABG pCO2 (35-45) POC ABG pO2 (80-105) Sodium 150 H (137-145) mmol/L Potassium 3.5 L 3.1 L (3.6-5.0) mmol/L Chloride 115.2 H (98-107) mmol/L Carbon Dioxide 20 L (22-30) mmol/L BUN 31 H (7-17) mg/dL Creatinine 1.6 H (0.7-1.2) mg/dL Glucose 139 H (65-100) mg/dL POC Glucose (70-105) Phosphorus (2.5-4.5) mg/dL Magnesium (1.7-2.3) mg/dL Direct Bilirubin 0.4 H (0-0.2) mg/dL AST 120 H (5-40) units/L ALT 175 H (7-56) units/L Total Protein 5.6 L (6.3-8.2) g/dL Albumin 2.8 L (3.9-5) g/dL Lipase 170 H (13-60) units/L Miscellaneous Test 11/29/18 11/29/18 11/29/18 Range/Units 03:55 06:04 11:34 POC ABG pCO2 (35-45) POC ABG pO2 (80-105) Sodium (137-145) mmol/L Potassium (3.6-5.0) mmol/L Chloride (98-107) mmol/L Carbon Dioxide (22-30) mmol/L BUN (7-17) mg/dL Creatinine (0.7-1.2) mg/dL Glucose (65-100) mg/dL POC Glucose 125 H 139 H (70-105) Phosphorus 2.20 L (2.5-4.5) mg/dL Magnesium 2.40 H (1.7-2.3) mg/dL Direct Bilirubin (0-0.2) mg/dL AST (5-40) units/L ALT (7-56) units/L Total Protein (6.3-8.2) g/dL Albumin (3.9-5) g/dL Lipase (13-60) units/L Miscellaneous Test - Imaging and cardiology Chest x-ray: report reviewed, image reviewed (improving edema. ) Abdominal x-ray: report reviewed, image reviewed (dilated bowel. Official read: ?cecal distension v/s free air)
--- NOTE | 2018-11-29 13:01 | Progress Note ---
Assessment and Plan - Patient Problems (1) Acute respiratory acidosis Current Visit: Yes Status: Resolved (2) Acute respiratory failure Current Visit: Yes Status: Acute Qualifiers: Respiratory failure complication: hypoxia Qualified Code(s): J96.01 - Acute respiratory failure with hypoxia (3) Acute respiratory failure with hypercapnia Current Visit: Yes Status: Resolved (4) Electrolyte abnormality Current Visit: Yes Status: Acute (5) Elevated troponin Current Visit: Yes Status: Acute (6) Gestational hypertension Current Visit: Yes Status: Acute Qualifiers: Trimester: third trimester Qualified Code(s): O13.3 - Gestational [-induced] hypertension without significant proteinuria, third trimester (7) Pulmonary edema Current Visit: Yes Status: Acute (8) S/P Current Visit: Yes Status: Acute (9) Nausea & vomiting Current Visit: Yes Status: Acute (10) Abnormal abdominal x-ray Current Visit: Yes Status: Acute Subjective Principal diagnosis: 1) POD #4 S/P 1LTCS 2)gestatinal hypertension 3) acute resp failur Interval history: episodes of emesis. extubated og FM 40% Objective Vital Signs - 12hr 11/29/18 11/29/18 11/29/18 01:00 01:30 02:00 Temperature Pulse Rate 102 H 101 H 99 H Pulse Rate [ From Monitor] Respiratory 22 21 44 H Rate Blood Pressure 150/75 157/92 158/83 O2 Sat by Pulse 100 100 100 Oximetry 11/29/18 11/29/18 11/29/18 02:30 03:00 03:30 Temperature Pulse Rate 89 103 H 95 H Pulse Rate [ From Monitor] Respiratory 15 44 H 22 Rate Blood Pressure 150/80 158/83 166/89 O2 Sat by Pulse 100 100 98 Oximetry 11/29/18 11/29/18 11/29/18 04:00 04:30 05:00 Temperature 98.3 F Pulse Rate 101 H 105 H 104 H Pulse Rate [ 96 H From Monitor] Respiratory 25 H 14 17 Rate Blood Pressure 166/97 167/86 158/85 O2 Sat by Pulse 100 100 100 Oximetry 11/29/18 11/29/18 11/29/18 05:30 06:00 06:30 Temperature Pulse Rate 102 H 97 H 107 H Pulse Rate [ From Monitor] Respiratory 21 21 20 Rate Blood Pressure 148/83 156/81 168/107 O2 Sat by Pulse 100 100 100 Oximetry 11/29/18 11/29/18 11/29/18 07:00 07:30 08:00 Temperature 98.1 F Pulse Rate 106 H 97 H 101 H Pulse Rate [ From Monitor] Respiratory 19 18 25 H Rate Blood Pressure 167/105 166/106 164/84 O2 Sat by Pulse 100 100 100 Oximetry 11/29/18 11/29/18 11/29/18 08:30 09:00 09:30 Temperature Pulse Rate 95 H 100 H 103 H Pulse Rate [ From Monitor] Respiratory 15 24 26 H Rate Blood Pressure 163/83 164/88 167/91 O2 Sat by Pulse 100 100 100 Oximetry 11/29/18 11/29/18 11/29/18 10:00 10:30 11:00 Temperature Pulse Rate 96 H 98 H 85 Pulse Rate [ From Monitor] Respiratory 20 18 13 Rate Blood Pressure 164/88 151/88 148/83 O2 Sat by Pulse 99 100 100 Oximetry 11/29/18 11/29/18 11:30 11:55 Temperature 98.4 F Pulse Rate 86 Pulse Rate [ From Monitor] Respiratory 22 Rate Blood Pressure 165/89 O2 Sat by Pulse 100 Oximetry Constitutional: no acute distress, alert Eyes: non-icteric ENT: oropharynx moist Neck: supple Effort: normal Ascultation: Bilateral: clear Cardiovascular: regular rate and rhythm Gastrointestinal: normoactive bowel sounds, soft, other (distended, mildly TTP; no guarding/rebound) Integumentary: normal Extremities: no cyanosis, no edema, pink and warm Neurologic: normal mental status, non-focal exam, pupils equal and round, CN II- XII normal Psychiatric: mood appropriate, affect normal CBC and BMP: 11/28/18 04:29 11/29/18 03:55 ABG, PT/INR, D-dimer: ABG POC ABG pH 7.400 (7.35-7.45) 11/28/18 12:57 POC ABG pCO2 30.6 (35-45) L 11/28/18 12:57 POC ABG pO2 125 (80-105) H 11/28/18 12:57 POC ABG HCO3 19.0 (22-26 mml/L) 11/28/18 12:57 POC ABG Total CO2 20 (23-27mmol/L) 11/28/18 12:57 POC ABG O2 Sat 99 11/28/18 12:57 PT/INR, D-dimer PT 13.2 Sec. (12.2-14.9) 11/27/18 14:24 INR 1.03 (0.87-1.13) 11/27/18 14:24 > 87595 ng/mlDDU (0-234) H 11/27/18 14:24 Abnormal lab findings: Abnormal Labs 11/23/18 11/24/18 11/24/18 19:45 16:12 16:12 WBC 12.3 H 16.3 H RBC Hgb Hct MCHC RDW 16.9 H 16.6 H Plt Count Lymph % (Auto) [place] % (Auto) Lymph # [place] # Seg Neutrophils % Seg Neuts % (Manual) Lymphocytes % (Manual) Seg Neutrophils # Seg Neutrophils # Man APTT Fibrinogen D-Dimer POC ABG pH POC ABG pCO2 POC ABG pO2 Sodium Potassium Chloride Carbon Dioxide BUN Creatinine 0.5 L Glucose POC Glucose Calcium Phosphorus Magnesium Direct Bilirubin AST ALT Lactate Dehydrogenase 248 H Total Creatine Kinase CK-MB (CK-2) CK-MB (CK-2) Rel Index Troponin T C-Reactive Protein NT-Pro-B Natriuret Pep Total Protein Albumin Triglycerides Cholesterol HDL Cholesterol Lipase Urine WBC (Auto) Urine Creatinine Miscellaneous Test 11/24/18 11/24/18 11/24/18 23:41 23:41 23:41 WBC 18.3 H RBC Hgb Hct MCHC RDW 16.6 H Plt Count Lymph % (Auto) 3.5 L [place] % (Auto) 7.7 H Lymph # 0.6 L [place] # 1.4 H Seg Neutrophils % 88.7 H Seg Neuts % (Manual) Lymphocytes % (Manual) Seg Neutrophils # 16.2 H Seg Neutrophils # Man APTT Fibrinogen D-Dimer POC ABG pH POC ABG pCO2 POC ABG pO2 Sodium Potassium Chloride Carbon Dioxide BUN Creatinine Glucose POC Glucose Calcium Phosphorus Magnesium Direct Bilirubin AST ALT Lactate Dehydrogenase Total Creatine Kinase CK-MB (CK-2) CK-MB (CK-2) Rel Index Troponin T 0.274 H* C-Reactive Protein NT-Pro-B Natriuret Pep 5198 H Total Protein Albumin Triglycerides 540 H Cholesterol 291 H HDL Cholesterol 60 H Lipase Urine WBC (Auto) Urine Creatinine Miscellaneous Test 11/24/18 11/25/18 11/25/18 23:41 04:40 04:40 WBC RBC Hgb Hct MCHC RDW Plt Count Lymph % (Auto) [place] % (Auto) Lymph # [place] # Seg Neutrophils % Seg Neuts % (Manual) Lymphocytes % (Manual) Seg Neutrophils # Seg Neutrophils # Man APTT Fibrinogen D-Dimer POC ABG pH POC ABG pCO2 POC ABG pO2 Sodium Potassium Chloride 108.3 H Carbon Dioxide 21 L BUN Creatinine Glucose 195 H POC Glucose Calcium 7.7 L Phosphorus Magnesium Direct Bilirubin AST ALT Lactate Dehydrogenase Total Creatine Kinase 155 H CK-MB (CK-2) 11.4 H CK-MB (CK-2) Rel Index 7.3 H Troponin T 0.177 H* D C-Reactive Protein NT-Pro-B Natriuret Pep Total Protein Albumin Triglycerides Cholesterol HDL Cholesterol Lipase Urine WBC (Auto) Urine Creatinine Miscellaneous Test 11/25/18 11/25/18 11/25/18 08:35 09:47 22:35 WBC 20.8 H RBC Hgb Hct MCHC RDW 17.2 H Plt Count Lymph % (Auto) [place] % (Auto) Lymph # [place] # Seg Neutrophils % Seg Neuts % (Manual) 79.0 H Lymphocytes % (Manual) 12.0 L Seg Neutrophils # Seg Neutrophils # Man 16.4 H APTT Fibrinogen D-Dimer POC ABG pH POC ABG pCO2 POC ABG pO2 Sodium Potassium Chloride Carbon Dioxide BUN Creatinine Glucose POC Glucose Calcium Phosphorus Magnesium Direct Bilirubin AST ALT Lactate Dehydrogenase Total Creatine Kinase CK-MB (CK-2) CK-MB (CK-2) Rel Index Troponin T 0.157 H* C-Reactive Protein NT-Pro-B Natriuret Pep Total Protein Albumin Triglycerides Cholesterol HDL Cholesterol Lipase Urine WBC (Auto) 37.0 H Urine Creatinine Miscellaneous Test 11/25/18 11/25/18 11/25/18 22:35 22:35 22:44 WBC RBC Hgb Hct MCHC RDW Plt Count Lymph % (Auto) [place] % (Auto) Lymph # [place] # Seg Neutrophils % Seg Neuts % (Manual) Lymphocytes % (Manual) Seg Neutrophils # Seg Neutrophils # Man APTT 20.7 L Fibrinogen D-Dimer POC ABG pH 7.046 L POC ABG pCO2 > 70 H POC ABG pO2 62 L Sodium Potassium Chloride Carbon Dioxide BUN Creatinine Glucose POC Glucose Calcium Phosphorus Magnesium Direct Bilirubin AST ALT Lactate Dehydrogenase Total Creatine Kinase 267 H CK-MB (CK-2) 9.7 H CK-MB (CK-2) Rel Index Troponin T 0.313 H* D C-Reactive Protein NT-Pro-B Natriuret Pep Total Protein Albumin Triglycerides Cholesterol HDL Cholesterol Lipase Urine WBC (Auto) Urine Creatinine Miscellaneous Test 11/26/18 11/26/18 11/26/18 00:03 01:24 04:28 WBC RBC Hgb Hct MCHC RDW Plt Count Lymph % (Auto) [place] % (Auto) Lymph # [place] # Seg Neutrophils % Seg Neuts % (Manual) Lymphocytes % (Manual) Seg Neutrophils # Seg Neutrophils # Man APTT Fibrinogen D-Dimer POC ABG pH 7.246 L POC ABG pCO2 47.0 H POC ABG pO2 72 L Sodium Potassium Chloride Carbon Dioxide BUN Creatinine Glucose POC Glucose 152 H Calcium Phosphorus Magnesium Direct Bilirubin AST ALT Lactate Dehydrogenase Total Creatine Kinase CK-MB (CK-2) CK-MB (CK-2) Rel Index Troponin T 0.740 H* D C-Reactive Protein NT-Pro-B Natriuret Pep Total Protein Albumin Triglycerides Cholesterol HDL Cholesterol Lipase Urine WBC (Auto) Urine Creatinine Miscellaneous Test 11/26/18 11/26/18 11/26/18 05:33 05:53 10:19 WBC RBC Hgb Hct MCHC RDW Plt Count Lymph % (Auto) [place] % (Auto) Lymph # [place] # Seg Neutrophils % Seg Neuts % (Manual) Lymphocytes % (Manual) Seg Neutrophils # Seg Neutrophils # Man APTT Fibrinogen D-Dimer POC ABG pH 7.328 L POC ABG pCO2 POC ABG pO2 256 H Sodium Potassium Chloride Carbon Dioxide BUN Creatinine Glucose POC Glucose 153 H Calcium Phosphorus Magnesium Direct Bilirubin AST ALT Lactate Dehydrogenase Total Creatine Kinase CK-MB (CK-2) CK-MB (CK-2) Rel Index Troponin T C-Reactive Protein NT-Pro-B Natriuret Pep Total Protein Albumin Triglycerides Cholesterol HDL Cholesterol Lipase Urine WBC (Auto) Urine Creatinine 34.9 H Miscellaneous Test 11/26/18 11/26/18 11/26/18 10:38 10:38 12:43 WBC RBC Hgb Hct MCHC RDW Plt Count Lymph % (Auto) [place] % (Auto) Lymph # [place] # Seg Neutrophils % Seg Neuts % (Manual) Lymphocytes % (Manual) Seg Neutrophils # Seg Neutrophils # Man APTT Fibrinogen D-Dimer POC ABG pH POC ABG pCO2 POC ABG pO2 Sodium 134 L Potassium Chloride Carbon Dioxide 18 L BUN 21 H Creatinine 3.0 H Glucose 166 H POC Glucose Calcium 7.6 L Phosphorus Magnesium Direct Bilirubin AST ALT Lactate Dehydrogenase Total Creatine Kinase 431 H CK-MB (CK-2) CK-MB (CK-2) Rel Index Troponin T 0.473 H* D C-Reactive Protein NT-Pro-B Natriuret Pep 75330 H Total Protein Albumin Triglycerides Cholesterol HDL Cholesterol Lipase Urine WBC (Auto) Urine Creatinine Miscellaneous Test 11/26/18 11/26/18 11/26/18 12:43 13:02 14:11 WBC 16.1 H RBC 3.47 L Hgb Hct MCHC 35 H RDW 17.1 H Plt Count 129 L Lymph % (Auto) [place] % (Auto) Lymph # [place] # Seg Neutrophils % Seg Neuts % (Manual) Lymphocytes % (Manual) Seg Neutrophils # Seg Neutrophils # Man APTT Fibrinogen D-Dimer POC ABG pH POC ABG pCO2 POC ABG pO2 Sodium Potassium Chloride Carbon Dioxide BUN Creatinine Glucose POC Glucose 163 H Calcium Phosphorus Magnesium Direct Bilirubin AST ALT Lactate Dehydrogenase Total Creatine Kinase CK-MB (CK-2) CK-MB (CK-2) Rel Index Troponin T C-Reactive Protein 14.60 H NT-Pro-B Natriuret Pep Total Protein Albumin Triglycerides Cholesterol HDL Cholesterol Lipase Urine WBC (Auto) Urine Creatinine Miscellaneous Test 11/26/18 11/26/18 11/26/18 17:39 23:02 Unknown WBC RBC Hgb Hct MCHC RDW Plt Count Lymph % (Auto) [place] % (Auto) Lymph # [place] # Seg Neutrophils % Seg Neuts % (Manual) Lymphocytes % (Manual) Seg Neutrophils # Seg Neutrophils # Man APTT Fibrinogen D-Dimer POC ABG pH POC ABG pCO2 POC ABG pO2 Sodium 134 L D Potassium Chloride 97.9 L Carbon Dioxide 18 L BUN Creatinine 2.3 H D Glucose 225 H POC Glucose 162 H 155 H Calcium 7.4 L Phosphorus Magnesium Direct Bilirubin AST ALT Lactate Dehydrogenase Total Creatine Kinase CK-MB (CK-2) CK-MB (CK-2) Rel Index Troponin T C-Reactive Protein NT-Pro-B Natriuret Pep Total Protein Albumin Triglycerides Cholesterol HDL Cholesterol Lipase Urine WBC (Auto) Urine Creatinine Miscellaneous Test 11/27/18 11/27/18 11/27/18 03:44 03:44 05:07 WBC 14.8 H RBC 3.12 L Hgb 9.8 L Hct 28.5 L MCHC RDW 17.5 H Plt Count 127 L Lymph % (Auto) [place] % (Auto) Lymph # [place] # Seg Neutrophils % Seg Neuts % (Manual) Lymphocytes % (Manual) Seg Neutrophils # Seg Neutrophils # Man APTT Fibrinogen D-Dimer POC ABG pH POC ABG pCO2 POC ABG pO2 114 H Sodium Potassium 3.0 L Chloride Carbon Dioxide 18 L BUN 28 H Creatinine 3.1 H Glucose 139 H POC Glucose Calcium 7.7 L Phosphorus Magnesium Direct Bilirubin AST ALT Lactate Dehydrogenase Total Creatine Kinase CK-MB (CK-2) CK-MB (CK-2) Rel Index Troponin T C-Reactive Protein NT-Pro-B Natriuret Pep Total Protein 5.3 L Albumin 2.5 L Triglycerides Cholesterol HDL Cholesterol Lipase Urine WBC (Auto) Urine Creatinine Miscellaneous Test 11/27/18 11/27/18 11/27/18 05:36 05:37 12:45 WBC RBC Hgb Hct MCHC RDW Plt Count Lymph % (Auto) [place] % (Auto) Lymph # [place] # Seg Neutrophils % Seg Neuts % (Manual) Lymphocytes % (Manual) Seg Neutrophils # Seg Neutrophils # Man APTT Fibrinogen D-Dimer POC ABG pH POC ABG pCO2 POC ABG pO2 Sodium Potassium Chloride Carbon Dioxide BUN Creatinine Glucose POC Glucose 151 H 170 H Calcium Phosphorus Magnesium Direct Bilirubin AST ALT Lactate Dehydrogenase Total Creatine Kinase CK-MB (CK-2) CK-MB (CK-2) Rel Index Troponin T C-Reactive Protein NT-Pro-B Natriuret Pep Total Protein Albumin Triglycerides Cholesterol HDL Cholesterol Lipase Urine WBC (Auto) Urine Creatinine Miscellaneous Test Flexitest 1 H 11/27/18 11/27/18 11/27/18 14:24 18:05 23:41 WBC RBC Hgb Hct MCHC RDW Plt Count Lymph % (Auto) [place] % (Auto) Lymph # [place] # Seg Neutrophils % Seg Neuts % (Manual) Lymphocytes % (Manual) Seg Neutrophils # Seg Neutrophils # Man APTT 21.7 L Fibrinogen 586 H D-Dimer > 66081 H POC ABG pH POC ABG pCO2 POC ABG pO2 Sodium Potassium Chloride Carbon Dioxide BUN Creatinine Glucose POC Glucose 168 H 149 H Calcium Phosphorus Magnesium Direct Bilirubin AST ALT Lactate Dehydrogenase Total Creatine Kinase CK-MB (CK-2) CK-MB (CK-2) Rel Index Troponin T C-Reactive Protein NT-Pro-B Natriuret Pep Total Protein Albumin Triglycerides Cholesterol HDL Cholesterol Lipase Urine WBC (Auto) Urine Creatinine Miscellaneous Test 11/28/18 11/28/18 11/28/18 04:13 04:29 04:29 WBC 17.7 H RBC Hgb Hct MCHC RDW 17.3 H Plt Count Lymph % (Auto) 5.9 L [place] % (Auto) 8.2 H Lymph # 1.0 L [place] # 1.4 H Seg Neutrophils % 85.6 H Seg Neuts % (Manual) Lymphocytes % (Manual) Seg Neutrophils # 15.2 H Seg Neutrophils # Man APTT Fibrinogen D-Dimer POC ABG pH POC ABG pCO2 < 30 L POC ABG pO2 122 H Sodium 146 H D Potassium 2.8 L* Chloride 108.9 H Carbon Dioxide 17 L BUN 33 H Creatinine 2.3 H Glucose 146 H POC Glucose Calcium Phosphorus Magnesium Direct Bilirubin AST 82 H ALT 83 H Lactate Dehydrogenase Total Creatine Kinase CK-MB (CK-2) CK-MB (CK-2) Rel Index Troponin T C-Reactive Protein NT-Pro-B Natriuret Pep Total Protein 6.2 L Albumin 2.6 L Triglycerides Cholesterol HDL Cholesterol Lipase Urine WBC (Auto) Urine Creatinine Miscellaneous Test 11/28/18 11/28/18 11/28/18 05:26 12:33 12:57 WBC RBC Hgb Hct MCHC RDW Plt Count Lymph % (Auto) [place] % (Auto) Lymph # [place] # Seg Neutrophils % Seg Neuts % (Manual) Lymphocytes % (Manual) Seg Neutrophils # Seg Neutrophils # Man APTT Fibrinogen D-Dimer POC ABG pH POC ABG pCO2 30.6 L POC ABG pO2 125 H Sodium Potassium Chloride Carbon Dioxide BUN Creatinine Glucose POC Glucose 138 H 140 H Calcium Phosphorus Magnesium Direct Bilirubin AST ALT Lactate Dehydrogenase Total Creatine Kinase CK-MB (CK-2) CK-MB (CK-2) Rel Index Troponin T C-Reactive Protein NT-Pro-B Natriuret Pep Total Protein Albumin Triglycerides Cholesterol HDL Cholesterol Lipase Urine WBC (Auto) Urine Creatinine Miscellaneous Test 11/28/18 11/28/18 11/28/18 18:22 19:02 19:02 WBC RBC Hgb Hct MCHC RDW Plt Count Lymph % (Auto) [place] % (Auto) Lymph # [place] # Seg Neutrophils % Seg Neuts % (Manual) Lymphocytes % (Manual) Seg Neutrophils # Seg Neutrophils # Man APTT Fibrinogen D-Dimer POC ABG pH POC ABG pCO2 POC ABG pO2 Sodium Potassium 3.5 L D 3.5 L Chloride 111.4 H Carbon Dioxide 17 L BUN 32 H Creatinine 1.7 H Glucose 156 H POC Glucose 156 H Calcium Phosphorus Magnesium Direct Bilirubin AST ALT Lactate Dehydrogenase Total Creatine Kinase CK-MB (CK-2) CK-MB (CK-2) Rel Index Troponin T C-Reactive Protein NT-Pro-B Natriuret Pep Total Protein Albumin Triglycerides Cholesterol HDL Cholesterol Lipase Urine WBC (Auto) Urine Creatinine Miscellaneous Test 11/29/18 11/29/18 11/29/18 03:55 03:55 03:55 WBC RBC Hgb Hct MCHC RDW Plt Count Lymph % (Auto) [place] % (Auto) Lymph # [place] # Seg Neutrophils % Seg Neuts % (Manual) Lymphocytes % (Manual) Seg Neutrophils # Seg Neutrophils # Man APTT Fibrinogen D-Dimer POC ABG pH POC ABG pCO2 POC ABG pO2 Sodium 150 H Potassium 3.1 L Chloride 115.2 H Carbon Dioxide 20 L BUN 31 H Creatinine 1.6 H Glucose 139 H POC Glucose Calcium Phosphorus 2.20 L Magnesium 2.40 H Direct Bilirubin 0.4 H AST 120 H ALT 175 H Lactate Dehydrogenase Total Creatine Kinase CK-MB (CK-2) CK-MB (CK-2) Rel Index Troponin T C-Reactive Protein NT-Pro-B Natriuret Pep Total Protein 5.6 L Albumin 2.8 L Triglycerides Cholesterol HDL Cholesterol Lipase 170 H Urine WBC (Auto) Urine Creatinine Miscellaneous Test 11/29/18 11/29/18 06:04 11:34 WBC RBC Hgb Hct MCHC RDW Plt Count Lymph % (Auto) [place] % (Auto) Lymph # [place] # Seg Neutrophils % Seg Neuts % (Manual) Lymphocytes % (Manual) Seg Neutrophils # Seg Neutrophils # Man APTT Fibrinogen D-Dimer POC ABG pH POC ABG pCO2 POC ABG pO2 Sodium Potassium Chloride Carbon Dioxide BUN Creatinine Glucose POC Glucose 125 H 139 H Calcium Phosphorus Magnesium Direct Bilirubin AST ALT Lactate Dehydrogenase Total Creatine Kinase CK-MB (CK-2) CK-MB (CK-2) Rel Index Troponin T C-Reactive Protein NT-Pro-B Natriuret Pep Total Protein Albumin Triglycerides Cholesterol HDL Cholesterol Lipase Urine WBC (Auto) Urine Creatinine Miscellaneous Test Chest x-ray: report reviewed, image reviewed (improved bilat opacities)
[2018-11-29] MEDS: SODIUM CHLORIDE FLUSH SYRINGE 10 ML IV SCH (13:22)
[2018-11-29] MEDS: D5W 1,000 ML IV SCH (14:35)
--- NOTE | 2018-11-29 15:49 | Progress Note ---
Assessment and Plan Acute resp failure s/p intubated 11/25, placed on vent - likely ARDS with Pulmonary edema- noncardiogenic, pulmonary following - Patient was given Lasix - s/p extubation on 11/28 Nausea/vomiting with abdominal distension - NPO, NG suction, serial abdominal xry - shows distended bowels w/o free air? - ordered CT abdomen with oral contrast today Labile blood pressure Sinus tachycardia s/p on 11/24/18 GBS positive History of herpes simplex 2 History of preeclampsia MIRIAN probably ATN from hypotension Leukocytosis - Continue supportive care Nephrology following, monitor BMP Routine pulm toileting Cardiology following Pulmonology following On Empiric Cefepime , ID following DVT PPX on Lovenox Brief History: 38-year-old female who is s/p on 11/24/18. Patient was transferred to [facility] for management of pulmonary edema. Chest x-ray showed mild cardiomegaly and pulmonary edema. She was given lasix. On night of 11/25, worse respiratory distress, rapid response team called and she was intubated put on vent. Also now has MIRIAN, managed by nephrology. Pulmonary edema thought to be non cardiogenic, likely ARDS Hospitalist Physical Gen: Not in acute distress, lying in bed, HEENT: Normocephalic, atraumatic Neck: supple, no JVD Heart: S1 and S2 reg, no murmurs, rubs or gallop Lungs: no Bilateral crackles, no wheeze Abd: soft, non tender, non distended, normal BS Ext: No edema, no clubbing, no cyanosis, Neuro: arouseable, follows commands, moves all ext Subjective Date of service: 11/29/18 Principal diagnosis: 1) POD #4 S/P 1LTCS 2)gestatinal hypertension 3) acute resp failur Interval history: Patient seen and examined c/o Nausea but no vomiting had BM, but small volume and abdomen still distended ordered abdominal CT scan, persistent colon distension on xrys updated family at bedside Objective - Constitutional Vitals: Vital Signs - 12hr 11/29/18 11/29/18 11/29/18 04:00 04:30 05:00 Temperature 98.3 F Pulse Rate 101 H 105 H 104 H Pulse Rate [ 96 H From Monitor] Respiratory 25 H 14 17 Rate Blood Pressure 166/97 167/86 158/85 O2 Sat by Pulse 100 100 100 Oximetry 11/29/18 11/29/18 11/29/18 05:30 06:00 06:30 Temperature Pulse Rate 102 H 97 H 107 H Pulse Rate [ From Monitor] Respiratory 21 21 20 Rate Blood Pressure 148/83 156/81 168/107 O2 Sat by Pulse 100 100 100 Oximetry 11/29/18 11/29/18 11/29/18 07:00 07:30 08:00 Temperature 98.1 F Pulse Rate 106 H 97 H 100 H Pulse Rate [ From Monitor] Respiratory 19 18 25 H Rate Blood Pressure 167/105 166/106 164/84 O2 Sat by Pulse 100 100 100 Oximetry 11/29/18 11/29/18 11/29/18 08:30 09:00 09:30 Temperature Pulse Rate 95 H 100 H 103 H Pulse Rate [ From Monitor] Respiratory 15 24 26 H Rate Blood Pressure 163/83 164/88 167/91 O2 Sat by Pulse 100 100 100 Oximetry 11/29/18 11/29/18 11/29/18 10:00 10:30 11:00 Temperature Pulse Rate 96 H 98 H 85 Pulse Rate [ From Monitor] Respiratory 20 18 13 Rate Blood Pressure 164/88 151/88 148/83 O2 Sat by Pulse 99 100 100 Oximetry 11/29/18 11/29/18 11/29/18 11:30 11:55 12:00 Temperature 98.4 F Pulse Rate 86 89 Pulse Rate [ From Monitor] Respiratory 22 19 Rate Blood Pressure 165/89 169/96 O2 Sat by Pulse 100 100 Oximetry 11/29/18 11/29/18 11/29/18 12:30 13:00 15:39 Temperature 98.6 F Pulse Rate 77 84 Pulse Rate [ From Monitor] Respiratory 20 22 Rate Blood Pressure 146/75 164/86 O2 Sat by Pulse 100 100 Oximetry - Labs CBC & Chem 7: 11/30/18 04:09 11/30/18 04:09 Labs: Abnormal lab results 11/28/18 11/28/18 11/28/18 Range/Units 18:22 19:02 19:02 Sodium (137-145) mmol/L Potassium 3.5 L D 3.5 L (3.6-5.0) mmol/L Chloride 111.4 H (98-107) mmol/L Carbon Dioxide 17 L (22-30) mmol/L BUN 32 H (7-17) mg/dL Creatinine 1.7 H (0.7-1.2) mg/dL Glucose 156 H (65-100) mg/dL POC Glucose 156 H (70-105) Phosphorus (2.5-4.5) mg/dL Magnesium (1.7-2.3) mg/dL Direct Bilirubin (0-0.2) mg/dL AST (5-40) units/L ALT (7-56) units/L Total Protein (6.3-8.2) g/dL Albumin (3.9-5) g/dL Lipase (13-60) units/L 11/29/18 11/29/18 11/29/18 Range/Units 03:55 03:55 03:55 Sodium 150 H (137-145) mmol/L Potassium 3.1 L (3.6-5.0) mmol/L Chloride 115.2 H (98-107) mmol/L Carbon Dioxide 20 L (22-30) mmol/L BUN 31 H (7-17) mg/dL Creatinine 1.6 H (0.7-1.2) mg/dL Glucose 139 H (65-100) mg/dL POC Glucose (70-105) Phosphorus 2.20 L (2.5-4.5) mg/dL Magnesium 2.40 H (1.7-2.3) mg/dL Direct Bilirubin 0.4 H (0-0.2) mg/dL AST 120 H (5-40) units/L ALT 175 H (7-56) units/L Total Protein 5.6 L (6.3-8.2) g/dL Albumin 2.8 L (3.9-5) g/dL Lipase 170 H (13-60) units/L 11/29/18 11/29/18 Range/Units 06:04 11:34 Sodium (137-145) mmol/L Potassium (3.6-5.0) mmol/L Chloride (98-107) mmol/L Carbon Dioxide (22-30) mmol/L BUN (7-17) mg/dL Creatinine (0.7-1.2) mg/dL Glucose (65-100) mg/dL POC Glucose 125 H 139 H (70-105) Phosphorus (2.5-4.5) mg/dL Magnesium (1.7-2.3) mg/dL Direct Bilirubin (0-0.2) mg/dL AST (5-40) units/L ALT (7-56) units/L Total Protein (6.3-8.2) g/dL Albumin (3.9-5) g/dL Lipase (13-60) units/L
--- NOTE | 2018-11-29 16:24 | Cat Scan Report ---
CT abdomen pelvis wo con INDICATION / CLINICAL INFORMATION: Abdominal distention; postop 11/26/2018. TECHNIQUE: All CT scans at this location are performed using CT dose reduction for ALARA by means of automated e xposure control. COMPARISON: None available. FINDINGS: ABDOMEN: There is moderately severe gaseous distention of the colon, most prominent involving the rig ht and transverse colon. There is milder dilatation of the left colon to the level of the rectum. No constricting lesion is seen. No portion of the colon is collapsed. I see no evidence of bowel wall th ickening or free air. The cecum measures approximately 10.5 cm transverse. Small bowel loops are mild ly dilated. There is a nasogastric tube with the tip overlying the distal descending duodenum. The liver, spleen, gallbladder, bile ducts, pancreas, adrenal glands and kidneys are normal. There is patchy consolidation in the posterior portion of the right lower lobe. No pleural effusion is seen. PELVIS: There is a Dimas catheter in a collapsed urinary bladder. The distal ureters are normal. Ther e is a uterus. I see no evidence of adnexal mass. There is a trace amount of ascites and t here is mild peritoneal/mesenteric edema. I do not identify a hernia. No acute osseous abnormality is seen. IMPRESSION: 1. Moderately severe generalized gaseous distention of the colon, especially the right and transverse colon. There is mild small bowel dilatation.No cause is seen and the findings are probably related t o a postoperative adynamic ileus, predominantly involving the colon. 2. Right lower lobe parenchymal disease may be related to aspiration pneumonia or bacterial pneumonia . Signer Name: Austen Sparks MD Signed: 11/29/2018 4:19 PM Workstation Name: [id number]
[2018-11-29 17:24] LABS: Osmolality,Urine 492 Mosm/kg
--- NOTE | 2018-11-29 19:07 | Event Note ---
Date: 11/29/18 Patient resting in her room. Denies nausea vomiting or platelets today. Desires ice chips. Patient did state that she set up in a chair earlier this afternoon Vital signs stable patient is afebrile Abdomen soft little less distended Addendum OCT scan consistent with ileus possible right lower lobe pneumonia Assessment Postop day 5 section Status post respiratory distress-patient without complaint shortness of breath Acute renal failure Ileus-patient did well with clamping NG-tube for approximately 6 hours today Plan We will continue routine postoperative care with increasing patient movement will sit up insurance evening possibly ice chips later on this evening We'll discuss with infectious disease and medicine service the findings on the CT scan. Patient presently not on antibiotics
[2018-11-30] MEDS: D5W 1,000 ML IV SCH (03:26)
[2018-11-30 04:53] LABS: Basophils % (Auto) 0.3 % (0.0-1.8); Eosinophils # (Auto) 0.3 K/mm3 (0.0-0.4); Eosinophils % (Auto) 2.7 % (0.0-4.3); Hematocrit 33.4 % (30.3-42.9); Hemoglobin 11.4 gm/dl (10.1-14.3); Lymphocytes # (Auto) 1.3 K/mm3 (1.2-5.4); Lymphocytes % (Auto) 11.5 % (13.4-35.0); Mean Corpuscular HGB Conc 34 % (30-34); Mean Corpuscular Volume 92 fl (79-97); Monocytes # (Auto) 1.3 K/mm3 (0.0-0.8); Monocytes % (Auto) 11.5 % (0.0-7.3); Platelet Count 144 K/mm3 (140-440); Red Blood Count 3.64 M/mm3 (3.65-5.03); Red Cell Distribution Width 17.9 % (13.2-15.2)
[2018-11-30 05:15] LABS: Calcium 8.2 mg/dL (8.4-10.2)
--- NOTE | 2018-11-30 08:58 | Progress Note ---
Assessment and Plan Impression: * MIRIAN with ATN * sepsis * ARDS * post * hypoxemia * Hypernatremia * Hypokalemia Plan: * Renal function continues to improve. Serum creatinine down to 1.2 today. * Patient remains nonoliguric. Approximately 1600 mL of urine recorded yesterday. * keep MAP >65 * avoid nephrotoxins * Replace potassium * Serum sodium appears to be rising. Continue IV fluids with D5W. Urine sodium is 39 and urine osmolality is 492 * Hold diuretics for now * No indication for renal replacement therapy at this time * Discussed with patient's and mother at bedside Subjective Date of service: 11/30/18 Principal diagnosis: 1) POD #4 S/P 1LTCS 2)gestatinal hypertension 3) acute resp failur Interval history: Patient remains in the ICU. He remains extubated. Having some ice chips. Denies any shortness of breath. Denies any nausea vomiting or diarrhea . Objective - Vital Signs Vital signs: Vital Signs - 12hr 11/29/18 11/29/18 11/29/18 21:00 21:31 22:00 Temperature Pulse Rate 73 87 80 Respiratory 17 21 23 Rate Blood Pressure 157/75 157/75 153/83 O2 Sat by Pulse 100 100 100 Oximetry 11/29/18 11/29/18 11/29/18 22:31 23:00 23:13 Temperature Pulse Rate 69 66 80 Respiratory 17 16 15 Rate Blood Pressure 153/83 170/84 170/84 O2 Sat by Pulse 100 100 100 Oximetry 11/29/18 11/30/18 11/30/18 23:31 00:00 00:01 Temperature 97.0 F L Pulse Rate 62 61 65 Respiratory 15 18 Rate Blood Pressure 170/84 139/74 O2 Sat by Pulse 100 100 Oximetry 11/30/18 11/30/18 11/30/18 00:31 01:00 01:31 Temperature Pulse Rate 61 69 59 L Respiratory 18 19 19 Rate Blood Pressure 139/74 136/79 139/74 O2 Sat by Pulse 100 100 100 Oximetry 11/30/18 11/30/18 11/30/18 02:00 02:30 03:00 Temperature Pulse Rate 76 76 83 Respiratory 16 14 17 Rate Blood Pressure 153/87 153/87 148/79 O2 Sat by Pulse 100 100 100 Oximetry 11/30/18 11/30/18 11/30/18 03:31 04:00 04:31 Temperature 98.0 F Pulse Rate 82 84 74 Respiratory 12 15 21 Rate Blood Pressure 148/79 137/71 137/71 O2 Sat by Pulse 100 100 100 Oximetry 11/30/18 11/30/18 11/30/18 05:00 05:31 06:00 Temperature Pulse Rate 75 69 70 Respiratory 18 16 19 Rate Blood Pressure 159/86 159/86 148/74 O2 Sat by Pulse 100 100 100 Oximetry 11/30/18 07:36 Temperature Pulse Rate Respiratory Rate Blood Pressure O2 Sat by Pulse 100 Oximetry - General Appearance General appearance: well-developed, well-nourished, appears stated age EENT: PERRL, mucous membranes moist Neck: no JVD, no thyromegaly, no carotid bruit, supple Respiratory: Present: Clear to Ascultation Cardiology: regular, normal heart rate, S1S2, no murmurs Gastrointestinal: normal, hypoactive bowel sounds, other (hypogastric incision noted) Integumentary: other (trace edema) - Lab 11/30/18 04:09 11/30/18 04:09 Most recent lab results Calcium 8.2 mg/dL (8.4-10.2) L 11/30/18 04:09 Phosphorus 2.20 mg/dL (2.5-4.5) L 11/29/18 03:55 Magnesium 2.40 mg/dL (1.7-2.3) H 11/29/18 03:55 34.9 mg/dL (0.1-20.0) H 11/26/18 10:19 39 mmol/L 11/29/18 16:40 Medications & Allergies - Medications Allergies/Adverse Reactions: Allergies No Known Allergies Allergy (Verified 11/23/18 19:31) Home Medications: Home Medications Medication Instructions Recorded Confirmed Last Taken Type No Known Home Medications [No 11/24/18 11/24/18 Unknown History Reported Home Medications] Active Medications: Generic Name Dose Route Start Last Admin Trade Name Freq PRN Reason Stop Dose Admin Albuterol 2.5 mg 11/29/18 00:12 Proventil IH Q4HRT PRN Shortness Of Breath Bisacodyl 10 mg 11/24/18 23:16 Dulcolax SC QDAY PRN constipation unrelieved by MOM Hydralazine HCl 10 mg 11/28/18 03:30 11/28/18 23:16 Apresoline IV 10 mg Q4HR PRN Administration SBP > 160 Hydrophilic Ointment 1 applic 11/25/18 22:12 Vaseline Lip Therapy TP Q2HR PRN Dry Lips Dextrose 1,000 mls @ 75 mls/hr 11/29/18 10:00 11/30/18 03:26 D5w IV 75 mls/hr DIRECT YING Administration Potassium Chloride 10 meq in 100 mls @ 100 mls/hr 11/30/18 09:00 Kcl 10meq/100ml IV 11/30/18 14:59 Q1H YING Magnesium Hydroxide 30 ml 11/24/18 23:16 Milk Of Magnesia PO Q4H PRN Constipation Metoclopramide HCl 10 mg 11/24/18 23:16 11/28/18 08:58 Reglan IV 10 mg Q6H PRN Administration Nausea And Vomiting Morphine Sulfate 2 mg 11/25/18 23:19 11/27/18 17:24 Morphine IV 2 mg Q4H PRN Administration Pain, Moderate (4-6) Multi-Ingred Cream/Lotion/Oil/Oint 1 applic 11/25/18 22:12 Artificial Tears Ophth Oint OU Q4HR PRN Dry Eye(s) Multi-Ingredient Ointment 1 applic 11/24/18 23:16 Lansinoh TP PRN PRN dryness/cracking Naloxone HCl 0.1 mg 11/24/18 23:16 Narcan 0.4 Mg/1 Ml IV Q2MIN PRN Res Rate </= 8 or 02 SAT < 92% Pantoprazole Sodium 40 mg 11/28/18 15:00 11/29/18 22:25 Protonix IV 40 mg BID YING Administration Sodium Chloride 10 ml 11/24/18 23:16 11/29/18 13:22 Sodium Chloride Flush Syringe 10 Ml IV Not Given BID YING Sodium Chloride 10 ml 11/24/18 23:16 Sodium Chloride Flush Syringe 10 Ml IV PRN PRN LINE FLUSH Witch Faiza/Glycerin 1 each 11/24/18 23:16 Tucks Pad TP PRN PRN Hemorrhoids/cleansing/soothing
[2018-11-30] MEDS ORDERED: KCL 10MEQ/100ML 10 MEQ/100 ML BAG IV SCH (09:00)
[2018-11-30 09:25] LABS: Albumin 2.7 g/dL (3.9-5); Bilirubin,Direct 0.3 mg/dL (0-0.2)
[2018-11-30] MEDS ORDERED: PROTONIX PO SCH (10:00)
[2018-11-30] MEDS ORDERED: PREVACID SOLUTAB FEEDTUBE SCH (11:00)
--- NOTE | 2018-11-30 11:02 | Progress Note ---
Assessment and Plan Cultures: Blood cultures 11/25/2018 no growth. Urine culture 11/25/2018 no growth. Resp culture: no growth Assessment: 38 y/o female with history of preeclampsia admitted on 11/23/2018 with 38 weeks gestation with uterine contractions. Patient underwent on 11/24/18 due to failure to dilate, pulmonary edema and gestational hypertension; after C- section she developed acute respiratory failure/ARDS and hypotension, now intubated: 1) Leukocytosis: likely reactive from labor/ and respiratory failure. No evidence of infectious process thus far. CXR Chest x-ray showed mild cardiomegaly and pulmonary edema. No consolidations. Repeat appears better. CRP: 14.6. DVT scan negative. 2) Acute respiratory failure: CXR with pulmonary edema likely from pre- emclapsia. Doubt pneumonia. No recent vomiting, doubt aspiration. 3) MIRIAN: renal on board. Improving creatinine. 4) ?ileus: ANALYTICAL LEAD following. 5) ?RLL infiltrate noted on CT abdomen lower lung cuts: small infiltrate. Patient already received about 4-5 days of abx. Off oxygen, WBC improving. continue to avoid additional abx. D/w Dr. Hays yesterday evening. Recommendations: - Off oxygen, WBC improving, Resp culture with no growth. Already received about 4-5 days of abx - Continue to monitor off antibiotics Montse Willams MD, FACP [facility] ([facility] C: [phone] O: [phone] F: [phone] Subjective Date of service: 11/30/18 Principal diagnosis: 1) POD #4 S/P 1LTCS 2)gestatinal hypertension 3) acute resp failur Interval history: Sitting up in the chair. Feels like she almost passed gas. Off oxygen. No BM yet. No fever. Objective - Exam Narrative Exam: Physical Exam: Constitutional: awake, alert, off oxygen. Head, Ears, Nose: Normocephalic, atraumatic. External ears, nose normal Eyes: Conjunctivae/corneas clear. No icterus. No ptosis. Neck: Supple, no meningeal signs Cardiovascular: S1, S2 normal. Respiratory: Good air entry, clear to auscultation bilaterally GI: soft, mild tenderness; bowel sounds hypo. No peritoneal signs. Surgical incision c/d/i Musculoskeletal: No pedal edema, no cyanosis. Skin: No rash or abscess Hem/Lymphatic: No palpable cervical or supraclavicular nodes. No lymphangitis Psych: calm. Neurological: awake, alert, oriented - Constitutional Vitals: Vital Signs Temp Pulse Resp BP Pulse Ox 98.0 F 69 19 153/80 98 11/30/18 04:00 11/30/18 08:31 11/30/18 08:31 11/30/18 08:31 11/30/18 08:31 Temperature -Last 24 Hours Temperature 98.0 F Temperature 97.0 F Temperature 98.1 F Temperature 98.6 F Temperature 98.4 F - Labs CBC & Chem 7: 11/30/18 04:09 11/30/18 04:09 Labs: Abnormal lab results 11/29/18 11/29/18 11/30/18 Range/Units 11:34 17:10 04:09 WBC (4.5-11.0) K/mm3 RBC (3.65-5.03) M/mm3 RDW (13.2-15.2) % Lymph % (Auto) (13.4-35.0) % Emmons % (Auto) (0.0-7.3) % Emmons # (0.0-0.8) K/mm3 Seg Neutrophils % (40.0-70.0) % Seg Neutrophils # (1.8-7.7) K/mm3 Sodium 152 H (137-145) mmol/L Potassium 3.2 L (3.6-5.0) mmol/L Chloride 116.9 H (98-107) mmol/L BUN 24 H (7-17) mg/dL Glucose 146 H (65-100) mg/dL POC Glucose 139 H 165 H (70-105) Calcium 8.2 L (8.4-10.2) mg/dL Direct Bilirubin (0-0.2) mg/dL AST (5-40) units/L ALT (7-56) units/L Total Protein (6.3-8.2) g/dL Albumin (3.9-5) g/dL 11/30/18 11/30/18 11/30/18 Range/Units 04:09 04:09 05:32 WBC 11.5 H (4.5-11.0) K/mm3 RBC 3.64 L (3.65-5.03) M/mm3 RDW 17.9 H (13.2-15.2) % Lymph % (Auto) 11.5 L (13.4-35.0) % Emmons % (Auto) 11.5 H (0.0-7.3) % Emmons # 1.3 H (0.0-0.8) K/mm3 Seg Neutrophils % 74.0 H (40.0-70.0) % Seg Neutrophils # 8.5 H (1.8-7.7) K/mm3 Sodium (137-145) mmol/L Potassium (3.6-5.0) mmol/L Chloride (98-107) mmol/L BUN (7-17) mg/dL Glucose (65-100) mg/dL POC Glucose 141 H (70-105) Calcium (8.4-10.2) mg/dL Direct Bilirubin 0.3 H (0-0.2) mg/dL AST 112 H (5-40) units/L ALT 200 H (7-56) units/L Total Protein 5.6 L (6.3-8.2) g/dL Albumin 2.7 L (3.9-5) g/dL - Imaging and cardiology Chest x-ray: report reviewed, image reviewed (improving pulmonary edema) CT scan - abdomen: report reviewed, image reviewed (small RLL infiltrate. Ileus +)
[2018-11-30] MEDS: POTASSIUM CHLORIDE FEEDTUBE SCH (11:03)
--- NOTE | 2018-11-30 11:21 | Progress Note ---
Assessment and Plan S/P Acute Pulmonary edema Acute renal failure Acute respiratory failure Elevated troponin Pre-eclampsia Peripartum cardiomyopathy Echo reports a normal left ventricular size and function LVEF 45-50%. Conservative cardiac management. We will follow intermittently. Subjective Date of service: 11/30/18 Principal diagnosis: 1) POD #4 S/P 1LTCS 2)gestatinal hypertension 3) acute resp failur Interval history: Patient has no cardiac complaints. Stable sinus rhythm on telemetry. Objective Vital Signs Temp Pulse Resp BP Pulse Ox 11/30/18 08:31 69 19 153/80 98 11/30/18 08:00 68 18 153/80 98 11/30/18 07:36 100 11/30/18 07:31 91 H 15 148/74 100 11/30/18 07:00 101 H 19 156/92 100 11/30/18 06:31 57 L 17 148/74 100 11/30/18 06:00 70 19 148/74 100 11/30/18 05:31 69 16 159/86 100 11/30/18 05:00 75 18 159/86 100 11/30/18 04:31 74 21 137/71 100 11/30/18 04:00 98.0 F 84 15 137/71 100 11/30/18 03:31 82 12 148/79 100 11/30/18 03:00 83 17 148/79 100 11/30/18 02:30 76 14 153/87 100 11/30/18 02:00 76 16 153/87 100 11/30/18 01:31 59 L 19 139/74 100 11/30/18 01:00 69 19 136/79 100 11/30/18 00:31 61 18 139/74 100 11/30/18 00:01 65 18 139/74 100 11/30/18 00:00 97.0 F L 61 11/29/18 23:31 62 15 170/84 100 11/29/18 23:13 80 15 170/84 100 11/29/18 23:00 66 16 170/84 100 11/29/18 22:31 69 17 153/83 100 11/29/18 22:00 80 23 153/83 100 11/29/18 21:31 87 21 157/75 100 11/29/18 21:00 73 17 157/75 100 11/29/18 20:31 70 16 157/84 100 07/10/19 20:00 98.1 F 70 18 157/84 100 11/29/18 19:31 81 20 159/81 100 11/29/18 19:00 90 36 H 159/81 100 11/29/18 18:31 77 24 140/83 100 11/29/18 18:01 93 H 32 H 140/83 100 11/29/18 17:31 82 21 146/88 100 11/29/18 17:00 96 H 26 H 146/88 11/29/18 16:30 105 H 25 H 144/87 11/29/18 16:00 103 H 17 150/100 11/29/18 15:39 98.6 F 11/29/18 15:30 107 H 21 150/100 11/29/18 15:00 104 H 21 157/94 99 11/29/18 14:30 97 H 22 153/88 11/29/18 14:24 115 H 14 153/88 11/29/18 13:30 96 H 21 153/88 11/29/18 13:00 84 22 164/86 11/29/18 12:30 77 20 146/75 100 11/29/18 12:00 89 19 169/96 100 11/29/18 11:55 98.4 F 11/29/18 11:30 86 22 165/89 100 11/29/18 11:25 97 - Physical Examination General: No Apparent Distress HEENT: Positive: PERRL Neck: Positive: trachea midline Cardiac: Positive: Reg Rate and Rhythm Lungs: Positive: Decreased Breath Sounds Neuro: Positive: Grossly Intact Abdomen: Positive: Other (post C/S surgery) Extremities: Absent: edema - Labs and Meds Cardiac Enzymes 11/30/18 Range/Units 04:09 AST 112 H (5-40) units/L CBC 11/30/18 Range/Units 04:09 WBC 11.5 H (4.5-11.0) K/mm3 RBC 3.64 L (3.65-5.03) M/mm3 Hgb 11.4 (10.1-14.3) gm/dl Hct 33.4 (30.3-42.9) % Plt Count 144 (140-440) K/mm3 Lymph # 1.3 (1.2-5.4) K/mm3 Cochran # 1.3 H (0.0-0.8) K/mm3 Eos # 0.3 (0.0-0.4) K/mm3 Baso # 0.0 (0.0-0.1) K/mm3 Comprehensive Metabolic Panel 11/30/18 11/30/18 Range/Units 04:09 04:09 Sodium 152 H (137-145) mmol/L Potassium 3.2 L (3.6-5.0) mmol/L Chloride 116.9 H (98-107) mmol/L Carbon Dioxide 23 (22-30) mmol/L BUN 24 H (7-17) mg/dL Creatinine 1.2 (0.7-1.2) mg/dL Glucose 146 H (65-100) mg/dL Calcium 8.2 L (8.4-10.2) mg/dL Direct Bilirubin 0.3 H (0-0.2) mg/dL Indirect Bilirubin 0.4 mg/dL AST 112 H (5-40) units/L ALT 200 H (7-56) units/L Alkaline Phosphatase 115 (35-129) units/L Total Protein 5.6 L (6.3-8.2) g/dL Albumin 2.7 L (3.9-5) g/dL
--- NOTE | 2018-11-30 12:07 | Progress Note ---
Assessment and Plan Acute resp failure s/p intubated 11/25, placed on vent - likely ARDS with Pulmonary edema- noncardiogenic, pulmonary following - Patient was given Lasix, Echo reports a normal left ventricular size and function LVEF 45-50%. - s/p extubation on 11/28 Nausea/vomiting with abdominal distension - NPO, s/p NG suction on clamped, serial abdominal xry - shows distended bowels w/o free air - CT abdomen showed extensive colonic dilatation, will consult Labile blood pressure Sinus tachycardia s/p on 11/24/18 GBS positive History of herpes simplex 2 History of preeclampsia MIRIAN probably ATN from hypotension Leukocytosis - Continue supportive care Nephrology following, monitor BMP Routine pulm toileting Cardiology following Pulmonology following On Empiric Cefepime , ID following DVT PPX on Lovenox Patient is stable to to go to floor Brief History: 38-year-old female who is s/p on 11/24/18. Patient was transferred to IMCU for management of pulmonary edema. Chest x-ray showed mild cardiomegaly and pulmonary edema. She was given lasix. On night of 11/25, worse respiratory distress, rapid response team called and she was intubated put on vent. Also now has MIRIAN, managed by nephrology. Pulmonary edema thought to be non cardiogenic, likely ARDS. Patient transferred to ICU, extubated on 11/28. Now developed N/V/abdominal distension since the day of extubation. CT abdomen showed extensive colonic dilatation with gas, no obstruction, surgery consult placed. Can go to floor today. Hospitalist Physical Gen: Not in acute distress, lying in bed, HEENT: Normocephalic, atraumatic Neck: supple, no JVD Heart: S1 and S2 reg, no murmurs, rubs or gallop Lungs: no Bilateral crackles, no wheeze Abd: soft, non tender, very distended, + BS Ext: No edema, no clubbing, no cyanosis, Neuro: arouseable, follows commands, moves all ext Subjective Date of service: 11/30/18 Principal diagnosis: 1) POD #4 S/P 1LTCS 2)gestatinal hypertension 3) acute resp failur Interval history: Patient seen and examined no N/V, but abdomen still distended updated family at bedside, updated Objective - Constitutional Vitals: Vital Signs - 12hr 07/11/19 07/11/19 07/11/19 00:31 01:00 01:31 Temperature Pulse Rate 61 69 59 L Respiratory 18 19 19 Rate Blood Pressure 139/74 136/79 139/74 O2 Sat by Pulse 100 100 100 Oximetry 11/30/18 11/30/18 11/30/18 02:00 02:30 03:00 Temperature Pulse Rate 76 76 83 Respiratory 16 14 17 Rate Blood Pressure 153/87 153/87 148/79 O2 Sat by Pulse 100 100 100 Oximetry 11/30/18 11/30/18 11/30/18 03:31 04:00 04:31 Temperature 98.0 F Pulse Rate 82 84 74 Respiratory 12 15 21 Rate Blood Pressure 148/79 137/71 137/71 O2 Sat by Pulse 100 100 100 Oximetry 11/30/18 11/30/18 11/30/18 05:00 05:31 06:00 Temperature Pulse Rate 75 69 70 Respiratory 18 16 19 Rate Blood Pressure 159/86 159/86 148/74 O2 Sat by Pulse 100 100 100 Oximetry 11/30/18 11/30/18 11/30/18 06:31 07:00 07:31 Temperature Pulse Rate 57 L 101 H 91 H Respiratory 17 19 15 Rate Blood Pressure 148/74 156/92 148/74 O2 Sat by Pulse 100 100 100 Oximetry 11/30/18 11/30/18 11/30/18 07:36 08:00 08:31 Temperature Pulse Rate 68 69 Respiratory 18 19 Rate Blood Pressure 153/80 153/80 O2 Sat by Pulse 100 98 98 Oximetry - Labs CBC & Chem 7: 11/30/18 04:09 12/01/18 05:08 Labs: Abnormal lab results 11/29/18 11/30/18 11/30/18 Range/Units 17:10 04:09 04:09 WBC 11.5 H (4.5-11.0) K/mm3 RBC 3.64 L (3.65-5.03) M/mm3 RDW 17.9 H (13.2-15.2) % Lymph % (Auto) 11.5 L (13.4-35.0) % Garden % (Auto) 11.5 H (0.0-7.3) % Garden # 1.3 H (0.0-0.8) K/mm3 Seg Neutrophils % 74.0 H (40.0-70.0) % Seg Neutrophils # 8.5 H (1.8-7.7) K/mm3 Sodium 152 H (137-145) mmol/L Potassium 3.2 L (3.6-5.0) mmol/L Chloride 116.9 H (98-107) mmol/L BUN 24 H (7-17) mg/dL Glucose 146 H (65-100) mg/dL POC Glucose 165 H (70-105) Calcium 8.2 L (8.4-10.2) mg/dL Direct Bilirubin (0-0.2) mg/dL AST (5-40) units/L ALT (7-56) units/L Total Protein (6.3-8.2) g/dL Albumin (3.9-5) g/dL 11/30/18 11/30/18 Range/Units 04:09 05:32 WBC (4.5-11.0) K/mm3 RBC (3.65-5.03) M/mm3 RDW (13.2-15.2) % Lymph % (Auto) (13.4-35.0) % Garden % (Auto) (0.0-7.3) % Garden # (0.0-0.8) K/mm3 Seg Neutrophils % (40.0-70.0) % Seg Neutrophils # (1.8-7.7) K/mm3 Sodium (137-145) mmol/L Potassium (3.6-5.0) mmol/L Chloride (98-107) mmol/L BUN (7-17) mg/dL Glucose (65-100) mg/dL POC Glucose 141 H (70-105) Calcium (8.4-10.2) mg/dL Direct Bilirubin 0.3 H (0-0.2) mg/dL AST 112 H (5-40) units/L ALT 200 H (7-56) units/L Total Protein 5.6 L (6.3-8.2) g/dL Albumin 2.7 L (3.9-5) g/dL
--- NOTE | 2018-11-30 12:45 | Consultation ---
History of Present Illness Consult date: 11/30/18 Chief complaint: dilated colon - History of present illness History of present illness: 38 yo F POD 5 from csection who experienced post operative acute respiratory distress, hypoxia and was intubated. She is now extubated. Patient states she has pain at incision site from csection. She had a BM today and passed flatus. No n/v. Per nursing, patient has had clamping trials every 4-6 hours and has done well. She is tolerating ice chips. No f/c. Surgery is consulted due to dilated colon on CT scan A/P. Past History Past Medical History: other (herpes simplex 2, gestational diabetes, depression, general anxiety). denies: CAD, COPD, hypertension Past Surgical History: (x1 ) Social history: lives with family Family history: no significant family history Medications and Allergies Allergies Allergy/AdvReac Type Severity Reaction Status Date / Time No Known Allergies Allergy Verified 11/23/18 19:31 Home Medications Medication Instructions Recorded Confirmed Last Taken Type No Known Home Medications [No 11/24/18 11/24/18 Unknown History Reported Home Medications] Active Meds: Active Medications Albuterol (Proventil) 2.5 mg IH Q4HRT PRN PRN Reason: Shortness Of Breath Bisacodyl (Dulcolax) 10 mg OR QDAY PRN PRN Reason: constipation unrelieved by MOM Hydralazine HCl (Apresoline) 10 mg IV Q4HR PRN PRN Reason: SBP > 160 Last Admin: 11/28/18 23:16 Dose: 10 mg Documented by: Hydrophilic Ointment (Vaseline Lip Therapy) 1 applic TP Q2HR PRN PRN Reason: Dry Lips Dextrose (D5w) 1,000 mls @ 75 mls/hr IV DIRECT YING Last Admin: 11/30/18 03:26 Dose: 75 mls/hr Documented by: Lansoprazole (Prevacid Solutab) 30 mg FEEDTUBE BID YING Stop: 11/30/18 22:01 Last Admin: 11/30/18 11:03 Dose: 30 mg Documented by: Magnesium Hydroxide (Milk Of Magnesia) 30 ml PO Q4H PRN PRN Reason: Constipation Metoclopramide HCl (Reglan) 10 mg IV Q6H PRN PRN Reason: Nausea And Vomiting Last Admin: 11/28/18 08:58 Dose: 10 mg Documented by: Morphine Sulfate (Morphine) 2 mg IV Q4H PRN PRN Reason: Pain, Moderate (4-6) Last Admin: 11/27/18 17:24 Dose: 2 mg Documented by: Multi-Ingred Cream/Lotion/Oil/Oint (Artificial Tears Ophth Oint) 1 applic OU Q4HR PRN PRN Reason: Dry Eye(s) Multi-Ingredient Ointment (Lansinoh) 1 applic TP PRN PRN PRN Reason: dryness/cracking Naloxone HCl (Narcan 0.4 Mg/1 Ml) 0.1 mg IV Q2MIN PRN PRN Reason: Res Rate </= 8 or 02 SAT < 92% Pantoprazole Sodium (Protonix) 40 mg PO BID [facility] Potassium Chloride (Potassium Chloride) 40 meq FEEDTUBE Q4H [facility] Stop: 11/30/18 14:01 Last Admin: 11/30/18 11:03 Dose: 40 meq Documented by: Sodium Chloride (Sodium Chloride Flush Syringe 10 Ml) 10 ml IV BID [facility] Last Admin: 11/29/18 13:22 Dose: Not Given Documented by: Sodium Chloride (Sodium Chloride Flush Syringe 10 Ml) 10 ml IV PRN PRN PRN Reason: LINE FLUSH Witch Faiza/Glycerin (Tucks Pad) 1 each TP PRN PRN PRN Reason: Hemorrhoids/cleansing/soothing Review of Systems All systems: negative (10 pt ROS performed and negative except for that listed in HPI) Exam Vital Signs Pulse BP 85 177/85 11/23/18 18:02 11/23/18 18:02 Narrative exam: Gen: AAOx3. NAD ENT; NGT clamped. CV; s1, s2+ Resp; even and unlabored Abd: soft, distended, NT Ext; no c/c/e NGT hooked to suction and flushed with air. Scant output. Canister with 475cc of bilious drainage for last 24 hours. Results - Labs 11/30/18 04:09 11/30/18 04:09 Abnormal lab results 11/29/18 11/30/18 11/30/18 Range/Units 17:10 04:09 04:09 WBC 11.5 H (4.5-11.0) K/mm3 RBC 3.64 L (3.65-5.03) M/mm3 RDW 17.9 H (13.2-15.2) % Lymph % (Auto) 11.5 L (13.4-35.0) % Isabela % (Auto) 11.5 H (0.0-7.3) % Isabela # 1.3 H (0.0-0.8) K/mm3 Seg Neutrophils % 74.0 H (40.0-70.0) % Seg Neutrophils # 8.5 H (1.8-7.7) K/mm3 Sodium 152 H (137-145) mmol/L Potassium 3.2 L (3.6-5.0) mmol/L Chloride 116.9 H (98-107) mmol/L BUN 24 H (7-17) mg/dL Glucose 146 H (65-100) mg/dL POC Glucose 165 H (70-105) Calcium 8.2 L (8.4-10.2) mg/dL Direct Bilirubin (0-0.2) mg/dL AST (5-40) units/L ALT (7-56) units/L Total Protein (6.3-8.2) g/dL Albumin (3.9-5) g/dL 11/30/18 11/30/18 Range/Units 04:09 05:32 WBC (4.5-11.0) K/mm3 RBC (3.65-5.03) M/mm3 RDW (13.2-15.2) % Lymph % (Auto) (13.4-35.0) % Isabela % (Auto) (0.0-7.3) % Isabela # (0.0-0.8) K/mm3 Seg Neutrophils % (40.0-70.0) % Seg Neutrophils # (1.8-7.7) K/mm3 Sodium (137-145) mmol/L Potassium (3.6-5.0) mmol/L Chloride (98-107) mmol/L BUN (7-17) mg/dL Glucose (65-100) mg/dL POC Glucose 141 H (70-105) Calcium (8.4-10.2) mg/dL Direct Bilirubin 0.3 H (0-0.2) mg/dL AST 112 H (5-40) units/L ALT 200 H (7-56) units/L Total Protein 5.6 L (6.3-8.2) g/dL Albumin 2.7 L (3.9-5) g/dL Diabetes panel 11/30/18 11/30/18 Range/Units 04:09 04:09 Sodium 152 H (137-145) mmol/L Potassium 3.2 L (3.6-5.0) mmol/L Chloride 116.9 H (98-107) mmol/L Carbon Dioxide 23 (22-30) mmol/L BUN 24 H (7-17) mg/dL Creatinine 1.2 (0.7-1.2) mg/dL Glucose 146 H (65-100) mg/dL Calcium 8.2 L (8.4-10.2) mg/dL AST 112 H (5-40) units/L ALT 200 H (7-56) units/L Alkaline Phosphatase 115 (35-129) units/L Total Protein 5.6 L (6.3-8.2) g/dL Albumin 2.7 L (3.9-5) g/dL Calcium panel 11/30/18 11/30/18 Range/Units 04:09 04:09 Calcium 8.2 L (8.4-10.2) mg/dL Albumin 2.7 L (3.9-5) g/dL Pituitary panel 11/30/18 Range/Units 04:09 Sodium 152 H (137-145) mmol/L Potassium 3.2 L (3.6-5.0) mmol/L Chloride 116.9 H (98-107) mmol/L Carbon Dioxide 23 (22-30) mmol/L BUN 24 H (7-17) mg/dL Creatinine 1.2 (0.7-1.2) mg/dL Glucose 146 H (65-100) mg/dL Calcium 8.2 L (8.4-10.2) mg/dL Adrenal panel 11/30/18 11/30/18 Range/Units 04:09 04:09 Sodium 152 H (137-145) mmol/L Potassium 3.2 L (3.6-5.0) mmol/L Chloride 116.9 H (98-107) mmol/L Carbon Dioxide 23 (22-30) mmol/L BUN 24 H (7-17) mg/dL Creatinine 1.2 (0.7-1.2) mg/dL Glucose 146 H (65-100) mg/dL Calcium 8.2 L (8.4-10.2) mg/dL Total Bilirubin 0.70 (0.1-1.2) mg/dL AST 112 H (5-40) units/L ALT 200 H (7-56) units/L Alkaline Phosphatase 115 (35-129) units/L Total Protein 5.6 L (6.3-8.2) g/dL Albumin 2.7 L (3.9-5) g/dL - Imaging Abdominal x-ray: report reviewed, image reviewed CT scan - abdomen: report reviewed, image reviewed CT scan - pelvis: report reviewed, image reviewed Assessment and Plan 38 yo F with colonic distension, post op csection Plan: 1. Colonic distension likely post operative and related to electrolyte abnormalities. Ct A/P images reviewed as well as report and no obstruction seen. Patient having BMs and passing flatus 2. ok to start clear liquids 3. keep NGT clamped - if patient tolerates clear liquids, may be removed in 4 hours. If she does not, should be hooked back to LIWS. Nursing communication order written. 4. prn pain control, limit narcotics 5. OOB/ambulate in room and hallway as tolerated 6. incentive spirometry 7. replace electrolytes and monitor. Oral KCL replacement given today and Mg, Phos within normal limits. Will follow. D/W Dr. Mane. Thank you, please call with questions.
--- NOTE | 2018-11-30 13:17 | Progress Note ---
Assessment and Plan Imp: 1. S/p for intrauterine at 38 weeks 2. Pulmonary edema -> probably combined cardiogenic and non-cardiogenic (rapid yet incomplete improvement), the former perhaps related to periods of elevated BP/IVFs and the latter of ? etiology (DDx includes aspiration, sepsis, AFE) 3. Acute respiratory failure, hypoxia 4. MIRIAN 5. Thrombocytopenia of ? etiology 6. Ileus 7. Hypernatremia 8. Hypokalemia 9. Transaminitis 10. Anion-gap metabolic acidosis, presumed related to #4 at this point 11. ? Acute pancreatitis Rec: 1. Cultures are negative; CT a/p shows RLL infiltrate, possibly aspiration; completed a course of Cefipime per ID, and respiratory status is improving, so agree w/ holding further ABX for now 2. On RA; monitor respiratory status 3. SCDs while in bed; d/w RN 4. Would optimize blood pressure given grade III diastolic dysfunction noted in Echo report 5. Replete K, on hypotonic IVFs 6. Lipase elevated on 11/29/18, ? pancreatitis, repeat in AM; consider Abd US to further eval. biliary tree; has ileus -> NGT to WALT, NPO pending surgery eval. 7. Stable pulmonary-barajas to move out of ICU to mother/baby unit Plan of care reviewed w/ family in detail, they understand/agree; all questions have been answered Subjective Date of service: 11/30/18 Principal diagnosis: ARDS Interval history: Extubated. On RA. No SOB, chest pain, wheezing, N/V. NG in place. OOB to chair. Active Medications Albuterol (Proventil) 2.5 mg IH Q4HRT PRN PRN Reason: Shortness Of Breath Bisacodyl (Dulcolax) 10 mg NH QDAY PRN PRN Reason: constipation unrelieved by MOM Hydralazine HCl (Apresoline) 10 mg IV Q4HR PRN PRN Reason: SBP > 160 Last Admin: 11/28/18 23:16 Dose: 10 mg Documented by: Hydrophilic Ointment (Vaseline Lip Therapy) 1 applic TP Q2HR PRN PRN Reason: Dry Lips Dextrose (D5w) 1,000 mls @ 75 mls/hr IV DIRECT YING Last Admin: 11/30/18 03:26 Dose: 75 mls/hr Documented by: Lansoprazole (Prevacid Solutab) 30 mg FEEDTUBE BID [facility] Stop: 11/30/18 22:01 Last Admin: 11/30/18 11:03 Dose: 30 mg Documented by: Magnesium Hydroxide (Milk Of Magnesia) 30 ml PO Q4H PRN PRN Reason: Constipation Metoclopramide HCl (Reglan) 10 mg IV Q6H PRN PRN Reason: Nausea And Vomiting Last Admin: 11/28/18 08:58 Dose: 10 mg Documented by: Morphine Sulfate (Morphine) 2 mg IV Q4H PRN PRN Reason: Pain, Moderate (4-6) Last Admin: 11/27/18 17:24 Dose: 2 mg Documented by: Multi-Ingred Cream/Lotion/Oil/Oint (Artificial Tears Ophth Oint) 1 applic OU Q4HR PRN PRN Reason: Dry Eye(s) Multi-Ingredient Ointment (Lansinoh) 1 applic TP PRN PRN PRN Reason: dryness/cracking Naloxone HCl (Narcan 0.4 Mg/1 Ml) 0.1 mg IV Q2MIN PRN PRN Reason: Res Rate </= 8 or 02 SAT < 92% Pantoprazole Sodium (Protonix) 40 mg PO BID [facility] Potassium Chloride (Potassium Chloride) 40 meq FEEDTUBE Q4H [facility] Stop: 11/30/18 14:01 Last Admin: 11/30/18 11:03 Dose: 40 meq Documented by: Sodium Chloride (Sodium Chloride Flush Syringe 10 Ml) 10 ml IV BID [facility] Last Admin: 11/29/18 13:22 Dose: Not Given Documented by: Sodium Chloride (Sodium Chloride Flush Syringe 10 Ml) 10 ml IV PRN PRN PRN Reason: LINE FLUSH Witch Faiza/Glycerin (Tucks Pad) 1 each TP PRN PRN PRN Reason: Hemorrhoids/cleansing/soothing Objective Vital Signs - 12hr 11/30/18 11/30/18 11/30/18 01:31 02:00 02:30 Temperature Pulse Rate 59 L 76 76 Respiratory 19 16 14 Rate Blood Pressure 139/74 153/87 153/87 O2 Sat by Pulse 100 100 100 Oximetry 11/30/18 11/30/18 11/30/18 03:00 03:31 04:00 Temperature 98.0 F Pulse Rate 83 82 84 Respiratory 17 12 15 Rate Blood Pressure 148/79 148/79 137/71 O2 Sat by Pulse 100 100 100 Oximetry 11/30/18 11/30/18 11/30/18 04:31 05:00 05:31 Temperature Pulse Rate 74 75 69 Respiratory 21 18 16 Rate Blood Pressure 137/71 159/86 159/86 O2 Sat by Pulse 100 100 100 Oximetry 11/30/18 11/30/18 11/30/18 06:00 06:31 07:00 Temperature Pulse Rate 70 57 L 101 H Respiratory 19 17 19 Rate Blood Pressure 148/74 148/74 156/92 O2 Sat by Pulse 100 100 100 Oximetry 11/30/18 11/30/18 11/30/18 07:31 07:36 08:00 Temperature Pulse Rate 91 H 68 Respiratory 15 18 Rate Blood Pressure 148/74 153/80 O2 Sat by Pulse 100 100 98 Oximetry 11/30/18 08:31 Temperature Pulse Rate 69 Respiratory 19 Rate Blood Pressure 153/80 O2 Sat by Pulse 98 Oximetry Constitutional: no acute distress, alert Eyes: non-icteric ENT: oropharynx moist Neck: supple Effort: normal Ascultation: Bilateral: clear Cardiovascular: regular rate and rhythm (no mrg) Gastrointestinal: normoactive bowel sounds, soft, other (distended, mildly TTP; no guarding/rebound) Integumentary: normal Extremities: no cyanosis, no edema, pink and warm Neurologic: normal mental status, non-focal exam, pupils equal and round, CN II- XII normal Psychiatric: mood appropriate, affect normal CBC and BMP: 11/30/18 04:09 11/30/18 04:09 ABG, PT/INR, D-dimer: ABG POC ABG pH 7.400 (7.35-7.45) 11/28/18 12:57 POC ABG pCO2 30.6 (35-45) L 11/28/18 12:57 POC ABG pO2 125 (80-105) H 11/28/18 12:57 POC ABG HCO3 19.0 (22-26 mml/L) 11/28/18 12:57 POC ABG Total CO2 20 (23-27mmol/L) 11/28/18 12:57 POC ABG O2 Sat 99 11/28/18 12:57 PT/INR, D-dimer PT 13.2 Sec. (12.2-14.9) 11/27/18 14:24 INR 1.03 (0.87-1.13) 11/27/18 14:24 > 40910 ng/mlDDU (0-234) H 11/27/18 14:24 Abnormal lab findings: Abnormal Labs 11/23/18 11/24/18 11/24/18 19:45 16:12 16:12 WBC 12.3 H 16.3 H RBC Hgb Hct MCHC RDW 16.9 H 16.6 H Plt Count Lymph % (Auto) Armstrong % (Auto) Lymph # Armstrong # Seg Neutrophils % Seg Neuts % (Manual) Lymphocytes % (Manual) Seg Neutrophils # Seg Neutrophils # Man APTT Fibrinogen D-Dimer POC ABG pH POC ABG pCO2 POC ABG pO2 Sodium Potassium Chloride Carbon Dioxide BUN Creatinine 0.5 L Glucose POC Glucose Calcium Phosphorus Magnesium Direct Bilirubin AST ALT Lactate Dehydrogenase 248 H Total Creatine Kinase CK-MB (CK-2) CK-MB (CK-2) Rel Index Troponin T C-Reactive Protein NT-Pro-B Natriuret Pep Total Protein Albumin Triglycerides Cholesterol HDL Cholesterol Lipase Urine WBC (Auto) Urine Creatinine Miscellaneous Test 11/24/18 11/24/18 11/24/18 23:41 23:41 23:41 WBC 18.3 H RBC Hgb Hct MCHC RDW 16.6 H Plt Count Lymph % (Auto) 3.5 L Armstrong % (Auto) 7.7 H Lymph # 0.6 L Armstrong # 1.4 H Seg Neutrophils % 88.7 H Seg Neuts % (Manual) Lymphocytes % (Manual) Seg Neutrophils # 16.2 H Seg Neutrophils # Man APTT Fibrinogen D-Dimer POC ABG pH POC ABG pCO2 POC ABG pO2 Sodium Potassium Chloride Carbon Dioxide BUN Creatinine Glucose POC Glucose Calcium Phosphorus Magnesium Direct Bilirubin AST ALT Lactate Dehydrogenase Total Creatine Kinase CK-MB (CK-2) CK-MB (CK-2) Rel Index Troponin T 0.274 H* C-Reactive Protein NT-Pro-B Natriuret Pep 5198 H Total Protein Albumin Triglycerides 540 H Cholesterol 291 H HDL Cholesterol 60 H Lipase Urine WBC (Auto) Urine Creatinine Miscellaneous Test 11/24/18 11/25/18 11/25/18 23:41 04:40 04:40 WBC RBC Hgb Hct MCHC RDW Plt Count Lymph % (Auto) Armstrong % (Auto) Lymph # Armstrong # Seg Neutrophils % Seg Neuts % (Manual) Lymphocytes % (Manual) Seg Neutrophils # Seg Neutrophils # Man APTT Fibrinogen D-Dimer POC ABG pH POC ABG pCO2 POC ABG pO2 Sodium Potassium Chloride 108.3 H Carbon Dioxide 21 L BUN Creatinine Glucose 195 H POC Glucose Calcium 7.7 L Phosphorus Magnesium Direct Bilirubin AST ALT Lactate Dehydrogenase Total Creatine Kinase 155 H CK-MB (CK-2) 11.4 H CK-MB (CK-2) Rel Index 7.3 H Troponin T 0.177 H* D C-Reactive Protein NT-Pro-B Natriuret Pep Total Protein Albumin Triglycerides Cholesterol HDL Cholesterol Lipase Urine WBC (Auto) Urine Creatinine Miscellaneous Test 11/25/18 11/25/18 11/25/18 08:35 09:47 22:35 WBC 20.8 H RBC Hgb Hct MCHC RDW 17.2 H Plt Count Lymph % (Auto) Armstrong % (Auto) Lymph # Armstrong # Seg Neutrophils % Seg Neuts % (Manual) 79.0 H Lymphocytes % (Manual) 12.0 L Seg Neutrophils # Seg Neutrophils # Man 16.4 H APTT Fibrinogen D-Dimer POC ABG pH POC ABG pCO2 POC ABG pO2 Sodium Potassium Chloride Carbon Dioxide BUN Creatinine Glucose POC Glucose Calcium Phosphorus Magnesium Direct Bilirubin AST ALT Lactate Dehydrogenase Total Creatine Kinase CK-MB (CK-2) CK-MB (CK-2) Rel Index Troponin T 0.157 H* C-Reactive Protein NT-Pro-B Natriuret Pep Total Protein Albumin Triglycerides Cholesterol HDL Cholesterol Lipase Urine WBC (Auto) 37.0 H Urine Creatinine Miscellaneous Test 11/25/18 11/25/18 11/25/18 22:35 22:35 22:44 WBC RBC Hgb Hct MCHC RDW Plt Count Lymph % (Auto) Armstrong % (Auto) Lymph # Armstrong # Seg Neutrophils % Seg Neuts % (Manual) Lymphocytes % (Manual) Seg Neutrophils # Seg Neutrophils # Man APTT 20.7 L Fibrinogen D-Dimer POC ABG pH 7.046 L POC ABG pCO2 > 70 H POC ABG pO2 62 L Sodium Potassium Chloride Carbon Dioxide BUN Creatinine Glucose POC Glucose Calcium Phosphorus Magnesium Direct Bilirubin AST ALT Lactate Dehydrogenase Total Creatine Kinase 267 H CK-MB (CK-2) 9.7 H CK-MB (CK-2) Rel Index Troponin T 0.313 H* D C-Reactive Protein NT-Pro-B Natriuret Pep Total Protein Albumin Triglycerides Cholesterol HDL Cholesterol Lipase Urine WBC (Auto) Urine Creatinine Miscellaneous Test 11/26/18 11/26/18 11/26/18 00:03 01:24 04:28 WBC RBC Hgb Hct MCHC RDW Plt Count Lymph % (Auto) Armstrong % (Auto) Lymph # Armstrong # Seg Neutrophils % Seg Neuts % (Manual) Lymphocytes % (Manual) Seg Neutrophils # Seg Neutrophils # Man APTT Fibrinogen D-Dimer POC ABG pH 7.246 L POC ABG pCO2 47.0 H POC ABG pO2 72 L Sodium Potassium Chloride Carbon Dioxide BUN Creatinine Glucose POC Glucose 152 H Calcium Phosphorus Magnesium Direct Bilirubin AST ALT Lactate Dehydrogenase Total Creatine Kinase CK-MB (CK-2) CK-MB (CK-2) Rel Index Troponin T 0.740 H* D C-Reactive Protein NT-Pro-B Natriuret Pep Total Protein Albumin Triglycerides Cholesterol HDL Cholesterol Lipase Urine WBC (Auto) Urine Creatinine Miscellaneous Test 11/26/18 11/26/18 11/26/18 05:33 05:53 10:19 WBC RBC Hgb Hct MCHC RDW Plt Count Lymph % (Auto) Armstrong % (Auto) Lymph # Armstrong # Seg Neutrophils % Seg Neuts % (Manual) Lymphocytes % (Manual) Seg Neutrophils # Seg Neutrophils # Man APTT Fibrinogen D-Dimer POC ABG pH 7.328 L POC ABG pCO2 POC ABG pO2 256 H Sodium Potassium Chloride Carbon Dioxide BUN Creatinine Glucose POC Glucose 153 H Calcium Phosphorus Magnesium Direct Bilirubin AST ALT Lactate Dehydrogenase Total Creatine Kinase CK-MB (CK-2) CK-MB (CK-2) Rel Index Troponin T C-Reactive Protein NT-Pro-B Natriuret Pep Total Protein Albumin Triglycerides Cholesterol HDL Cholesterol Lipase Urine WBC (Auto) Urine Creatinine 34.9 H Miscellaneous Test 11/26/18 11/26/18 11/26/18 10:38 10:38 12:43 WBC RBC Hgb Hct MCHC RDW Plt Count Lymph % (Auto) Armstrong % (Auto) Lymph # Armstrong # Seg Neutrophils % Seg Neuts % (Manual) Lymphocytes % (Manual) Seg Neutrophils # Seg Neutrophils # Man APTT Fibrinogen D-Dimer POC ABG pH POC ABG pCO2 POC ABG pO2 Sodium 134 L Potassium Chloride Carbon Dioxide 18 L BUN 21 H Creatinine 3.0 H Glucose 166 H POC Glucose Calcium 7.6 L Phosphorus Magnesium Direct Bilirubin AST ALT Lactate Dehydrogenase Total Creatine Kinase 431 H CK-MB (CK-2) CK-MB (CK-2) Rel Index Troponin T 0.473 H* D C-Reactive Protein NT-Pro-B Natriuret Pep 64754 H Total Protein Albumin Triglycerides Cholesterol HDL Cholesterol Lipase Urine WBC (Auto) Urine Creatinine Miscellaneous Test 11/26/18 11/26/18 11/26/18 12:43 13:02 14:11 WBC 16.1 H RBC 3.47 L Hgb Hct MCHC 35 H RDW 17.1 H Plt Count 129 L Lymph % (Auto) Armstrong % (Auto) Lymph # Armstrong # Seg Neutrophils % Seg Neuts % (Manual) Lymphocytes % (Manual) Seg Neutrophils # Seg Neutrophils # Man APTT Fibrinogen D-Dimer POC ABG pH POC ABG pCO2 POC ABG pO2 Sodium Potassium Chloride Carbon Dioxide BUN Creatinine Glucose POC Glucose 163 H Calcium Phosphorus Magnesium Direct Bilirubin AST ALT Lactate Dehydrogenase Total Creatine Kinase CK-MB (CK-2) CK-MB (CK-2) Rel Index Troponin T C-Reactive Protein 14.60 H NT-Pro-B Natriuret Pep Total Protein Albumin Triglycerides Cholesterol HDL Cholesterol Lipase Urine WBC (Auto) Urine Creatinine Miscellaneous Test 11/26/18 11/26/18 11/26/18 17:39 23:02 Unknown WBC RBC Hgb Hct MCHC RDW Plt Count Lymph % (Auto) Armstrong % (Auto) Lymph # Armstrong # Seg Neutrophils % Seg Neuts % (Manual) Lymphocytes % (Manual) Seg Neutrophils # Seg Neutrophils # Man APTT Fibrinogen D-Dimer POC ABG pH POC ABG pCO2 POC ABG pO2 Sodium 134 L D Potassium Chloride 97.9 L Carbon Dioxide 18 L BUN Creatinine 2.3 H D Glucose 225 H POC Glucose 162 H 155 H Calcium 7.4 L Phosphorus Magnesium Direct Bilirubin AST ALT Lactate Dehydrogenase Total Creatine Kinase CK-MB (CK-2) CK-MB (CK-2) Rel Index Troponin T C-Reactive Protein NT-Pro-B Natriuret Pep Total Protein Albumin Triglycerides Cholesterol HDL Cholesterol Lipase Urine WBC (Auto) Urine Creatinine Miscellaneous Test 11/27/18 11/27/18 11/27/18 03:44 03:44 05:07 WBC 14.8 H RBC 3.12 L Hgb 9.8 L Hct 28.5 L MCHC RDW 17.5 H Plt Count 127 L Lymph % (Auto) Armstrong % (Auto) Lymph # Armstrong # Seg Neutrophils % Seg Neuts % (Manual) Lymphocytes % (Manual) Seg Neutrophils # Seg Neutrophils # Man APTT Fibrinogen D-Dimer POC ABG pH POC ABG pCO2 POC ABG pO2 114 H Sodium Potassium 3.0 L Chloride Carbon Dioxide 18 L BUN 28 H Creatinine 3.1 H Glucose 139 H POC Glucose Calcium 7.7 L Phosphorus Magnesium Direct Bilirubin AST ALT Lactate Dehydrogenase Total Creatine Kinase CK-MB (CK-2) CK-MB (CK-2) Rel Index Troponin T C-Reactive Protein NT-Pro-B Natriuret Pep Total Protein 5.3 L Albumin 2.5 L Triglycerides Cholesterol HDL Cholesterol Lipase Urine WBC (Auto) Urine Creatinine Miscellaneous Test 11/27/18 11/27/18 11/27/18 05:36 05:37 12:45 WBC RBC Hgb Hct MCHC RDW Plt Count Lymph % (Auto) Armstrong % (Auto) Lymph # Armstrong # Seg Neutrophils % Seg Neuts % (Manual) Lymphocytes % (Manual) Seg Neutrophils # Seg Neutrophils # Man APTT Fibrinogen D-Dimer POC ABG pH POC ABG pCO2 POC ABG pO2 Sodium Potassium Chloride Carbon Dioxide BUN Creatinine Glucose POC Glucose 151 H 170 H Calcium Phosphorus Magnesium Direct Bilirubin AST ALT Lactate Dehydrogenase Total Creatine Kinase CK-MB (CK-2) CK-MB (CK-2) Rel Index Troponin T C-Reactive Protein NT-Pro-B Natriuret Pep Total Protein Albumin Triglycerides Cholesterol HDL Cholesterol Lipase Urine WBC (Auto) Urine Creatinine Miscellaneous Test Flexitest 1 H 11/27/18 11/27/18 11/27/18 14:24 18:05 23:41 WBC RBC Hgb Hct MCHC RDW Plt Count Lymph % (Auto) Armstrong % (Auto) Lymph # Armstrong # Seg Neutrophils % Seg Neuts % (Manual) Lymphocytes % (Manual) Seg Neutrophils # Seg Neutrophils # Man APTT 21.7 L Fibrinogen 586 H D-Dimer > 76530 H POC ABG pH POC ABG pCO2 POC ABG pO2 Sodium Potassium Chloride Carbon Dioxide BUN Creatinine Glucose POC Glucose 168 H 149 H Calcium Phosphorus Magnesium Direct Bilirubin AST ALT Lactate Dehydrogenase Total Creatine Kinase CK-MB (CK-2) CK-MB (CK-2) Rel Index Troponin T C-Reactive Protein NT-Pro-B Natriuret Pep Total Protein Albumin Triglycerides Cholesterol HDL Cholesterol Lipase Urine WBC (Auto) Urine Creatinine Miscellaneous Test 11/28/18 11/28/18 11/28/18 04:13 04:29 04:29 WBC 17.7 H RBC Hgb Hct MCHC RDW 17.3 H Plt Count Lymph % (Auto) 5.9 L Armstrong % (Auto) 8.2 H Lymph # 1.0 L Armstrong # 1.4 H Seg Neutrophils % 85.6 H Seg Neuts % (Manual) Lymphocytes % (Manual) Seg Neutrophils # 15.2 H Seg Neutrophils # Man APTT Fibrinogen D-Dimer POC ABG pH POC ABG pCO2 < 30 L POC ABG pO2 122 H Sodium 146 H D Potassium 2.8 L* Chloride 108.9 H Carbon Dioxide 17 L BUN 33 H Creatinine 2.3 H Glucose 146 H POC Glucose Calcium Phosphorus Magnesium Direct Bilirubin AST 82 H ALT 83 H Lactate Dehydrogenase Total Creatine Kinase CK-MB (CK-2) CK-MB (CK-2) Rel Index Troponin T C-Reactive Protein NT-Pro-B Natriuret Pep Total Protein 6.2 L Albumin 2.6 L Triglycerides Cholesterol HDL Cholesterol Lipase Urine WBC (Auto) Urine Creatinine Miscellaneous Test 11/28/18 11/28/18 11/28/18 05:26 12:33 12:57 WBC RBC Hgb Hct MCHC RDW Plt Count Lymph % (Auto) Armstrong % (Auto) Lymph # Armstrong # Seg Neutrophils % Seg Neuts % (Manual) Lymphocytes % (Manual) Seg Neutrophils # Seg Neutrophils # Man APTT Fibrinogen D-Dimer POC ABG pH POC ABG pCO2 30.6 L POC ABG pO2 125 H Sodium Potassium Chloride Carbon Dioxide BUN Creatinine Glucose POC Glucose 138 H 140 H Calcium Phosphorus Magnesium Direct Bilirubin AST ALT Lactate Dehydrogenase Total Creatine Kinase CK-MB (CK-2) CK-MB (CK-2) Rel Index Troponin T C-Reactive Protein NT-Pro-B Natriuret Pep Total Protein Albumin Triglycerides Cholesterol HDL Cholesterol Lipase Urine WBC (Auto) Urine Creatinine Miscellaneous Test 11/28/18 11/28/18 11/28/18 18:22 19:02 19:02 WBC RBC Hgb Hct MCHC RDW Plt Count Lymph % (Auto) Armstrong % (Auto) Lymph # Armstrong # Seg Neutrophils % Seg Neuts % (Manual) Lymphocytes % (Manual) Seg Neutrophils # Seg Neutrophils # Man APTT Fibrinogen D-Dimer POC ABG pH POC ABG pCO2 POC ABG pO2 Sodium Potassium 3.5 L D 3.5 L Chloride 111.4 H Carbon Dioxide 17 L BUN 32 H Creatinine 1.7 H Glucose 156 H POC Glucose 156 H Calcium Phosphorus Magnesium Direct Bilirubin AST ALT Lactate Dehydrogenase Total Creatine Kinase CK-MB (CK-2) CK-MB (CK-2) Rel Index Troponin T C-Reactive Protein NT-Pro-B Natriuret Pep Total Protein Albumin Triglycerides Cholesterol HDL Cholesterol Lipase Urine WBC (Auto) Urine Creatinine Miscellaneous Test 11/29/18 11/29/18 11/29/18 03:55 03:55 03:55 WBC RBC Hgb Hct MCHC RDW Plt Count Lymph % (Auto) Armstrong % (Auto) Lymph # Armstrong # Seg Neutrophils % Seg Neuts % (Manual) Lymphocytes % (Manual) Seg Neutrophils # Seg Neutrophils # Man APTT Fibrinogen D-Dimer POC ABG pH POC ABG pCO2 POC ABG pO2 Sodium 150 H Potassium 3.1 L Chloride 115.2 H Carbon Dioxide 20 L BUN 31 H Creatinine 1.6 H Glucose 139 H POC Glucose Calcium Phosphorus 2.20 L Magnesium 2.40 H Direct Bilirubin 0.4 H AST 120 H ALT 175 H Lactate Dehydrogenase Total Creatine Kinase CK-MB (CK-2) CK-MB (CK-2) Rel Index Troponin T C-Reactive Protein NT-Pro-B Natriuret Pep Total Protein 5.6 L Albumin 2.8 L Triglycerides Cholesterol HDL Cholesterol Lipase 170 H Urine WBC (Auto) Urine Creatinine Miscellaneous Test 11/29/18 11/29/18 11/29/18 06:04 11:34 17:10 WBC RBC Hgb Hct MCHC RDW Plt Count Lymph % (Auto) Armstrong % (Auto) Lymph # Armstrong # Seg Neutrophils % Seg Neuts % (Manual) Lymphocytes % (Manual) Seg Neutrophils # Seg Neutrophils # Man APTT Fibrinogen D-Dimer POC ABG pH POC ABG pCO2 POC ABG pO2 Sodium Potassium Chloride Carbon Dioxide BUN Creatinine Glucose POC Glucose 125 H 139 H 165 H Calcium Phosphorus Magnesium Direct Bilirubin AST ALT Lactate Dehydrogenase Total Creatine Kinase CK-MB (CK-2) CK-MB (CK-2) Rel Index Troponin T C-Reactive Protein NT-Pro-B Natriuret Pep Total Protein Albumin Triglycerides Cholesterol HDL Cholesterol Lipase Urine WBC (Auto) Urine Creatinine Miscellaneous Test 11/30/18 11/30/18 11/30/18 04:09 04:09 04:09 WBC 11.5 H RBC 3.64 L Hgb Hct MCHC RDW 17.9 H Plt Count Lymph % (Auto) 11.5 L Armstrong % (Auto) 11.5 H Lymph # Armstrong # 1.3 H Seg Neutrophils % 74.0 H Seg Neuts % (Manual) Lymphocytes % (Manual) Seg Neutrophils # 8.5 H Seg Neutrophils # Man APTT Fibrinogen D-Dimer POC ABG pH POC ABG pCO2 POC ABG pO2 Sodium 152 H Potassium 3.2 L Chloride 116.9 H Carbon Dioxide BUN 24 H Creatinine Glucose 146 H POC Glucose Calcium 8.2 L Phosphorus Magnesium Direct Bilirubin 0.3 H AST 112 H ALT 200 H Lactate Dehydrogenase Total Creatine Kinase CK-MB (CK-2) CK-MB (CK-2) Rel Index Troponin T C-Reactive Protein NT-Pro-B Natriuret Pep Total Protein 5.6 L Albumin 2.7 L Triglycerides Cholesterol HDL Cholesterol Lipase Urine WBC (Auto) Urine Creatinine Miscellaneous Test 11/30/18 05:32 WBC RBC Hgb Hct MCHC RDW Plt Count Lymph % (Auto) Armstrong % (Auto) Lymph # Armstrong # Seg Neutrophils % Seg Neuts % (Manual) Lymphocytes % (Manual) Seg Neutrophils # Seg Neutrophils # Man APTT Fibrinogen D-Dimer POC ABG pH POC ABG pCO2 POC ABG pO2 Sodium Potassium Chloride Carbon Dioxide BUN Creatinine Glucose POC Glucose 141 H Calcium Phosphorus Magnesium Direct Bilirubin AST ALT Lactate Dehydrogenase Total Creatine Kinase CK-MB (CK-2) CK-MB (CK-2) Rel Index Troponin T C-Reactive Protein NT-Pro-B Natriuret Pep Total Protein Albumin Triglycerides Cholesterol HDL Cholesterol Lipase Urine WBC (Auto) Urine Creatinine Miscellaneous Test Chest x-ray: report reviewed, image reviewed
--- NOTE | 2018-11-30 15:14 | Progress Note ---
Assessment and Plan - Patient Problems (1) Acute respiratory failure Current Visit: Yes Status: Acute Qualifiers: Respiratory failure complication: hypoxia Qualified Code(s): J96.01 - Acute respiratory failure with hypoxia (2) Acute renal failure Current Visit: Yes Status: Acute Qualifiers: Acute renal failure type: with acute tubular necrosis Qualified Code(s): N17.0 - Acute kidney failure with tubular necrosis (3) delivery delivered Current Visit: Yes Status: Acute (4) Pulmonary edema Current Visit: Yes Status: Acute Plan to address problem: improved (5) Gestational hypertension Current Visit: Yes Status: Resolved Qualifiers: Trimester: third trimester Qualified Code(s): O13.3 - Gestational [-induced] hypertension without significant proteinuria, third trimester (6) Hypokalemia Current Visit: Yes Status: Acute (7) Elevated LFTs Current Visit: Yes Status: Acute Plan to address problem: stable (8) Elevated troponin Current Visit: Yes Status: Acute (9) Gestational diabetes Current Visit: Yes Status: Acute (10) Rh negative, delivered, current hospitalization Current Visit: Yes Status: Acute (11) 38 weeks gestation of Current Visit: Yes Status: Ruled-out (12) Positive GBS test Current Visit: Yes Status: Acute Subjective - Subjective Date of service: 11/30/18 Principal diagnosis: 1) POD #6 S/P 1LTCS 2)gestatinal hypertension 3) acute resp failure Interval history: Sitting in chair with NG and sipping water and apple juie, no complaints. No bleeding Objective - Vital Signs Latest vital signs: Vital Signs Temp Pulse Resp BP Pulse Ox 11/30/18 13:31 96 H 21 132/89 97 11/30/18 13:00 97 H 21 132/89 99 11/30/18 12:31 103 H 14 125/86 98 11/30/18 12:00 96 H 16 125/86 99 11/30/18 11:31 18 137/92 99 11/30/18 11:00 98 H 14 137/92 98 11/30/18 10:43 81 18 11/30/18 10:00 78 18 151/86 99 11/30/18 09:31 63 12 158/83 99 11/30/18 09:00 76 22 158/83 98 11/30/18 08:31 69 19 153/80 98 11/30/18 08:00 68 18 153/80 98 11/30/18 07:36 100 11/30/18 07:31 91 H 15 148/74 100 11/30/18 07:00 101 H 19 156/92 100 11/30/18 06:31 57 L 17 148/74 100 11/30/18 06:00 70 19 148/74 100 11/30/18 05:31 69 16 159/86 100 11/30/18 05:00 75 18 159/86 100 11/30/18 04:31 74 21 137/71 100 11/30/18 04:00 98.0 F 84 15 137/71 100 11/30/18 03:31 82 12 148/79 100 11/30/18 03:00 83 17 148/79 100 11/30/18 02:30 76 14 153/87 100 11/30/18 02:00 76 16 153/87 100 11/30/18 01:31 59 L 19 139/74 100 11/30/18 01:00 69 19 136/79 100 11/30/18 00:31 61 18 139/74 100 11/30/18 00:01 65 18 139/74 100 11/30/18 00:00 97.0 F L 61 11/29/18 23:31 62 15 170/84 100 11/29/18 23:13 80 15 170/84 100 11/29/18 23:00 66 16 170/84 100 11/29/18 22:31 69 17 153/83 100 11/29/18 22:00 80 23 153/83 100 11/29/18 21:31 87 21 157/75 100 11/29/18 21:00 73 17 157/75 100 11/29/18 20:31 70 16 157/84 100 11/29/18 20:00 98.1 F 70 18 157/84 100 11/29/18 19:31 81 20 159/81 100 11/29/18 19:00 90 36 H 159/81 100 11/29/18 18:31 77 24 140/83 100 11/29/18 18:01 93 H 32 H 140/83 100 11/29/18 17:31 82 21 146/88 100 11/29/18 17:00 96 H 26 H 146/88 100 11/29/18 16:30 105 H 25 H 144/87 100 11/29/18 16:00 103 H 17 150/100 100 11/29/18 15:39 98.6 F 11/29/18 15:30 107 H 21 150/100 100 Intake and Output 11/30/18 11/30/18 11/30/18 06:59 14:59 22:59 Intake Total 963.75 Output Total 1000 250 Balance -36.25 -250 Intake: IV 963.75 D5w 1,000 ml @ 75 mls/hr 963.75 IV DIRECT YING Rx#: [id number] Oral 0 Output: Urine 1000 250 Indwelling Catheter 1000 250 Other: Total, Intake Amount 0 Total, Output Amount 1000 250 Voiding Method Indwelling Catheter Toilet Weight 77.111 kg Patient Weight 12/01/18 06:59 Weight 77.111 kg - Exam Breasts: Present: deferred - Labs Labs: Abnormal lab results 11/29/18 11/30/18 11/30/18 Range/Units 17:10 04:09 04:09 WBC 11.5 H (4.5-11.0) K/mm3 RBC 3.64 L (3.65-5.03) M/mm3 RDW 17.9 H (13.2-15.2) % Lymph % (Auto) 11.5 L (13.4-35.0) % [place] % (Auto) 11.5 H (0.0-7.3) % [place] # 1.3 H (0.0-0.8) K/mm3 Seg Neutrophils % 74.0 H (40.0-70.0) % Seg Neutrophils # 8.5 H (1.8-7.7) K/mm3 Sodium 152 H (137-145) mmol/L Potassium 3.2 L (3.6-5.0) mmol/L Chloride 116.9 H (98-107) mmol/L BUN 24 H (7-17) mg/dL Glucose 146 H (65-100) mg/dL POC Glucose 165 H (70-105) Calcium 8.2 L (8.4-10.2) mg/dL Direct Bilirubin (0-0.2) mg/dL AST (5-40) units/L ALT (7-56) units/L Total Protein (6.3-8.2) g/dL Albumin (3.9-5) g/dL 11/30/18 11/30/18 Range/Units 04:09 05:32 WBC (4.5-11.0) K/mm3 RBC (3.65-5.03) M/mm3 RDW (13.2-15.2) % Lymph % (Auto) (13.4-35.0) % [place] % (Auto) (0.0-7.3) % [place] # (0.0-0.8) K/mm3 Seg Neutrophils % (40.0-70.0) % Seg Neutrophils # (1.8-7.7) K/mm3 Sodium (137-145) mmol/L Potassium (3.6-5.0) mmol/L Chloride (98-107) mmol/L BUN (7-17) mg/dL Glucose (65-100) mg/dL POC Glucose 141 H (70-105) Calcium (8.4-10.2) mg/dL Direct Bilirubin 0.3 H (0-0.2) mg/dL AST 112 H (5-40) units/L ALT 200 H (7-56) units/L Total Protein 5.6 L (6.3-8.2) g/dL Albumin 2.7 L (3.9-5) g/dL
[2018-11-30] MEDS ORDERED: REGLAN PO PRN (19:55)
--- NOTE | 2018-11-30 20:02 | Event Note ---
Date: 11/30/18 With patient's complicated course, she will need telemetry which is unable to be performed on MB unit. S/w Dr. Quintanilla who agrees, will transfer to Surg unit. Patient and family informed of concerns and limitations on MB unit and that her care may be compromised on this unit. Apology given for having to move her again. They voiced understanding and agrees with plan of care.
--- NOTE | 2018-11-30 20:29 | Event Note ---
Date: 11/30/18 Patient's voiced concern for Rhogam adminstration and renal impairment. Explained such risks is low however risks for Rh isoimmunization could be significant to the point where she may not be able to get , may have recurrent SAB in the first or second trimester as well as to ensure she does not make antibodies that may make obtaining a blood transfusion in the future difficult. Offered to allow her to speak with Pediatric Associate tomorrow, he states ok will proceed with Rhogam.
[2018-11-30] MEDS ORDERED: MORPHINE IM PRN (22:52)
[2018-11-30] MEDS: SODIUM CHLORIDE FLUSH SYRINGE 10 ML IV SCH (23:46)
[2018-12-01] MEDS ORDERED: MORPHINE IV PRN (00:16)
[2018-12-01] MEDS: POTASSIUM CHLORIDE FEEDTUBE SCH (00:18)
[2018-12-01] MEDS ORDERED: POTASSIUM CHLORIDE FEEDTUBE SCH (01:00)
[2018-12-01 05:52] LABS: Alanine Aminotransferase 165 units/L (7-56); Albumin 2.8 g/dL (3.9-5); BUN/Creatinine Ratio 18; Blood Urea Nitrogen 18 mg/dL (7-17); Calcium 8.3 mg/dL (8.4-10.2); Hemolysis Index 5
[2018-12-01 06:09] LABS: Bilirubin,Direct < 0.2 mg/dL (0-0.2)
--- NOTE | 2018-12-01 09:10 | Progress Note ---
Assessment and Plan Impression: * MIRIAN with ATN * sepsis * ARDS * post * hypoxemia * Hypernatremia * Hypokalemia Plan: * Renal function has improved significantly. Serum creatinine down to 1.0 today. * Patient remains nonoliguric. * avoid nephrotoxins * Replace potassium PRN * Serum sodium is still elevated . Currently off IV fluids . Resume IV fluid with D5W. Urine sodium is 39 and urine osmolality is 492 . Encourage oral fluid intake. * Hold diuretics for now * Discussed with patient's mother at bedside Subjective Date of service: 12/01/18 Principal diagnosis: 1) POD #4 S/P 1LTCS 2)gestatinal hypertension 3) acute resp failur Interval history: Patient is out of the ICU. Currently on liquid diet. Had several bowel movements. Denies any nausea or vomiting. Objective - Vital Signs Vital signs: Vital Signs - 12hr 11/30/18 11/30/18 12/01/18 23:21 23:50 00:00 Temperature 97.7 F Pulse Rate 89 86 84 Respiratory 18 Rate Blood Pressure Blood Pressure 149/87 [Right] O2 Sat by Pulse 97 Oximetry 12/01/18 12/01/18 06:13 08:36 Temperature 98.0 F 97.6 F Pulse Rate 75 97 H Respiratory 16 18 Rate Blood Pressure 148/81 117/79 Blood Pressure [Right] O2 Sat by Pulse 96 98 Oximetry - General Appearance General appearance: well-developed, well-nourished, appears stated age EENT: PERRL, mucous membranes moist Neck: no JVD, no thyromegaly, no carotid bruit, supple Respiratory: Present: Clear to Ascultation Cardiology: regular, normal heart rate, S1S2, no murmurs Gastrointestinal: normal, normoactive bowel sounds, other (hypogastric incision noted) Integumentary: other (trace edema) - Lab 11/30/18 04:09 12/01/18 05:08 Most recent lab results Calcium 8.3 mg/dL (8.4-10.2) L 12/01/18 05:08 Phosphorus 3.30 mg/dL (2.5-4.5) D 11/30/18 04:59 Magnesium 2.20 mg/dL (1.7-2.3) 11/30/18 04:59 34.9 mg/dL (0.1-20.0) H 11/26/18 10:19 39 mmol/L 11/29/18 16:40 Medications & Allergies - Medications Allergies/Adverse Reactions: Allergies No Known Allergies Allergy (Verified 11/23/18 19:31) Home Medications: Home Medications Medication Instructions Recorded Confirmed Last Taken Type No Known Home Medications [No 11/24/18 11/24/18 Unknown History Reported Home Medications] Active Medications: Generic Name Dose Route Start Last Admin Trade Name Billy PRN Reason Stop Dose Admin Albuterol 2.5 mg 11/29/18 00:12 Proventil IH Q4HRT PRN Shortness Of Breath Magnesium Hydroxide 30 ml 11/24/18 23:16 Milk Of Magnesia PO Q4H PRN Constipation Metoclopramide HCl 10 mg 11/30/18 19:55 Reglan PO Q6H PRN Nausea And Vomiting Morphine Sulfate 2 mg 12/01/18 00:16 12/01/18 00:44 Morphine IV 2 mg Q4H PRN Administration Pain, Moderate (4-6) Multi-Ingred Cream/Lotion/Oil/Oint 1 applic 11/25/18 22:12 Artificial Tears Ophth Oint OU Q4HR PRN Dry Eye(s) Multi-Ingredient Ointment 1 applic 11/24/18 23:16 Lansinoh TP PRN PRN dryness/cracking Pantoprazole Sodium 40 mg 12/01/18 10:00 Protonix PO BID YING Witch Faiza/Glycerin 1 each 11/24/18 23:16 Tucks Pad TP PRN PRN Hemorrhoids/cleansing/soothing
[2018-12-01] MEDS ORDERED: D5W 1,000 ML IV SCH (10:00)
--- NOTE | 2018-12-01 11:07 | Progress Note ---
Assessment and Plan 38 y/o female with history of preeclampsia admitted on 11/23/2018 with 38 weeks gestation with uterine contractions. Patient underwent on 11/24/18 due to failure to dilate, pulmonary edema and gestational hypertension; after she developed acute respiratory failure/ARDS and hypotension, now intubated: 1) Leukocytosis: Improved. likely reactive from labor/ and respiratory failure. No evidence of infectious process thus far. CXR Chest x-ray showed mild cardiomegaly and pulmonary edema. No consolidations. Repeat appears better. CRP: 14.6. DVT scan negative. 2) Acute respiratory failure: CXR with pulmonary edema likely from pre- emclapsia. Doubt pneumonia. No recent vomiting, doubt aspiration. 3) MIRIAN: renal on board. Improving creatinine. 4) ?ileus: [employer] following. 5) ?RLL infiltrate noted on CT abdomen lower lung cuts: small infiltrate. Patient already received about 4-5 days of abx. Off oxygen, WBC improving. continue to avoid additional abx. D/w Dr. Hays yesterday evening. Recommendations: - Clinically stable, continue to monitor off antibiotics Dr. Willams will be environment coordinator this weekend, , please call for questions. [facility] M: [phone] O:[phone] Subjective Date of service: 12/01/18 Principal diagnosis: 1) POD #4 S/P 1LTCS 2)gestatinal hypertension 3) acute resp failur Interval history: Patient seen and examined. No acute distress reported. Sitting up on the side of the bed eating. No fevers . Objective - Exam Narrative Exam: Constitutional: awake, alert, no acute distress Head, Ears, Nose: Normocephalic, atraumatic. External ears, nose normal Eyes: Conjunctivae/corneas clear. No icterus. No ptosis. Neck: Supple, no meningeal signs Cardiovascular: S1, S2 normal. Respiratory: Good air entry, clear to auscultation bilaterally GI: soft, mild tenderness; bowel sounds hypo. No peritoneal signs. Surgical incision c/d/i Musculoskeletal: No pedal edema, no cyanosis. Skin: No rash or abscess Hem/Lymphatic: No palpable cervical or supraclavicular nodes. No lymphangitis Psych: calm. Neurological: awake, alert, oriented - Constitutional Vitals: Vital Signs Temp Pulse Resp BP Pulse Ox 97.6 F 97 H 18 117/79 98 12/01/18 08:36 12/01/18 08:36 12/01/18 08:36 12/01/18 08:36 12/01/18 08:36 Temperature -Last 24 Hours Temperature 97.6 F Temperature 98.0 F Temperature 97.7 F Temperature 98.6 F Temperature 97.7 F Temperature 98.3 F - Labs CBC & Chem 7: 11/30/18 04:09 12/01/18 05:08 Labs: Abnormal lab results 12/01/18 12/01/18 12/01/18 Range/Units 01:43 05:08 05:08 Sodium 150 H (137-145) mmol/L Chloride 116.3 H (98-107) mmol/L BUN 18 H (7-17) mg/dL Glucose 101 H (65-100) mg/dL POC Glucose 123 H (70-105) Calcium 8.3 L (8.4-10.2) mg/dL AST 58 H (5-40) units/L ALT 165 H (7-56) units/L Total Protein 5.5 L (6.3-8.2) g/dL Albumin 2.8 L (3.9-5) g/dL Triglycerides 288 H (2-149) mg/dL Lipase 399 H (13-60) units/L
--- NOTE | 2018-12-01 11:16 | Progress Note ---
Assessment and Plan - Patient Problems (1) 38 weeks gestation of Current Visit: Yes Status: Resolved (2) Prolonged latent phase of labor Current Visit: Yes Status: Resolved (3) Oligohydramnios antepartum Current Visit: Yes Status: Resolved (4) Positive GBS test Current Visit: Yes Status: Resolved (5) SROM (spontaneous rupture of membranes) Current Visit: Yes Status: Ruled-out (6) S/P primary low transverse Current Visit: Yes Status: Acute Plan to address problem: -cont post op care, overall much improved -cont to ADAT as per gen sx recommendations -once tolearating a regular diet will be clear for d/c home from [facility] -will await clearance from other specialities prior to d/c home. (7) Gestational hypertension Current Visit: Yes Status: Resolved Qualifiers: Trimester: third trimester Qualified Code(s): O13.3 - Gestational [-induced] hypertension without significant proteinuria, third trimester (8) Pulmonary edema Current Visit: Yes Status: Acute (9) Acute renal failure Current Visit: Yes Status: Acute Qualifiers: Acute renal failure type: with acute tubular necrosis Qualified Code(s): N17.0 - Acute kidney failure with tubular necrosis (10) Acute respiratory failure Current Visit: Yes Status: Acute Qualifiers: Respiratory failure complication: hypoxia Qualified Code(s): J96.01 - Acute respiratory failure with hypoxia Subjective - Subjective Date of service: 12/01/18 (late entry pt seen at 0845) Principal diagnosis: 1) POD #5 S/P 1LTCS 2)gestatinal hypertension 3) acute resp failur Interval history: pt sitting up eating clear diet. She has no c/o at this time. She did inquire about a breast pump and I advised that I would check all medications she is on to see if she can breast feed and if not she can pump and dump until she is able to use the breast milk. Pt and her mother expressed understanding. Neprologist at bedside at time of my visit and again her questions were addressed and answered.Stressed that while she is stable from an ob standpoint, she will need clearance from all the other specialties that are caring for her before she is dc home. Pt and mother expressed understanding. Patient reports: appetite normal, voiding normally, pain well controlled, flatus, ambulating normally, no dizzy ambulation : doing well Objective - Vital Signs Latest vital signs: Vital Signs Temp Pulse Resp BP BP Pulse Ox 12/01/18 08:36 97.6 F 97 H 18 117/79 98 12/01/18 06:13 98.0 F 75 16 148/81 96 12/01/18 00:00 84 11/30/18 23:50 97.7 F 86 18 149/87 11/30/18 23:21 89 97 11/30/18 20:40 98.6 F 108 H 18 126/89 98 11/30/18 15:20 97.7 F 79 18 158/91 99 11/30/18 14:00 94 H 18 130/88 96 11/30/18 13:31 96 H 21 132/89 97 11/30/18 13:00 97 H 21 132/89 99 11/30/18 12:31 103 H 14 125/86 98 11/30/18 12:00 98.3 F 96 H 16 125/86 99 11/30/18 11:31 18 137/92 99 Intake and Output 11/30/18 12/01/18 12/01/18 22:59 06:59 14:59 Intake Total 240 Balance 240 Intake: Oral 240 Other: Total, Intake Amount 240 Voiding Method Toilet Weight 77.111 kg - Exam Abdomen: Present: normal appearance, soft, normal bowel sounds (decreased but present). Absent: tenderness, guarding Uterus: Present: normal, firm, fundal height below umbilicus. Absent: bogginess, tenderness Extremities: Present: normal, edema (bilaterally not calf tenderness very mild). Absent: tenderness Incision: Present: normal, dry, intact - Labs Labs: Abnormal lab results 12/01/18 12/01/18 12/01/18 Range/Units 01:43 05:08 05:08 Sodium 150 H (137-145) mmol/L Chloride 116.3 H (98-107) mmol/L BUN 18 H (7-17) mg/dL Glucose 101 H (65-100) mg/dL POC Glucose 123 H (70-105) Calcium 8.3 L (8.4-10.2) mg/dL AST 58 H (5-40) units/L ALT 165 H (7-56) units/L Total Protein 5.5 L (6.3-8.2) g/dL Albumin 2.8 L (3.9-5) g/dL Triglycerides 288 H (2-149) mg/dL Lipase 399 H (13-60) units/L
--- NOTE | 2018-12-01 11:47 | Progress Note ---
Assessment and Plan Imp: 1. S/p for intrauterine at 38 weeks 2. Pulmonary edema -> probably combined cardiogenic and non-cardiogenic (rapid yet incomplete improvement), the former perhaps related to periods of elevated BP/IVFs and the latter of ? etiology (DDx includes aspiration, sepsis, AFE) 3. Acute respiratory failure, hypoxia 4. MIRIAN 5. Thrombocytopenia of ? etiology 6. Ileus 7. Hypernatremia 8. Hypokalemia 9. Transaminitis 10. Anion-gap metabolic acidosis, presumed related to #4 at this point 11. ? Acute pancreatitis Rec: 1. Cultures are negative; CT a/p shows RLL infiltrate, possibly aspiration; completed a course of Cefipime per ID, and respiratory status is improving, so agree w/ holding further ABX for now 2. On RA; monitor respiratory status 3. SCDs while in bed; ambulatory now 4. Would optimize blood pressure given grade III diastolic dysfunction noted in Echo report 5. K repleted; can correct sodium with PO water intake 6. Lipase still elevated; LFTs improving; f/u general surgery recommendations 7. Drastically improved pulmonary-barajas and she can go home from our standpoint, but we will cont. to monitor w/ you Plan of care reviewed w/ family in detail, they understand/agree; all questions have been answered Subjective Date of service: 12/01/18 Principal diagnosis: 1) POD #4 S/P 1LTCS 2)gestatinal hypertension 3) acute resp failur Interval history: On RA. No SOB, chest pain, wheezing, N/V. NG out, tolerated clear liquids. OOB to chair. Active Medications Albuterol (Proventil) 2.5 mg IH Q4HRT PRN PRN Reason: Shortness Of Breath Dextrose (D5w) 1,000 mls @ 60 mls/hr IV DIRECT YING Magnesium Hydroxide (Milk Of Magnesia) 30 ml PO Q4H PRN PRN Reason: Constipation Metoclopramide HCl (Reglan) 10 mg PO Q6H PRN PRN Reason: Nausea And Vomiting Morphine Sulfate (Morphine) 2 mg IV Q4H PRN PRN Reason: Pain, Moderate (4-6) Last Admin: 12/01/18 00:44 Dose: 2 mg Documented by: Multi-Ingred Cream/Lotion/Oil/Oint (Artificial Tears Ophth Oint) 1 applic OU Q4HR PRN PRN Reason: Dry Eye(s) Multi-Ingredient Ointment (Lansinoh) 1 applic TP PRN PRN PRN Reason: dryness/cracking Pantoprazole Sodium (Protonix) 40 mg PO BID YING Witch Faiza/Glycerin (Tucks Pad) 1 each TP PRN PRN PRN Reason: Hemorrhoids/cleansing/soothing Objective Vital Signs - 12hr 11/30/18 12/01/18 12/01/18 23:50 00:00 06:13 Temperature 97.7 F 98.0 F Pulse Rate 86 84 75 Respiratory 18 16 Rate Blood Pressure 148/81 Blood Pressure 149/87 [Right] O2 Sat by Pulse 96 Oximetry 12/01/18 08:36 Temperature 97.6 F Pulse Rate 97 H Respiratory 18 Rate Blood Pressure 117/79 Blood Pressure [Right] O2 Sat by Pulse 98 Oximetry Constitutional: no acute distress, alert Eyes: non-icteric ENT: oropharynx moist Neck: supple Effort: normal Ascultation: Bilateral: clear Cardiovascular: regular rate and rhythm (no mrg) Gastrointestinal: normoactive bowel sounds, soft, other (distended, mildly TTP; no guarding/rebound) Integumentary: normal Extremities: no cyanosis, no edema, pink and warm Neurologic: normal mental status, non-focal exam, pupils equal and round, CN II- XII normal Psychiatric: mood appropriate, affect normal CBC and BMP: 11/30/18 04:09 12/01/18 05:08 ABG, PT/INR, D-dimer: ABG POC ABG pH 7.400 (7.35-7.45) 11/28/18 12:57 POC ABG pCO2 30.6 (35-45) L 11/28/18 12:57 POC ABG pO2 125 (80-105) H 11/28/18 12:57 POC ABG HCO3 19.0 (22-26 mml/L) 11/28/18 12:57 POC ABG Total CO2 20 (23-27mmol/L) 11/28/18 12:57 POC ABG O2 Sat 99 11/28/18 12:57 PT/INR, D-dimer PT 13.2 Sec. (12.2-14.9) 11/27/18 14:24 INR 1.03 (0.87-1.13) 11/27/18 14:24 > 49089 ng/mlDDU (0-234) H 11/27/18 14:24 Abnormal lab findings: Abnormal Labs 11/23/18 11/24/18 11/24/18 19:45 16:12 16:12 WBC 12.3 H 16.3 H RBC Hgb Hct MCHC RDW 16.9 H 16.6 H Plt Count Lymph % (Auto) [place] % (Auto) Lymph # [place] # Seg Neutrophils % Seg Neuts % (Manual) Lymphocytes % (Manual) Seg Neutrophils # Seg Neutrophils # Man APTT Fibrinogen D-Dimer POC ABG pH POC ABG pCO2 POC ABG pO2 Sodium Potassium Chloride Carbon Dioxide BUN Creatinine 0.5 L Glucose POC Glucose Calcium Phosphorus Magnesium Direct Bilirubin AST ALT Lactate Dehydrogenase 248 H Total Creatine Kinase CK-MB (CK-2) CK-MB (CK-2) Rel Index Troponin T C-Reactive Protein NT-Pro-B Natriuret Pep Total Protein Albumin Triglycerides Cholesterol HDL Cholesterol Lipase Urine WBC (Auto) Urine Creatinine Miscellaneous Test 11/24/18 11/24/18 11/24/18 23:41 23:41 23:41 WBC 18.3 H RBC Hgb Hct MCHC RDW 16.6 H Plt Count Lymph % (Auto) 3.5 L [place] % (Auto) 7.7 H Lymph # 0.6 L [place] # 1.4 H Seg Neutrophils % 88.7 H Seg Neuts % (Manual) Lymphocytes % (Manual) Seg Neutrophils # 16.2 H Seg Neutrophils # Man APTT Fibrinogen D-Dimer POC ABG pH POC ABG pCO2 POC ABG pO2 Sodium Potassium Chloride Carbon Dioxide BUN Creatinine Glucose POC Glucose Calcium Phosphorus Magnesium Direct Bilirubin AST ALT Lactate Dehydrogenase Total Creatine Kinase CK-MB (CK-2) CK-MB (CK-2) Rel Index Troponin T 0.274 H* C-Reactive Protein NT-Pro-B Natriuret Pep 5198 H Total Protein Albumin Triglycerides 540 H Cholesterol 291 H HDL Cholesterol 60 H Lipase Urine WBC (Auto) Urine Creatinine Miscellaneous Test 11/24/18 11/25/18 11/25/18 23:41 04:40 04:40 WBC RBC Hgb Hct MCHC RDW Plt Count Lymph % (Auto) [place] % (Auto) Lymph # [place] # Seg Neutrophils % Seg Neuts % (Manual) Lymphocytes % (Manual) Seg Neutrophils # Seg Neutrophils # Man APTT Fibrinogen D-Dimer POC ABG pH POC ABG pCO2 POC ABG pO2 Sodium Potassium Chloride 108.3 H Carbon Dioxide 21 L BUN Creatinine Glucose 195 H POC Glucose Calcium 7.7 L Phosphorus Magnesium Direct Bilirubin AST ALT Lactate Dehydrogenase Total Creatine Kinase 155 H CK-MB (CK-2) 11.4 H CK-MB (CK-2) Rel Index 7.3 H Troponin T 0.177 H* D C-Reactive Protein NT-Pro-B Natriuret Pep Total Protein Albumin Triglycerides Cholesterol HDL Cholesterol Lipase Urine WBC (Auto) Urine Creatinine Miscellaneous Test 11/25/18 11/25/18 11/25/18 08:35 09:47 22:35 WBC 20.8 H RBC Hgb Hct MCHC RDW 17.2 H Plt Count Lymph % (Auto) [place] % (Auto) Lymph # [place] # Seg Neutrophils % Seg Neuts % (Manual) 79.0 H Lymphocytes % (Manual) 12.0 L Seg Neutrophils # Seg Neutrophils # Man 16.4 H APTT Fibrinogen D-Dimer POC ABG pH POC ABG pCO2 POC ABG pO2 Sodium Potassium Chloride Carbon Dioxide BUN Creatinine Glucose POC Glucose Calcium Phosphorus Magnesium Direct Bilirubin AST ALT Lactate Dehydrogenase Total Creatine Kinase CK-MB (CK-2) CK-MB (CK-2) Rel Index Troponin T 0.157 H* C-Reactive Protein NT-Pro-B Natriuret Pep Total Protein Albumin Triglycerides Cholesterol HDL Cholesterol Lipase Urine WBC (Auto) 37.0 H Urine Creatinine Miscellaneous Test 11/25/18 11/25/18 11/25/18 22:35 22:35 22:44 WBC RBC Hgb Hct MCHC RDW Plt Count Lymph % (Auto) [place] % (Auto) Lymph # [place] # Seg Neutrophils % Seg Neuts % (Manual) Lymphocytes % (Manual) Seg Neutrophils # Seg Neutrophils # Man APTT 20.7 L Fibrinogen D-Dimer POC ABG pH 7.046 L POC ABG pCO2 > 70 H POC ABG pO2 62 L Sodium Potassium Chloride Carbon Dioxide BUN Creatinine Glucose POC Glucose Calcium Phosphorus Magnesium Direct Bilirubin AST ALT Lactate Dehydrogenase Total Creatine Kinase 267 H CK-MB (CK-2) 9.7 H CK-MB (CK-2) Rel Index Troponin T 0.313 H* D C-Reactive Protein NT-Pro-B Natriuret Pep Total Protein Albumin Triglycerides Cholesterol HDL Cholesterol Lipase Urine WBC (Auto) Urine Creatinine Miscellaneous Test 11/26/18 11/26/18 11/26/18 00:03 01:24 04:28 WBC RBC Hgb Hct MCHC RDW Plt Count Lymph % (Auto) [place] % (Auto) Lymph # [place] # Seg Neutrophils % Seg Neuts % (Manual) Lymphocytes % (Manual) Seg Neutrophils # Seg Neutrophils # Man APTT Fibrinogen D-Dimer POC ABG pH 7.246 L POC ABG pCO2 47.0 H POC ABG pO2 72 L Sodium Potassium Chloride Carbon Dioxide BUN Creatinine Glucose POC Glucose 152 H Calcium Phosphorus Magnesium Direct Bilirubin AST ALT Lactate Dehydrogenase Total Creatine Kinase CK-MB (CK-2) CK-MB (CK-2) Rel Index Troponin T 0.740 H* D C-Reactive Protein NT-Pro-B Natriuret Pep Total Protein Albumin Triglycerides Cholesterol HDL Cholesterol Lipase Urine WBC (Auto) Urine Creatinine Miscellaneous Test 11/26/18 11/26/18 11/26/18 05:33 05:53 10:19 WBC RBC Hgb Hct MCHC RDW Plt Count Lymph % (Auto) [place] % (Auto) Lymph # [place] # Seg Neutrophils % Seg Neuts % (Manual) Lymphocytes % (Manual) Seg Neutrophils # Seg Neutrophils # Man APTT Fibrinogen D-Dimer POC ABG pH 7.328 L POC ABG pCO2 POC ABG pO2 256 H Sodium Potassium Chloride Carbon Dioxide BUN Creatinine Glucose POC Glucose 153 H Calcium Phosphorus Magnesium Direct Bilirubin AST ALT Lactate Dehydrogenase Total Creatine Kinase CK-MB (CK-2) CK-MB (CK-2) Rel Index Troponin T C-Reactive Protein NT-Pro-B Natriuret Pep Total Protein Albumin Triglycerides Cholesterol HDL Cholesterol Lipase Urine WBC (Auto) Urine Creatinine 34.9 H Miscellaneous Test 11/26/18 11/26/18 11/26/18 10:38 10:38 12:43 WBC RBC Hgb Hct MCHC RDW Plt Count Lymph % (Auto) [place] % (Auto) Lymph # [place] # Seg Neutrophils % Seg Neuts % (Manual) Lymphocytes % (Manual) Seg Neutrophils # Seg Neutrophils # Man APTT Fibrinogen D-Dimer POC ABG pH POC ABG pCO2 POC ABG pO2 Sodium 134 L Potassium Chloride Carbon Dioxide 18 L BUN 21 H Creatinine 3.0 H Glucose 166 H POC Glucose Calcium 7.6 L Phosphorus Magnesium Direct Bilirubin AST ALT Lactate Dehydrogenase Total Creatine Kinase 431 H CK-MB (CK-2) CK-MB (CK-2) Rel Index Troponin T 0.473 H* D C-Reactive Protein NT-Pro-B Natriuret Pep 83314 H Total Protein Albumin Triglycerides Cholesterol HDL Cholesterol Lipase Urine WBC (Auto) Urine Creatinine Miscellaneous Test 11/26/18 11/26/18 11/26/18 12:43 13:02 14:11 WBC 16.1 H RBC 3.47 L Hgb Hct MCHC 35 H RDW 17.1 H Plt Count 129 L Lymph % (Auto) [place] % (Auto) Lymph # [place] # Seg Neutrophils % Seg Neuts % (Manual) Lymphocytes % (Manual) Seg Neutrophils # Seg Neutrophils # Man APTT Fibrinogen D-Dimer POC ABG pH POC ABG pCO2 POC ABG pO2 Sodium Potassium Chloride Carbon Dioxide BUN Creatinine Glucose POC Glucose 163 H Calcium Phosphorus Magnesium Direct Bilirubin AST ALT Lactate Dehydrogenase Total Creatine Kinase CK-MB (CK-2) CK-MB (CK-2) Rel Index Troponin T C-Reactive Protein 14.60 H NT-Pro-B Natriuret Pep Total Protein Albumin Triglycerides Cholesterol HDL Cholesterol Lipase Urine WBC (Auto) Urine Creatinine Miscellaneous Test 11/26/18 11/26/18 11/26/18 17:39 23:02 Unknown WBC RBC Hgb Hct MCHC RDW Plt Count Lymph % (Auto) [place] % (Auto) Lymph # [place] # Seg Neutrophils % Seg Neuts % (Manual) Lymphocytes % (Manual) Seg Neutrophils # Seg Neutrophils # Man APTT Fibrinogen D-Dimer POC ABG pH POC ABG pCO2 POC ABG pO2 Sodium 134 L D Potassium Chloride 97.9 L Carbon Dioxide 18 L BUN Creatinine 2.3 H D Glucose 225 H POC Glucose 162 H 155 H Calcium 7.4 L Phosphorus Magnesium Direct Bilirubin AST ALT Lactate Dehydrogenase Total Creatine Kinase CK-MB (CK-2) CK-MB (CK-2) Rel Index Troponin T C-Reactive Protein NT-Pro-B Natriuret Pep Total Protein Albumin Triglycerides Cholesterol HDL Cholesterol Lipase Urine WBC (Auto) Urine Creatinine Miscellaneous Test 11/27/18 11/27/18 11/27/18 03:44 03:44 05:07 WBC 14.8 H RBC 3.12 L Hgb 9.8 L Hct 28.5 L MCHC RDW 17.5 H Plt Count 127 L Lymph % (Auto) [place] % (Auto) Lymph # [place] # Seg Neutrophils % Seg Neuts % (Manual) Lymphocytes % (Manual) Seg Neutrophils # Seg Neutrophils # Man APTT Fibrinogen D-Dimer POC ABG pH POC ABG pCO2 POC ABG pO2 114 H Sodium Potassium 3.0 L Chloride Carbon Dioxide 18 L BUN 28 H Creatinine 3.1 H Glucose 139 H POC Glucose Calcium 7.7 L Phosphorus Magnesium Direct Bilirubin AST ALT Lactate Dehydrogenase Total Creatine Kinase CK-MB (CK-2) CK-MB (CK-2) Rel Index Troponin T C-Reactive Protein NT-Pro-B Natriuret Pep Total Protein 5.3 L Albumin 2.5 L Triglycerides Cholesterol HDL Cholesterol Lipase Urine WBC (Auto) Urine Creatinine Miscellaneous Test 11/27/18 11/27/18 11/27/18 05:36 05:37 12:45 WBC RBC Hgb Hct MCHC RDW Plt Count Lymph % (Auto) [place] % (Auto) Lymph # [place] # Seg Neutrophils % Seg Neuts % (Manual) Lymphocytes % (Manual) Seg Neutrophils # Seg Neutrophils # Man APTT Fibrinogen D-Dimer POC ABG pH POC ABG pCO2 POC ABG pO2 Sodium Potassium Chloride Carbon Dioxide BUN Creatinine Glucose POC Glucose 151 H 170 H Calcium Phosphorus Magnesium Direct Bilirubin AST ALT Lactate Dehydrogenase Total Creatine Kinase CK-MB (CK-2) CK-MB (CK-2) Rel Index Troponin T C-Reactive Protein NT-Pro-B Natriuret Pep Total Protein Albumin Triglycerides Cholesterol HDL Cholesterol Lipase Urine WBC (Auto) Urine Creatinine Miscellaneous Test Flexitest 1 H 11/27/18 11/27/18 11/27/18 14:24 18:05 23:41 WBC RBC Hgb Hct MCHC RDW Plt Count Lymph % (Auto) [place] % (Auto) Lymph # [place] # Seg Neutrophils % Seg Neuts % (Manual) Lymphocytes % (Manual) Seg Neutrophils # Seg Neutrophils # Man APTT 21.7 L Fibrinogen 586 H D-Dimer > 11970 H POC ABG pH POC ABG pCO2 POC ABG pO2 Sodium Potassium Chloride Carbon Dioxide BUN Creatinine Glucose POC Glucose 168 H 149 H Calcium Phosphorus Magnesium Direct Bilirubin AST ALT Lactate Dehydrogenase Total Creatine Kinase CK-MB (CK-2) CK-MB (CK-2) Rel Index Troponin T C-Reactive Protein NT-Pro-B Natriuret Pep Total Protein Albumin Triglycerides Cholesterol HDL Cholesterol Lipase Urine WBC (Auto) Urine Creatinine Miscellaneous Test 11/28/18 11/28/18 11/28/18 04:13 04:29 04:29 WBC 17.7 H RBC Hgb Hct MCHC RDW 17.3 H Plt Count Lymph % (Auto) 5.9 L [place] % (Auto) 8.2 H Lymph # 1.0 L [place] # 1.4 H Seg Neutrophils % 85.6 H Seg Neuts % (Manual) Lymphocytes % (Manual) Seg Neutrophils # 15.2 H Seg Neutrophils # Man APTT Fibrinogen D-Dimer POC ABG pH POC ABG pCO2 < 30 L POC ABG pO2 122 H Sodium 146 H D Potassium 2.8 L* Chloride 108.9 H Carbon Dioxide 17 L BUN 33 H Creatinine 2.3 H Glucose 146 H POC Glucose Calcium Phosphorus Magnesium Direct Bilirubin AST 82 H ALT 83 H Lactate Dehydrogenase Total Creatine Kinase CK-MB (CK-2) CK-MB (CK-2) Rel Index Troponin T C-Reactive Protein NT-Pro-B Natriuret Pep Total Protein 6.2 L Albumin 2.6 L Triglycerides Cholesterol HDL Cholesterol Lipase Urine WBC (Auto) Urine Creatinine Miscellaneous Test 11/28/18 11/28/18 11/28/18 05:26 12:33 12:57 WBC RBC Hgb Hct MCHC RDW Plt Count Lymph % (Auto) [place] % (Auto) Lymph # [place] # Seg Neutrophils % Seg Neuts % (Manual) Lymphocytes % (Manual) Seg Neutrophils # Seg Neutrophils # Man APTT Fibrinogen D-Dimer POC ABG pH POC ABG pCO2 30.6 L POC ABG pO2 125 H Sodium Potassium Chloride Carbon Dioxide BUN Creatinine Glucose POC Glucose 138 H 140 H Calcium Phosphorus Magnesium Direct Bilirubin AST ALT Lactate Dehydrogenase Total Creatine Kinase CK-MB (CK-2) CK-MB (CK-2) Rel Index Troponin T C-Reactive Protein NT-Pro-B Natriuret Pep Total Protein Albumin Triglycerides Cholesterol HDL Cholesterol Lipase Urine WBC (Auto) Urine Creatinine Miscellaneous Test 11/28/18 11/28/18 11/28/18 18:22 19:02 19:02 WBC RBC Hgb Hct MCHC RDW Plt Count Lymph % (Auto) [place] % (Auto) Lymph # [place] # Seg Neutrophils % Seg Neuts % (Manual) Lymphocytes % (Manual) Seg Neutrophils # Seg Neutrophils # Man APTT Fibrinogen D-Dimer POC ABG pH POC ABG pCO2 POC ABG pO2 Sodium Potassium 3.5 L D 3.5 L Chloride 111.4 H Carbon Dioxide 17 L BUN 32 H Creatinine 1.7 H Glucose 156 H POC Glucose 156 H Calcium Phosphorus Magnesium Direct Bilirubin AST ALT Lactate Dehydrogenase Total Creatine Kinase CK-MB (CK-2) CK-MB (CK-2) Rel Index Troponin T C-Reactive Protein NT-Pro-B Natriuret Pep Total Protein Albumin Triglycerides Cholesterol HDL Cholesterol Lipase Urine WBC (Auto) Urine Creatinine Miscellaneous Test 11/29/18 11/29/18 11/29/18 03:55 03:55 03:55 WBC RBC Hgb Hct MCHC RDW Plt Count Lymph % (Auto) [place] % (Auto) Lymph # [place] # Seg Neutrophils % Seg Neuts % (Manual) Lymphocytes % (Manual) Seg Neutrophils # Seg Neutrophils # Man APTT Fibrinogen D-Dimer POC ABG pH POC ABG pCO2 POC ABG pO2 Sodium 150 H Potassium 3.1 L Chloride 115.2 H Carbon Dioxide 20 L BUN 31 H Creatinine 1.6 H Glucose 139 H POC Glucose Calcium Phosphorus 2.20 L Magnesium 2.40 H Direct Bilirubin 0.4 H AST 120 H ALT 175 H Lactate Dehydrogenase Total Creatine Kinase CK-MB (CK-2) CK-MB (CK-2) Rel Index Troponin T C-Reactive Protein NT-Pro-B Natriuret Pep Total Protein 5.6 L Albumin 2.8 L Triglycerides Cholesterol HDL Cholesterol Lipase 170 H Urine WBC (Auto) Urine Creatinine Miscellaneous Test 11/29/18 11/29/18 11/29/18 06:04 11:34 17:10 WBC RBC Hgb Hct MCHC RDW Plt Count Lymph % (Auto) [place] % (Auto) Lymph # [place] # Seg Neutrophils % Seg Neuts % (Manual) Lymphocytes % (Manual) Seg Neutrophils # Seg Neutrophils # Man APTT Fibrinogen D-Dimer POC ABG pH POC ABG pCO2 POC ABG pO2 Sodium Potassium Chloride Carbon Dioxide BUN Creatinine Glucose POC Glucose 125 H 139 H 165 H Calcium Phosphorus Magnesium Direct Bilirubin AST ALT Lactate Dehydrogenase Total Creatine Kinase CK-MB (CK-2) CK-MB (CK-2) Rel Index Troponin T C-Reactive Protein NT-Pro-B Natriuret Pep Total Protein Albumin Triglycerides Cholesterol HDL Cholesterol Lipase Urine WBC (Auto) Urine Creatinine Miscellaneous Test 11/30/18 11/30/18 11/30/18 04:09 04:09 04:09 WBC 11.5 H RBC 3.64 L Hgb Hct MCHC RDW 17.9 H Plt Count Lymph % (Auto) 11.5 L [place] % (Auto) 11.5 H Lymph # [place] # 1.3 H Seg Neutrophils % 74.0 H Seg Neuts % (Manual) Lymphocytes % (Manual) Seg Neutrophils # 8.5 H Seg Neutrophils # Man APTT Fibrinogen D-Dimer POC ABG pH POC ABG pCO2 POC ABG pO2 Sodium 152 H Potassium 3.2 L Chloride 116.9 H Carbon Dioxide BUN 24 H Creatinine Glucose 146 H POC Glucose Calcium 8.2 L Phosphorus Magnesium Direct Bilirubin 0.3 H AST 112 H ALT 200 H Lactate Dehydrogenase Total Creatine Kinase CK-MB (CK-2) CK-MB (CK-2) Rel Index Troponin T C-Reactive Protein NT-Pro-B Natriuret Pep Total Protein 5.6 L Albumin 2.7 L Triglycerides Cholesterol HDL Cholesterol Lipase Urine WBC (Auto) Urine Creatinine Miscellaneous Test 11/30/18 12/01/18 12/01/18 05:32 01:43 05:08 WBC RBC Hgb Hct MCHC RDW Plt Count Lymph % (Auto) [place] % (Auto) Lymph # [place] # Seg Neutrophils % Seg Neuts % (Manual) Lymphocytes % (Manual) Seg Neutrophils # Seg Neutrophils # Man APTT Fibrinogen D-Dimer POC ABG pH POC ABG pCO2 POC ABG pO2 Sodium 150 H Potassium Chloride 116.3 H Carbon Dioxide BUN 18 H Creatinine Glucose 101 H POC Glucose 141 H 123 H Calcium 8.3 L Phosphorus Magnesium Direct Bilirubin AST 58 H ALT 165 H Lactate Dehydrogenase Total Creatine Kinase CK-MB (CK-2) CK-MB (CK-2) Rel Index Troponin T C-Reactive Protein NT-Pro-B Natriuret Pep Total Protein 5.5 L Albumin 2.8 L Triglycerides Cholesterol HDL Cholesterol Lipase Urine WBC (Auto) Urine Creatinine Miscellaneous Test 12/01/18 05:08 WBC RBC Hgb Hct MCHC RDW Plt Count Lymph % (Auto) [place] % (Auto) Lymph # [place] # Seg Neutrophils % Seg Neuts % (Manual) Lymphocytes % (Manual) Seg Neutrophils # Seg Neutrophils # Man APTT Fibrinogen D-Dimer POC ABG pH POC ABG pCO2 POC ABG pO2 Sodium Potassium Chloride Carbon Dioxide BUN Creatinine Glucose POC Glucose Calcium Phosphorus Magnesium Direct Bilirubin AST ALT Lactate Dehydrogenase Total Creatine Kinase CK-MB (CK-2) CK-MB (CK-2) Rel Index Troponin T C-Reactive Protein NT-Pro-B Natriuret Pep Total Protein Albumin Triglycerides 288 H Cholesterol HDL Cholesterol Lipase 399 H Urine WBC (Auto) Urine Creatinine Miscellaneous Test Chest x-ray: report reviewed, image reviewed
[2018-12-01] MEDS: PROTONIX PO SCH ×2 (12:11→22:06)
[2018-12-01] MEDS ORDERED: ULTRAM PO PRN (14:42)
--- NOTE | 2018-12-01 15:12 | Progress Note ---
Assessment and Plan Acute resp failure s/p intubated 11/25, placed on vent - likely ARDS with Pulmonary edema- noncardiogenic, pulmonary following - Patient was given Lasix, Echo reports a normal left ventricular size and function LVEF 45-50%. - s/p extubation on 11/28 Nausea/vomiting with abdominal distension - NPO, s/p NG suction on clamped, serial abdominal xry - shows distended bowels w/o free air - CT abdomen showed extensive colonic dilatation, consulted GS - no surgical intervention needed - tolerating diet now Labile blood pressure Sinus tachycardia s/p on 11/24/18 GBS positive History of herpes simplex 2 History of preeclampsia MIRIAN probably ATN from hypotension Leukocytosis - Continue supportive care Nephrology following, monitor BMP Routine pulm toileting Cardiology following Pulmonology following On Empiric Cefepime , ID following DVT PPX on Lovenox Medically stable. d/c planning Brief History: 38-year-old female who is s/p on 11/24/18. Patient was transferred to IMCU for management of pulmonary edema. Chest x-ray showed mild cardiomegaly and pulmonary edema. She was given lasix. On night of 11/25, worse respiratory distress, rapid response team called and she was intubated put on vent. Also now has MIRIAN, managed by nephrology. Pulmonary edema thought to be non cardiogenic, likely ARDS. Patient transferred to ICU, extubated on 11/28. Now developed N/V/abdominal distension since the day of extubation. CT abdomen showed extensive colonic dilatation with gas, no obstruction, surgery recommended medical Mx. d/c planning per primary Hospitalist Physical Gen: Not in acute distress, lying in bed, HEENT: Normocephalic, atraumatic Neck: supple, no JVD Heart: S1 and S2 reg, no murmurs, rubs or gallop Lungs: no Bilateral crackles, no wheeze Abd: soft, non tender, distended, + BS Ext: No edema, no clubbing, no cyanosis, Neuro: arouseable, follows commands, moves all ext Subjective Date of service: 12/01/18 Principal diagnosis: 1) POD #4 S/P 1LTCS 2)gestatinal hypertension 3) acute resp failur Interval history: Patient seen and examined no N/V, having BM no abdominal pain Objective - Constitutional Vitals: Vital Signs - 12hr 12/01/18 12/01/18 12/01/18 06:13 08:36 12:13 Temperature 98.0 F 97.6 F 97.8 F Pulse Rate 75 97 H 100 H Respiratory 16 18 18 Rate Blood Pressure 148/81 117/79 134/84 O2 Sat by Pulse 96 98 99 Oximetry - Labs CBC & Chem 7: 11/30/18 04:09 12/02/18 04:14 Labs: Abnormal lab results 12/01/18 12/01/18 12/01/18 Range/Units 01:43 05:08 05:08 Sodium 150 H (137-145) mmol/L Chloride 116.3 H (98-107) mmol/L BUN 18 H (7-17) mg/dL Glucose 101 H (65-100) mg/dL POC Glucose 123 H (70-105) Calcium 8.3 L (8.4-10.2) mg/dL AST 58 H (5-40) units/L ALT 165 H (7-56) units/L Total Protein 5.5 L (6.3-8.2) g/dL Albumin 2.8 L (3.9-5) g/dL Triglycerides 288 H (2-149) mg/dL Lipase 399 H (13-60) units/L 12/01/18 Range/Units 13:24 Sodium (137-145) mmol/L Chloride (98-107) mmol/L BUN (7-17) mg/dL Glucose (65-100) mg/dL POC Glucose 141 H (70-105) Calcium (8.4-10.2) mg/dL AST (5-40) units/L ALT (7-56) units/L Total Protein (6.3-8.2) g/dL Albumin (3.9-5) g/dL Triglycerides (2-149) mg/dL Lipase (13-60) units/L
--- NOTE | 2018-12-01 15:21 | Progress Note ---
Assessment and Plan 38 yo F with colonic distension, post op csection Plan: 1. Colonic distension likely post operative and related to electrolyte abnormalities. Ct A/P images reviewed as well as report and no obstruction seen. Patient having BMs and passing flatus 2. c/w clears today, adv to full liquids in am. Likely send patient home on fulls vs soft diet 3. prn pain control, switch to PO and limit narcotics 4. OOB - encouraged ambulate in room and hallway as tolerated 5. incentive spirometry 6. replace electrolytes and monitor Na Will follow. Thank you, please call with questions. Subjective Date of service: 12/01/18 Narrative: Pt seen and examined. c/o occasional soreness at site of csection incision. No f/c. Tolerating clear liquids. NGT removed yesterday. Having Bms and passing flatus. No n/v. Has ambulated Objective Vital Signs - 12hr 12/01/18 12/01/18 12/01/18 06:13 08:36 12:13 Temperature 98.0 F 97.6 F 97.8 F Pulse Rate 75 97 H 100 H Respiratory 16 18 18 Rate Blood Pressure 148/81 117/79 134/84 O2 Sat by Pulse 96 98 99 Oximetry - General physical appearance Narrative Exam: Gen: AAOx3. NAD CV; s1, s2+ Resp; even and unlabored Abd: soft, distended, NT. no r/r/g. tympanic Ext; no c/c/e - Labs 11/30/18 04:09 12/01/18 05:08 Diabetes panel 12/01/18 12/01/18 Range/Units 05:08 05:08 Sodium 150 H (137-145) mmol/L Potassium 3.8 (3.6-5.0) mmol/L Chloride 116.3 H (98-107) mmol/L Carbon Dioxide 23 (22-30) mmol/L BUN 18 H (7-17) mg/dL Creatinine 1.0 (0.7-1.2) mg/dL Glucose 101 H (65-100) mg/dL Calcium 8.3 L (8.4-10.2) mg/dL AST 58 H (5-40) units/L ALT 165 H (7-56) units/L Alkaline Phosphatase 116 (35-129) units/L Total Protein 5.5 L (6.3-8.2) g/dL Albumin 2.8 L (3.9-5) g/dL Triglycerides 288 H (2-149) mg/dL Calcium panel 11/30/18 12/01/18 Range/Units 04:59 05:08 Calcium 8.3 L (8.4-10.2) mg/dL Phosphorus 3.30 D (2.5-4.5) mg/dL Albumin 2.8 L (3.9-5) g/dL Pituitary panel 12/01/18 Range/Units 05:08 Sodium 150 H (137-145) mmol/L Potassium 3.8 (3.6-5.0) mmol/L Chloride 116.3 H (98-107) mmol/L Carbon Dioxide 23 (22-30) mmol/L BUN 18 H (7-17) mg/dL Creatinine 1.0 (0.7-1.2) mg/dL Glucose 101 H (65-100) mg/dL Calcium 8.3 L (8.4-10.2) mg/dL Adrenal panel 12/01/18 Range/Units 05:08 Sodium 150 H (137-145) mmol/L Potassium 3.8 (3.6-5.0) mmol/L Chloride 116.3 H (98-107) mmol/L Carbon Dioxide 23 (22-30) mmol/L BUN 18 H (7-17) mg/dL Creatinine 1.0 (0.7-1.2) mg/dL Glucose 101 H (65-100) mg/dL Calcium 8.3 L (8.4-10.2) mg/dL Total Bilirubin 0.60 (0.1-1.2) mg/dL AST 58 H (5-40) units/L ALT 165 H (7-56) units/L Alkaline Phosphatase 116 (35-129) units/L Total Protein 5.5 L (6.3-8.2) g/dL Albumin 2.8 L (3.9-5) g/dL
[2018-12-02 04:49] LABS: BUN/Creatinine Ratio 11; Blood Urea Nitrogen 11 mg/dL (7-17); Calcium 7.7 mg/dL (8.4-10.2); Hemolysis Index 9
[2018-12-02] MEDS: PROTONIX PO SCH ×2 (08:53→10:05)
--- NOTE | 2018-12-02 10:35 | Progress Note ---
Assessment and Plan Acute resp failure s/p intubated 11/25, placed on vent - likely ARDS with Pulmonary edema- noncardiogenic, pulmonary following - Patient was given Lasix, Echo reports a normal left ventricular size and function LVEF 45-50%. - s/p extubation on 11/28 Nausea/vomiting with abdominal distension - NPO, s/p NG suction on clamped, serial abdominal xry - shows distended bowels w/o free air - CT abdomen showed extensive colonic dilatation, consulted GS - no surgical intervention needed - tolerating diet now Labile blood pressure Sinus tachycardia s/p on 11/24/18 GBS positive History of herpes simplex 2 History of preeclampsia MIRIAN probably ATN from hypotension Leukocytosis - Continue supportive care Nephrology following, monitor BMP Routine pulm toileting Cardiology following Pulmonology following On Empiric Cefepime , ID following DVT PPX on Lovenox Medically stable for discharge. Brief History: 38-year-old female who is s/p on 11/24/18. Patient was transferred to IMCU for management of pulmonary edema. Chest x-ray showed mild cardiomegaly and pulmonary edema. She was given lasix. On night of 11/25, worse respiratory distress, rapid response team called and she was intubated put on vent. Also now has MIRIAN, managed by nephrology. Pulmonary edema thought to be non cardiogenic, likely ARDS. Patient transferred to ICU, extubated on 11/28. Now developed N/V/abdominal distension since the day of extubation. CT abdomen showed extensive colonic dilatation with gas, no obstruction, surgery recommended medical Mx. d/c planning per primary Hospitalist Physical Gen: Not in acute distress, lying in bed, HEENT: Normocephalic, atraumatic Neck: supple, no JVD Heart: S1 and S2 reg, no murmurs, rubs or gallop Lungs: no Bilateral crackles, no wheeze Abd: soft, non tender, distended, + BS Ext: No edema, no clubbing, no cyanosis, Neuro: arouseable, follows commands, moves all ext Subjective Date of service: 12/02/18 Principal diagnosis: 1) POD #4 S/P 1LTCS 2)gestatinal hypertension 3) acute resp failur Interval history: Patient seen and examined no N/V, having BM no abdominal pain Objective - Constitutional Vitals: Vital Signs - 12hr 07/12/19 07/13/19 23:15 03:47 Temperature 97.9 F 98.0 F Pulse Rate 82 80 Respiratory 20 20 Rate Blood Pressure 130/74 130/85 O2 Sat by Pulse 97 97 Oximetry - Labs CBC & Chem 7: 11/30/18 04:09 12/02/18 04:14 Labs: Abnormal lab results 12/01/18 12/01/18 12/02/18 Range/Units 13:24 17:09 04:14 Potassium 3.5 L (3.6-5.0) mmol/L Chloride 109.4 H (98-107) mmol/L Glucose 103 H (65-100) mg/dL POC Glucose 141 H 111 H (70-105) Calcium 7.7 L (8.4-10.2) mg/dL 12/02/18 Range/Units 06:07 Potassium (3.6-5.0) mmol/L Chloride (98-107) mmol/L Glucose (65-100) mg/dL POC Glucose 114 H (70-105) Calcium (8.4-10.2) mg/dL
[2018-12-02] MEDS ORDERED: K-DUR PO ONE ×2 (11:00→14:00)
--- NOTE | 2018-12-02 11:08 | Progress Note ---
Assessment and Plan - Patient Problems (1) Nausea & vomiting Current Visit: Yes Status: Acute Plan to address problem: Pt stable. Issue appears resolved. Having BMs today. Rec: 1) Ok to d/c home from our perspective 2) If home today, stay on full liquid diet for a few days and then advance as tolerated 3) If home tomorrow or later, will advance to soft diet tonight and assess tolerance tomorrow 4) Ambulate 5) f/u with Gen Surg prn Please call with questions. Time=10min Subjective Date of service: 12/02/18 Patient Reports: Positive: no new complaints, feels better, tolerating liquids well, bowel movement. Negative: nausea, vomiting Objective Vital Signs - 12hr 12/01/18 12/02/18 23:15 03:47 Temperature 97.9 F 98.0 F Pulse Rate 82 80 Respiratory 20 20 Rate Blood Pressure 130/74 130/85 O2 Sat by Pulse 97 97 Oximetry - General physical appearance no distress, no pain, other (looks well) - Eyes normal occular movement - Abdomen soft, not tender, bowel sounds hypoactive, distended (mild), not guarding, not rigid - Integumentary no rash, no growths, no abnormal pigmentation - Psychiatric oriented to time, oriented to person, oriented to place, speech is normal, memory intact - Labs 11/30/18 04:09 12/02/18 04:14 Diabetes panel 12/02/18 Range/Units 04:14 Sodium 143 (137-145) mmol/L Potassium 3.5 L (3.6-5.0) mmol/L Chloride 109.4 H (98-107) mmol/L Carbon Dioxide 25 (22-30) mmol/L BUN 11 (7-17) mg/dL Creatinine 1.0 (0.7-1.2) mg/dL Glucose 103 H (65-100) mg/dL Calcium 7.7 L (8.4-10.2) mg/dL Calcium panel 12/02/18 Range/Units 04:14 Calcium 7.7 L (8.4-10.2) mg/dL Pituitary panel 12/02/18 Range/Units 04:14 Sodium 143 (137-145) mmol/L Potassium 3.5 L (3.6-5.0) mmol/L Chloride 109.4 H (98-107) mmol/L Carbon Dioxide 25 (22-30) mmol/L BUN 11 (7-17) mg/dL Creatinine 1.0 (0.7-1.2) mg/dL Glucose 103 H (65-100) mg/dL Calcium 7.7 L (8.4-10.2) mg/dL Adrenal panel 12/02/18 Range/Units 04:14 Sodium 143 (137-145) mmol/L Potassium 3.5 L (3.6-5.0) mmol/L Chloride 109.4 H (98-107) mmol/L Carbon Dioxide 25 (22-30) mmol/L BUN 11 (7-17) mg/dL Creatinine 1.0 (0.7-1.2) mg/dL Glucose 103 H (65-100) mg/dL Calcium 7.7 L (8.4-10.2) mg/dL
--- NOTE | 2018-12-02 12:03 | Progress Note ---
Assessment and Plan - Patient Problems (1) Acute respiratory failure Current Visit: Yes Status: Resolved Qualifiers: Respiratory failure complication: hypoxia Qualified Code(s): J96.01 - Acute respiratory failure with hypoxia (2) Acute renal failure Current Visit: Yes Status: Resolved Qualifiers: Acute renal failure type: with acute tubular necrosis Qualified Code(s): N17.0 - Acute kidney failure with tubular necrosis (3) delivery delivered Current Visit: Yes Status: Acute Plan to address problem: POD#8 doing well Will allow home if ok'd by nephrology-waiting for call back (4) Pulmonary edema Current Visit: Yes Status: Resolved (5) Gestational hypertension Current Visit: Yes Status: Resolved Qualifiers: Trimester: third trimester Qualified Code(s): O13.3 - Gestational [-induced] hypertension without significant proteinuria, third trimester (6) Hypokalemia Current Visit: Yes Status: Acute (7) Elevated LFTs Current Visit: Yes Status: Acute (8) Gestational diabetes Current Visit: Yes Status: Acute (9) Rh negative, delivered, current hospitalization Current Visit: Yes Status: Acute (10) 38 weeks gestation of Current Visit: Yes Status: Resolved (11) Positive GBS test Current Visit: Yes Status: Resolved Subjective - Subjective Date of service: 12/02/18 Principal diagnosis: 1) POD #8 S/P 1LTCS 2)s/p acute resp/renal failure Interval history: No complaints, no bleeding, desires d/c home today Patient reports: appetite normal, voiding normally, pain well controlled, flatus, bowel movement, ambulating normally Objective - Vital Signs Latest vital signs: Vital Signs Temp Pulse Resp BP Pulse Ox 12/02/18 03:47 98.0 F 80 20 130/85 97 12/01/18 23:15 97.9 F 82 20 130/74 97 12/01/18 21:50 100 12/01/18 19:54 98.1 F 81 20 148/86 99 12/01/18 17:05 97.8 F 94 H 18 151/88 97 12/01/18 16:00 101 H 12/01/18 12:13 97.8 F 100 H 18 134/84 99 Intake and Output 12/01/18 12/02/18 12/02/18 22:59 06:59 14:59 Intake Total 620 620 Balance 620 620 Intake: Oral 500 620 Intake, Free Water 120 Other: Intake, Other Source Saline Solution Total, Intake Amount 240 620 Voiding Method Toilet Toilet # Voids Indwelling Catheter 1 Void 3 # Bowel Movements 0 Weight 77.111 kg - Exam Breasts: Present: normal. Absent: swelling, discharge, pain, engorged Lungs: Present: Clear to auscultation, Normal air movement Abdomen: Present: soft, distention, normal bowel sounds. Absent: tenderness, guarding Uterus: Absent: tenderness Extremities: Present: normal. Absent: tenderness, edema Incision: Present: normal, dry, intact (steristrips removed, no s/s infection) - Labs Labs: Abnormal lab results 12/01/18 12/01/18 12/02/18 Range/Units 13:24 17:09 04:14 Potassium 3.5 L (3.6-5.0) mmol/L Chloride 109.4 H (98-107) mmol/L Glucose 103 H (65-100) mg/dL POC Glucose 141 H 111 H (70-105) Calcium 7.7 L (8.4-10.2) mg/dL 12/02/18 Range/Units 06:07 Potassium (3.6-5.0) mmol/L Chloride (98-107) mmol/L Glucose (65-100) mg/dL POC Glucose 114 H (70-105) Calcium (8.4-10.2) mg/dL
--- NOTE | 2018-12-02 12:45 | Progress Note ---
Assessment and Plan S/P Acute Pulmonary edema: Now resolved Acute renal failure: Now resolved Acute respiratory failure: Now resolved Elevated troponin: Non specific Pre-eclampsia Echo reports a normal left ventricular size and low normal function with LVEF 45-50%. Recommend: OK to discharge from cardiac perspective. Outpatient f/u with Dr. Echevarria within 1-2 weeks Subjective Date of service: 12/02/18 Principal diagnosis: 1) POD #8 S/P 1LTCS 2)s/p acute resp/renal failure Interval history: No cardiac complaints and anxious to go home Objective Vital Signs Temp Pulse Resp BP Pulse Ox 12/02/18 03:47 98.0 F 80 20 130/85 97 12/01/18 23:15 97.9 F 82 20 130/74 97 12/01/18 21:50 100 12/01/18 19:54 98.1 F 81 20 148/86 99 12/01/18 17:05 97.8 F 94 H 18 151/88 97 12/01/18 16:00 101 H - Physical Examination General: No Apparent Distress HEENT: Positive: PERRL Neck: Positive: trachea midline Lungs: Positive: clear to auscultation, Normal Breath Sounds Neuro: Positive: Grossly Intact Abdomen: Positive: Other (post C/S surgery) Skin: Positive: Clear Incision: Cardiac Cath Site Musculoskeletal: No Pain, Normal Range of Motion Extremities: Absent: edema - Labs and Meds Comprehensive Metabolic Panel 12/02/18 Range/Units 04:14 Sodium 143 (137-145) mmol/L Potassium 3.5 L (3.6-5.0) mmol/L Chloride 109.4 H (98-107) mmol/L Carbon Dioxide 25 (22-30) mmol/L BUN 11 (7-17) mg/dL Creatinine 1.0 (0.7-1.2) mg/dL Glucose 103 H (65-100) mg/dL Calcium 7.7 L (8.4-10.2) mg/dL
--- NOTE | 2018-12-02 13:59 | Progress Note ---
Assessment and Plan - Patient Problems (1) Acute renal failure Current Visit: Yes Status: Resolved Qualifiers: Acute renal failure type: with acute tubular necrosis Qualified Code(s): N17.0 - Acute kidney failure with tubular necrosis Plan to address problem: Acute renal failure resolved Labile blood pressures with hypotension with concern for tubular necrosis Continue supportive care Avoid nephro toxic medications Current creatinine 1.0 mg/dl (2) Pulmonary edema Current Visit: Yes Status: Resolved Plan to address problem: Pulmonary edema Has improved significantly Still has lower extremity edema We'll use compression stockings Sodium restriction (3) Gestational diabetes Current Visit: Yes Status: Acute Plan to address problem: Gestational diabetes Monitor fingersticks at risk for diabetes type 2 (4) Hypokalemia Current Visit: Yes Status: Acute Plan to address problem: Hypokalemia received 40 mEq potassium chloride Subjective Principal diagnosis: 1) POD #4 S/P 1LTCS 2)gestatinal hypertension 3) acute resp failur Interval history: 38-year-old lady with medical history significant for gestational diabetes, with pulmonary edema post delivery requiring diuretics still has lower extremity edema Patient is anxious to be discharged today Denies any orthopnea PND Denies any exertional dyspnea Objective - Vital Signs Vital signs: Vital Signs - 12hr 12/02/18 03:47 Temperature 98.0 F Pulse Rate 80 Respiratory 20 Rate Blood Pressure 130/85 O2 Sat by Pulse 97 Oximetry - General Appearance General appearance: well-developed, well-nourished EENT: ATNC, PERRL Neck: no JVD Respiratory: Present: Clear to Ascultation Cardiology: regular, S1S2 Gastrointestinal: normal, normoactive bowel sounds Integumentary: no rash Neurologic: alert and oriented x3, CN 3-12 intact Psychiatric: mood/affect appropriate - Lab 11/30/18 04:09 12/02/18 04:14 Most recent lab results Calcium 7.7 mg/dL (8.4-10.2) L 12/02/18 04:14 Phosphorus 3.30 mg/dL (2.5-4.5) D 11/30/18 04:59 Magnesium 2.20 mg/dL (1.7-2.3) 11/30/18 04:59 34.9 mg/dL (0.1-20.0) H 11/26/18 10:19 39 mmol/L 11/29/18 16:40 - Imaging Chest x-ray: image reviewed Medications & Allergies - Medications Allergies/Adverse Reactions: Allergies No Known Allergies Allergy (Verified 11/23/18 19:31) Home Medications: Home Medications Medication Instructions Recorded Confirmed Last Taken Type traMADol [Ultram 50 MG tab] 50 mg PO Q6HR PRN #20 tablet 12/02/18 Unknown Rx Active Medications: Generic Name Dose Route Start Last Admin Trade Name Freq PRN Reason Stop Dose Admin Albuterol 2.5 mg 11/29/18 00:12 Proventil IH Q4HRT PRN Shortness Of Breath Dextrose 1,000 mls @ 60 mls/hr 12/01/18 10:00 12/01/18 14:11 D5w IV 60 mls/hr DIRECT YING Administration Magnesium Hydroxide 30 ml 11/24/18 23:16 Milk Of Magnesia PO Q4H PRN Constipation Metoclopramide HCl 10 mg 11/30/18 19:55 Reglan PO Q6H PRN Nausea And Vomiting Morphine Sulfate 2 mg 12/01/18 00:16 12/01/18 00:44 Morphine IV 2 mg Q4H PRN Administration Pain, Moderate (4-6) Multi-Ingred Cream/Lotion/Oil/Oint 1 applic 11/25/18 22:12 Artificial Tears Ophth Oint OU Q4HR PRN Dry Eye(s) Multi-Ingredient Ointment 1 applic 11/24/18 23:16 Lansinoh TP PRN PRN dryness/cracking Pantoprazole Sodium 40 mg 12/01/18 10:00 12/02/18 10:05 Protonix PO Not Given BID YING Potassium Chloride 40 meq 12/02/18 14:00 12/02/18 13:19 K-Dur PO 12/02/18 14:01 40 meq ONCE ONE Administration Tramadol HCl 50 mg 12/01/18 14:42 12/01/18 22:06 Ultram PO 50 mg Q6H PRN Administration Pain, Moderate (4-6) Witch Faiza/Glycerin 1 each 11/24/18 23:16 Tucks Pad TP PRN PRN Hemorrhoids/cleansing/soothing
--- NOTE | 2018-12-02 15:55 | Discharge Summary ---
Providers - Providers Date of Admission: 11/24/18 19:31 Date of discharge: 12/02/18 Attending physician: CECIL MONTENEGRO 11/24/18 21:49 Consult to Physician [CONS] Urgent Comment: Consulting Provider: JT RODRIGUEZ Physician Instructions: Reason For Exam: pulmonary edema, labile BP's 11/24/18 23:16 Consult to Crepe Sole Scourer [CONS] Routine Reason For Exam: 11/24/18 23:38 Consult to Physician [CONS] Routine Comment: Consulting Provider: GURWINDER ESPINO Physician Instructions: Reason For Exam: pulmonary edema s/p csection 11/25/18 22:12 Consult to Dietitian/Nutrition [CONS] Routine Physician Instructions: Reason For Exam: Reason for Consult: Evaluate nutritional intake 11/26/18 08:07 Consult to Physician [CONS] Urgent Comment: Consulting Provider: BRONSON AGGARWAL Physician Instructions: Reason For Exam: acute renal failure 11/26/18 11:18 Consult to Physician [CONS] Routine Comment: Consulting Provider: ISAAC RODRIGUEZ Physician Instructions: Reason For Exam: Leukocytosis,recent on 11/2411/30/18 12:08 Consult to Physician [CONS] Routine Comment: Consulting Provider: TIO SANDERS Physician Instructions: Reason For Exam: distended colon with n/v Primary care physician: CECIL MONTENEGRO Hospitalization Condition: Good Hospital course: This is a 38-year-old female 1 now para 1 who presented to labor and delivery complaining of contractions. Her evaluation revealed an SATYA of 5 cm and elevated blood pressures. The decision was made to admit and start induction of labor for oligohydramnios and gestational hypertension. Patient progressed to 5 cm however during her labor course she developed pulmonary edema. She received 20 of Lasix IV. She had no cervical pipe changer a six-hour period and decision was made to proceed with delivery. She was immediately transferred to the IMCU where she remained stable overnight however on postop day #1 patient had acute respiratory failure. She was intubated and moved to the ICU. During the ICU course she also experienced acute renal failure, non-oliguric. Her echocardiogram revealed grade 3 left ventricular diastolic dysfunction with an ejection fraction of 45-50%. Patient was extubated on postoperative day #3. She is also noted to have a distended abdomen for which she underwent a CT scan there really field distended colon however no evidence of obstruction or free air. She had an NG placed which remained until post operative day 7. Also noted patient had a slight elevation of LFTs and several episodes of hypokalemia for which she receives supplementation. Patient had stated improvement in her postoperative course. She was transferred to the surgical unit and allow clear liquids which were advanced to a regular diet after her NG was removed. She was voiding appropriately with normal L movements and flatus. By postoperative day 8 patient was stable for discharge. Disposition: DC-01 TO HOME OR SELFCARE - Discharge Diagnoses (1) Acute respiratory failure Status: Resolved Qualifiers: Respiratory failure complication: hypoxia Qualified Code(s): J96.01 - Acute respiratory failure with hypoxia (2) Acute renal failure Status: Resolved Qualifiers: Acute renal failure type: with acute tubular necrosis Qualified Code(s): N17.0 - Acute kidney failure with tubular necrosis (3) delivery delivered Status: Acute (4) Pulmonary edema Status: Resolved (5) Gestational hypertension Status: Resolved Qualifiers: Trimester: third trimester Qualified Code(s): O13.3 - Gestational [-induced] hypertension without significant proteinuria, third trimester (6) Hypokalemia Status: Acute (7) Elevated LFTs Status: Resolved (8) Gestational diabetes Status: Acute (9) Rh negative, delivered, current hospitalization Status: Acute (10) 38 weeks gestation of Status: Resolved (11) Positive GBS test Status: Resolved Core Measure Documentation - Palliative Care Palliative Care/ Comfort Measures: Not Applicable - Core Measures Any of the following diagnoses?: none Exam - Physical Exam Narrative exam: see earlier note - Constitutional Vitals: Temp Pulse Resp BP Pulse Ox 98.0 F 80 20 130/85 97 12/02/18 03:47 12/02/18 03:47 12/02/18 03:47 12/02/18 03:47 12/02/18 03:47 Plan Activity: other (no sex. No driving. Ambulate approximately 1 mile and a property a day. Void frequently to keep bladder empty.) Weight Bearing Status: Weight Bear as Tolerated Diet: low fat, low cholesterol, low salt, diabetic Wound: open to air, keep clean and dry Special Instructions: no heavy lifting (greater than 25 pounds) Follow up with: SUREKHA MARTIN MD [Staff Physician] - 7 Days DIAN PIERRE MD [Staff Physician] - 7 Days LISA SULLIVAN MD [Staff Physician] - 7 Days CECIL MONTENEGRO MD [Primary Care Provider] - 7 Days Prescriptions: traMADol [Ultram 50 MG tab] 50 mg PO Q6HR PRN #20 tablet PRN Reason: Pain
[2018-12-02 17:13] VITALS: BP 132/84
--- NOTE | 2018-12-02 17:13 | Progress Note ---
Assessment and Plan Imp: 1. S/p for intrauterine at 38 weeks 2. Pulmonary edema -> probably combined cardiogenic and non-cardiogenic (rapid yet incomplete improvement), the former perhaps related to periods of elevated BP/IVFs and the latter of ? etiology (DDx includes aspiration, sepsis, AFE) 3. Acute respiratory failure, hypoxia 4. MIRIAN 5. Thrombocytopenia of ? etiology 6. Ileus 7. Hypernatremia 8. Hypokalemia 9. Transaminitis 10. Anion-gap metabolic acidosis, presumed related to #4 at this point 11. ? Acute pancreatitis Rec: 1. Cultures are negative; CT a/p shows RLL infiltrate, possibly aspiration; completed a course of Cefipime per ID, and respiratory status is improving, so agree w/ holding further ABX for now 2. On RA; monitor respiratory status 3. SCDs while in bed; ambulatory now 4. Would optimize blood pressure given grade III diastolic dysfunction noted in Echo report 5. Drastically improved pulmonary-barajas and she can go home from our standpoint; we could see her in 1-2 weeks and do one more CXR to ensure total resolution of infiltrates (d/w Dr. Mane) Plan of care reviewed w/ family in detail, they understand/agree; all questions have been answered Subjective Date of service: 12/02/18 Principal diagnosis: 1) POD #4 S/P 1LTCS 2)gestatinal hypertension 3) acute resp failur Interval history: On RA. No SOB, chest pain, wheezing, N/V. Ambulating. Tolerating regular diet now. OOB to chair. Active Medications Albuterol (Proventil) 2.5 mg IH Q4HRT PRN PRN Reason: Shortness Of Breath Dextrose (D5w) 1,000 mls @ 60 mls/hr IV DIRECT YING Last Admin: 12/01/18 14:11 Dose: 60 mls/hr Documented by: Magnesium Hydroxide (Milk Of Magnesia) 30 ml PO Q4H PRN PRN Reason: Constipation Metoclopramide HCl (Reglan) 10 mg PO Q6H PRN PRN Reason: Nausea And Vomiting Morphine Sulfate (Morphine) 2 mg IV Q4H PRN PRN Reason: Pain, Moderate (4-6) Last Admin: 12/01/18 00:44 Dose: 2 mg Documented by: Multi-Ingred Cream/Lotion/Oil/Oint (Artificial Tears Ophth Oint) 1 applic OU Q4HR PRN PRN Reason: Dry Eye(s) Multi-Ingredient Ointment (Lansinoh) 1 applic TP PRN PRN PRN Reason: dryness/cracking Pantoprazole Sodium (Protonix) 40 mg PO BID YING Last Admin: 12/02/18 10:05 Dose: Not Given Documented by: Tramadol HCl (Ultram) 50 mg PO Q6H PRN PRN Reason: Pain, Moderate (4-6) Last Admin: 12/01/18 22:06 Dose: 50 mg Documented by: Nathanael Kendall/Glycerin (Tucks Pad) 1 each TP PRN PRN PRN Reason: Hemorrhoids/cleansing/soothing Objective Constitutional: no acute distress, alert Eyes: non-icteric ENT: oropharynx moist Neck: supple Effort: normal Ascultation: Bilateral: clear Cardiovascular: regular rate and rhythm (no mrg) Gastrointestinal: normoactive bowel sounds, soft, other (distended, mildly TTP; no guarding/rebound) Integumentary: normal Extremities: no cyanosis, no edema, pink and warm Neurologic: normal mental status, non-focal exam, pupils equal and round, CN II- XII normal Psychiatric: mood appropriate, affect normal CBC and BMP: 11/30/18 04:09 12/02/18 04:14 ABG, PT/INR, D-dimer: ABG POC ABG pH 7.400 (7.35-7.45) 11/28/18 12:57 POC ABG pCO2 30.6 (35-45) L 11/28/18 12:57 POC ABG pO2 125 (80-105) H 11/28/18 12:57 POC ABG HCO3 19.0 (22-26 mml/L) 11/28/18 12:57 POC ABG Total CO2 20 (23-27mmol/L) 11/28/18 12:57 POC ABG O2 Sat 99 11/28/18 12:57 PT/INR, D-dimer PT 13.2 Sec. (12.2-14.9) 11/27/18 14:24 INR 1.03 (0.87-1.13) 11/27/18 14:24 > 72880 ng/mlDDU (0-234) H 11/27/18 14:24 Abnormal lab findings: Abnormal Labs 11/23/18 11/24/18 11/24/18 19:45 16:12 16:12 WBC 12.3 H 16.3 H RBC Hgb Hct MCHC RDW 16.9 H 16.6 H Plt Count Lymph % (Auto) Floyd % (Auto) Lymph # Floyd # Seg Neutrophils % Seg Neuts % (Manual) Lymphocytes % (Manual) Seg Neutrophils # Seg Neutrophils # Man APTT Fibrinogen D-Dimer POC ABG pH POC ABG pCO2 POC ABG pO2 Sodium Potassium Chloride Carbon Dioxide BUN Creatinine 0.5 L Glucose POC Glucose Calcium Phosphorus Magnesium Direct Bilirubin AST ALT Lactate Dehydrogenase 248 H Total Creatine Kinase CK-MB (CK-2) CK-MB (CK-2) Rel Index Troponin T C-Reactive Protein NT-Pro-B Natriuret Pep Total Protein Albumin Triglycerides Cholesterol HDL Cholesterol Lipase Urine WBC (Auto) Urine Creatinine Miscellaneous Test 11/24/18 11/24/18 11/24/18 23:41 23:41 23:41 WBC 18.3 H RBC Hgb Hct MCHC RDW 16.6 H Plt Count Lymph % (Auto) 3.5 L Floyd % (Auto) 7.7 H Lymph # 0.6 L Floyd # 1.4 H Seg Neutrophils % 88.7 H Seg Neuts % (Manual) Lymphocytes % (Manual) Seg Neutrophils # 16.2 H Seg Neutrophils # Man APTT Fibrinogen D-Dimer POC ABG pH POC ABG pCO2 POC ABG pO2 Sodium Potassium Chloride Carbon Dioxide BUN Creatinine Glucose POC Glucose Calcium Phosphorus Magnesium Direct Bilirubin AST ALT Lactate Dehydrogenase Total Creatine Kinase CK-MB (CK-2) CK-MB (CK-2) Rel Index Troponin T 0.274 H* C-Reactive Protein NT-Pro-B Natriuret Pep 5198 H Total Protein Albumin Triglycerides 540 H Cholesterol 291 H HDL Cholesterol 60 H Lipase Urine WBC (Auto) Urine Creatinine Miscellaneous Test 11/24/18 11/25/18 11/25/18 23:41 04:40 04:40 WBC RBC Hgb Hct MCHC RDW Plt Count Lymph % (Auto) [place] % (Auto) Lymph # [place] # Seg Neutrophils % Seg Neuts % (Manual) Lymphocytes % (Manual) Seg Neutrophils # Seg Neutrophils # Man APTT Fibrinogen D-Dimer POC ABG pH POC ABG pCO2 POC ABG pO2 Sodium Potassium Chloride 108.3 H Carbon Dioxide 21 L BUN Creatinine Glucose 195 H POC Glucose Calcium 7.7 L Phosphorus Magnesium Direct Bilirubin AST ALT Lactate Dehydrogenase Total Creatine Kinase 155 H CK-MB (CK-2) 11.4 H CK-MB (CK-2) Rel Index 7.3 H Troponin T 0.177 H* D C-Reactive Protein NT-Pro-B Natriuret Pep Total Protein Albumin Triglycerides Cholesterol HDL Cholesterol Lipase Urine WBC (Auto) Urine Creatinine Miscellaneous Test 11/25/18 11/25/18 11/25/18 08:35 09:47 22:35 WBC 20.8 H RBC Hgb Hct MCHC RDW 17.2 H Plt Count Lymph % (Auto) [place] % (Auto) Lymph # [place] # Seg Neutrophils % Seg Neuts % (Manual) 79.0 H Lymphocytes % (Manual) 12.0 L Seg Neutrophils # Seg Neutrophils # Man 16.4 H APTT Fibrinogen D-Dimer POC ABG pH POC ABG pCO2 POC ABG pO2 Sodium Potassium Chloride Carbon Dioxide BUN Creatinine Glucose POC Glucose Calcium Phosphorus Magnesium Direct Bilirubin AST ALT Lactate Dehydrogenase Total Creatine Kinase CK-MB (CK-2) CK-MB (CK-2) Rel Index Troponin T 0.157 H* C-Reactive Protein NT-Pro-B Natriuret Pep Total Protein Albumin Triglycerides Cholesterol HDL Cholesterol Lipase Urine WBC (Auto) 37.0 H Urine Creatinine Miscellaneous Test 11/25/18 11/25/18 11/25/18 22:35 22:35 22:44 WBC RBC Hgb Hct MCHC RDW Plt Count Lymph % (Auto) [place] % (Auto) Lymph # [place] # Seg Neutrophils % Seg Neuts % (Manual) Lymphocytes % (Manual) Seg Neutrophils # Seg Neutrophils # Man APTT 20.7 L Fibrinogen D-Dimer POC ABG pH 7.046 L POC ABG pCO2 > 70 H POC ABG pO2 62 L Sodium Potassium Chloride Carbon Dioxide BUN Creatinine Glucose POC Glucose Calcium Phosphorus Magnesium Direct Bilirubin AST ALT Lactate Dehydrogenase Total Creatine Kinase 267 H CK-MB (CK-2) 9.7 H CK-MB (CK-2) Rel Index Troponin T 0.313 H* D C-Reactive Protein NT-Pro-B Natriuret Pep Total Protein Albumin Triglycerides Cholesterol HDL Cholesterol Lipase Urine WBC (Auto) Urine Creatinine Miscellaneous Test 11/26/18 11/26/18 11/26/18 00:03 01:24 04:28 WBC RBC Hgb Hct MCHC RDW Plt Count Lymph % (Auto) [place] % (Auto) Lymph # [place] # Seg Neutrophils % Seg Neuts % (Manual) Lymphocytes % (Manual) Seg Neutrophils # Seg Neutrophils # Man APTT Fibrinogen D-Dimer POC ABG pH 7.246 L POC ABG pCO2 47.0 H POC ABG pO2 72 L Sodium Potassium Chloride Carbon Dioxide BUN Creatinine Glucose POC Glucose 152 H Calcium Phosphorus Magnesium Direct Bilirubin AST ALT Lactate Dehydrogenase Total Creatine Kinase CK-MB (CK-2) CK-MB (CK-2) Rel Index Troponin T 0.740 H* D C-Reactive Protein NT-Pro-B Natriuret Pep Total Protein Albumin Triglycerides Cholesterol HDL Cholesterol Lipase Urine WBC (Auto) Urine Creatinine Miscellaneous Test 11/26/18 11/26/18 11/26/18 05:33 05:53 10:19 WBC RBC Hgb Hct MCHC RDW Plt Count Lymph % (Auto) [place] % (Auto) Lymph # [place] # Seg Neutrophils % Seg Neuts % (Manual) Lymphocytes % (Manual) Seg Neutrophils # Seg Neutrophils # Man APTT Fibrinogen D-Dimer POC ABG pH 7.328 L POC ABG pCO2 POC ABG pO2 256 H Sodium Potassium Chloride Carbon Dioxide BUN Creatinine Glucose POC Glucose 153 H Calcium Phosphorus Magnesium Direct Bilirubin AST ALT Lactate Dehydrogenase Total Creatine Kinase CK-MB (CK-2) CK-MB (CK-2) Rel Index Troponin T C-Reactive Protein NT-Pro-B Natriuret Pep Total Protein Albumin Triglycerides Cholesterol HDL Cholesterol Lipase Urine WBC (Auto) Urine Creatinine 34.9 H Miscellaneous Test 11/26/18 11/26/18 11/26/18 10:38 10:38 12:43 WBC RBC Hgb Hct MCHC RDW Plt Count Lymph % (Auto) [place] % (Auto) Lymph # [place] # Seg Neutrophils % Seg Neuts % (Manual) Lymphocytes % (Manual) Seg Neutrophils # Seg Neutrophils # Man APTT Fibrinogen D-Dimer POC ABG pH POC ABG pCO2 POC ABG pO2 Sodium 134 L Potassium Chloride Carbon Dioxide 18 L BUN 21 H Creatinine 3.0 H Glucose 166 H POC Glucose Calcium 7.6 L Phosphorus Magnesium Direct Bilirubin AST ALT Lactate Dehydrogenase Total Creatine Kinase 431 H CK-MB (CK-2) CK-MB (CK-2) Rel Index Troponin T 0.473 H* D C-Reactive Protein NT-Pro-B Natriuret Pep 36575 H Total Protein Albumin Triglycerides Cholesterol HDL Cholesterol Lipase Urine WBC (Auto) Urine Creatinine Miscellaneous Test 11/26/18 11/26/18 11/26/18 12:43 13:02 14:11 WBC 16.1 H RBC 3.47 L Hgb Hct MCHC 35 H RDW 17.1 H Plt Count 129 L Lymph % (Auto) Floyd % (Auto) Lymph # [place] # Seg Neutrophils % Seg Neuts % (Manual) Lymphocytes % (Manual) Seg Neutrophils # Seg Neutrophils # Man APTT Fibrinogen D-Dimer POC ABG pH POC ABG pCO2 POC ABG pO2 Sodium Potassium Chloride Carbon Dioxide BUN Creatinine Glucose POC Glucose 163 H Calcium Phosphorus Magnesium Direct Bilirubin AST ALT Lactate Dehydrogenase Total Creatine Kinase CK-MB (CK-2) CK-MB (CK-2) Rel Index Troponin T C-Reactive Protein 14.60 H NT-Pro-B Natriuret Pep Total Protein Albumin Triglycerides Cholesterol HDL Cholesterol Lipase Urine WBC (Auto) Urine Creatinine Miscellaneous Test 11/26/18 11/26/18 11/26/18 17:39 23:02 Unknown WBC RBC Hgb Hct MCHC RDW Plt Count Lymph % (Auto) [place] % (Auto) Lymph # [place] # Seg Neutrophils % Seg Neuts % (Manual) Lymphocytes % (Manual) Seg Neutrophils # Seg Neutrophils # Man APTT Fibrinogen D-Dimer POC ABG pH POC ABG pCO2 POC ABG pO2 Sodium 134 L D Potassium Chloride 97.9 L Carbon Dioxide 18 L BUN Creatinine 2.3 H D Glucose 225 H POC Glucose 162 H 155 H Calcium 7.4 L Phosphorus Magnesium Direct Bilirubin AST ALT Lactate Dehydrogenase Total Creatine Kinase CK-MB (CK-2) CK-MB (CK-2) Rel Index Troponin T C-Reactive Protein NT-Pro-B Natriuret Pep Total Protein Albumin Triglycerides Cholesterol HDL Cholesterol Lipase Urine WBC (Auto) Urine Creatinine Miscellaneous Test 11/27/18 11/27/18 11/27/18 03:44 03:44 05:07 WBC 14.8 H RBC 3.12 L Hgb 9.8 L Hct 28.5 L MCHC RDW 17.5 H Plt Count 127 L Lymph % (Auto) [place] % (Auto) Lymph # [place] # Seg Neutrophils % Seg Neuts % (Manual) Lymphocytes % (Manual) Seg Neutrophils # Seg Neutrophils # Man APTT Fibrinogen D-Dimer POC ABG pH POC ABG pCO2 POC ABG pO2 114 H Sodium Potassium 3.0 L Chloride Carbon Dioxide 18 L BUN 28 H Creatinine 3.1 H Glucose 139 H POC Glucose Calcium 7.7 L Phosphorus Magnesium Direct Bilirubin AST ALT Lactate Dehydrogenase Total Creatine Kinase CK-MB (CK-2) CK-MB (CK-2) Rel Index Troponin T C-Reactive Protein NT-Pro-B Natriuret Pep Total Protein 5.3 L Albumin 2.5 L Triglycerides Cholesterol HDL Cholesterol Lipase Urine WBC (Auto) Urine Creatinine Miscellaneous Test 11/27/18 11/27/18 11/27/18 05:36 05:37 12:45 WBC RBC Hgb Hct MCHC RDW Plt Count Lymph % (Auto) [place] % (Auto) Lymph # [place] # Seg Neutrophils % Seg Neuts % (Manual) Lymphocytes % (Manual) Seg Neutrophils # Seg Neutrophils # Man APTT Fibrinogen D-Dimer POC ABG pH POC ABG pCO2 POC ABG pO2 Sodium Potassium Chloride Carbon Dioxide BUN Creatinine Glucose POC Glucose 151 H 170 H Calcium Phosphorus Magnesium Direct Bilirubin AST ALT Lactate Dehydrogenase Total Creatine Kinase CK-MB (CK-2) CK-MB (CK-2) Rel Index Troponin T C-Reactive Protein NT-Pro-B Natriuret Pep Total Protein Albumin Triglycerides Cholesterol HDL Cholesterol Lipase Urine WBC (Auto) Urine Creatinine Miscellaneous Test Flexitest 1 H 11/27/18 11/27/18 11/27/18 14:24 18:05 23:41 WBC RBC Hgb Hct MCHC RDW Plt Count Lymph % (Auto) [place] % (Auto) Lymph # [place] # Seg Neutrophils % Seg Neuts % (Manual) Lymphocytes % (Manual) Seg Neutrophils # Seg Neutrophils # Man APTT 21.7 L Fibrinogen 586 H D-Dimer > 64569 H POC ABG pH POC ABG pCO2 POC ABG pO2 Sodium Potassium Chloride Carbon Dioxide BUN Creatinine Glucose POC Glucose 168 H 149 H Calcium Phosphorus Magnesium Direct Bilirubin AST ALT Lactate Dehydrogenase Total Creatine Kinase CK-MB (CK-2) CK-MB (CK-2) Rel Index Troponin T C-Reactive Protein NT-Pro-B Natriuret Pep Total Protein Albumin Triglycerides Cholesterol HDL Cholesterol Lipase Urine WBC (Auto) Urine Creatinine Miscellaneous Test 11/28/18 11/28/18 11/28/18 04:13 04:29 04:29 WBC 17.7 H RBC Hgb Hct MCHC RDW 17.3 H Plt Count Lymph % (Auto) 5.9 L [place] % (Auto) 8.2 H Lymph # 1.0 L [place] # 1.4 H Seg Neutrophils % 85.6 H Seg Neuts % (Manual) Lymphocytes % (Manual) Seg Neutrophils # 15.2 H Seg Neutrophils # Man APTT Fibrinogen D-Dimer POC ABG pH POC ABG pCO2 < 30 L POC ABG pO2 122 H Sodium 146 H D Potassium 2.8 L* Chloride 108.9 H Carbon Dioxide 17 L BUN 33 H Creatinine 2.3 H Glucose 146 H POC Glucose Calcium Phosphorus Magnesium Direct Bilirubin AST 82 H ALT 83 H Lactate Dehydrogenase Total Creatine Kinase CK-MB (CK-2) CK-MB (CK-2) Rel Index Troponin T C-Reactive Protein NT-Pro-B Natriuret Pep Total Protein 6.2 L Albumin 2.6 L Triglycerides Cholesterol HDL Cholesterol Lipase Urine WBC (Auto) Urine Creatinine Miscellaneous Test 11/28/18 11/28/18 11/28/18 05:26 12:33 12:57 WBC RBC Hgb Hct MCHC RDW Plt Count Lymph % (Auto) [place] % (Auto) Lymph # [place] # Seg Neutrophils % Seg Neuts % (Manual) Lymphocytes % (Manual) Seg Neutrophils # Seg Neutrophils # Man APTT Fibrinogen D-Dimer POC ABG pH POC ABG pCO2 30.6 L POC ABG pO2 125 H Sodium Potassium Chloride Carbon Dioxide BUN Creatinine Glucose POC Glucose 138 H 140 H Calcium Phosphorus Magnesium Direct Bilirubin AST ALT Lactate Dehydrogenase Total Creatine Kinase CK-MB (CK-2) CK-MB (CK-2) Rel Index Troponin T C-Reactive Protein NT-Pro-B Natriuret Pep Total Protein Albumin Triglycerides Cholesterol HDL Cholesterol Lipase Urine WBC (Auto) Urine Creatinine Miscellaneous Test 11/28/18 11/28/18 11/28/18 18:22 19:02 19:02 WBC RBC Hgb Hct MCHC RDW Plt Count Lymph % (Auto) [place] % (Auto) Lymph # [place] # Seg Neutrophils % Seg Neuts % (Manual) Lymphocytes % (Manual) Seg Neutrophils # Seg Neutrophils # Man APTT Fibrinogen D-Dimer POC ABG pH POC ABG pCO2 POC ABG pO2 Sodium Potassium 3.5 L D 3.5 L Chloride 111.4 H Carbon Dioxide 17 L BUN 32 H Creatinine 1.7 H Glucose 156 H POC Glucose 156 H Calcium Phosphorus Magnesium Direct Bilirubin AST ALT Lactate Dehydrogenase Total Creatine Kinase CK-MB (CK-2) CK-MB (CK-2) Rel Index Troponin T C-Reactive Protein NT-Pro-B Natriuret Pep Total Protein Albumin Triglycerides Cholesterol HDL Cholesterol Lipase Urine WBC (Auto) Urine Creatinine Miscellaneous Test 11/29/18 11/29/18 11/29/18 03:55 03:55 03:55 WBC RBC Hgb Hct MCHC RDW Plt Count Lymph % (Auto) [place] % (Auto) Lymph # [place] # Seg Neutrophils % Seg Neuts % (Manual) Lymphocytes % (Manual) Seg Neutrophils # Seg Neutrophils # Man APTT Fibrinogen D-Dimer POC ABG pH POC ABG pCO2 POC ABG pO2 Sodium 150 H Potassium 3.1 L Chloride 115.2 H Carbon Dioxide 20 L BUN 31 H Creatinine 1.6 H Glucose 139 H POC Glucose Calcium Phosphorus 2.20 L Magnesium 2.40 H Direct Bilirubin 0.4 H AST 120 H ALT 175 H Lactate Dehydrogenase Total Creatine Kinase CK-MB (CK-2) CK-MB (CK-2) Rel Index Troponin T C-Reactive Protein NT-Pro-B Natriuret Pep Total Protein 5.6 L Albumin 2.8 L Triglycerides Cholesterol HDL Cholesterol Lipase 170 H Urine WBC (Auto) Urine Creatinine Miscellaneous Test 11/29/18 11/29/18 11/29/18 06:04 11:34 17:10 WBC RBC Hgb Hct MCHC RDW Plt Count Lymph % (Auto) [place] % (Auto) Lymph # [place] # Seg Neutrophils % Seg Neuts % (Manual) Lymphocytes % (Manual) Seg Neutrophils # Seg Neutrophils # Man APTT Fibrinogen D-Dimer POC ABG pH POC ABG pCO2 POC ABG pO2 Sodium Potassium Chloride Carbon Dioxide BUN Creatinine Glucose POC Glucose 125 H 139 H 165 H Calcium Phosphorus Magnesium Direct Bilirubin AST ALT Lactate Dehydrogenase Total Creatine Kinase CK-MB (CK-2) CK-MB (CK-2) Rel Index Troponin T C-Reactive Protein NT-Pro-B Natriuret Pep Total Protein Albumin Triglycerides Cholesterol HDL Cholesterol Lipase Urine WBC (Auto) Urine Creatinine Miscellaneous Test 11/30/18 11/30/18 11/30/18 04:09 04:09 04:09 WBC 11.5 H RBC 3.64 L Hgb Hct MCHC RDW 17.9 H Plt Count Lymph % (Auto) 11.5 L [place] % (Auto) 11.5 H Lymph # [place] # 1.3 H Seg Neutrophils % 74.0 H Seg Neuts % (Manual) Lymphocytes % (Manual) Seg Neutrophils # 8.5 H Seg Neutrophils # Man APTT Fibrinogen D-Dimer POC ABG pH POC ABG pCO2 POC ABG pO2 Sodium 152 H Potassium 3.2 L Chloride 116.9 H Carbon Dioxide BUN 24 H Creatinine Glucose 146 H POC Glucose Calcium 8.2 L Phosphorus Magnesium Direct Bilirubin 0.3 H AST 112 H ALT 200 H Lactate Dehydrogenase Total Creatine Kinase CK-MB (CK-2) CK-MB (CK-2) Rel Index Troponin T C-Reactive Protein NT-Pro-B Natriuret Pep Total Protein 5.6 L Albumin 2.7 L Triglycerides Cholesterol HDL Cholesterol Lipase Urine WBC (Auto) Urine Creatinine Miscellaneous Test 11/30/18 12/01/18 12/01/18 05:32 01:43 05:08 WBC RBC Hgb Hct MCHC RDW Plt Count Lymph % (Auto) [place] % (Auto) Lymph # [place] # Seg Neutrophils % Seg Neuts % (Manual) Lymphocytes % (Manual) Seg Neutrophils # Seg Neutrophils # Man APTT Fibrinogen D-Dimer POC ABG pH POC ABG pCO2 POC ABG pO2 Sodium 150 H Potassium Chloride 116.3 H Carbon Dioxide BUN 18 H Creatinine Glucose 101 H POC Glucose 141 H 123 H Calcium 8.3 L Phosphorus Magnesium Direct Bilirubin AST 58 H ALT 165 H Lactate Dehydrogenase Total Creatine Kinase CK-MB (CK-2) CK-MB (CK-2) Rel Index Troponin T C-Reactive Protein NT-Pro-B Natriuret Pep Total Protein 5.5 L Albumin 2.8 L Triglycerides Cholesterol HDL Cholesterol Lipase Urine WBC (Auto) Urine Creatinine Miscellaneous Test 12/01/18 12/01/18 12/01/18 05:08 13:24 17:09 WBC RBC Hgb Hct MCHC RDW Plt Count Lymph % (Auto) [place] % (Auto) Lymph # [place] # Seg Neutrophils % Seg Neuts % (Manual) Lymphocytes % (Manual) Seg Neutrophils # Seg Neutrophils # Man APTT Fibrinogen D-Dimer POC ABG pH POC ABG pCO2 POC ABG pO2 Sodium Potassium Chloride Carbon Dioxide BUN Creatinine Glucose POC Glucose 141 H 111 H Calcium Phosphorus Magnesium Direct Bilirubin AST ALT Lactate Dehydrogenase Total Creatine Kinase CK-MB (CK-2) CK-MB (CK-2) Rel Index Troponin T C-Reactive Protein NT-Pro-B Natriuret Pep Total Protein Albumin Triglycerides 288 H Cholesterol HDL Cholesterol Lipase 399 H Urine WBC (Auto) Urine Creatinine Miscellaneous Test 12/02/18 12/02/18 12/02/18 04:14 06:07 12:04 WBC RBC Hgb Hct MCHC RDW Plt Count Lymph % (Auto) [place] % (Auto) Lymph # [place] # Seg Neutrophils % Seg Neuts % (Manual) Lymphocytes % (Manual) Seg Neutrophils # Seg Neutrophils # Man APTT Fibrinogen D-Dimer POC ABG pH POC ABG pCO2 POC ABG pO2 Sodium Potassium 3.5 L Chloride 109.4 H Carbon Dioxide BUN Creatinine Glucose 103 H POC Glucose 114 H 130 H Calcium 7.7 L Phosphorus Magnesium Direct Bilirubin AST ALT Lactate Dehydrogenase Total Creatine Kinase CK-MB (CK-2) CK-MB (CK-2) Rel Index Troponin T C-Reactive Protein NT-Pro-B Natriuret Pep Total Protein Albumin Triglycerides Cholesterol HDL Cholesterol Lipase Urine WBC (Auto) Urine Creatinine Miscellaneous Test Chest x-ray: report reviewed, image reviewed
== END 2018-12-02 18:15 | disposition home or self-care (01) | DRG 786 ==
LOC: TRG 17:46 → UNDOADMOB 19:31 → LD 19:31 → INTOOBSV 11-24 09:38 → OBSVTOIN 11-24 09:38 → LD 11-24 19:31 → UNDOADMOB 11-24 19:31 → INTOOBSV 11-24 19:31 → IMCU 11-24 23:16 → CC1 11-25 22:32 → OB 11-30 15:29 → 3B-SURG 11-30 22:42
PROVIDERS: ADMIT Obstetrics & Gynecology; ATTEND Obstetrics & Gynecology
PROC: 10D00Z1 Extraction of Products of Conception, Low, Open Approach (ICD-10-PCS; principal; 2018-11-24)
PROC: 10H07YZ Insertion of Other Device into Products of Conception, Via Natural or Artificial Opening (ICD-10-PCS; 2018-11-24)
PROC: 5A1945Z Respiratory Ventilation, 24-96 Consecutive Hours (ICD-10-PCS; 2018-11-25)
PROC: 0BH17EZ Insertion of Endotracheal Airway into Trachea, Via Natural or Artificial Opening (ICD-10-PCS; 2018-11-25)
PROC: 4A033R1 Measurement of Arterial Saturation, Peripheral, Percutaneous Approach (ICD-10-PCS; 2018-11-25)
PROC: 3E0234Z Introduction of Serum, Toxoid and Vaccine into Muscle, Percutaneous Approach (ICD-10-PCS; 2018-11-26)
PROC: 0D9670Z Drainage of Stomach with Drainage Device, Via Natural or Artificial Opening (ICD-10-PCS; 2018-11-28)
PROC: 3E0334Z Introduction of Serum, Toxoid and Vaccine into Peripheral Vein, Percutaneous Approach (ICD-10-PCS; 2018-11-30)
DX: O13.4 Gestational [pregnancy-induced] hypertension without significant proteinuria, complicating childbirth (principal); N17.0 Acute kidney failure with tubular necrosis; J96.02 Acute respiratory failure with hypercapnia; J96.01 Acute respiratory failure with hypoxia; A41.9 Sepsis, unspecified organism; R65.21 Severe sepsis with septic shock; E87.0 Hyperosmolality and hypernatremia; K56.7 Ileus, unspecified; O90.3 Peripartum cardiomyopathy; O75.3 Other infection during labor; O90.4 Postpartum acute kidney failure; O76 Abnormality in fetal heart rate and rhythm complicating labor and delivery; O99.62 Diseases of the digestive system complicating childbirth; O99.52 Diseases of the respiratory system complicating childbirth; O99.344 Other mental disorders complicating childbirth; O99.314 Alcohol use complicating childbirth; O26.893 Other specified pregnancy related conditions, third trimester; E87.6 Hypokalemia; O99.824 Streptococcus B carrier state complicating childbirth; O99.89 Other specified diseases and conditions complicating pregnancy, childbirth and the puerperium; R00.1 Bradycardia, unspecified; O24.420 Gestational diabetes mellitus in childbirth, diet controlled; F41.9 Anxiety disorder, unspecified; K21.9 Gastro-esophageal reflux disease without esophagitis; Z3A.38 38 weeks gestation of pregnancy; Z37.0 Single live birth; Z72.89 Other problems related to lifestyle; Z67.41 Type O blood, Rh negative; Z23 Encounter for immunization
CPT/HCPCS: 36415; 36600; 71045; 74018; 74176; 76770; 76815; 76819; 80048; 80053; 80061; 80076; 81001; 82140; 82550; 82553; 82565; 82570; 82803; 82962; 83615; 83690; 83735; 83880; 83930; 83935; 84100; 84132; 84300; 84450; 84460; 84478; 84484; 84550; 85007; 85014; 85018; 85025; 85027; 85379; 85384; 85461; 85610; 85730; 86140; 86592; 86850; 86900; 86901; 87040; 87070; 87086; 87205; 88307; 90715; 93005; 93010; 93306; 93970; 94002; 94003; 94640; 94760; G0378; C1765; C9113; J0171; J0290; J0330; J0360; J0690; J0692; J1100; J1200; J1940; J2250; J2270; J2274; J2370; J2405; J2543; J2590; J2765; J2790; J2930; J3010; J3370; J3480; J7040; J7070; J7120